=== PATIENT | female | born 1970 | race Caucasian/White ===

== ENCOUNTER 2025-03-25 20:06 | Inpatient (IN) | payer OTHER, BC, SELFPAY ==
--- OUTSIDE RECORDS SUMMARY | 2025-03-01 09:00 | XMS_ITS | Encounter Summary ---
Author Organization [facility] Address [address] [place] [address] Care Team Providers Care Entertainer & Comic Name Role Phone Won Franz MD Unavailable [phone] No Ref-Primary, Physician Primary Care Provider Moira Burkett MD Unavailable [phone] Molly Viveros MD Unavailable [phone] Liane Lawson MD Unavailable [phone] Reason for Visit * Reason Comments Scleritis Follow Up Anterior scleritis o f both eyes Encounter Details Date Type Department Care Team (Late st Contact Info) Description 03/01/2025 9:00 AM CDT Office Visit [facility] [address] [place] [address] Liane Lawson MD [address] [place] [address] CME (cystoid macular edema), bilateral (Primary Dx); Epiretinal membrane (ERM) of left eye; Anterior scleritis of both eyes; Chronic anterior uveitis of both eyes Social History Tobacco Use Types Packs/Day Years Used Date Smoking Tobacco: Former Cigarettes 0.5 13 0 05/13/1995 - 05/13/2008 Smokeless Tobacco: Never Alcohol Use Standard Drinks/Week Comments Yes 0 (1 standard drink = 0.6 oz pur e alcohol) Humiliation, Afraid, Rape, and Kick questionnair e Answer Date Recorded Within the last year, have y ou been afraid of your partner or ex-partner? No 08/28/2022 Within the last year, have y ou been humiliated or emotionally abused in other ways by your partner or ex-partner? No Within the last year, have y ou been kicked, hit, slapped, or otherwise physically hurt by your partner or ex-partner? No 08/28/2022 Within the last year, have y ou been raped or forced to have any kind of sexual activity by your partner or ex-partner? No 08/28/2022 PHQ-2 Answer Date Recorded PHQ-2 Score 0 03/01/2025 Adolescent Education Answer Date Record ed Getting School Help Needed Not on file 05/14 Comments No Sex and Gender Information Value Date Recorded Sex Assigned at Female 12/05/2021 10:23 AM CDT Legal Sex Female 4:36 AM GALLERY OR MUSEUM GUIDE Gender Identity Female 12/05/2021 10:23 AM CDT Sexual Orientation Not on file documented as of this encounter Progress Notes * Liane Lawson MD - 03/01/2025 9:00 AM CDT HPI: Sun Reese is a 54 year old female with a history of rheumatoid arthritis here for followup of scleritis/anterior uveitis left eye > right eye and uveitic cystoid macular edema left eye. Mrs. Reese reports no eye concerns or changes today; currently slowly tapering oral prednisone. Vision is good and stable. No eye redness. Ocular/immunosuppressive medications: Humira qwk (started 03.01.18, increased to qweek mid-Aug 2018,interruptions in Sep 2020 around time of COVID-19 vaccination), CellCept 1000 mg in am and 1500 mg in pm (started 11.24.18, increased to 1000 mg twice a day 12.16.18, increased to 1500 mg twice a day 04.24, decreased to 1000/1500 05.09.22), prednisone 3 mg/day, Predforte right eye once daily, Restasistwice a day both eyes, Cosopt two times a day left eye, brimonidine twice a day left eye. IMT managed by Dr. Moira Burkett (rheum). Prior ocular/immunosuppressive medications: Durezol, cyclopentolate (stopped in February 2018), Enbrel (stopped February 2018), timolol, latanoprost, methotrexate (nausea with oral formulation). Ocular history: 1. Chronic anterior uveitis both eyes, Sep 2017 - both eyes became red and painful with blurry vision left eye. - Started shortly after missing about 2 months of Enbrel (Sep 2017), which was held because of chronic/recurrent systemic infections - October 2017: anterior uveitis and episcleritis both eyes and started Predforte q3-4hr both eyes. At the end of October she was prescribed oral prednisone for the ocular inflammation (started at 20-30 mg/day and tapered over 2.5 months). - December/January 2018: eye symptoms were much worse and she had severe, aching pain, which improved with a switch from Predforte to Durezol every hour both eyes in January 2018. - Switched from Enbrel to Humira 7.17.18. 2. Nodular episcleritis both eyes, Sep 2017. 3. Scleritis left eye > right eye. - Superior yellow nodule left eye first seen May 2019 and resolved Jul 2019, per Dr. Bentley Caputo, less worrisome for infection/lymphoma and more likely lipid from leaking vessels/rheumatoid nodule; resolved with increased oral prednisone and switch from Predforte to Durezol. 4. S/p myopic laser in situ keratomileusis (LASIK) both eyes in 2002 5. Pseudophakia both eyes - S/p CEIOL left eye (6.22.21, Franz) s/p YAG capsulotomy left eye (7.19.23, Franz) - S/p CEIOL right eye (8.1.23, Franz) 6. Steroid response right eye. Steroid-induced glaucoma left eye. - S/p Selective laser trabeculoplasty (SLT) left eye (3.8.24, Shelenoitglenna) Medical history: 1. Rheumatoid arthritis, diagnosed at age 26 years. 2. S/p ankle surgery (2011). 3. HTN on lisinopril. Social history: Former smoker (quit in 2007). 2-3 alcoholic beverages/week. No IV drug use. Has a dog as a pet. Patient has never lived outside the [place]. Laboratory/Imaging Results: 02.07.15 and 06.13.18 chest x-rays: both read as within normal limits. 06.02.18 Quantiferon-Tb and Treponemal Ab both normal/negative. Ocular Imagin03.01.25 mac OCT: Right eye: no cystoid macular edema, retinal thickness stable compared to 10.27.24 Left eye: minimal epiretinal membrane, no cystoid macular edema, retinal thickness stable compared to 10.27.24 07.23.23 24-2 garcía visual field (HVF): Right eye: mild, non-specific scattered defects, MD -1.2; PSD 2.0 Left eye: dense nasal loss (superior and inferior), also with inferior arcuate, MD -20.5; PSD 8.6 09.03.2023 retinal nerve fiber layer OCT: Right eye: all segments within normal limits and stable Left eye: thin TS/TI, borderline NS, other segments within normal limits, progression vs 04/2022, stable vs 04/202305.08.22 Optos fluorescein angiography transit left eye: Right eye: mild peripheral vascular leakage, late small vessel leakage, minimal macular leakage. Nooptic nerve head or large vessel leakage. Left eye: Normal transit. Mild peripheral vascular leakage, late small vessel leakage, minimal macular leakage, questionable late optic nerve head leakage. No large vessel leakage. 05.08.22 Optos ICGA transit right eye: no flow voids either eye Impression/Plan: RA-associated chronic scleritis / anterior uveitis (with inflammatory disc edema and retinal thickening) left eye > right eye, with history of uveitic cystoid macular edema both eyes. Quiescent both eyes today. Uveitic cystoid macular edema remains resolved both eyes today. - Continue weekly Humira - Continue CellCept 1000 mg in am and 1500 mg in pm - Continue Predforte once daily right eye - Oral prednisone currently at 3 mg/day (this is lower than patient's pre-CEIOL baseline of 7 mg/day); given extended quiescence, will continue slow taper -> decrease oral prednisone to 2 mg/day - No change to IMT agents today; in future could consider switch to Remicade if additional inflammatory control is required 2. Ocular hypertension right eye, presumed steroid response. Severe stage uveitic glaucoma left eye. There was progression left eye on retinal nerve fiber layer OCT 04/2022 -> 04/2023 (intraocular pressure max was 43 left eye 8.11.23 in setting of topical steroid use after YAG capsulotomy: durezoltwice a day left eye and Cosopt twice a day left eye). - Intraocular pressure left eye higher today than previously; patient seeing Dr. Viveros later today - Continue Cosopt twice a day left eye and brimonidine twice a day left eye 3. Dry eye syndrome both eyes. - Restasis twice a day both eyes 4. Pseudophakia both eyes, doing well. - Monitor Return to uveitis clinic in 3-4 months, V/T/mac OCT Fax to Dr. Burkett. Attending Physician Attestation: Complete documentation of historical and exam elements from today's encounter can be found in the full encounter summary report (not reduplicated in this progress note). I personally obtained the chief complaint(s) and history of present illness. I confirmed and edited as necessary the review of systems, past medical/surgical history, family history, social history, and examination findings as documented by others; and I examined the patient myself. I personallyreviewed the relevant tests, images, and reports as documented above. I formulated and edited as necessary the assessment and plan and discussed the findings and management plan with the patient and family. - Liane Lawson M.D. documented in this encounter Plan of Treatment Upcoming Encounters Date Type Department Care Team (Late st Contact Info) Description 04/12/2025 1:30 PM CDT Office Visit [facility] [place] [id number] [facility] [address] [facility] [address] [place] [address] Francisco Dennis, OD [address] [place] [address] 06/21/2025 9:30 AM GALLERY OR MUSEUM GUIDE Office Visit [facility] [address] [facility] [address] [place] [address] Liane Lawson MD [address] [place] [address] documented as of this encounter Procedures Procedure Name Priority Date/Time Associated Diagnosis Comments OCT RETINA SPECTRALIS OU (BOTH EYE) Routine 03/01/2025 12:44 PM CDT CME (cystoid macular edema), bilateral Epiretinal membrane (ERM) of left eye documented in this encounter Results * OCT Retina Spectralis OU (both eyes) (03/01/2025 12:44 PM CDT) Narrative Liane Lawson MD - 03/01/2025 12:44 PM CDT Performed by: wt . Right Eye Reliability of the test: Good . Findings normal/abnormal: Normal OCT . Interpretation: Normal . Plan: Monitor . Interval: Same . Left Eye Reliability of the test: Good . Findings normal/abnormal: Abnormal OCT . Additional findings: ERM . Interpretation: Retinal disease . Plan: Monitor . Interval: Same . Liane Lawson MD OPHTHALMOLOGY Final Res ult documented in this encounter Visit Diagnoses Diagnosis CME (cystoid macular edema), bilateral- Primary Epiretinal membrane (ERM) of left eye 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 Chronic anterior uveitis of both eyes documented in this encounter Additional Health Concerns Assessment Noted Time PHQ-9 Depression Total Score: 0 05/30/20 21 11:17 AM CDT documented as of this encounter Care Teams Entertainer & Comic Relationship Specialty Start Date End Date No Ref-Primary, Physician PCP - General 04/20/18 Won Franz MD [facility]Y [facility] [address] [place], [place] [address] Ophthalmology 04/20/18 Moira Burkett MD ARTHRITIS RHEUM CONSULTS [address] [place] [id number] Rheumatology 05/20/18 Molly Viveros MD [address] [place] [address] [phone] Assigned Surgical Provider 12/06/24 Liane Lawson MD [address] [place] [phone] Ophthalmology 01/25/25 documented as of this encounter
--- OUTSIDE RECORDS SUMMARY | 2025-03-01 12:45 | XMS_ITS | Encounter Summary ---
Author Organization [facility] Address [address] [place] [address]. [place] [address] Care Team Providers Care Criminal Justice Instructor Name Role Phone Won Franz MD Unavailable [phone] No Ref-Primary, Physician Primary Care Provider Moira Burkett MD Unavailable [phone] Molly Viveros MD Unavailable [phone] Liane Lawson MD Unavailable [phone] Reason for Visit * Reason Comments Glaucoma Follow Up Uveitic glaucoma of left eye, severe stage Encounter Details Date Type Department Care Team (Late st Contact Info) Description 03/01/2025 12:45 PM CDT Office Visit [facility] [address] [place] [address] Molly Viveros MD [address] [place] [address] Uveitic glaucoma of left eye, severe stage (Primary Dx); Chronic anterior uveitis of both eyes Social [...] AM CDT Legal Sex Female 4:36 AM COMPRESS MACHINE OPERATOR Gender Identity Female 12/05/2021 10:23 AM CDT Sexual Orientation Not on file documented as of this encounter Progress Notes * Molly Viveros MD - 03/01/2025 12:45 PM CDT 2017 diagnosed with anterior uveitis 2019 developed ocular hypertension left eye Chief Complaint/Presenting Concern: Glaucoma History of Present Illness: Sun Reese is a 54 year old patient who presents for evaluation of glaucoma. Patient was diagnosed with chronic anterior uveitis in 2018 which has been managed by Dr. Lawson. She developed ocular hypertension mostly in the left eye related to topical steroid use starting in 2019 which has been managed by Dr. Lawson. 03/01/2025 Reports left eye vision stable. No visual concerns right eye. No changes from Dr. Lawson appt earlier today. Relevant Past Medical/Family/Social History: Rheumatoid arthritis on Humira and Cellcept Relevant Review of Systems: none relevant Diagnosis: Glaucoma secondary to eye inflammation severe stage left eye 2019 Previous glaucoma surgery/laser: CEIOL left eye 2020 CEIOL right eye 2022 SLT left eye 10/22/23 Maximum intraocular pressure 33/43 Currently Meds: Cosopt BID left eye, Latanoprost at bedtime left eye, Brimonidine BID left eye, Pred forte once daily right eye Family history: negative CCT 567/661 Gonio: open right eye, ?PAS superiorly otherwise open all other quadrants Refractive status: Axial myopia Trauma history: negative Steroid exposure: positive Pred forte once daily right eye, oral Prednisone 7 mg daily Vasospastic disease: Migrane/Raynaud phenomenon: negative A past hemodynamic crisis or Low BP: negative Meds AEs/intolerance: none PMHx: rheumatoid arthritis, does have sulfa allergy (severe itching) Anticoagulants: none OCT Optic Nerve RNFL Spectralis 11/16/24 right eye: normal thickness, mild thinning diffusely compared to last OCT, possibly fluctuating edema? left eye: inferior and superior thinning, progressed since 2021, stable since last OCT Visual field 11/16/24 Right eye - nasal defect Left eye - dense inferior>superior arcuate, very constricted VF Additional Ocular History: Chronic anterior uveitis, both eyes History of scleritis, both eyes Pseudophakia History of Lasik early Plan/Recommendations: Discussed findings with patient. Patient has severe glaucoma secondary to ocular inflammation in the left eye and steroid response in the left eye. Good response to IOP lowering drops, would aim for low teens given severity of the ONH damage. Would avoid filtration surgery and tube shunt surgery given extensive surgery scleral thinning and scleral melt. Discussed options including trial of SLT. Can consider stand-alone iStent vs OMNI or light BLOOD BANK SPECIALIST if IOP is not at goal. s/p left eye SLT October 22, 2023, excellent response IOP todaty elevated left eye, discussed the option of repeat SLT versus Canlopsty/Goniotomy. Patient prefers repeat SLT before proceeding with surgery. Risk and benefit of SLT including the risk of IOP spike discussed with the patient, wishes to proceed. SLT performed today to the left eye, refer to procedure note. Continue uveitis management per Dr. Lawson Continue current medications: Cosopt twice daily in the left eye Brimonidine twice daily in the left eye Latanoprost at bedtime in the left eye (good response) Pred forte once daily right eye RTC 6 weeks [facility], iOP Everett Perez MD Resident Physician, PGY-3 Department of Ophthalmology 03/01/2025 1:14 PM Physician Attestation Attending Physician Attestation: Complete documentation of historical [...] images, and reports as documented above. I personally reviewed the ophthalmic test(s) associated with this encounter, agree with the interpretation(s) as documented by the resident/fellow and have edited the corresponding report(s) as necessary. I formulated and edited as necessary the assessment and plan and discussed the findings and management plan with the patientand any family members present at the time of the visit. Molly Viveros M.D., Glaucoma, March 01, 2025 documented in this encounter Plan of Treatment Upcoming Encounters Date Type Department Care Team (Late st Contact Info) Description 04/12/2025 1:30 PM CDT Office Visit [facility] - [address] [address] Francisco Dennis, OD [address] [place] [address] 06/21/2025 9:30 AM COMPRESS MACHINE OPERATOR Office Visit [facility] - [address] [address] Liane Lawson MD [address] [place] [address] documented as of this encounter Procedures Procedure Name Priority Date/Time Associated Diagnosis Comments SELECTIVE LASER TRABECULOPLASTY (SLT) OS (LEFT EYE) Routine 03/01/2025 3:42 PM CDT Uveitic glaucoma of left eye, 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 documented in this encounter Results * Selective Laser Trabeculoplasty (SLT) OS (left eye) (03/01/2025 3:42 PM CDT) Molly Fuentes MD - 03/01/2025 3:42 PM CDT Brief Operative Note: Date of Service: March 01, 2025 Attending: Molly Viveros M.D. Preoperative diagnosis: Glaucoma, left eye Postoperative diagnosis: same Procedure: Selective laser trabeculoplasty left eye Anesthesia: Topical lidocaine Complications: none After informed consent was obtained, the patient was brought to the [facility] laser room and given one drop of proparacaine. The goniolens was used to view the trabecular meshwork. Selective laser trabeculoplasty was performed 270 degrees using 0.5 mJ for power setting; 80 laser pinon were placed. The patient tolerated the procedure well. There were no complications. The patient was given one drop of Iopodine and was asked to return in one hour for intraocular pressure check. If the intraocular pressure was less than 22, the patient was allowed to leave. Molly Grajeda M.D. was the responsible Attending Physician for this clinic visit. This was performed by myself without complication. Molly Viveros MD OPHTHALMOLOGY Edited Result - Final documented in this encounter Visit Diagnoses Diagnosis Uveitic glaucoma of left eye, severe stage- Primary Chronic anterior uveitis of both eyes documented in this encounter Additional Health Concerns Assessment Noted Time PHQ-9 Depression Total Score: 0 05/30/20 21 11:17 AM CDT documented as of this encounter Care Teams Criminal Justice Instructor Relationship Specialty Start Date End Date No Ref-Primary, Physician PCP - General 04/20/18 Won Franz MD [facility]Y [facility] [address] [place] [address] Ophthalmology 04/20/18 Moira Burkett MD ARTHRITIS RHEUM CONSULTS [address] [place] [address] Rheumatology 05/20/18 Molly Viveros MD [address] [place] [address] [phone] Assigned Surgical Provider 12/06/24 Liane Lawson MD [address] [place] [address] [phone] Ophthalmology 01/25/25 documented as of this encounter
[2025-03-25] VITALS (9 sets, daily range): BP systolic 95–123; BP diastolic 60–82; PULSE 85–101; RESP 14–20; TEMP 37.6; O2SAT 90–95; BMI 26.5
--- OUTSIDE RECORDS SUMMARY | 2025-03-25 20:09 | XMS_ITS | Encounter Summary ---
Author Organization [facility] Address [address] [place] [address] Care Team Providers Care Adjunct Lecturer Name Role Phone Won Franz MD Unavailable [phone] No Ref-Primary, Physician Primary Care Provider Liane Lawson MD Unavailable [phone] Moira Burkett MD Unavailable [phone] Liane Lawson MD Unavailable [phone] Molly Viveros MD Unavailable [phone] Liane Lawson MD Unavailable [phone] Reason for Visit * Reason Comments Medication Refill Encounter Details Date Type Department Care Team (Late st Contact Info) Description 11/22/2019 [facility] [place] [address] [facility] [address] [place] [phone] Liane Lawson MD [address] [place] [id number] Medication Refill Social History Tobacco Use Types Packs/Day Years Used Date Smoking Tobacco: Former Cigarettes 0.5 13 0 05/13/1995 - 05/13/2008 Smokeless Tobacco: Never Alcohol Use Standard Drinks/Week Comments Yes 0 (1 standard drink = 0.6 oz pur e alcohol) PHQ-2 Answer Date Recorded PHQ-2 Score 0 12/16/2018 Comments No Sex and Gender Information Value Date Recorded Sex Assigned at Female 12/05/2021 10:23 AM CDT Legal Sex Female 4:36 AM LICENSED THERAPIST Gender Identity Female 12/05/2021 10:23 AM CDT Sexual Orientation Not on file documented as of this encounter Miscellaneous Notes * Telephone Encounter - Mercy Gray RN - 11/23/2019 7:33 AM CDT predniSONE (DELTASONE) 5 MG tablet Last Written Prescription Date: 10/27/19 Last Fill Quantity:169 # refills: 0 Last Office Visit : 10/27/19 Future Office visit: 12/15/19 Continue oral prednisone at 17.5 mg/day for 2 more weeks, then decrease to 15 mg/day Routing refill request to provider for review/approval because: requested is different from med list. Not on protocol. documented in this encounter Plan of Treatment Upcoming Encounters Date Type Department Care Team (Late st Contact Info) Description 04/12/2025 1:30 PM CDT Office Visit [address] [address] Francisco Dennis, OD [address] [place] [address] 06/21/2025 9:30 AM LICENSED THERAPIST Office Visit [address] [address] Liane Lawson MD [address] [place] [address] documented as of this encounter Visit Diagnoses Diagnosis Chronic anterior uveitis of both eyes Anterior scleritis of left eye Anterior scleritis documented in this encounter Additional Health Concerns Assessment Noted Time PHQ-9 Depression Total Score: 0 04/21/20 19 11:35 AM CDT documented as of this encounter Care Teams Adjunct Lecturer Relationship Specialty Start Date End Date No Ref-Primary, Physician PCP - General 04/20/18 Won Franz MD [facility]Y [facility] [address] [place] [address] Ophthalmology 04/20/18 Liane Lawson MD Ophthalmology 04/20/18 01/24/25 Moira Burkett MD ARTHRITIS RHEUM CONSULTS [address] [address] Rheumatology 05/20/18 Liane Lawson MD [address] [place] [address] Assigned Surgical Provider 06/07/20 Molly Viveros MD [address] [place] [address] Assigned Surgical Provider 12/06/24 Liane Lawson MD [address] [place] [address] Ophthalmology 01/25/25 documented as of this encounter
--- OUTSIDE RECORDS SUMMARY | 2025-03-25 20:09 | XMS_ITS | Clinical Summary ---
Author Organization [facility] Address [address] [place] [address] Care Team Providers Care Science Liaison Name Role Phone Moira Burkett MD Unavailable Sharmin Covington MD Primary Care Provider Allergies Active Allergy Reactions Criticality Noted Date Comments Bupropion 11/07/2004 wellbutrin Sulfasalazine 11/07/2004 Medications adalimumab (HUMIRA PEN) 40 mg/0.8 mL injection See Admin Instructions EVERY WEEK 03/01/20 18 Active cycloSPORINE (RESTASIS) 0.05 % ophthalmic emulsion Place 1 Drop into the eye(s). 10/29/19 19 Active mycophenolate (CELLCEPT) 500 mg tablet TAKE 2 TABS (1000MG) IN THE MORNING AND 2 TABS (1000MG) IN THE EVENING 5 01/11/20 19 Active difluprednate (DUREZOL) 0.05 % ophthalmic emulsion Place 1 Drop into the eye(s). 05/19/20 19 Active durable medical equipment (DME)Indications: Elevated blood pressure reading without diagnosis of hypertension Blood pressure cuff and machine 1 Each 01/28/20 21 Active Additional Information Patient not taking.Reported on 2025 predniSONE (DELTASONE) 5 mg tablet Take 1 Tablet (5 mg) by mouth once daily. 05/08/20 24 Active brimonidine 0.025 % ophthalmic solution Place 1 Drop into left eye once daily. Active rosuvastatin (CRESTOR) 10 mg tabletIndications :Coronary artery calcification Take 1 Tablet (10 mg) by mouth once daily. 90 Tablet 3 05/08/20 24 Active venlafaxine (EFFEXOR XR) 37.5 mg Extended-Release capsuleIndication s:Anxiety,Depress micheal disorder Take 1 Capsule (37.5 mg) by mouth once daily with a meal. Take with food 100 Capsule 3 09/12/19 25 Active amoxicillin 500 mg capsuleIndication s:Acute cough,Fever, unspecified fever cause Take 2 Capsules (1,000 mg) by mouth three times daily for 5 days. 30 Capsule 03/23/20 25 025 Active Active Problems Problem Noted Date Diagnosed Date Cervical cancer screening 09/27/2024 Overview (09/27/2024): 08/2024 NIL/HPV negative. Plan: Pap/HPV due 08/2029. Rheumatoid arthritis(714.0) 11/07/2004 Depressive disorder, not elsewhere classified Resolved Problems Problem Noted Date Diagnosed Date Resolved Date HTN (hypertension) 02/25/2021 Presbyopia 03/12/2017 11/19/2022 Hypermetropia of left eye 03/12/2017 Hyperopic astigmatism of right eye 03/12/2017 11/19/2022 Insufficiency of tear film of both eyes 03/12/2017 11/19/2022 Vitamin D deficiency 10/18/2013 023 Dysthymia 11/24/2012 11/19/2022 Infertility, female 08/07/2011 02/26/20 21 Overview (08/07/2011): Working with ELMER Bustillos Iron deficiency anemia, unspecified 08/27/2009 02/25/2021 Palpitations 09/30/2001 02/25/2021 Encounters Date Type Department Care Team Description 2025 8:25 AM CDT Ancillary Procedure [facility] [address] [place] [address] Arrived 2025 7:55 AM CDT Office Visit [facility] [address] [place] [address] Анна Rangel PA Fever (fever since Wednesday, 102 fever yesterday.); Headache (headache with fever) 2025 Travel from Last 3 Months Immunizations Immunization Administration Dates Next Due COVID-19 vaccine (Moderna 100mcg/0.5mL) PF, MDV 07/23/2021,10/11/2020,09/13/2020 Hepatitis B (Adult) 02/03/2006,11/03/2005 Hepatitis B (Peds) 09/28/2005 INFLUENZA, IIV3 PF (AGE >= 6 MO) 05/16/2024 Influenza, IIV3 (Age >=3 years) 05/16/2024 Influenza, IIV4 05/18/2023,,06/04/2021,2018 MMR 08/12/2011 Pneumococcal Conj 20-valent (Prevnar 20) 09/12/2024 Td (Age >=7 Years) 09/22/2005 Tdap 11/19/2022,09/21/2012 Zoster (Shingrix-RZV, recombinant) 12/11/2024, Family History Medical History Relation Name Comments Hypertension Brother Hyperlipidemia Father Other Father amyloidosis Cancer-breast Maternal Aunt Diabetes Maternal Grandfather Heart Disease Mother Hyperlipidemia Mother Hypertension Mother Cancer-breast Paternal Aunt Diabetes Paternal Grandfather Heart Disease Paternal Grandmother pacema ker Thyroid Disease Paternal Grandmother hypo thyroid Asthma Sister Anesthesia Problem No Family History Blood Disease No Family History Clotting disorder No Family History Relation Name Status Comments Brother Alive Father Maternal Aunt Maternal Grandfather Maternal Grandmother Mother Alive Paternal Aunt Paternal Grandfather Paternal Grandmother Alive Sister Alive Social History Tobacco Use Types Packs/Day Years Used Date Smoking Tobacco: Former Cigarettes 0.5 10 1 8 - 08/2007 Passive Smoke Exposure: Never Smokeless Tobacco: Never Tobacco Cessation:Counseling Given: Not Answered Alcohol Use Standard Drinks/Week Comments Yes 1 (1 standard drink = 0.6 oz pur e alcohol) 2-4 a week PHQ-2 Answer Date Recorded PHQ-2 TOTAL SCORE 0 09/12/2024 Social Connections Answer Date Recorded Do you often feel lonely or isolated from those around you? 0 09/12/2024 Financial Resource Strain Answer Date R ecorded Difficulty of Paying Living Expenses 3 09/12/2024 Difficulty of Paying Living Expenses Not on file 09/12/2024 Food Insecurity Answer Date Recorded Do you worry your food will run out before you are able to buy more? 1 09/12/2024 Transportation Needs Answer Date Record ed Does lack of transportation keep you from medica l appointments? 1 09/12/2024 Does lack of transportation keep you from work, meetings or getting things that you need? 1 09/12/2024 Housing Stability Answer Date Recorded What is your housing situation today? 1 09/12/2024 Utilities Answer Date Recorded Do you have trouble paying f or utilities (for example, heat, electricity, water, phone)? 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 Not on file Not on file Obstetrics History Para Term AB IAB SAB Ectopic Multiple Livin g Live Births 0 0 0 0 0 0 0 0 0 0 Last Filed Vital Signs Vital Sign Reading Time Taken Comments Blood Pressure 112/72 2025 8:04 AM CDT Pulse 83 2025 8:04 AM CDT Temperature 37.6 C (99.7 F) 2025 8:04 AM CDT Respiratory Rate 22 2025 8:08 AM CDT Oxygen Saturation 95% 2025 8:04 AM CDT Inhaled Oxygen Concentration - - Weight 72.8 kg (160 lb 6.4 oz) 09/12/2024 3:06 P M TANNING SALON ATTENDANT Height 164 cm (5' 4.57) 09/12/2024 3:06 PM TANNING SALON ATTENDANT Body Mass Index 27.05 09/12/2024 3:06 PM TANNING SALON ATTENDANT Plan of Treatment Upcoming Encounters Date Type Department Care Team (Late st Contact Info) Description 05/02/2025 3:30 PM CDT Office Visit [facility] [place] [address] [facility] [address] [place] [address] Conrad Hernandez MD [address] [facility] [address] [place] [id number] Health Maintenance Due Date Last Done Comments Hepatitis B series for 19+ ( 3 of 3 - 19+ 3-dose series) 05/06/2006 02/03/2006, 11/03/2005, 09/28/2005 Colonoscopy through age 75 2016 Mammogram for age 45-75 01/22/2024 01/22/20, 03/04/2021, 08/10/2019, Additional history exists COVID-19 vaccine series ( season) 2024 06/10/2022, 07/23/2021, 10/11/2020, Additional history exists Influenza Vaccine (#1) 2025 , 05/16/2024, 05/18/2023, Additional history exists BMI (ht and wt on same day) for age 18+ 09/12/2025 09/12/2024, 05/08/2024, 03/03/2023, Additional history exists Depression screening for age 12+ 09/12/2025 09/12/2024, 11/19/2022, 09/29/2021, Additional history exists Lipids for age 45-75 09/12/2029 09/12/2024, 11/19/2022, 02/25/2021, Additional history exists Pap test for age 21-65 09/12/2029 , 09/12/2024, 10/02/2019, Additional history exists Tetanus booster 11/19/2032 11/19/2022, 01/2013, 09/22/2005 Hepatitis C screening for ag e 18-79 Completed 09/22/2005 HIV for age 15-65 Completed 11/19/2022 Pneumococcal series for age 50+ Completed Zoster (shingles) series for age 50+ Completed 12/11/2024, 09/12/2024 Procedures Procedure Name Priority Date/Time Associated Diagnosis Comments COVID/FLU/RSV PANEL Routine 2025 1 1:41 AM CDT Acute cough Fever, unspecified fever cause XR CHEST 2 VIEWS PA AND LATERAL Routine 2025 8:31 AM CDT Acute cough Fever, unspecified fever cause LIPID PANEL W REFLEX MEASURED LDL Routine 09/12/2024 3:40 PM TANNING SALON ATTENDANT Screening, lipid RISK AND COMPLIANCE ANALYTICS DIRECTOR THIN PREP PAP SCREEN IMAGED Routine 09/12/2024 3:20 PM TANNING SALON ATTENDANT Pap smear for cervical cancer screening XR MAMMO SANJIV BILAT SCREEN Routine 01/21/2023 10:00 AM CDT Encounter for screening mammogram for malignant neoplasm of breast LC HIV-1/O/2, 4TH GENERATION Routine 11/19/2022 10:20 AM CDT Encounter for screening for HIV ANTI HCV Timed 09/22/2005 11:33 AM TANNING SALON ATTENDANT from Last 3 Months or Most Recently Relevant to Health Maintenance Results * COVID/FLU/RSV PANEL (2025 11:41 AM CDT) COVID 19 [facility] Negative Negative 2025 10:04 PM CDT [facility] LAB[facility]ORY INFLUENZA A PCR Negative 10:04 PM CDT [facility] INFLUENZA B PCR Negative 10:04 PM CDT [facility] LAB[facility] Respiratory Syncytial Virus Negative 2025 10:04 PM CDT [facility] TRAL LABORATORY Swab SPECIMEN FROM NASAL FOSSAE / Unknown Non-Blood / Unknown 2025 11:41 AM CDT 2025 11:41 AM CDT us Анна STONE MICROBIOLOGY Final Result [facility] [address] [place] [address], [place] * XR CHEST 2 VIEWS PA AND LATERAL (2025 8:31 AM CDT) Anatomical Region Laterality Modality CHEST, THORAX, Lung, HEART Compu ynes Radiography 2025 7:47 PM CDT Impressions 2025 7:47 PM CDT Dense opacification in the left lung apex, probable pneumonia. However, recommend follow-up chest x-ray upon resolution of clinical symptoms. Dictated by Chris Pierre MD @ 2025 7:47:44 PM (Electronically Signed) Narrative 2025 7:47 PM CDT For Patients: As a result of the Cures Act, medical imaging exams and procedure reports are released immediately into your electronic medical record. You may view this report before your referring provider. If you have questions, please contact your health care provider. INDICATION: Fever, cough TECHNIQUE: Chest 2 views COMPARISON: 06/13/2018 FINDINGS: Consolidative density in the left lung apex measures 4.7 cm. Right lung clear. No pneumothorax. No fracture. Cardiac silhouette nonenlarged. Procedure Note Chris Pierre MD - 2025 For Patients: As a result of the s Act, medical imagingexams and procedure reports are released immediately into your electronicmedical record. You may view this report before your referring provider.If you have questions, please contact your health care provider. INDICATION: Fever, cough TECHNIQUE: Chest 2 views COMPARISON: 06/13/2018 FINDINGS: Consolidative density in the left lung apex measures 4.7 cm. Right lungclear. No pneumothorax. No fracture. Cardiac silhouette nonenlarged. IMPRESSION: Dense opacification in the left lung apex, probable pneumonia. However,recommend follow-up chest x-ray upon resolution of clinical symptoms. Dictated by Chris Pierre MD @ 2025 7:47:44 PM (Electronically Signed) Анна STONE [facility] Final Result * LIPID PANEL W REFLEX MEASURED LDL (09/12/2024 3:40 PM TANNING SALON ATTENDANT) CHOLESTEROL, TOTAL 135 <200 mg/dL [facility] HDL CHOLESTEROL 67 > OR = 50 mg/dL [facility] TRIGLYCERIDES 74 <150 mg/dL [facility] LDL-CHOLESTEROL 53 mg/dL (calc) [facility] Comment: Reference range: <100 Desirable range <100 mg/dL for primary prevention; <70 mg/dL for patients with CHD or diabetic patients with > or = 2 CHD risk factors. LDL-C is now calculated using the Kyle-Cartwright calculation, which is a validated novel method providing better accuracy than the Friedewald equation in the estimation of LDL-C. Kyle SS et al. CALLI. 2013;310(19): 4673-0440 (http://education.Vir2us/faq/PUO138) CHOL/HDLC RATIO 2.0 <5.0 (calc) [facility] NON HDL CHOLESTEROL 68 <130 mg/dL (calc) [facility] Comment: For patients with diabetes plus 1 major ASCVD risk factor, treating to a non-HDL-C goal of <100 mg/dL (LDL-C of <70 mg/dL) is considered a therapeutic option. Blood BLOOD SPECIMEN / Unknown 09/12/2024 3:40 PM TANNING SALON ATTENDANT 09/12/2024 3:40 PM TANNING SALON ATTENDANT Sharmin Covington MD CHEMISTRY Final R esult [facility] [address] [place] [address], [facility] [address] [place] [address] * RISK AND COMPLIANCE ANALYTICS DIRECTOR THIN PREP PAP SCREEN IMAGED (09/12/2024 3:20 PM TANNING SALON ATTENDANT) Case Report Gynecologic Cytology Report Case: [id number] Authorizing Provider: Sharmin Covington MD Collected: 09/12/2024 1520 Ordering Location: [facility] Received: 09/12/2024 1626 Clinic First Screen: Chirag Pradhan Rescreen: Yael Vasquez Specimen: RISK AND COMPLIANCE ANALYTICS DIRECTOR ThinPrep Vial Screening, Cervical 09/27/2024 10:02 AM TANNING SALON ATTENDANT [facility] ENTRAL LABORATORY INTERPRETATION/ RESULT NEGATIVE FOR INTRAEPITHELIAL LESION OR MALIGNANCY (NIL) (none) 09/27/2024 10:02 AM [facility] at [address] TANNING SALON ATTENDANT SPECIMEN ADEQUACY Satisfactory for evaluation Endocervical component present 09/27/2024 10:02 AM [facility] HPV REQUEST HPV and PAP 09/27/2024 10:02 AM [facility] [employer] [facility] ENTRAL LABORATORY Date of LMP Postmenopausal 10:02 AM TANNING SALON ATTENDANT [facility] [employer] [facility] ENTRAL LABORATORY Last Pap Date 10/02/19 09/27/2024 10:02 AM TANNING SALON ATTENDANT [facility] [employer] [facility] ENTRAL LABORATORY Last Pap Result NIL 10:02 AM [facility] [employer] [facility] ENTRAL LABORATORY Abnormal Pap or [place] Bx in last 5 years No 09/27/2024 10:02 AM TANNING SALON ATTENDANT [facility] [employer] [facility] Menstrual Status Postmenopausal 09/27/2024 10:02 AM TANNING SALON ATTENDANT [facility] [employer] [facility] ENTRAL LABORATORY [place] Bx Done Today No 09/27/2024 10:02 AM [facility] [employer] [facility] ENTRAL LABORATORY Additional Information None given 09/27/2024 10:02 AM [facility] [employer] [facility] ENTRAL LABORATORY Comment: Cytology is screened at [facility] - [address], [place] [address] and [facility] - [address] [place] [address] and [facility] - [address] [place] [address] Interpreted at [facility] - [address], [place] [address] Automated Review Successful 09/27/2024 10:02 AM [facility] [employer] [facility] ENTRWY LABORATORY Comment:Specimen processed s uccessfully by automated swabber device, ThinPrep Imaging System, [employer] ANCILLARY TESTING RISK AND COMPLIANCE ANALYTICS DIRECTOR HPV Ordered, Please see separate report 09/27/2024 10:02 AM [facility] [employer] [facility] ENTRWY LABORATORY Note The pap test is a screening technique, not a diagnostic procedure. It is used primarily to screen for squamous cancers and precursor lesions. Published studies have shown that it is subject to both false negative and false positive results. The pap test should not be used as the sole means to diagnose or exclude pre-malignant and malignant lesions. 09/27/2024 10:02 AM TANNING SALON ATTENDANT [facility] EN[facility]AL LABORAT[facility] Other (Cervical) Non-Blood / Unknown 09/12/2024 3:20 PM TANNING SALON ATTENDANT 09/12/2024 4:26 PM TANNING SALON ATTENDANT Sharmin Covington MD PATHOLOGY/CYTOLOGY Nora thomas Result [facility] [address] [place] [address], [place] * XR MAMMO SANJIV BILAT SCREEN (01/21/2023 10:00 AM CDT) Anatomical Region Laterality Modality BREASTS, Breast Left, Breast Right Bilateral Mammography Impressions 01/22/2023 2:13 PM CDT There is no radiographic evidence for malignancy. Recommend annual mammograms. MAMMOGRAM ASSESSMENT: ACR 1 Negative PATIENTS: You will also receive a letter with your examination results in an easy to read format. If you have questions about your results, please contact your referring provider. Narrative 01/22/2023 2:13 PM CDT For Patients: As a result of the Century Cures Act, medical imaging exams and procedure reports are released immediately into your electronic medical record. You may view this report before your referring provider. If you have questions, please contact your health care provider. XR MAMMO SANJIV BILAT SCREEN [[id number]] CLINICAL HISTORY: This is an asymptomatic 52 y.o. patient. INDICATION FOR EXAM: Mammogram Screening. TECHNIQUE: CC & MLO views were obtained. This study was evaluated with the assistance of Computer-Aided Detection. Breast Tomosynthesis was used in interpretation. COMPARISON FILM: [facility] FINDINGS: The breasts are heterogeneously dense, which may obscure small masses. There are no dominant masses, suspicious micro calcifications or areas of architectural distortion. Sharmin Covington MD MAMMO Final R esult * LC HIV-1/O/2, 4TH GENERATION (11/19/2022 10:20 AM CDT) HIV Scr 4th Gen Non Reactive Non Reactive 11/22/2022 11:07 AM CDT [facility] ([facility]) Comment: HIV Negative HIV-1/HIV-2 antibodies and HIV-1 p24 antigen were NOT detected. There is no laboratory evidence of HIV infection. Blood BLOOD SPECIMEN / Unknown Venipuncture / Unknown 11/19/2022 10:20 AM CDT 11/19/2022 10:20 AM CDT Narrative [facility] ([facility]) - 11/22/2022 11:07 AM CDT Performed at: [address] [place] [id number] Live Study Manager: David Jeffers MD, Phone: [phone] us Sharmin Covington MD LABORATORY Final R esult [facility] ([facility]) [address] [place] [address] * ANTI HCV (09/22/2005 11:33 AM TANNING SALON ATTENDANT) Pathologist [facility] ANTI HCV Non-reactiv e [facility] 09/22/2005 11:3 3 AM TANNING SALON ATTENDANT 09/22/2005 7:15 PM TANNING SALON ATTENDANT Narrative [facility] - 09/25/2005 1:34 PM TANNING SALON ATTENDANT Testing Performed By [place], [place] us Viridiana Blankenship MD SEND OUTS Final Result [facility] [address] [place] [address] from Last 3 Months or Most Recently Relevant to Health Maintenance Insurance [facility] NICOLA NORIEGA Care Teams Science Liaison Relationship Specialty [place] [address] [place] [address] PCP - General Family Practice 02/26/21 Moira Burkett MD [address] [facility] [address] [place] [address] Rheumatology 03/13/15
--- OUTSIDE RECORDS SUMMARY | 2025-03-25 20:09 | XMS_ITS | Encounter Summary ---
Author Organization [employer] Address [address] [place] [address] Care Team Providers Care Market Development Trainer Name Role Phone Won Franz MD Unavailable No Ref-Primary, Physician Primary Care Provider Liane Lawson MD Unavailable [phone] Moira Burkett MD Unavailable [phone] Liane Lawson MD Unavailable [phone] Molly Viveros MD Unavailable [phone] Liane Lawson MD Unavailable [phone] Reason for Visit * Reason Onset Date Comments Refill Request 03/27/2023 tmolol maleate ( TIMOPTIC) 0.25 % ophthalmic solution Encounter Details Date Type Department Care Team (Late st Contact Info) Description 03/27/2023 Refill [facility] Eye [place] [id number] [facility] [address] [place] [phone] Liane Lawson MD [address] [place] [id number] Refill Request (tmolol maleate (TIMOPTIC) 0.25 % ophthalmic solution) Social History Tobacco Use Types Packs/Day Years [...] PHQ-2 Answer Date Recorded PHQ-2 Score 0 08/28/2022 Comments No Sex and Gender Information Value Date Recorded Sex Assigned at Female 12/05/2021 10:23 AM CDT Legal Sex Female 4:36 AM MUSIC LIBRARY ASSISTANT Gender Identity Female 12/05/2021 10:23 AM CDT Sexual Orientation Not on file COVID-19 Exposure Response Date Recorded In the last 10 days, have yo u been in contact with someone who was confirmed or suspected to have Coronavirus/COVID-19? No / Unsure 03/26/2023 8:21 AM CDT documented as of this encounter Miscellaneous Notes * Telephone Encounter - Tova Danielle RN - 03/29/2023 11:39 AM CDT timolol maleate (TIMOPTIC) 0.25 % ophthalmic solution The original prescription was discontinued on 11/27/[address] L[address] MD. Place 1 drop into both eyes 2 times daily - Both Eyes 15 mL 4 11/27/2022 02/26/2023 documented in this encounter Plan of Treatment Upcoming Encounters Date Type Department Care Team (Late st Contact Info) Description 04/12/2025 1:30 PM CDT Office Visit [facility] [address] [facility] [address] [place] [address] SonnyFrancisco, OD [address] [place] [address] 06/21/2025 9:30 AM MUSIC LIBRARY ASSISTANT Office Visit [facility] [address] [facility] [address] [place] [address] Liane Lawson MD [address] [place] [address] documented as of this encounter Visit Diagnoses Diagnosis 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 documented in this encounter Additional Health Concerns Assessment Noted Time PHQ-9 Depression Total Score: 0 05/30/20 21 11:17 AM CDT documented as of this encounter Care Teams Market Development Trainer Relationship Specialty Start Date End Date No Ref-Primary, Physician PCP - General 04/20/18 Won Franz MD [facility] [address] [place] [address] Ophthalmology 04/20/18 Liane Lawson MD Ophthalmology 04/20/18 01/24/25 Moira Burkett MD ARTHRITIS [facility]HE[facility] [address] [address] Rheumatology 05/20/18 Liane Lawson MD [address] [place] [address] Assigned Surgical Provider 06/07/20 Molly Viveros MD [address] [place], [place] [address] Assigned Surgical Provider 12/06/24 Liane Lawson MD [address] [place], [place] [address] Ophthalmology 01/25/25 documented as of this encounter
--- OUTSIDE RECORDS SUMMARY | 2025-03-25 20:09 | XMS_ITS | Encounter Summary ---
Author Organization [place] Address [address] [place] [address] Care Team Providers Care Trust Administrator Name Role Phone Won Franz MD Unavailable No Ref-Primary, Physician Primary Care Provider Liane Lawson MD Unavailable [phone] Moira Burkett MD Unavailable [phone] Liane Lawson MD Unavailable [phone] Molly Viveros MD Unavailable [phone] Liane Lawson MD Unavailable [phone] Reason for Visit * Reason Comments Medication Refill PREDNISONE 20 MG TAB LET Encounter Details Date Type Department Care Team (Late st Contact Info) Description 04/28/2019 Refill [facility] [place] 289[address] [facility] [address] [place] [phone] Liane Lawson MD [address] [place] [address] Medication Refill (PREDNISONE 20 MG TABLET) Social History Tobacco Use Types Packs/Day Years [...] AM CDT Legal Sex Female 4:36 AM DOUBLE END TRIMMER Gender Identity Female 12/05/2021 10:23 AM CDT Sexual Orientation Not on file documented as of this encounter Miscellaneous Notes * Telephone Encounter - Rebeca Ambrocio RN - 04/28/2019 12:42 PM CDT PREDNISONE 20 MG TABLET Sig: TAKE 1.5 TABLETS (30MG) BY MOUTH DAILY Last Written Prescription Date: 12-16-18 Last Fill Quantity: 50, # refills: 3 Last Office Visit : 05-01-19 Future Office visit: 05-19-19 Attending: Lulu Last Clinic Note: - Continue oral prednisone at 10 mg/day Routing refill request to provider for review/approval because: Requires provider review Requested med/ current med list does not match clinic note documented in this encounter Plan of Treatment Upcoming Encounters Date Type Department Care Team (Late st Contact Info) Description 04/12/2025 1:30 PM CDT Office Visit [facility] - [address] [place] [phone] Francisco Dennis, OD [address] [place] [address] 06/21/2025 9:30 AM DOUBLE END TRIMMER Office Visit [facility] - [address] [address] Liane Lawson MD [address] [place] [address] documented as of this encounter Visit Diagnoses Diagnosis Chronic anterior uveitis of both eyes - Both Eyes 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 scleritis Dry eye syndrome of both eyes - Both Eyes Epiretinal membrane (ERM) of left eye - Left Eye CME (cystoid macular edema), left - Left Eye documented in this encounter Additional Health Concerns Assessment Noted Time PHQ-9 Depression Total Score: 0 04/21/20 19 11:35 AM CDT documented as of this encounter Care Teams Trust Administrator Relationship Specialty Start Date End Date No Ref-Primary, Physician PCP - General 04/20/18 Won Franz MD [facility] [address] [place] [address] Ophthalmology 04/20/18 Liane Lawson MD Ophthalmology 04/20/18 01/24/25 Moira Burkett MD [facility] [address] [place] [address] [place] [address] Rheumatology 05/20/18 Liane Lawson MD [address] [place] [address] Assigned Surgical Provider 06/07/20 Molly Viveros MD [address] [place] [address] Assigned Surgical Provider 12/06/24 Liane Lawson MD [address] [place] [address] Ophthalmology 01/25/25 documented as of this encounter
--- OUTSIDE RECORDS SUMMARY | 2025-03-25 20:09 | XMS_ITS | Encounter Summary ---
Author Organization [place] Address [address] [place] [address]. [place] [address] Care Team Providers Care Illustrator Set Name Role Phone Won Franz MD Unavailable [phone] No Ref-Primary, Physician Primary Care Provider Moira Burkett MD Unavailable [phone] Molly Viveros MD Unavailable [phone] Liane Lawson MD Unavailable [phone] Reason for Visit * Reason Comments Medication Refill Encounter Details Date Type Department Care Team (Late st Contact Info) Description [facility] [address] [place] [address] Molly Viveros MD [address] [place] [address] [phone] Medication Refill Social History Tobacco Use Types [...] AM CDT Legal Sex Female 4:36 AM CERTIFIED HAND THERAPIST Gender Identity Female 12/05/2021 10:23 AM CDT Sexual Orientation Not on file documented as of this encounter Plan of Treatment Upcoming Encounters Date Type Department Care Team (Late st Contact Info) Description 04/12/2025 1:30 PM CDT Office Visit [facility] [address] [phone] Francisco Dennis, OD [address] [place] [address] 06/21/2025 9:30 AM CERTIFIED HAND THERAPIST Office Visit [address] [address] Liane Lawson MD [address] [place] [address] documented as of this encounter Visit Diagnoses Diagnosis Uveitic glaucoma of left eye, severe stage documented in this encounter Additional Health Concerns Assessment Noted Time PHQ-9 Depression Total Score: 0 05/30/20 21 11:17 AM CDT documented as of this encounter Care Teams Illustrator Set Relationship Specialty Start Date End Date No Ref-Primary, Physician PCP - General 04/20/18 Won Franz MD [facility] [address] [place] [address] Ophthalmology 04/20/18 Moira Burkett MD [facility] [address] [address] Rheumatology 05/20/18 Molly Viveros MD [address] [place] [address] Assigned Surgical Provider 12/06/24 Liane Lawson MD [address] [place] [address] Ophthalmology 01/25/25 documented as of this encounter
--- OUTSIDE RECORDS SUMMARY | 2025-03-25 20:09 | XMS_ITS | Clinical Summary ---
Author Organization [place] Address [address] [place] [address] Care Team Providers Care Swatch Folder Name Role Phone Won Franz MD Unavailable [phone] No Ref-Primary, Physician Primary Care Provider Moira Burkett MD Unavailable Molly Viveros MD Unavailable [phone] Liane Lawson MD Unavailable [phone] Allergies Active Allergy Reactions Criticality Noted Date Comments Bupropion 11/07/2004 wellbutrin Sulfasalazine Itching 03/15/2009 Bupropion Hcl Itching 03/15/2009 Medications adalimumab (HUMIRA) 40 MG/0.8ML pen kit See Admin Instructions EVERY WEEK 03/01/20 18 Active mycophenolate (GENERIC EQUIVALENT) 500 MG tablet Now 3 tablets AM and 3 PM 5 11/23/19 19 Active RESTASIS 0.05 % ophthalmic emulsionIndicat ions:Dry eye syndrome of both eyes Place 1 drop into both eyes 2 times daily 180 mL 3 02/04/20 21 Active venlafaxine (EFFEXOR XR) 37.5 MG 24 hr capsule TAKE 1 CAPSULE (37.5 MG) BY MOUTH ONCE DAILY WITH A MEAL. 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 5 mL 3 05/15/20 24 Active rosuvastatin (CRESTOR) 10 MG tablet Take 1 tablet by mouth daily. 05/08/20 24 Active latanoprost (XALATAN) 0.005 % ophthalmic solutionIndicat ions:Uveitic glaucoma of left eye, severe stage Place 1 drop Into the left eye at bedtime. 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 10 mL 02/29/20 25 Active predniSONE (DELTASONE) 1 MG tabletIndicatio ns:Anterior scleritis of both eyes,CME (cystoid macular edema), bilateral,Chron ic anterior uveitis of both eyes Take 2 tablets (2 mg) by mouth daily. 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 Barraza, [facility] Iron deficiency anemia, unspecified 08/27/2009 Depressive disorder 11/07/2004 Rheumatoid arthritis 11/07/2004 Palpitations 09/30/2001 Resolved Problems Problem Noted Date Diagnosed Date Resolved Date Left ankle pain 11/07/2012 12/31/2012 Other postprocedural status(V45.89) 11/07/2012 12/31/2012 Encounters Date Type Department Care Team Description 03/22/[address] [address] Liane Lawson MD Refill Request (predniSONE (DELTASONE) 1 MG tablet 136 tablet 1 10/27/2024) 03/04/[address] [address] Molly Viveros MD Medication Refill 03/01/2025 12:45 PM CDT Office Visit [address] [address] Molly Viveros MD Uveitic glaucoma of left eye, severe stage (Primary Dx); Chronic anterior uveitis of both eyes 03/01/2025 9:00 AM CDT Office Visit [address] [address] Liane Lawson MD CME (cystoid macular edema), bilateral (Primary Dx); Epiretinal membrane (ERM) of left eye; Anterior scleritis of both eyes; Chronic anterior uveitis of both eyes 03/01/2025 Travel 02/25/2025 [facility] Eye [address] 9[facility] [address] [place] [address] Liane Lawson MD Medication Refill (dorzolamide-timolol (COSOPT) 2-0.5 % ophthalmic solution ) from Last 3 Months Family History Medical History Relation Comments Diabetes Maternal Grandfather Diabetes Paternal Grandfather Cancer No family hx of Glaucoma No family hx of Hypertension No family hx of Macular Degeneration No family hx of Relation Status Comments Maternal Grandfather Paternal Grandfather Social History Tobacco Use Types Packs/Day Years Used Date Smoking Tobacco: Former Cigarettes 0.5 13 0 05/13/1995 - 05/13/2008 Smokeless Tobacco: Never Tobacco Cessation:Counseling Given: Not Answered Alcohol Use Standard Drinks/Week Comments Yes 0 [...] AM CDT Legal Sex Female 4:36 AM ENVELOPE FOLDER Gender Identity Female 12/05/2021 10:23 AM CDT Sexual Orientation Not on file Last Filed Vital Signs Vital Sign Reading Time Taken Comments Blood Pressure 104/62 04/05/2009 4:24 PM CDT Pulse - - Temperature - - Respiratory Rate - - Oxygen Saturation - - Inhaled Oxygen Concentration - - Weight - - Height - - Body Mass Index - - Plan of Treatment Upcoming Encounters Date Type Department Care Team (Late st Contact Info) Description 04/12/2025 1:30 PM CDT Office Visit [facility] - [address] 9[facility] [address] [place] [phone] Francisco Dennis, OD [address] [place], [place] [phone] 06/21/2025 9:30 AM ENVELOPE FOLDER Office Visit [facility] - [address] 9[facility] [address] [place] [phone] Liane Lawson MD [address] [place], [place] [address] Health Maintenance Due Date Last Done Comments ADVANCE CARE PLANNING 1971 ANNUAL REVIEW OF HM ORDERS 1971 CT COLONOGRAPHY 1971 DEPRESSION ACTION PLAN 1971 DIABETES SCREENING 1971 FIT 1971 FLEX SIG 1971 LIPID 1971 sDNA (Cologuard) 1971 COLONOSCOPY 1981 COLORECTAL CANCER SCREENING 1981 HEPATITIS B VACCINE (3 of 3 - 19+ 3-dose series) 05/06/2006 02/03/2006, 11/03/2005, 09/28/2005 PHQ-9 11/28/2021 05/30/2021, 11/16, 02/02/2020, Additional history exists COVID-19 VACCINE ( season) 2024 06/10/2022, 07/23/2021, 10/11/2020, Additional history exists MAMMO SCREENING 01/21/2025 01/21/2023, 03/2023, 03/04/2021, Additional history exists INFLUENZA VACCINE (#1) 2025 , 05/18/2023, 05/04/2022, Additional history exists YEARLY PREVENTIVE VISIT 09/12/2025 09/12/19 25, 11/19/2022, 02/25/2021 PAP 09/12/2027 09/12/2024, 08/17, 10/02/2019, Additional history exists DTAP/TDAP/TD VACCINE (3 - Td or Tdap) 11/19/2032 11/19/2022, 09/21/2012, 09/22/2005 HEPATITIS C SCREENING Completed 09/22/2005 HIV SCREENING Completed 11/19/2022 PNEUMOCOCCAL VACCINE 50+ YEARS Completed 09/12/2024 ZOSTER VACCINE Completed 12/11/2024, 09/12/2024 HPV VACCINE (No Doses Required) Completed MENINGITIS VACCINE Aged Out No longer eligible based on patient's age to complete this topic Procedures Procedure Name Priority Date/Time Associated Diagnosis Comments SELECTIVE LASER TRABECULOPLASTY (SLT) OS (LEFT EYE) Routine 03/01/2025 3:42 PM CDT Uveitic glaucoma of left eye, 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 OCT RETINA SPECTRALIS OU (BOTH EYE) Routine 03/01/2025 12:44 PM CDT CME (cystoid macular edema), bilateral Epiretinal membrane (ERM) of left eye ALT (EXTERNAL RESULT) Routine 12/25/2024 2:19 PM CDT AST (EXTERNAL RESULT) Routine 12/25/2024 2:19 PM CDT CREATININE (EXTERNAL RESULT) Routine 12/25/2024 2:19 PM CDT LAB RESULT - HIM SCAN 12/25/2024 12:00 AM CDT from Last 3 Months Results * Selective Laser Trabeculoplasty (SLT) OS [...] obtained, the patient was brought to the [facility] laser room and given one drop of [...] Viveros MD OPHTHALMOLOGY Edited Result - Final * OCT Retina Spectralis OU (both eyes) (03/01/2025 12:44 PM CDT) Liane Tracy MD - 03/01/2025 12:44 PM CDT Performed [...] Liane Lawson MD OPHTHALMOLOGY Final Res ult * Creatinine (External Result) (12/25/2024 2:19 PM CDT) Creatinine (External) 0.700 0.500 - 1.050 mg/dL [facility] Blood 12/25/2024 2:19 PM CDT Narrative [facility] - 12/25/2024 2:19 PM CDT [facility] - External Lab Results Provider Outside LAB - HIM EXTERNAL RESULT Final Result [facility] [address] [place] [address], [facility] [phone] * AST (External Result) (12/25/2024 2:19 PM CDT) AST (External) 26 10 - 35 U/L [facility] Blood 12/25/2024 2:19 PM CDT Narrative [facility] - 12/25/2024 2:19 PM CDT [facility] - External Lab Results us Provider Outside LAB - HIM EXTERNAL RESULT Final Result Performing Organization Address City/[facility]/ZIP Co de Phone Number [facility] [place] [address], [facility] [phone] * ALT (External Result) (12/25/2024 2:19 PM CDT) ALT (External) 19 6 - 32 IU/L [facility] Blood 12/25/2024 2:19 PM CDT Narrative [facility] - 12/25/2024 2:19 PM CDT [facility] - External Lab Results us Provider Outside LAB - HIM EXTERNAL RESULT Edite d Result - Final Performing Organization Address City/[facility] Co de Phone Number [facility] [place] [address], [facility] [phone] * Lab Result - HIM Scan (12/25/2024 12:00 AM CDT) 12/25/2024 us Provider Outside NON-BEAKER LAB TESTING Final Result from Last [address] [facility] [employer] [facility] [employer] [facility] [employer] [facility] [employer] Care Teams Swatch Folder Relationship Specialty Start Date End Date No Ref-Primary, Physician PCP - General 04/20/18 Won Franz MD [facility] [address] [place], [place] [phone] Ophthalmology 04/20/18 Moira Burkett MD [facility] [address] [place] [place] [phone] Rheumatology 05/20/18 Molly Viveros MD [address] [place] [address] Assigned Surgical Provider 12/06/24 Liane Lawson MD [address] [place] [address] Ophthalmology 01/25/25
--- OUTSIDE RECORDS SUMMARY | 2025-03-25 20:09 | XMS_ITS | Encounter Summary ---
Author Organization [place] Address [address] [place] [address]. [place] [address] Care Team Providers Care Medical Assistant Instructor Name Role Phone Won Franz MD Unavailable No Ref-Primary, Physician Primary Care Provider Moira Burkett MD Unavailable [phone] Molly Viveros MD Unavailable [phone] Liane Lawson MD Unavailable [phone] Reason for Visit * Reason Comments Medication Refill dorzolamide-timolol (COSOPT) 2-0.5 % ophthalmic solution Encounter Details Date Type Department Care Team (Late st Contact Info) Description 02/25/2025 Refill [facility] Eye [address] [place] [address] Liane Lawson MD [address] [place] [phone] Medication Refill (dorzolamide-timolol (COSOPT) 2-0.5 % ophthalmic solution ) Social History Tobacco Use Types Packs/Day Years [...] AM CDT Legal Sex Female 4:36 AM DINING SERVICES DIRECTOR Gender Identity Female 12/05/2021 10:23 AM CDT Sexual Orientation Not on file documented as of this encounter Miscellaneous Notes * Telephone Encounter - Rebeca Ambrocio RN - 02/28/2025 9:13 AM CDT Requested and Last Written Prescription: dorzolamide-timolol (COSOPT) 2-0.5 % ophthalmic solution 10 mL 11 02/04/2024 -- No Sig - Route: Place 1 drop Into the left eye 2 times daily - Left Eye Last Visit Date: 11-16-24 Future Visit Date: 03-01-25 11-16-24 Sheheitli:Cosopt twice daily in the left eye Refill decision: [x] Medication refilled per ???Medication Refill in Mainframe Consultant?? policy. Eye protocol Request from pharmacy: Requested Prescriptions Pending Prescriptions Disp Refills dorzolamide-timolol (COSOPT) 2-0.5 % ophthalmic solution [Pharmacy Med Name: DORZOLAMIDE-TIMOLOL EYE DROPS] 10 mL 11 Sig: PLACE 1 DROP INTO THE LEFT EYE 2 TIMES DAILY. 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 documented in this encounter Additional Health Concerns Assessment Noted Time PHQ-9 Depression Total Score: 0 05/30/20 21 11:17 AM CDT documented as of this encounter Care Teams Medical Assistant Instructor Relationship Specialty Start Date End Date No Ref-Primary, Physician PCP - General 04/20/18 Won Franz MD [facility] [address] [place] [address] Ophthalmology 04/20/18 Moira Burkett MD [facility] [address] [place] [place] [address] Rheumatology 05/20/18 Molly Viveros MD [address] [place] [address] Assigned Surgical Provider 12/06/24 Liane Lawson MD [address] [place] [address] Ophthalmology 01/25/25 documented as of this encounter
--- OUTSIDE RECORDS SUMMARY | 2025-03-25 20:09 | XMS_ITS | Encounter Summary ---
Author Organization [place] Address [address] [place] [address] Care Team Providers Care Director Industrial Relations Name Role Phone Won Franz MD Unavailable [phone] No Ref-Primary, Physician Primary Care Provider Liane Lawson MD Unavailable [phone] Moira Burkett MD Unavailable [phone] Liane Lawson MD Unavailable [phone] Molly Viveros MD Unavailable [phone] Liane Lawson MD Unavailable [phone] Reason for Visit * Reason Comments Medication Refill DIFLUPREDNATE 0.05% EYE DROP Encounter Details Date Type Department Care Team (Late st Contact Info) Description [facility] [address] [facility] [address] [place] [phone] Liane Lawson MD [address] [place] [address] [phone] Medication Refill (DIFLUPREDNATE 0.05% EYE DROP) Social History Tobacco Use Types Packs/Day Years [...] AM CDT Legal Sex Female 4:36 AM HOME CARE AIDE Gender Identity Female 12/05/2021 10:23 AM CDT Sexual Orientation Not on file documented as of this encounter Miscellaneous Notes * Telephone Encounter - Rebeca Ambrocio RN - 10/25/2022 9:23 AM CDT Medication: DIFLUPREDNATE 0.05% EYE DROP Requested directions: PLACE 1 DROP INTO BOTH EYES 4 TIMES DAILY. Current directions on the medication list: same Last Written Prescription Date: 05-08-22 Last Fill Quantity: 5 ml , # refills: 3 Last Office Visit: 08-28-22 Future Office visit: 11-27-22 Attending Provider: Lulu Last Clinic Note: Continue Durezol right eye once daily and left eye three times a day Routing refill request to provider for review/approval because: Not on protocol Requires provider review Inconsistent dose/directions Current med list and clinic note do not match documented in this encounter Plan of Treatment Upcoming Encounters Date Type Department Care Team (Late st Contact Info) Description 04/12/2025 1:30 PM CDT Office Visit [facility] [address] [facility] [address] [facility] [address] [place] [address] Sonny Francisco, OD [address] [place] [address] 06/21/2025 9:30 AM HOME CARE AIDE Office Visit [facility] [address] [place] [address] Liane Lawson MD [address] [place], [place] [phone] documented as of this encounter Visit Diagnoses Diagnosis CME (cystoid macular edema), bilateral Epiretinal membrane (ERM) of left eye 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 documented in this encounter Additional Health Concerns Assessment Noted Time PHQ-9 Depression Total Score: 0 05/30/20 21 11:17 AM CDT documented as of this encounter Care Teams Director Industrial Relations Relationship Specialty Start Date End Date No Ref-Primary, Physician PCP - General 04/20/18 Won Franz MD [facility] [address] [place] [address] Ophthalmology 04/20/18 Liane Lawson MD Ophthalmology 04/20/18 01/24/25 Moira Burkett MD [facility] [address] [address] Rheumatology 05/20/18 Liane Lawson MD [address] [place] [address] Assigned Surgical Provider 06/07/20 Molly Viveros MD [address] [place] [phone] Assigned Surgical Provider 12/06/24 Liane Lawson MD [address] [place] [address] Ophthalmology 01/25/25 documented as of this encounter
--- OUTSIDE RECORDS SUMMARY | 2025-03-25 20:09 | XMS_ITS | Encounter Summary ---
Author Organization [facility] Address [address] [place] [address] Care Team Providers Care Fountain Attendant Name Role Phone Won Franz MD Unavailable [phone] Ref-Primary, Physician Primary Care Provider Liane Lawson MD Unavailable [phone] Moira Burkett MD Unavailable [phone] Liane Lawson MD Unavailable [phone] Molly Viveros MD Unavailable [phone] Liane Lawson MD Unavailable [phone] Encounter Details Date Type Department Care Team (Late st Contact Info) Description 12/23/2020 [facility] Eye [address] [place] [address] [facility] Social History Tobacco Use Types Packs/Day Years Used Date Smoking Tobacco: Former Cigarettes 0.5 13 0 05/13/1995 - 05/13/2008 Smokeless Tobacco: Never Alcohol Use Standard Drinks/Week Comments Yes 0 (1 standard drink = 0.6 oz pur e alcohol) PHQ-2 Answer Date Recorded PHQ-2 Score 0 12/13/2020 Comments No Sex and Gender Information Value Date Recorded Sex Assigned at Female 12/05/2021 10:23 AM CDT Legal Sex Female 4:36 AM CABIN OUTFITTER Gender Identity Female 12/05/2021 10:23 AM CDT Sexual Orientation Not on file COVID-19 Exposure Response Date Recorded In the last month, have you been in contact with someone who was confirmed or suspected to have Coronavirus / COVID-19? No / Unsure 12/13/2020 11:09 AM CDT documented as of this encounter Plan of Treatment Upcoming Encounters Date Type Department Care Team (Late st Contact Info) Description 04/12/2025 1:30 PM CDT Office Visit [address] [phone] Francisco Dennis, OD [address] [place] [address] 06/21/2025 9:30 AM CABIN OUTFITTER Office Visit [address] [phone] Liane Lawson MD [address] [place] [address] documented as of this encounter Visit Diagnoses Not on filedocumented in this encounter Additional Health Concerns Assessment Noted Time PHQ-9 Depression Total Score: 0 12/14/19 21 11:19 AM CDT documented as of this encounter Care Teams Fountain Attendant Relationship Specialty Start Date End Date No Ref-Primary, Physician PCP - General 04/20/18 Won Franz MD [facility] [address] [place] [address] Ophthalmology 04/20/18 Liane Lawson MD Ophthalmology 04/20/18 01/24/25 Moira Burkett MD ARTHRITIS RHEUM CONSULTS [address] [place], [place] [phone] Rheumatology 05/20/18 Liane Lawson MD [address] [place] [address] [phone] Assigned Surgical Provider 06/07/20 Molly Viveros MD [address] [place] [address] [phone] Assigned Surgical Provider 12/06/24 Liane Lawson MD [address] [place] [address] [id number] Ophthalmology 01/25/25 documented as of this encounter
--- OUTSIDE RECORDS SUMMARY | 2025-03-25 20:09 | XMS_ITS | Encounter Summary ---
Author Organization [facility] Address [address] [place] [address] Care Team Providers Care Data Migration Consultant Name Role Phone Won Franz MD Unavailable [phone] No Ref-Primary, Physician Primary Care Provider Liane Lawson MD Unavailable [phone] Moira Burkett MD Unavailable [phone] Liane Lawson MD Unavailable [phone] Molly Viveros MD Unavailable [phone] Liane Lawson MD Unavailable [phone] Reason for Visit * Reason Comments Medication Refill PREDNISONE 5 MG TABL ET Encounter Details Date Type Department Care Team (Late st Contact Info) Description 02/16/2021 Refill [facility] [place] 306136 [facility] [address] [place] [phone] Liane Lawson MD [address] [place] [address] Medication Refill (PREDNISONE 5 MG TABLET) Social History Tobacco Use Types [...] AM CDT Legal Sex Female 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 No / Unsure 02/07/2021 11:54 AM CDT documented as of this encounter Miscellaneous Notes * Telephone Encounter - Mariangel Hickey RN - 02/17/2021 5:18 PM CDT Medication: PREDNISONE 5 MG TABLET Requested directions: Take 3 tablets (15 mg) by mouth daily 15 mg daily Current directions on the medication list: same Last Written Prescription Date: 09/06/20 Last Fill Quantity: 90, # refills: 2 Last Office Visit: 02/07/21 Future Office visit: 02/21/21 Attending Provider: Lulu Last Clinic Note: Impression/Plan: 1. 3 days s/p Cataract extraction/IOL left eye. Great surgical outcome. - Tomorrow decrease oral prednisone to 40 mg/day as planned, then after 1 week decrease to 20 mg/day. Keep at 20 mg/day until next uveitic clinic visit. - Continue Durezol left eye four times a day. Recommend continuing this dose unless intraocular pressure becomes difficult to control - Continue Prolensa left eye qday - May stop Polytrim when directed by Dr. Franz 2. 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 Infectious workup was negative. Viral etiology is a possibility given the sluggish and asymmetric pupillary responses but less likely given bilaterality and lack of TIDs; most likely autoimmune. - Continue weekly Humira - Continue CellCept 1500 mg twice a day - Continue Durezol left eye as above - Oral prednisone: continue as above (presurgical baseline was 10 mg/day) - Anticipate that slight subretinal fluid right eye will improve with perioperative prednisone burst - No change to IMT today; in future could consider switch to Remicade Routing refill request to provider for review/approval because: Not on protocol Requires provider review Inconsistent dose/directions No changes made to requested refill documented in this encounter Plan of Treatment Upcoming Encounters Date Type Department Care Team (Late st Contact Info) Description 04/12/2025 1:30 PM CDT Office Visit [address] [phone] Francisco Dennis, OD [address] [place] [address] 06/21/2025 9:30 AM OUTSIDE DEALER SALES REPRESENTATIVE Office Visit [address] [phone] Liane Lawson MD [address] [place] [address] documented as of this encounter Visit Diagnoses Diagnosis 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 CME (cystoid macular edema), left Chronic anterior uveitis of both eyes documented in this encounter Additional Health Concerns Assessment Noted Time PHQ-9 Depression Total Score: 0 12/14/19 21 11:19 AM CDT documented as of this encounter Care Teams Data Migration Consultant Relationship Specialty Start Date End Date No Ref-Primary, Physician PCP - General 04/20/18 Won Franz MD OPHTHALMOLOGY PA [address] [place] [address] Ophthalmology 04/20/18 Liane Lawson MD Ophthalmology 04/20/18 01/24/25 Moira Burkett MD ARTHRITIS RHEUM CONSULTS [address] [place], [place] [address] Rheumatology 05/20/18 Liane Lawson MD [address] [place] [address] [phone] Assigned Surgical Provider 06/07/20 Molly Viveros MD [address] [place] [address] Assigned Surgical Provider 12/06/24 Liane Lawson MD [address] [place] [address] [phone] Ophthalmology 01/25/25 documented as of this encounter
--- OUTSIDE RECORDS SUMMARY | 2025-03-25 20:09 | XMS_ITS | Encounter Summary ---
Author Organization [facility] Address [address] [place] [address] Care Team Providers Care Telephone Exchange Operator Name Role Phone Won Franz MD Unavailable No Ref-Primary, Physician Primary Care Provider Moira Burkett MD Unavailable [phone] Molly Viveros MD Unavailable [phone] Liane Lawson MD Unavailable [phone] Reason for Visit * Reason Comments Refill Request predniSONE (DELTASON E) 1 MG tablet 136 tablet 1 10/27/2024 Encounter Details Date Type Department Care Team (Late st Contact Info) Description 03/22/2025 Refill [facility] Eye [address] 9[facility] Clin [address] [place] [phone] Liane Lawson MD [address] [place] [address] [phone] Refill Request (predniSONE (DELTASONE) 1 MG tablet 136 tablet 1 10/27/2024) Social History Tobacco Use Types Packs/Day Years [...] AM CDT Legal Sex Female 4: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 Gender Identity Female 12/05/2021 10:23 AM CDT Sexual Orientation Not on file documented as of this encounter Miscellaneous Notes * Telephone Encounter - Kendra Silva RN - 2025 12:39 PM CDT Last Written Prescription: predniSONE (DELTASONE) 1 MG tablet 136 tablet 1 10/27/2024 Last Visit Date: 03/01/25 Future Visit Date: 06/21/25 Refill decision: [x] Medication unable to be refilled by RN due to: Medication not included in refill protocol policy Request from pharmacy: Requested Prescriptions Pending Prescriptions Disp Refills predniSONE (DELTASONE) 1 MG tablet [Pharmacy Med Name: PREDNISONE 1 MG TABLET] 136 tablet 1 Sig: TAKE 3 TABLETS BY MOUTH DAILY There is no refill protocol information for this order documented in this encounter Plan of Treatment Upcoming Encounters Date Type Department Care Team (Late st Contact Info) Description 04/12/2025 1:30 PM CDT Office Visit [facility] Eye [facility] [place] [phone] [facility] 9[facility] [address] [place] [address] Francisco Dennis, OD [address] [place] [address] 06/21/2025 9:30 AM PSYCHIATRY ADULT PHYSICIAN [facility] [address] [facility] 9th [facility] [address] [place] [phone] Liane Lawson MD [address] [place] [address] 154015 documented as of this encounter Visit Diagnoses Diagnosis 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 CME (cystoid macular edema), 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 documented in this encounter Additional Health Concerns Assessment Noted Time PHQ-9 Depression Total Score: 0 05/30/20 21 11:17 AM CDT documented as of this encounter Care Teams Telephone Exchange Operator Relationship Specialty Start Date End Date No Ref-Primary, Physician PCP - General 04/20/18 Won Franz MD OPHTHALMOLOGY PA [address] [place], [place] [address] Ophthalmology 04/20/18 Moira Burkett MD ARTHRITIS RHEUM CONSULTS [address] [place] [address]125 Rheumatology 05/20/18 Molly Viveros MD [address] [place] [address] Assigned Surgical Provider 12/06/24 Liane Lawson MD [address] [place] [address] Ophthalmology 01/25/25 documented as of this encounter
--- OUTSIDE RECORDS SUMMARY | 2025-03-25 20:09 | XMS_ITS | Patient Health Record ---
Author Organization [facility] Address [address] [place] [address] Support Name Relationship Address Phone Sun Reese Guarantor Unknown [phone] Allergies Allergen (clinical drug ingredient) Drug/Non Drug Allergy documented on EMR Reaction Allergy Type Onset Date Status sulfadiazine SulfADIAZINE Itching Drug Allergy A ctive Wellbutrin Itching Drug Allergy Active Reason For Referral No Information Medications Medication SIG (Take, Route, Frequency, Duration) Notes Start Date End Date Status Progesterone Micronized 200 MG 1 capsule at bedtime Orally QHS; Duration: 90 days 02/28/2018 Active Ibuprofen 200 MG 1 tablet with food o r milk as needed Orally Three times a day Active prednisoLONE Sodium Phosphate 1 % 1 drop into affected eye Ophthalmic Three times a day Active Humira 20 MG/0.4ML as directed Subcutaneous Active Spironolactone 100 MG 1 tablet Orally On ce a day; Duration: 30 day(s) 04/21/2018 Active Restasis 0.05 % 1 drop into affected eye Ophthalmic Twice a day Active Social History Tobacco Use: Social History Observation Description Date Details (start date - stop date) Never Smoker NA - NA Tobacco Use/Smoking Question Answer Notes Are you a nonsmoker Section Notes: Tobacco: EtOH: Other drugs: Tobacco: EtOH: Other drugs: Problems Problem Type SNOMED Code ICD Code Onset Dates Problem Status W/U Status Risk Notes Problem Female climacteric (N95.1) Active confirmed Plan Of Treatment No Information Insurance Providers Payer Name Payer Address Payer Phone Subscriber Number Group Number Insured Name Patient Relationship to Insured Coverage Start Date Coverage End Date Preferred One PPO [address] [address] [place] [id number] Sun Reese Self - patient is the insured [facility] [address] [address] [place] [address] [id number] Sun Reese Self - patient is the insured Medical (General) History Medical History History ICD Code Arthritis Surgical History Surgery Date(Month/Year) Lasix eye surgery 2002 Lt ankle ligament surgery 2012
--- OUTSIDE RECORDS SUMMARY | 2025-03-25 20:09 | XMS_ITS | Encounter Summary ---
Author Organization [facility] Address [facility] [place] [address] Care Team Providers Care General Science Teacher Name Role Phone Won Franz MD Unavailable No Ref-Primary, Physician Primary Care Provider Liane Lawson MD Unavailable [phone] Moira Burkett MD Unavailable [phone] Liane Lawson MD Unavailable [phone] Molly Viveros MD Unavailable [phone] Liane Lawson MD Unavailable [phone] Reason for Visit * Reason Comments Medication Refill PREDNISONE 20 MG TAB LET Encounter Details Date Type Department Care Team (Late st Contact Info) Description 02/28/2021 Refill [facility] [address] [address] Liane Lawson MD [address] [place] [address] Medication Refill (PREDNISONE 20 MG TABLET) [...] AM CDT Legal Sex 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 No / Unsure 02/21/2021 11:13 AM CDT documented as of this encounter Miscellaneous Notes * Telephone Encounter - Sandy Lara RN - 02/28/2021 7:59 AM CDT PREDNISONE 20 MG TABLET Requested directions: TAKE 3 TABS BY MOUTH DAILY FOR 7 DAYS, THEN 2 TABS DAILY FOR 7 DAYS,1 TAB DAILY FOR 7 DAYS. Current directions on the medication list: TAKE 3 TABS BY MOUTH DAILY FOR 7 DAYS, THEN 2 TABS DAILYFOR 7 DAYS,1 TAB DAILY FOR 7 DAYS. Last Written Prescription Date: 02/14/2021 Last Fill Quantity: 42, # refills: 0 Last Office Visit: 02/21/2021 Future Office visit: 04/11/2021 Attending Provider: Liane Lawson MD Ophthalmology Last Clinic Note: 02/21/2021 Impression/Plan: 1. 2.5 weeks s/p Cataract extraction/IOL left eye. Great surgical outcome. Inflammation well controlled. - Tomorrow decrease oral prednisone to 17.5 mg/day for 2 weeks then 15 mg/day for 2 weeks then 12.5mg/day - Continue Durezol left eye four times a day. Recommend continuing this dose unless intraocular pressure becomes difficult to control - Continue Prolensa left eye qday, plan to continue for ~ 3 months postop ?? 2. Chronic scleritis / anterior uveitis (with [...] above (presurgical baseline was 10 mg/day) - No change to IMT today; in future could consider switch to Remicade ?? 3. History of mildly elevated intraocular pressure left eye. - Intraocular pressure doing well today - Continue timolol left eye every morning while on Durezol ?? 4. Dry eye syndrome both eyes. - Continue Restasis twice a day both eyes (approved for 1 year 7..20) ?? Return to uveitis clinic in 6 wks, V/T/mac OCT both eyes. Fax to Dr. Burkett and Dr. Franz. ?? Routing refill request to provider for review/approval because: Refer to review for Prednisone order for Pt care Sandy Lara RN Central Triage Red Flags/Med Refills documented in this encounter Plan of Treatment Upcoming Encounters Date Type Department Care Team (Late st Contact Info) Description 04/12/2025 1:30 PM CDT Office Visit 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 documented in this encounter Additional Health Concerns Assessment Noted Time PHQ-9 Depression Total Score: 0 12/14/19 21 11:19 AM CDT documented as of this encounter Care Teams General Science Teacher Relationship Specialty Start Date End Date No Ref-Primary, Physician PCP - General 04/20/18 Won Franz MD OPHTHALMOLOGY PA [address] [place], [place] [address] Ophthalmology 04/20/18 Liane Lawson MD Ophthalmology 04/20/18 01/24/25 Moira Burkett MD ARTHRITIS RHEUM CONSULTS [address] [place] [address] [phone] Rheumatology 05/20/18 Liane Lawson MD [address] [place] [address] [phone] Assigned Surgical Provider 06/07/20 Molly Viveros MD [address] [place] [address] [phone] Assigned Surgical Provider 12/06/24 Liane Lawson MD [address] [place] [address] [phone] Ophthalmology 01/25/25 documented as of this encounter
--- OUTSIDE RECORDS SUMMARY | 2025-03-25 20:09 | XMS_ITS | Encounter Summary ---
Author Organization [facility] Address [address] [place] [address] Care Team Providers Care Loading Unit Operator Powder Charging Name Role Phone Won Franz MD Unavailable [phone] No Ref-Primary, Physician Primary Care Provider Liane Lawson MD Unavailable [phone] Moira Burkett MD Unavailable Liane Lawson MD Unavailable [phone] Molly Viveros MD Unavailable [phone] Liane Lawson MD Unavailable [phone] Reason for Visit * Reason Onset Date Comments Refill Request 11/27/2022 difluprednate (D UREZOL) 0.05 % ophthalmic emulsion Encounter Details Date Type Department Care Team (Late st Contact Info) Description 11/27/2022 Refill [facility] [place] [address]226 [facility] [address] [place] [phone] Liane Lawson MD [address] [place] [address] [phone] Refill Request (difluprednate (DUREZOL) 0.05 % ophthalmic emulsion) Social History Tobacco Use Types Packs/Day Years [...] AM CDT Legal Sex Female 4:36 AM LANGUAGE INTERPRETER Gender Identity Female 12/05/2021 10:23 AM CDT Sexual Orientation Not on file COVID-19 Exposure Response Date Recorded In the last 10 days, have yo u been in contact with someone who was confirmed or suspected to have Coronavirus/COVID-19? No / Unsure 11/27/2022 11:06 AM CDT documented as of this encounter Miscellaneous Notes * Telephone Encounter - Mercy Gray RN - 11/29/2022 12:35 PM CDT difluprednate (DUREZOL) 0.05 % ophthalmic emulsion Last Written Prescription Date: 11/27/22 Last Fill Quantity: 5ml, # refills: 1 Last Office Visit : 11/27/22 Future Office visit: 02/26/23 Routing refill request to provider for review/approval because: pharmacy asks for dosing clarification, how many drops in rt and left eye. documented in this encounter Plan of Treatment Upcoming Encounters Date Type Department Care Team (Late st Contact Info) Description 04/12/2025 1:30 PM CDT Office Visit [facility] [place] [id number] [facility] 9[facility] [address] [place] [address] Francisco Dennis, OD [address] [place] [address] 06/21/2025 9:30 AM LANGUAGE INTERPRETER Office Visit [facility] 516 [facility] 9th [facility] [address] [place] [phone] Liane Lawson MD [address] [place] [address] documented as of this encounter Visit Diagnoses Diagnosis CME (cystoid macular edema), bilateral Epiretinal membrane (ERM) of left eye 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 documented in this encounter Additional Health Concerns Assessment Noted Time PHQ-9 Depression Total Score: 0 05/30/20 21 11:17 AM CDT documented as of this encounter Care Teams Loading Unit Operator Powder Charging Relationship Specialty Start Date End Date No Ref-Primary, Physician PCP - General 04/20/18 Won Franz MD [facility]ALMOLOGY [facility] [address] [place] [address] Ophthalmology 04/20/18 Liane Lawson MD Ophthalmology 04/20/18 01/24/25 Moira Burkett MD ARTHRITIS RHEUM CONSULTS [address] [address] Rheumatology 05/20/18 Liane Lawson MD [address] [place] [address] Assigned Surgical Provider 06/07/20 Molly Viveros MD [address] [place] [address] Assigned Surgical Provider 12/06/24 Liane Lawson MD [address] [place] [address] Ophthalmology 01/25/25 documented as of this encounter
--- OUTSIDE RECORDS SUMMARY | 2025-03-25 20:09 | XMS_ITS | Encounter Summary ---
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 Gender Identity Female 12/05/2021 10:23 AM CDT Sexual Orientation Not on file documented as of this encounter Plan of Treatment Upcoming Encounters Date Type Department Care Team (Late st Contact Info) Description 04/12/2025 1:30 PM CDT Office Visit [facility] Eye [address] [address] Francisco Dennis, OD [address] [place] [address] [phone] 06/21/2025 9:30 AM CARBON PAPER COATING SUPERVISOR Office Visit [address] [address] Liane Lawson MD [address] [place] [address] documented as of this encounter Visit Diagnoses Not on filedocumented in this encounter Additional Health Concerns Assessment Noted Time PHQ-9 Depression Total Score: 0 05/30/20 21 11:17 AM CDT documented as of this encounter Care Teams Archival Records Clerk Relationship Specialty Start Date End Date No Ref-Primary, Physician PCP - General 04/20/18 Won Franz MD [facility]ALMOLOGY [facility] [address] [place], [place] 6[address] Ophthalmology 04/20/18 Moira Burkett MD ARTHRITIS RHEUM CONSULTS [address] [place] [address] Rheumatology 05/20/18 Molly Viveros MD [address] [place] [address] [phone] Assigned Surgical Provider 12/06/24 Liane Lawson MD [address] [place] [phone] Ophthalmology 01/25/25 documented as of this encounter
--- NOTE | 2025-03-25 20:41 | ED.NAVMDI ---
HPI - Nausea/Vomiting/Diarrhea General Time Seen by Provider: 20:41 Date Seen: 03/25/25 Chief complaint: Nausea/Vomiting Stated complaint: has pneumonia Time Seen by Provider: 03/25/25 20:41 Source: patient and RN notes reviewed Mode of arrival: wheelchair Limitations: no limitations History of Present Illness HPI Narrative: Sun is a very pleasant 55-year-old female with history of RA currently on Humira due for her does currently, recent diagnosis of pneumonia and unable to keep her antibiotics down a comes to the emergency room for evaluation regarding vomiting an ongoing fevers. Patient notes the onset of flushing of her face on WednesdayMarch 19. Her notices. The following 2 days she was okay until March 22 when she had the onset of fatigue and fevers up to 102.1. She really had no other symptoms at that time. She was seen on WednesdayMarch 23 at which time she had a chest x-ray that showed pneumonia. She was placed on amoxicillin 1 g t.i.d. Unfortunately, she has been unable to keep any of it down as she has had persistent vomiting of medications and fluids. She notes decreased urinary output on the stool for but feels that she has been urinating okay since that time. Unfortunately she has also had continued fevers that have been even higher than 102. She notes no chest pain. She really has not had a significant cough. She denies a sore throat runny nose. She has not been traveling. No known ill contacts. Notes that she had a negative COVID test at the urgent care visit Denies dysuria hematuria unusual rash or known tick bites. Associated nausea: Yes Related Data Home Medications ?Medication ?Instructions ?Recorded ?Confirmed adalimumab 40 mg/0.4 mL 40 mg subcut 06/12/23 06/12/23 subcutaneous pen kit (Humira(CF) Pen) brimonidine 0.15 % eye drops drp ophthalmic (eye) 06/12/23 06/12/23 dorzolamide 22.3 mg-timolol 6.8 ophthalmic (eye) 06/12/23 06/12/23 mg/mL eye drops mycophenolate mofetil 500 mg tablet 1,000 mg PO .AM 06/12/23 03/25/25 mycophenolate mofetil 500 mg tablet 1,500 mg PO .PM 06/12/23 03/25/25 prednisone 1 mg tablet 2 mg PO QDAY 06/12/23 03/25/25 venlafaxine 37.5 mg 37.5 mg PO DAILY 06/12/23 03/25/25 capsule,extended release 24 hr amoxicillin 500 mg capsule mg PO 03/25/25 cyclosporine 0.05 % eye drops in a 1 drp ophthalmic (eye) Q12H 03/25/25 03/25/25 dropperette (Restasis) latanoprost 0.005 % eye drops 1 drp ophthalmic (eye-left) QPM 03/25/25 03/25/25 prednisolone acetate 1 % eye 1 - 2 drp ophthalmic (eye-right) 03/25/25 03/25/25 drops,suspension DAILY rosuvastatin 10 mg tablet 10 mg PO DAILY 03/25/25 03/25/25 Allergies Allergy/AdvReac Type Severity Reaction Status Date / Time bupropion (From Wellbutrin Allergy Verified 03/25/25 20:21 SR) Sulfa (Sulfonamide Allergy Verified 03/25/25 20:21 Antibiotics) Review of Systems Status of ROS: Reports: 10 or more systems reviewed and unremarkable except as noted in History and below Const: Reports: fever, chills and fatigue Eyes: Denies: change in vision ENMT: Denies: throat pain, neck pain, nasal discharge or nasal congestion Cardio: Denies: chest pain, swelling of feet/ankles or shortness of breath with exertion Resp: Reports: cough; Denies: shortness of breath GI: Reports: nausea and vomiting; Denies: abdominal pain or diarrhea : Denies: painful urination Musculo: Denies: neck pain or extremity pain Integ/Breast: Denies: rash or redness Neuro: Reports: headache Endo: Reports: fatigue PFSH PFSH Medical History Shingles ?B02.9 - Zoster without complications (ICD-10) Social History Smoking Status: Unknown if ever smoked Exam Narrative: Exam Narrative: Sun is alert and oriented. She does not appear to be toxic in appearance. External ears eyes nose clear. Oral cavity with moist mucous membranes but there is certainly no excessive saliva. Tonsils are enlarged but there is no erythema or exudate. Neck is supple without lymphadenopathy. Heart with a tachycardic rate but normal rhythm. Lungs are clear on the left but definitely inspiratory crackles noted on the right. Further I did not hear any coughing from this patient until she had to take a deep breath and then this exacerbated the coughing. Abdomen is soft nontender. No right upper quadrant tenderness. Negative Miramontes sign. Lower extremities without edema and there is no obvious rashes. Const: Vital Signs, click to edit/add: Vital Signs - 24 hr 03/25/25 20:12 03/25/25 20:32 03/25/25 20:53 Temperature 99.6 F Pulse Rate 87 Pulse Rate [Pulse Oximeter] 101 H Respiratory Rate 14 18 Blood Pressure 117/80 Blood Pressure [Ri ght Upper Arm] 108/72 Pulse Oximetry 93 93 93 Oxygen Delivery Me thod Room Air Room Air 03/25/25 21:02 03/25/25 21:32 03/25/25 22:02 Temperature Pulse Rate 92 89 85 Pulse Rate [Pulse Oximeter] Respiratory Rate 20 14 Blood Pressure 123/82 118/71 113/68 Blood Pressure [Ri ght Upper Arm] Pulse Oximetry 95 94 93 Oxygen Delivery Me thod Room Air Room Air 03/25/25 23:08 03/25/25 23:32 03/25/25 23:38 Temperature Pulse Rate 86 86 88 Pulse Rate [Pulse Oximeter] Respiratory Rate 14 16 15 Blood Pressure 120/70 98/60 95/64 Blood Pressure [Ri ght Upper Arm] Pulse Oximetry 95 90 92 Oxygen Delivery Me thod Room Air Room Air Documenting provider has reviewed patient's vital signs: yes Course Course ED Course: Differential diagnosis includes but is not limited to sepsis, pneumonia, viral versus bacterial. Will place IV give 1 L of normal saline, Zofran 4 mg. Will check CBC, comprehensive panel, CRP, procalcitonin, lactate. Will repeat chest x-ray COVID/influenza/RSV and collect a urine for urinalysis. I think it is safe to say that patient has not been adequately treated for no her pneumonia since she has been unable to keep her antibiotic down. She continues to have very high fevers. At this time blood pressure is stable but her pulse is elevated and she is describing quite high fevers at home. O2 sats at 93%. Reevaluation(s) Reevaluation #1: Patient notes improvement of the nausea and has been able to keep down water. Patient has an elevated CRP at 8, normal white count of poor 4.51, hemoglobin 11.5, sodium of 131, potassium of 4.2, creatinine of 0.7, lactate normal at 1.6. She had elevated liver function tests with an AST of 140 and ALT of 144 alk-phos of 476 procalcitonin is elevated at 0.61 and urinalysis is without UTI but does show 1+ urinary ketones. COVID influenza RSV negative she strep and legion Beatrice negative. At this time chest x-ray shows left upper lobe infiltrate but I clearly hear right lower lobe crackles. Will obtain CT of the chest PE study as well as abdomen and pelvis. Will give Toradol 15 mg IV for headache. Reevaluation #2: Lipase is normal. Patient has had resolution of her headache. Consultations Consultation #1: I had the pleasure of speaking with Dr. Byers regarding elevated liver enzymes in this patient with pneumonia as well as CT findings which questionable inflammation around the gallbladder which is nondistended versus pancreatitis. At this time but lipase is negative. Doctor Byers will consult in the morning and decide if MRI versus ultrasound is necessary. Vital Signs Vital signs: Initial Vital Signs Temperature 99.6 F 03/25/25 20:12 Temperature Source Temporal Artery Scan 03/25/25 20:12 Pulse Rate 101 H 03/25/25 20:12 Respiratory Rate 14 03/25/25 20:12 Blood Pressure 108/72 03/25/25 20:12 Blood Pressure Mean 84 03/25/25 20:12 Blood Pressure Position Sitting 03/25/25 20:12 Pulse Oximetry 93 03/25/25 20:12 Oxygen Delivery Method Room Air 03/25/25 20:12 Vital Signs Temperature 99.6 F 03/25/25 20:12 Pulse Rate 101 H 03/25/25 20:12 Respiratory Rate 14 03/25/25 20:12 Blood Pressure 108/72 03/25/25 20:12 Pulse Oximetry 93 03/25/25 20:12 Oxygen Delivery Method Room Air 03/25/25 20:12 Temperature 99.6 F 03/25/25 20:12 Pulse Rate 88 03/25/25 23:38 Respiratory Rate 15 03/25/25 23:38 Blood Pressure 95/64 03/25/25 23:38 Pulse Oximetry 92 03/25/25 23:38 Oxygen Delivery Method Room Air 03/25/25 23:32 Medications Administered Medications: Generic Name Dose Route Start Last Admin Trade Name Jackie PRN Reason Stop Dose Admin Sodium Chloride 1,000 mls @ 125 mls/hr 03/25/25 23:54 03/25/25 23:59 0.9 % Sodium Chloride 1000 Ml IV 125 mls/hr .Q8H ROSA MARIA Administration Discontinued Medications Generic Name Dose Route Start Last Admin Trade Name Jackie PRN Reason Stop Dose Admin Sodium Chloride 1,000 mls @ 1,000 mls/hr 03/25/25 21:00 03/25/25 22:55 0.9 % Sodium Chloride 1000 Ml IV 03/25/25 21:59 Infused .Q1H ROSA MARIA Infusion Ceftriaxone Sodium 1 gm/ 100 mls @ 200 mls/hr 03/25/25 21:33 03/25/25 22:55 Sodium Chloride IVPB 03/25/25 21:34 Infused ONCE ONE Infusion Azithromycin 500 mg/ Sodium 255 mls @ 255 mls/hr 03/25/25 21:33 03/25/25 22:57 Chloride IVPB 03/25/25 21:34 255 mls/hr ONCE ONE Administration Ketorolac Tromethamine 15 mg 03/25/25 22:23 03/25/25 22:54 Ketorolac 15 Mg/Ml Inj IVP 03/25/25 22:24 15 mg ONCE ONE Administration Ondansetron HCl 4 mg 03/25/25 20:55 03/25/25 21:21 Ondansetron 2 Mg/Ml Inj IVP 03/25/25 20:56 4 mg ONCE ONE Administration MDM - Nausea/Vomiting/Diarrhea MDM Narrative Medical decision making narrative: 1. Pneumonia-CT confirmed left upper lobe pneumonia. Also small pleural effusion on the left. Legionella and strep antigens negative. Mycoplasma PCR currently pending. Patient had initially been given amoxicillin but had been unable to keep it down this week. Patient is given Rocephin 1 g IV and Zithromax 500 mg IV. No evidence of sepsis at this time with normal lactate. 2. Vomiting-improved with Zofran. Patient was able to tolerate small sips of water. 3. Elevated liver function tests -unclear if this will related to the pneumonia or if she has another underlying process going on. CT of the abdomen did show a nondistended gallbladder with mild wall hyperemia and subtle mesenteric inflammation adjacent to the proximal duodenum, pancreatic head, and inferior gallbladder of uncertain clinical significance. Lipase was negative. In discussion with our surgical consult, patient will be seen in the morning at which time decision regarding further imaging such as MRI versus ultrasound will be made. Noted that patient has no abdominal pain and abdominal exam is benign. 4. Hyponatremia-mild at 0131. IV fluids are given. 1 L in total. Will repeat additional L and then started normal saline at 0125 an hour. 5. Disposition-transfer of care to hospitalist Dr. Chirinos. Medical Records Attestation: I reviewed the patient's medical records. Lab Data Attestation: I reviewed the patient's lab results. Labs: Lab Results 03/25/25 03/25/25 03/25/25 Range/Units 21:04 21:20 23:17 WBC 4.51 (4.50-11.00) K/uL RBC 4.09 (4.00-5.20) m/uL Hgb 11.5 L (12.0-16.0) gm/dL Hct 35.5 (33.0-51.0) % MCV 87 (80-100) fL MCH 28 (26-34) pg MCHC 32 (32-36) gm/dL RDW Coeff of Brandyn 13.4 (11.5-15.5) % Plt Count 166 (140-440) K/uL Neut % (Auto) 62.3 (42.0-72.0) % Lymph % (Auto) 32.6 (20-44) % [place] % (Auto) 3.3 (0.0-11.0) % Eos % (Auto) 0.9 (0.0-7.0) % Baso % (Auto) 0.7 (0.0-3.0) % Neut # (Auto) 2.81 (1.7-7.0) K/uL Lymph # (Auto) 1.47 (0.90-2.90) K/uL [place] # (Auto) 0.10 (0.00-0.90) K/UL Eos # (Auto) 0.04 (0.00-0.50) K/uL Baso # (Auto) 0.03 (0.00-0.30) K/uL Abs Immat Gran (auto) 0.01 (0.00-0.30) K/uL Imm/Tot Granulo (auto) 0.2 % Sodium 131 L (135-149) mmol/L Potassium 4.2 (3.6-5.1) mmol/L Chloride 98 (96-114) mmol/L Carbon Dioxide 25 (20-32) mmol/L Anion Gap 8 (7-15) mEq/L BUN 17 (7-30) mg/dL Creatinine 0.7 (0.5-1.5) mg/dL Estimated Creat Clear 82.67 Estimated GFR 103 ml/min Glucose 106 (60-115) mg/dL Lactate 1.6 (0.5-1.9) mmol/L Calcium 8.9 (8.4-10.6) mg/dL Magnesium 1.8 (1.5-2.6) mg/dL Total Bilirubin 0.8 (0.1-1.5) mg/dL AST 140 H (12-35) U/L ALT 144 H (4-35) U/L Alkaline Phosphatase 476 H (40-150) U/L C-Reactive Protein 8.0 H (0.5-1.0) mg/dL Total Protein 6.8 (6.0-8.3) g/dL Albumin 3.8 (3.3-5.0) g/dL Lipase 154 (23-300) U/L Procalcitonin 0.61 H (<0.50) ng/mL Urine Color [place] A (Yellow) Urine Appearance Clear (Clear) Urine pH 7.0 (5.0-8.5) Ur Specific [place] 1.020 (1.000-1.030) Urine Protein 2+ A (Negative) Urine Glucose (UA) Negative (Negative) Urine Ketones 1+ A (Negative) Urine Blood Trace-intact A (Negative) Urine Nitrite Negative (Negative) Urine Bilirubin 1+ A (Negative) Urine Urobilinogen 4.0 A (0.2-1.0) Ur Leukocyte Esterase Negative (Negative) Urine RBC 0-2 (0-2) Urine WBC 0-2 (0-5) Ur Squamous Epith Cells Few (None-Few) Urine Bacteria Few A (None) Urine L. pneumophilia Ag L. pneumo Negative (Negative) Urine Strep pneumoniae Ag S. pneumo Negative (Negative) SARS-CoV-2 (PCR) Negative SARS-CoV-2 (Negative) Influenza Type A (PCR) Negative PCR FLU A (Negative) Influenza Type B (PCR) Negative PCR FLU B (Negative) RSV (PCR) Negative PCR RSV (Negative) Lab Acknowledgement Test Added Imaging Data Chest x-ray: Attestation: I have reviewed the pertinent imaging results. My impression: Increased lung markings throughout Radiologist's impression: Cardiovascular and mediastinum: Cardiomediastinal silhouette is within normal limits. Lungs and pleural spaces: Left upper lung zone patchy opacities. No pleural effusions or pneumothorax. Bones and soft tissues: No significant findings. IMPRESSION: Left upper lung zone patchy opacities, which may represent pneumonia in the appropriate clinical context. CT scan - chest: Attestation: I have reviewed the pertinent imaging results. My impression: Left upper lobe infiltrate. Pleural effusion noted. Small Radiologist's impression: FINDINGS: Heart and vasculature: Contrast opacification of the pulmonary arterial tree is adequate. No sign of pulmonary embolism. Heart size is normal. Thoracic aorta and pulmonary artery are normal in caliber. Lungs and pleura: Mild pulmonary edema. Focal left upper lobe consolidation. Trace left pleural effusion. No pneumothorax. Lymph nodes/mediastinum: Multiple enlarged mediastinal, left supraclavicular and hilar lymph nodes, possibly reactive. Chest wall: No masses. Upper abdomen: Please refer to same-day CT abdomen/pelvis for further evaluation. Bones: Unremarkable for age. IMPRESSION: No pulmonary embolism. Focal left upper lobe consolidation, likely pneumonia in the appropriate clinical setting. Recommend follow-up study after treatment to evaluate for resolution. Multiple enlarged mediastinal, left supraclavicular and hilar lymph nodes, possibly reactive. These could be followed up with on subsequent studies as well. Mild pulmonary edema with trace left pleural effusion CT scan - abdomen: Attestation: I have reviewed the pertinent imaging results. Radiologist's impression: ower chest: Please refer to same-day CT chest for further evaluation. Liver: Unremarkable. Normal in size and attenuation. No suspicious masses. Gallbladder and bile ducts: Nondistended with mild gallbladder wall hyperemia. No biliary dilatation. Pancreas: Unremarkable. No mass or inflammation. Spleen: Unremarkable. Normal in size. No masses. Adrenal glands: Unremarkable. No nodules. Kidneys: Unremarkable. No suspicious masses, stones, or hydronephrosis. GI tract: Colonic diverticulosis without diverticulitis. Normal in caliber. No sign of mass or inflammation. Normal appendix. Vasculature: Aortoiliac arterial calcifications. Abdominal aorta is normal in caliber. Mesenteric arteries are patent. Lymph nodes: Few mildly enlarged peripancreatic/portal caval lymph nodes. Peritoneum/Abdominal Wall: Subtle mesenteric inflammation adjacent to the proximal duodenum, pancreatic head, and inferior gallbladder (series 2/image 51).. No free air or significant free fluid. Pelvis: Unremarkable. Bones: Unremarkable for age. IMPRESSION: Nondistended gallbladder with mild wall hyperemia and subtle mesenteric inflammation adjacent to the proximal duodenum, pancreatic head, and inferior gallbladder of uncertain clinical significance. No other definite CT evidence of acute cholecystitis or biliary obstruction. Differential includes groove pancreatitis, proximal duodenitis, or early acute cholecystitis/biliary obstruction. Recommend correlation with laboratory values, including lipase. Consider further evaluation with right upper quadrant ultrasound if medically necessary. No drainable fluid collections. Few mildly enlarged peripancreatic/portacaval lymph nodes, possibly reactive. Discharge Plan Discharge Clinical Impression: Hyponatremia, Elevated liver enzymes Pneumonia Qualifiers: Pneumonia type: due to unspecified organism Vomiting Qualifiers: Vomiting type: unspecified Nausea presence: with nausea Qualified Code(s): R11.2 - Nausea with vomiting, unspecified Patient Disposition: Admitted As Inpatient Condition: Improved
--- NOTE | 2025-03-25 20:53 | CRLHL7_ITS ---
For Patients: As a result of the Cures Act, medical imaging exams and procedure reports are released immediately into your electronic medical record. You may view this report before your referring provider. If you have questions, please contact your health care provider. INDICATION: Sepsis. TECHNIQUE: Chest 1 view. COMPARISON: None. FINDINGS: Cardiovascular and mediastinum: Cardiomediastinal silhouette is within normal limits. Lungs and pleural spaces: Left upper lung zone patchy opacities. No pleural effusions or pneumothorax. Bones and soft tissues: No significant findings. IMPRESSION: Left upper lung zone patchy opacities, which may represent pneumonia in the appropriate clinical context. Dictated by Julio Bowser MD @ 03/25/2025 9:18:11 PM (Electronically Signed)
[2025-03-25 21:16] LABS: Appearance Urine Clear (Clear)
[2025-03-25] MEDS: ONDANSETRON 2 MG/ML inj 4 MG IVP (21:21)
[2025-03-25 21:35] LABS: Lactate Sepsis w/Reflex* 1.6 mmol/L (0.5-1.9)
[2025-03-25 21:37] LABS: Hematocrit 35.5 % (33.0-51.0); Hemoglobin* 11.5 gm/dL (12.0-16.0); Immature Granulocytes Abs Auto 0.01 K/uL (0.00-0.30); Immature Granulocytes Pct Auto 0.2 %; Lymphocytes Absolute Auto 1.47 K/uL (0.90-2.90); Mean Corpuscular HGB Conc 32 gm/dL (32-36); Mean Corpuscular Hemoglobin 28 pg (26-34); Mean Corpuscular Volume 87 fL (80-100); RDW Coefficient of Variation % 13.4 % (11.5-15.5); Red Blood Count 4.09 m/uL (4.00-5.20); White Blood Count* 4.51 K/uL (4.50-11.00)
[2025-03-25 21:38] LABS: Slide Review Reflex No
[2025-03-25 21:48] LABS: S pneumo Ag Urine S. pneumo Negative (Negative)
[2025-03-25 21:52] LABS: Albumin* 3.8 g/dL (3.3-5.0); Chloride* 98 mmol/L (96-114); Sodium* 131 mmol/L (135-149)
[2025-03-25 21:53] LABS: Potassium* 4.2 mmol/L (3.6-5.1)
[2025-03-25 21:55] LABS: Alanine Aminotransferase* 144 U/L (4-35); Alkaline Phosphatase* 476 U/L (40-150); Anion Gap 8 mEq/L (7-15); Aspartate Amino Transferase* 140 U/L (12-35); Bilirubin Total* 0.8 mg/dL (0.1-1.5); Blood Urea Nitrogen* 17 mg/dL (7-30); Carbon Dioxide* 25 mmol/L (20-32); Creatinine* 0.7 mg/dL (0.5-1.5); Est. Creatinine Clearance* 82.67; Estimated Glomerular Filt Rate 103 ml/min; Total Protein* 6.8 g/dL (6.0-8.3)
[2025-03-25 21:56] LABS: Calcium* 8.9 mg/dL (8.4-10.6); Glucose* 106 mg/dL (60-115)
[2025-03-25] MEDS: cefTRIAXone 1 GM in 0.9 % SODIUM CHLORIDE Mini-bag 100 ML IVPB (21:59)
[2025-03-25 22:11] LABS: PCR FLU A Negative PCR FLU A (Negative); PCR FLU B Negative PCR FLU B (Negative); PCR RSV Negative PCR RSV (Negative); SARS PCR* Negative SARS-CoV-2 (Negative)
[2025-03-25 22:12] LABS: Procalcitonin* 0.61 ng/mL (<0.50)
--- NOTE | 2025-03-25 22:17 | CRLHL7_ITS ---
For Patients: As a result of the Century Cures Act, medical imaging exams and procedure reports are released immediately into your electronic medical record. You may view this report before your referring provider. If you have questions, please contact your health care provider. INDICATION: . TECHNIQUE: CT chest PE was acquired with 100 cc Omnipaque 350 IV contrast. MIP reconstructions were performed. COMPARISON: None. FINDINGS: Heart and vasculature: Contrast opacification of the pulmonary arterial tree is adequate. No sign of pulmonary embolism. Heart size is normal. Thoracic aorta and pulmonary artery are normal in caliber. Lungs and pleura: Mild pulmonary edema. Focal left upper lobe consolidation. Trace left pleural effusion. No pneumothorax. Lymph nodes/mediastinum: Multiple enlarged mediastinal, left supraclavicular and hilar lymph nodes, possibly reactive. Chest wall: No masses. Upper abdomen: Please refer to same-day CT abdomen/pelvis for further evaluation. Bones: Unremarkable for age. IMPRESSION: No pulmonary embolism. Focal left upper lobe consolidation, likely pneumonia in the appropriate clinical setting. Recommend follow-up study after treatment to evaluate for resolution. Multiple enlarged mediastinal, left supraclavicular and hilar lymph nodes, possibly reactive. These could be followed up with on subsequent studies as well. Mild pulmonary edema with trace left pleural effusion. Please note that all CT scans at this facility use dose modulation, iterative reconstruction, and/or weight-based dosing when appropriate to reduce radiation dose to as low as reasonably achievable. Dictated by Carlton Negron MD @ 03/25/2025 10:55:58 PM (Electronically Signed)
--- NOTE | 2025-03-25 22:17 | CRLHL7_ITS ---
For Patients: As a result of the Century Cures Act, medical imaging exams and procedure reports are released immediately into your electronic medical record. You may view this report before your referring provider. If you have questions, please contact your health care provider. INDICATION: Elevated LFTs. TECHNIQUE: CT abdomen and pelvis acquired with 100 cc Isovue 370 IV contrast. COMPARISON: None. FINDINGS: Lower chest: Please refer to same-day CT chest for further evaluation. Liver: Unremarkable. Normal in size and attenuation. No suspicious masses. Gallbladder and bile ducts: Nondistended with mild gallbladder wall hyperemia. No biliary dilatation. Pancreas: Unremarkable. No mass or inflammation. Spleen: Unremarkable. Normal in size. No masses. Adrenal glands: Unremarkable. No nodules. Kidneys: Unremarkable. No suspicious masses, stones, or hydronephrosis. GI tract: Colonic diverticulosis without diverticulitis. Normal in caliber. No sign of mass or inflammation. Normal appendix. Vasculature: Aortoiliac arterial calcifications. Abdominal aorta is normal in caliber. Mesenteric arteries are patent. Lymph nodes: Few mildly enlarged peripancreatic/portal caval lymph nodes. Peritoneum/Abdominal Wall: Subtle mesenteric inflammation adjacent to the proximal duodenum, pancreatic head, and inferior gallbladder (series 2/image 51).. No free air or significant free fluid. Pelvis: Unremarkable. Bones: Unremarkable for age. IMPRESSION: Nondistended gallbladder with mild wall hyperemia and subtle mesenteric inflammation adjacent to the proximal duodenum, pancreatic head, and inferior gallbladder of uncertain clinical significance. No other definite CT evidence of acute cholecystitis or biliary obstruction. Differential includes groove pancreatitis, proximal duodenitis, or early acute cholecystitis/biliary obstruction. Recommend correlation with laboratory values, including lipase. Consider further evaluation with right upper quadrant ultrasound if medically necessary. No drainable fluid collections. Few mildly enlarged peripancreatic/portacaval lymph nodes, possibly reactive. Please note that all CT scans at this facility use dose modulation, iterative reconstruction, and/or weight-based dosing when appropriate to reduce radiation dose to as low as reasonably achievable. Dictated by Carlton Negron MD @ 03/25/2025 11:06:02 PM (Electronically Signed)
[2025-03-25] MEDS: AZITHROMYCIN 500 MG in 0.9 % SODIUM CHLORIDE 250 ml 250 ML 255 MG IVPB (22:57)
[2025-03-26] VITALS (18 sets, daily range): BP systolic 106–128; BP diastolic 58–79; PULSE 67–101; RESP 16–20; TEMP 36.6–40.1; O2SAT 91–94
--- NOTE | 2025-03-26 00:08 | W.PM.TELEH&P ---
Telehealth- H&P: HPI History of Present Illness Date Seen: 03/26/25 Chief complaint: fever and pneumonia Narrative: Sun Reese is seen as an Interactive Telehealth visit. Sun Reese is a 55 year old female h/o rheumatoid arhtritis on immunosuppressive therapy including mycophenolate and humeria presents with fever and penumonia. On Wednesday or 7 days prior to admission, patient developed a fever and minor dry cough. The following 2 days, she felt fine. On or one day later, she had no energy. she also had temperature of 102. she felt progressively worse. The next day, patient made an appointment with her primary care clinic. She was diagnosed with a pneumonia via CXR and given a prescription for amoxicillin. As soon as she took the pill, patient proceeded to have non bloody non bilious emesis. She could not tolerate food. She denies abdominal pain. No diarrhea. no melena. no hematochezia. Because she continued to vomit and have fevers, patient came to the ER. Of note, she could only take 2 tablets of amoxicillin. she proceeded to vomit with each dose. Her family members have a similar problem. no hematemesis no dark brown emesis +fever +chills +headaches no dizziness no sore throat no runny nose +dry cough no chest pain no shortness of breath no heart palpitations no abdomian pain no diarrhea no constipation no hematochezia no dysuria Social History no smoking ETOH: 2-3 drinks per week no recreational drug use PMhx Rheumatoid arthritis Medications will reconcile Allergies buproprion and Sulfa Review of Systems Status of ROS: Reports: 10 or more systems reviewed and unremarkable except as noted in History and below [facility] Medical History Shingles ?B02.9 - Zoster without complications (ICD-10) Social History What is your current living situation?: I presently have a place to live Problems where you live: no known problems Problems where you live details: n/a In the past 12 months, utilities in danger of being shut off: no In past 12 months, lack of transportation kept you from medical appts, meetings, work, or getting things needed for daily living: no In the past 12 mos, have been you worried that your food would run out before you had money to buy more?: never true In the past 12 mos, the food you bought just didn't last and you didn't have money to buy more?: never true Smoking Status: Former smoker How often do you have a drink containing alcohol: 2-3 times a week How many standard drinks containing alcohol do you have on a typical day: 1 or 2 AUDIT-C Alcohol total score: 3 How often does anyone, including family, friends and others, physically hurt you: never How often does anyone, including family, friends and others, insult or talk down to you: never How often does anyone, including family, friends and others, threaten you with harm: never How often does anyone, including family, friends and others, scream or curse at you: never Meds Home Medications and Allergies Home Medications ?Medication ?Instructions ?Recorded ?Confirmed ?Type adalimumab 40 mg/0.4 mL 40 mg subcut 06/12/23 06/12/23 History subcutaneous pen kit (Humira(CF) Pen) brimonidine 0.15 % eye drops drp ophthalmic (eye) 06/12/23 06/12/23 History dorzolamide 22.3 mg-timolol 6.8 ophthalmic (eye) 06/12/23 06/12/23 History mg/mL eye drops mycophenolate mofetil 500 mg tablet 1,000 mg PO .AM 06/12/23 03/25/25 History mycophenolate mofetil 500 mg tablet 1,500 mg PO .PM 06/12/23 03/25/25 History prednisone 1 mg tablet 2 mg PO QDAY 06/12/23 03/25/25 History venlafaxine 37.5 mg 37.5 mg PO DAILY 06/12/23 03/25/25 History capsule,extended release 24 hr amoxicillin 500 mg capsule mg PO 03/25/25 History cyclosporine 0.05 % eye drops in a 1 drp ophthalmic (eye) Q12H 03/25/25 03/25/25 History dropperette (Restasis) latanoprost 0.005 % eye drops 1 drp ophthalmic (eye-left) QPM 03/25/25 03/25/25 History prednisolone acetate 1 % eye 1 - 2 drp ophthalmic (eye-right) 03/25/25 03/25/25 History drops,suspension DAILY rosuvastatin 10 mg tablet 10 mg PO DAILY 03/25/25 03/25/25 History Allergies Allergy/AdvReac Type Severity Reaction Status Date / Time bupropion (From Wellbutrin Allergy Verified 03/25/25 20:21 SR) Sulfa (Sulfonamide Allergy Verified 03/25/25 20:21 Antibiotics) Allergies/Adverse Reaction Comments: unable to tolerate amoxicillin but can tolerate penicillin Exam Narrative Exam Narrative: Physical Exam GENERAL: ?vital signs reviewed, well developed and nourished, in no distress HEENT: pupils are equal round and reactive to light, extraocular movements are grossly within normal limits and oral mucosa is moist. NECK: Supple without lymphadenopathy or thyromegaly according to nursing staff examination observation HEART: Regular rate and rhythm without any rubs, murmurs, or gallops. LUNGS: Clear to auscultation bilaterally with good air movement throughout ABDOMEN: Observation from nurse assisted exam, abdomen appears soft, nontender, and nondistended with Positive bowel sounds noted. EXTREMITIES: Strength and sensation is observed to be grossly within normal limits in the upper and lower extremities.? No focal strength deficit is observed. SKIN:? Observed warm and dry with color normal Const Vital Signs, click to edit/add: Vital Signs - 24 hr 03/25/25 20:12 03/25/25 20:32 03/25/25 20:53 Temperature 99.6 F Pulse Rate 87 Pulse Rate [Pulse Oximeter] 101 H Respiratory Rate 14 18 Blood Pressure 117/80 Blood Pressure [Right Upper Arm] 108/72 Pulse Oximetry 93 93 93 Oxygen Delivery Method Room Air Room Air 03/25/25 21:02 03/25/25 21:32 03/25/25 22:02 Temperature Pulse Rate 92 89 85 Pulse Rate [Pulse Oximeter] Respiratory Rate 20 14 Blood Pressure 123/82 118/71 113/68 Blood Pressure [Right Upper Arm] Pulse Oximetry 95 94 93 Oxygen Delivery Method Room Air Room Air 03/25/25 23:08 03/25/25 23:32 03/25/25 23:38 Temperature Pulse Rate 86 86 88 Pulse Rate [Pulse Oximeter] Respiratory Rate 14 16 15 Blood Pressure 120/70 98/60 95/64 Blood Pressure [Right Upper Arm] Pulse Oximetry 95 90 92 Oxygen Delivery Method Room Air Room Air [facility] - [facility]: Result Labs Labs: Short CBC 03/25/25 Range/Units 21:20 WBC 4.51 (4.50-11.00) K/uL Hgb 11.5 L (12.0-16.0) gm/dL Hct 35.5 (33.0-51.0) % Plt Count 166 (140-440) K/uL BMP 03/25/25 21:20 Sodium 131 L Potassium 4.2 Chloride 98 Carbon Dioxide 25 BUN 17 Creatinine 0.7 Glucose 106 Calcium 8.9 Liver Function 03/25/25 Range/Units 21:20 Total Bilirubin 0.8 (0.1-1.5) mg/dL AST 140 H (12-35) U/L ALT 144 H (4-35) U/L Alkaline Phosphatase 476 H (40-150) U/L Albumin 3.8 (3.3-5.0) g/dL Urine 03/25/25 Range/Units 21:04 Urine Color Sangeeta A (Yellow) Urine Appearance Clear (Clear) Urine pH 7.0 (5.0-8.5) Ur Specific Twain 1.020 (1.000-1.030) Urine Protein 2+ A (Negative) Urine Glucose (UA) Negative (Negative) Imaging Chest x-ray: Attestation: I have reviewed the pertinent imaging results. Radiologist's impression: Cardiovascular and mediastinum: Cardiomediastinal silhouette is within normal limits. Lungs and pleural spaces: Left upper lung zone patchy opacities. No pleural effusions or pneumothorax. Bones and soft tissues: No significant findings. IMPRESSION: Left upper lung zone patchy opacities, which may represent pneumonia in the appropriate clinical context. I reviewed CXR myself and showed ETD infiltrate Abdominal CT scan IMPRESSION: Nondistended gallbladder with mild wall hyperemia and subtle mesenteric inflammation adjacent to the proximal duodenum, pancreatic head, and inferior gallbladder of uncertain clinical significance. No other definite CT evidence of acute cholecystitis or biliary obstruction. Differential includes groove pancreatitis, proximal duodenitis, or early acute cholecystitis/biliary obstruction. Recommend correlation with laboratory values, including lipase. Consider further evaluation with right upper quadrant ultrasound if medically necessary. No drainable fluid collections. Few mildly enlarged peripancreatic/portacaval lymph nodes, possibly reactive. CTA chest IMPRESSION: No pulmonary embolism. Focal left upper lobe consolidation, likely pneumonia in the appropriate clinical setting. Recommend follow-up study after treatment to evaluate for resolution. Multiple enlarged mediastinal, left supraclavicular and hilar lymph nodes, possibly reactive. These could be followed up with on subsequent studies as well. Mild pulmonary edema with trace left pleural effusion. Please note that all CT scans at this facility use dose modulation, iterative reconstruction, and/or weight-based dosing when appropriate to reduce radiation dose to as low as reasonably achievable. Assessment and Plan Assessment and plan (1) Vomiting: Status: Acute (2) Hyponatremia: Status: Acute (3) Pneumonia: Status: Acute (4) Elevated liver enzymes: Status: Acute Plan 55y/o F h/o rheumatoid arthritis on chronic immunosuppressants presents with fevers likely due to pneumonia (community acquired) Pneumonia: Both Legionella and streptococcus antigen urine testing were negative. Immunosuppressants likely explains lack of leukocytosis. He does have elevated CRP and procal. --continue ceftriaxone/azithromycin --administer incentive spirometry --administer prn albuterol --monitor blood cultures --may need to follow daily CRP vs procalcitonin if WBC does not have any changes --patient may not be able to tolerate amoxicillin. Fortunately, she is able to take penicillins. her mother and sister have the same issue. Patient may need a different antibiotic at discharge. Pulmonary edema (mild) --monitor fluid status closely Elevated transaminases: Etiology could be pneumonia? medications such as tylenol? dehydration? infection? Patient does not have abdominal pain at this time. Imaging is significant for mild gallbladder wall hyperemia and mesenteric inflammation. There is no sign of biliary obstruction at this time. No sign of pancreatitis as there is a lack of abdominal pain and no elevation of lipase. --hydrate patient --monitor liver enzymes --appreciate surgical consult started in ED. Surgery to determine if further imaging is needed Nausea/vomiting: may be due to amoxicillin? vs pneumonia? vs possible gastritis? vs Mesenteric inflammation that is near duodenum, pancreas and gallbladder may be causing nausea/vomiting --administer both scheduled and prn antiemetics --patient may not be able to tolerate amoxicillin. Fortunately, she is able to take penicillins. her mother and sister have the same issue. Patient may need a different antibiotic at discharge. h/o rheumatoid arthritis: treated with immunosuppressive thearpy causes left pupil to no longer constrict --continue mycophenolate, prednisone, and eye drops Code status: Full code per discussion DVT prophy: lovenox Total Time Spent Total Time Spent: camera start time 102am cmera end time 132am Telehealth: Statement Statement Telehealth Visit: Today's History and Physical is provided via interactive telehealth by Shanna Chirinos MD.? Patient is located at [facility].? Provider is located at [facility].? Nursing staff assisted with the patient's exam. The visit being done today meets criteria for a telehealth visit and the patient or patient?s parent/guardian is aware the visit is a telehealth visit.
[2025-03-26] MEDS: 5 % DEXTROSE/0.9% SOD CHLORIDE 1,000 ML 75 ML IV (03:01)
[2025-03-26] MEDS: ACETAMINOPHEN 325 MG TABLET 650 MG PO (05:28)
[2025-03-26] MEDS: SODIUM CHLORIDE 0.9 % (FLUSH) 10 ML SYRINGE 5 ML IVF ×2 (05:34→21:26)
[2025-03-26] MEDS: ONDANSETRON 2 MG/ML inj 4 MG IVP (05:34)
[2025-03-26] MEDS: PIPERACILLIN/TAZOBACTAM 3.375 GM in 0.9 % SODIUM CHLORIDE Mini-bag 100 ML IVPB ×3 (08:06→19:14)
[2025-03-26] MEDS: OMEPRAZOLE 20 MG CAPSULE DR PO (08:07)
[2025-03-26] MEDS: ROSUVASTATIN CALCIUM 10 MG TABLET PO (08:07)
[2025-03-26] MEDS: IBUPROFEN 600 MG TABLET PO ×3 (08:07→22:34)
[2025-03-26] MEDS: BRIMONIDINE 0.15% 1 EACH EYE-BOTH ×2 (08:08→21:20)
[2025-03-26] MEDS: DORZOLAMIDE/TIMOLOL 2-0.5% OPHTH 1 DROP EYE-BOTH ×2 (08:09→21:20)
[2025-03-26] MEDS: prednisoLONE acetate 1 % DROPS 1 DROP EYE-RIGHT (08:10)
[2025-03-26] MEDS: VENLAFAXINE HCL ER 37.5 MG CAPSULE PO (08:11)
--- NOTE | 2025-03-26 08:54 | PC.NURSE ---
Shift note ([id number]): Patient pleasant, alert and oriented. Independent in room. Given PRN Lomotil x1 for reports of one watery tool. Slept well. Denied pain.?
--- NOTE | 2025-03-26 11:40 | PM.GSCN ---
History of Present Illness Consult details Date Seen: 03/26/25 Consult date: 03/26/25 Narrative: Patient presented to the emergency department for fevers, nausea and vomiting. Her symptoms started as shortness of breath on . On Wednesday she started having nausea and vomiting. She went to urgent care where she was diagnosed with a pneumonia and started on amoxicillin. With persistent fevers and shortness of breath she came into the emergency department. She denies having any abdominal pain. No current nausea. She has been tolerating p.o. intake without difficulty. No pain with eating. Patient does have a history of rheumatoid arthritis on immunosuppression. On workup in the emergency department she had elevation of her transaminases and alkaline phosphatase. Bilirubin is within normal limits. CT scan showed no distension of the gallbladder, some mild inflammation around the duo and stomach. Review of Systems Status of ROS: Reports: 6 or more systems reviewed and unremarkable except as noted in History and below [facility] Medical History Shingles ?B02.9 - Zoster without complications (ICD-10) Social History What is your current living situation?: I presently have a place to live Problems where you live: no known problems Problems where you live details: n/a In the past 12 months, utilities in danger of being shut off: no In past 12 months, lack of transportation kept you from medical appts, meetings, work, or getting things needed for daily living: no In the past 12 mos, have been you worried that your food would run out before you had money to buy more?: never true In the past 12 mos, the food you bought just didn't last and you didn't have money to buy more?: never true Smoking Status: Former smoker How often do you have a drink containing alcohol: 2-3 times a week How many standard drinks containing alcohol do you have on a typical day: 1 or 2 AUDIT-C Alcohol total score: 3 How often does anyone, including family, friends and others, physically hurt you: never How often does anyone, including family, friends and others, insult or talk down to you: never How often does anyone, including family, friends and others, threaten you with harm: never How often does anyone, including family, friends and others, scream or curse at you: never Meds Home Medications and Allergies Home Medications ?Medication ?Instructions ?Recorded ?Confirmed ?Type adalimumab 40 mg/0.4 mL 40 mg subcut 06/12/23 06/12/23 History subcutaneous pen kit (Humira(CF) Pen) brimonidine 0.15 % eye drops 1 drp ophthalmic (eye) BID 06/12/23 03/26/25 History dorzolamide 22.3 mg-timolol 6.8 ophthalmic (eye) Q12H 06/12/23 06/12/23 History mg/mL eye drops mycophenolate mofetil 500 mg tablet 1,000 mg PO .AM 06/12/23 03/25/25 History mycophenolate mofetil 500 mg tablet 1,500 mg PO .PM 06/12/23 03/25/25 History prednisone 1 mg tablet 2 mg PO QDAY 06/12/23 03/25/25 History venlafaxine 37.5 mg 37.5 mg PO DAILY 06/12/23 03/25/25 History capsule,extended release 24 hr amoxicillin 500 mg capsule 1,000 mg PO Q8H 03/25/25 03/26/25 History cyclosporine 0.05 % eye drops in a 1 drp ophthalmic (eye) Q12H 03/25/25 03/25/25 History dropperette (Restasis) latanoprost 0.005 % eye drops 1 drp ophthalmic (eye-left) QPM 03/25/25 03/25/25 History prednisolone acetate 1 % eye 1 - 2 drp ophthalmic (eye-right) 03/25/25 03/25/25 History drops,suspension DAILY rosuvastatin 10 mg tablet 10 mg PO DAILY 03/25/25 03/25/25 History Allergies Allergy/AdvReac Type Severity Reaction Status Date / Time bupropion (From Wellbutrin Allergy Verified 03/25/25 20:21 SR) Sulfa (Sulfonamide Allergy Verified 03/25/25 20:21 Antibiotics) Exam Narrative: Exam Narrative: General: Alert and oriented, no acute distress Respiratory: Equal breath rise, maintained on room air CV: Well perfused Abdomen: Soft, nontender and nondistended. Const: Vital Signs, click to edit/add: Vital Signs - 24 hr 03/25/25 20:12 08/10/25 20:32 03/25/25 20:53 Temperature 99.6 F Pulse Rate 87 Pulse Rate [Pulse Oximeter] 101 H Respiratory Rate 14 18 Blood Pressure 117/80 Blood Pressure [Ri ght Arm] Blood Pressure [Ri ght Upper Arm] 108/72 Pulse Oximetry 93 93 93 Oxygen Delivery Me thod Room Air Room Air 03/25/25 21:02 03/25/25 21:32 03/25/25 22:02 Temperature Pulse Rate 92 89 85 Pulse Rate [Pulse Oximeter] Respiratory Rate 20 14 Blood Pressure 123/82 118/71 113/68 Blood Pressure [Ri ght Arm] Blood Pressure [Ri ght Upper Arm] Pulse Oximetry 95 94 93 Oxygen Delivery Me thod Room Air Room Air 03/25/25 23:08 03/25/25 23:32 03/25/25 23:38 Temperature Pulse Rate 86 86 88 Pulse Rate [Pulse Oximeter] Respiratory Rate 14 16 15 Blood Pressure 120/70 98/60 95/64 Blood Pressure [Ri ght Arm] Blood Pressure [Ri ght Upper Arm] Pulse Oximetry 95 90 92 Oxygen Delivery Me thod Room Air Room Air 03/26/25 00:46 03/26/25 00:50 03/26/25 01:00 Temperature 98.5 F Pulse Rate Pulse Rate [Pulse Oximeter] 77 Respiratory Rate 18 17 Blood Pressure Blood Pressure [Ri ght Arm] 107/66 Blood Pressure [Ri ght Upper Arm] Pulse Oximetry 93 93 93 Oxygen Delivery Me thod Room Air Room Air 03/26/25 02:53 03/26/25 04:45 03/26/25 05:28 Temperature 98.4 F 104.2 F H Pulse Rate 96 Pulse Rate [Pulse Oximeter] 89 Respiratory Rate 17 Blood Pressure Blood Pressure [Ri ght Arm] 115/62 Blood Pressure [Ri ght Upper Arm] Pulse Oximetry 91 Oxygen Delivery Me thod Room Air 03/26/25 06:35 03/26/25 07:07 03/26/25 07:30 Temperature 103.0 F H Pulse Rate 99 Pulse Rate [Pulse Oximeter] Respiratory Rate Blood Pressure Blood Pressure [Ri ght Arm] Blood Pressure [Ri ght Upper Arm] Pulse Oximetry 93 Oxygen Delivery Me thod 03/26/25 07:30 03/26/25 07:30 03/26/25 08:07 Temperature 102.5 F H 102.5 F H Pulse Rate Pulse Rate [Pulse Oximeter] 101 H 101 H Respiratory Rate 18 18 Blood Pressure Blood Pressure [Ri ght Arm] 112/58 L Blood Pressure [Ri ght Upper Arm] Pulse Oximetry 93 Oxygen Delivery Me thod Room Air 03/26/25 10:58 Temperature 99.9 F H Pulse Rate Pulse Rate [Pulse Oximeter] Respiratory Rate Blood Pressure Blood Pressure [Ri ght Arm] Blood Pressure [Ri ght Upper Arm] Pulse Oximetry Oxygen Delivery Me thod Results Labs Labs: Abnormal lab results 03/25/25 03/25/25 Range/Units 21:04 21:20 Hgb 11.5 L (12.0-16.0) gm/dL Sodium 131 L (135-149) mmol/L AST 140 H (12-35) U/L ALT 144 H (4-35) U/L Alkaline Phosphatase 476 H (40-150) U/L C-Reactive Protein 8.0 H (0.5-1.0) mg/dL Procalcitonin 0.61 H (<0.50) ng/mL Urine Color Sangeeta A (Yellow) Urine Protein 2+ A (Negative) Urine Ketones 1+ A (Negative) Urine Blood Trace-intact A (Negative) Urine Bilirubin 1+ A (Negative) Urine Urobilinogen 4.0 A (0.2-1.0) Urine Bacteria Few A (None) Diabetes panel 03/25/25 Range/Units 21:20 Sodium 131 L (135-149) mmol/L Potassium 4.2 (3.6-5.1) mmol/L Chloride 98 (96-114) mmol/L Carbon Dioxide 25 (20-32) mmol/L BUN 17 (7-30) mg/dL Creatinine 0.7 (0.5-1.5) mg/dL Glucose 106 (60-115) mg/dL Calcium 8.9 (8.4-10.6) mg/dL AST 140 H (12-35) U/L ALT 144 H (4-35) U/L Alkaline Phosphatase 476 H (40-150) U/L Total Protein 6.8 (6.0-8.3) g/dL Albumin 3.8 (3.3-5.0) g/dL Calcium panel 03/25/25 Range/Units 21:20 Calcium 8.9 (8.4-10.6) mg/dL Albumin 3.8 (3.3-5.0) g/dL Pituitary panel 03/25/25 Range/Units 21:20 Sodium 131 L (135-149) mmol/L Potassium 4.2 (3.6-5.1) mmol/L Chloride 98 (96-114) mmol/L Carbon Dioxide 25 (20-32) mmol/L BUN 17 (7-30) mg/dL Creatinine 0.7 (0.5-1.5) mg/dL Glucose 106 (60-115) mg/dL Calcium 8.9 (8.4-10.6) mg/dL Adrenal panel 03/25/25 Range/Units 21:20 Sodium 131 L (135-149) mmol/L Potassium 4.2 (3.6-5.1) mmol/L Chloride 98 (96-114) mmol/L Carbon Dioxide 25 (20-32) mmol/L BUN 17 (7-30) mg/dL Creatinine 0.7 (0.5-1.5) mg/dL Glucose 106 (60-115) mg/dL Calcium 8.9 (8.4-10.6) mg/dL Total Bilirubin 0.8 (0.1-1.5) mg/dL AST 140 H (12-35) U/L ALT 144 H (4-35) U/L Alkaline Phosphatase 476 H (40-150) U/L Total Protein 6.8 (6.0-8.3) g/dL Albumin 3.8 (3.3-5.0) g/dL All other labs normal. Imaging Abdomen CT scan report/results: report reviewed and image reviewed CT scan - chest: report reviewed and image reviewed Progress Note:A&P Assessment and plan (1) Elevated liver enzymes: Status: Acute Assessment and Plan: Patient with elevated transaminases and alkaline phosphatase. Clinical history is not consistent with acute cholecystitis with patient having a benign abdomen and being asymptomatic in regards to abdominal symptoms at this time. The CT scan does show some mild inflammation around the duo/pancreas/stomach. Suspect a mild gastritis with reported recent emesis. Plan -recommend patient be treated with an IV PPI while in-patient -okay for a diet -trend LFTs -all other cares per hospitalist Could consider a right upper quadrant ultrasound or HIDA scan if patient does develop symptoms. Please call the on-call surgeon with any acute clinical changes.
[2025-03-26] MEDS: ACETAMINOPHEN 500 MG TABLET 1000 MG PO ×2 (11:44→19:53)
--- NOTE | 2025-03-26 16:35 | P.IMPN_ITS ---
Assessment and Plan Assessment and plan (1) Pneumonia: Problem comment: Likely the cause of her current illness. Infectious etiology uncertain. Clinically improving on Zosyn and azithromycin Status: Acute (2) Elevated liver enzymes: Problem comment: Probably related to pneumonia/infection rather than primary hepatobiliary disease. Continue to monitor with Status: Acute (3) Vomiting: Problem comment: Related to acute illness, improving Status: Acute (4) Hyponatremia: Problem comment: Related to acute illness, trend Status: Acute (5) Immunocompromised patient: Problem comment: Medications for treatment of rheumatoid arthritis include prednisone, mycophenolate, adalimumab. Monitor for complicating illnesses or opportunistic infections Status: Acute (6) Rheumatoid arthritis: Problem comment: Temporary hold on Humira. Low-dose prednisone probably does not require stress dose steroids Status: Acute Plan Continue in-hospital for monitoring with IV antibiotics and monitoring of vital signs and blood tests. Total Time Spent Total Time Spent: Total time spent today is 65 minutes in reviewing outside records, coordination of care and discussion with patient and other providers ongoing management of pneumonia and abnormal liver enzymes. Subjective Date Seen: 03/26/25 Interval history: 55-year-old female with rheumatoid arthritis on immunosuppression admitted to the hospital with worsening symptoms of illness over the past 7 days. Symptoms began with cough and fever and fatigue and anorexia. She got progressively worse to the point that 3 days prior to admission she began to have vomiting. Two days prior to admission she was seen in clinic where she was diagnosed with pneumonia and treated with amoxicillin. Clinic chest x-ray showed left upper lobe pneumonia. She took 3 doses of amoxicillin but may have vomited them up. Because she continued to feel poorly she came to the emergency department. On admission she was febrile with a temperature of 104.2? F., blood pressure 112/58, pulse 101, respirations 18, O2 sat 93% on room air. CBC was normal, chemistries were relatively normal, transaminases were moderately elevated as was procalcitonin of 0.61. Chest CTA showed no PE but enlarged mediastinal and left supraclavicular and hilar lymph nodes there possibly reactive and focal left upper lobe consolidation. CT of the abdomen pelvis showed a nondistended gallbladder with mild wall hyperemia and subtle mesenteric inflammation around the proximal duodenum and pancreatic head and inferior gallbladder. No other obvious signs of cholecystitis or biliary obstruction. Exam showed no right upper quadrant tenderness. Tests for COVID, RSV, influenza were negative. Tests for Legionella and pneumococcus antigen are negative. Travel history includes a vacation in [place] in January. 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 She has pet dogs. No other pets or animals exposure. She was admitted to the hospital and treated for community-acquired pneumonia. Exam Narrative: Exam Narrative: She is alert and appears mildly uncomfortable but in no obvious respiratory distress. Eyes normal. Oropharynx normal. Neck is supple without mass or adenopathy. Respirations are clear to auscultation except a rare crackle on the left side. Cardiovascular: S1, S2, regular rate and rhythm. No murmur gallop or rub. Abdomen: Bowel sounds active. Abdomen is soft without tenderness or mass. Extremities without edema. Good peripheral perfusion. Const: Vital Signs, click to edit/add: Vital Signs - 24 hr 03/25/25 20:12 03/25/25 20:32 03/25/25 20:53 Temperature 99.6 F Pulse Rate 87 Pulse Rate [Pulse Oximeter] 101 H Respiratory Rate 14 18 Blood Pressure 117/80 Blood Pressure [Ri ght Arm] Blood Pressure [Ri ght Upper Arm] 108/72 Pulse Oximetry 93 93 93 Oxygen Delivery Me thod Room Air Room Air 03/25/25 21:02 03/25/25 21:32 03/25/25 22:02 Temperature Pulse Rate 92 89 85 Pulse Rate [Pulse Oximeter] Respiratory Rate 20 14 Blood Pressure 123/82 118/71 113/68 Blood Pressure [Ri ght Arm] Blood Pressure [Ri ght Upper Arm] Pulse Oximetry 95 94 [facility] 03/25/25 23:08 03/25/25 23:32 03/25/25 23:38 Temperature Pulse Rate 86 86 88 Pulse Rate [Pulse Oximeter] Respiratory Rate 14 16 15 Blood Pressure 120/70 98/60 95/64 Blood Pressure [Ri ght Arm] Blood Pressure [Ri ght Upper Arm] Pulse Oximetry 95 90 92 Oxygen Delivery [facility] Room Air Room Air 03/26/25 00:46 03/26/25 00:50 03/26/25 01:00 Temperature 98.5 F Pulse Rate Pulse Rate [Pulse Oximeter] 77 Respiratory Rate 18 17 Blood Pressure Blood Pressure [Ri ght Arm] 107/66 Blood Pressure [Ri ght Upper Arm] Pulse Oximetry 93 93 93 Oxygen Delivery Me thod Room Air Room Air 03/26/25 02:53 03/26/25 04:45 03/26/25 05:28 Temperature 98.4 F 104.2 F H Pulse Rate 96 Pulse Rate [Pulse Oximeter] 89 Respiratory Rate 17 Blood Pressure Blood Pressure [Ri ght Arm] 115/62 Blood Pressure [Ri ght Upper Arm] Pulse Oximetry 91 Oxygen Delivery Me thod Room Air 03/26/25 06:35 03/26/25 07:07 03/26/25 07:30 Temperature 103.0 F H Pulse Rate 99 Pulse Rate [Pulse Oximeter] Respiratory Rate Blood Pressure Blood Pressure [Ri ght Arm] Blood Pressure [Ri ght Upper Arm] Pulse Oximetry 93 Oxygen Delivery Me thod 03/26/25 07:30 03/26/25 07:30 03/26/25 08:07 Temperature 102.5 F H 102.5 F H Pulse Rate Pulse Rate [Pulse Oximeter] 101 H 101 H Respiratory Rate 18 18 Blood Pressure Blood Pressure [Ri ght Arm] 112/58 L Blood Pressure [Ri ght Upper Arm] Pulse Oximetry 93 Oxygen Delivery Me thod Room Air 03/26/25 10:58 03/26/25 11:00 03/26/25 11:44 Temperature 99.9 F H 98.1 F 98.1 F Pulse Rate Pulse Rate [Pulse Oximeter] 80 Respiratory Rate 18 Blood Pressure Blood Pressure [Ri ght Arm] 111/72 Blood Pressure [Ri ght Upper Arm] Pulse Oximetry 94 Oxygen Delivery Me thod Room Air 03/26/25 15:00 Temperature Pulse Rate 67 Pulse Rate [Pulse Oximeter] Respiratory Rate Blood Pressure Blood Pressure [Ri ght Arm] Blood Pressure [Ri ght Upper Arm] Pulse Oximetry Oxygen Delivery Me thod Documenting provider has reviewed patient's vital signs: yes Labs Labs: Laboratory Results - last 24 hr 03/25/25 03/25/25 03/25/25 21:04 21:20 23:17 WBC 4.51 RBC 4.09 Hgb 11.5 L Hct 35.5 MCV 87 MCH 28 MCHC 32 RDW Coeff of Brandyn 13.4 Plt Count 166 Neut % (Auto) 62.3 Lymph % (Auto) 32.6 [place] % (Auto) 3.3 Eos % (Auto) 0.9 Baso % (Auto) 0.7 Neut # (Auto) 2.81 Lymph # (Auto) 1.47 [place] # (Auto) 0.10 Eos # (Auto) 0.04 Baso # (Auto) 0.03 Abs Immat Gran (auto) 0.01 Imm/Tot Granulo (auto) 0.2 Sodium 131 L Potassium 4.2 Chloride 98 Carbon Dioxide 25 Anion Gap 8 BUN 17 Creatinine 0.7 Estimated Creat Clear 82.67 Estimated GFR 103 Glucose 106 Lactate 1.6 Calcium 8.9 Magnesium 1.8 Total Bilirubin 0.8 AST 140 H ALT 144 H Alkaline Phosphatase 476 H C-Reactive Protein 8.0 H Total Protein 6.8 Albumin 3.8 Lipase 154 Procalcitonin 0.61 H Urine Color Sangeeta A Urine Appearance Clear Urine pH 7.0 Ur Specific [place] 1.020 Urine Protein 2+ A Urine Glucose (UA) Negative Urine Ketones 1+ A Urine Blood Trace-intact A Urine Nitrite Negative Urine Bilirubin 1+ A Urine Urobilinogen 4.0 A Ur Leukocyte Esterase Negative Urine RBC 0-2 Urine WBC 0-2 Ur Squamous Epith Cells Few Urine Bacteria Few A Urine L. pneumophilia Ag L. pneumo Negative Urine Strep pneumoniae Ag S. pneumo Negative SARS-CoV-2 (PCR) Negative SARS-CoV-2 Influenza Type A (PCR) Negative PCR FLU A Influenza Type B (PCR) Negative PCR FLU B RSV (PCR) Negative PCR RSV Lab Acknowledgement Test Added
[2025-03-26] MEDS: LATANOPROST 0.005% OPHTH 1 DROP EYE-LEFT (18:25)
--- NOTE | 2025-03-26 19:24 | PC.NURSE ---
End of Shift: Patient pleasant and cooperative, A&O. VSS, afebrile. Spo2 maintained above 90% on RA. Patient denies SOB, nausea, and pain this shift. Tolerating regular diet. SBA.
[2025-03-26] MEDS: ENOXAPARIN 40 MG/0.4 ML INJ SUBCUT (21:21)
[2025-03-26] MEDS: AZITHROMYCIN 250 MG TABLET PO (21:21)
--- NOTE | 2025-03-26 22:58 | PC.NURSE ---
End of Shift (): Patient pleasant and cooperative. Afebrile. C/o headache and PRN Tylenol and Ibuprofen given x1. O2 sats greater than 90% on room air. Tolerating regular diet with no nausea.
[2025-03-27] VITALS (17 sets, daily range): BP systolic 103–153; BP diastolic 76–96; PULSE 79–122; RESP 20–32; TEMP 36.6–38.8; O2SAT 89–95
[2025-03-27] MEDS: PIPERACILLIN/TAZOBACTAM 3.375 GM in 0.9 % SODIUM CHLORIDE Mini-bag 100 ML IVPB ×3 (01:15→12:46)
[2025-03-27] MEDS: ONDANSETRON 2 MG/ML inj 4 MG IVP ×4 (06:41→20:39)
[2025-03-27 06:43] LABS: Hematocrit 38.7 % (33.0-51.0); Hemoglobin* 12.2 gm/dL (12.0-16.0); Immature Granulocytes Pct Auto 1.3 %; Mean Corpuscular HGB Conc 32 gm/dL (32-36); Mean Corpuscular Hemoglobin 28 pg (26-34); Mean Corpuscular Volume 89 fL (80-100); RDW Coefficient of Variation % 14.0 % (11.5-15.5); Red Blood Count 4.37 m/uL (4.00-5.20); White Blood Count* 3.81 K/uL (4.50-11.00)
--- NOTE | 2025-03-27 06:44 | PC.NURSE ---
Arrived to find the patient resting in bed, alert and oriented, and vitally stable. Crackles heard on admission not present on my assessment. Deep breathing did cause the patient to cough, dryly and without sputum. Otherwise unremarkable assessment. They have been sleeping well overnight. Nausea reported in the morning around 0645.?
[2025-03-27 06:45] LABS: Immature Granulocytes Abs Auto 0.00 K/uL (0.00-0.30); Lymphocytes Absolute Auto 0.80 K/uL (0.90-2.90); Slide Review Reflex No
[2025-03-27] MEDS: OMEPRAZOLE 20 MG CAPSULE DR PO (06:49)
[2025-03-27] MEDS: ACETAMINOPHEN 500 MG TABLET 1000 MG PO ×3 (06:50→21:23)
[2025-03-27 07:03] LABS: Albumin* 3.0 g/dL (3.3-5.0); Chloride* 108 mmol/L (96-114); Potassium* 3.6 mmol/L (3.6-5.1); Sodium* 138 mmol/L (135-149)
[2025-03-27 07:05] LABS: Blood Urea Nitrogen* 11 mg/dL (7-30); Creatinine* 0.6 mg/dL (0.5-1.5); Est. Creatinine Clearance* 96.45; Estimated Glomerular Filt Rate 107 ml/min
[2025-03-27 07:06] LABS: Alanine Aminotransferase* 220 U/L (4-35); Alkaline Phosphatase* 532 U/L (40-150); Anion Gap 5 mEq/L (7-15); Aspartate Amino Transferase* 277 U/L (12-35); Bilirubin Direct* 0.9 mg/dL (0.0-0.5); Bilirubin Total* 1.1 mg/dL (0.1-1.5); Carbon Dioxide* 25 mmol/L (20-32); Total Protein* 5.7 g/dL (6.0-8.3)
[2025-03-27 07:07] LABS: Calcium* 8.6 mg/dL (8.4-10.6); Glucose* 73 mg/dL (60-115)
--- NOTE | 2025-03-27 07:33 | CRLHL7_ITS ---
For Patients: As a result of the Century Cures Act, medical imaging exams and procedure reports are released immediately into your electronic medical record. You may view this report before your referring provider. If you have questions, please contact your health care provider. INDICATION: 55-year-old woman with history of elevated liver enzymes TECHNIQUE: 7.7 MCi Tc 99m Mebrofenin were administered intravenously and serial static images were obtained over the anterior abdomen over 60 minutes, demonstrating radiotracer uptake within the gallbladder and demonstrating tracer exiting into the small bowel. Subsequently, 1.5 Micrograms cholecystokinin was administered intravenously and the anterior abdomen was serially imaged with static views for another 30 minutes. COMPARISON: Abdominal ultrasound 03/27/2025 FINDINGS: There is normal radionuclide activity in the liver, common bile duct, gallbladder and small bowel. There is no evidence for cystic or common duct obstruction or intrinsic liver disease. After administration of cholecystokinin, tracer is demonstrated exiting the gallbladder into the common bile duct and small bowel. The gallbladder ejection fraction measures 65%. Normal range for GB EF: Equal to or greater than 35%. IMPRESSION: 1. Normal hepatobiliary scan. 2. Gallbladder ejection fraction measures 65%, within normal limits. Dictated by Rubens Mills MD @ 03/27/2025 2:00:17 PM (Electronically Signed)
--- NOTE | 2025-03-27 07:34 | CRLHL7_ITS ---
For Patients: As a result of the Century Cures Act, medical imaging exams and procedure reports are released immediately into your electronic medical record. You may view this report before your referring provider. If you have questions, please contact your health care provider. Indication: Elevated liver enzymes liver vs gallbladder? Technique: Multiple transverse and longitudinal sonographic grayscale images of the abdomen were obtained, supplemented with color, power, and spectral Doppler imaging. Comparison: 03/25/2025. Findings: Suboptimal examination secondary to respiratory motion. Pancreas: 2.6 x 1.0 x 1.7 centimeter hypoechoic area near the pancreatic head. Liver length: 15.3 cm. Liver appearance: Mild periportal edema. No biliary ductal dilation. Portal vein: Patent, hepatopetal flow. CBD: 0.6 cm. Gallbladder: Negative sonographic Miramontes sign. Trace pericholecystic fluid. Cholelithiasis measuring up to 0.8 x 1.1 x 0.3 centimeter. Right kidney length: 11.3 cm. Right kidney appearance: Normal. Left kidney length: 11.3 cm. Left kidney appearance: Normal. Spleen: 10.9 cm, homogeneous in appearance. Aorta: Normal. IVC: Normal. Other findings: Partial visualization of bilateral pleural effusions. Impression: 1. Suboptimal examination secondary to respiratory motion. 2. Mild periportal edema is nonspecific and may be seen in the setting of acute hepatitis. 3. Trace pericholecystic fluid is nonspecific. Cholelithiasis without sonographic Miramontes sign; acute cholecystitis is felt to be less likely. 4. Partial visualization of bilateral pleural effusions. 5. 2.6 x 1.0 x 1.7 centimeter hypoechoic area near the pancreatic head. This is favored to represent a lymph node on correlation with same day CT. Dictated by Valentín Cheema MD @ 03/27/2025 10:57:51 AM (Electronically Signed)
[2025-03-27] MEDS: DORZOLAMIDE/TIMOLOL 2-0.5% OPHTH 1 DROP EYE-BOTH ×2 (09:23→21:23)
[2025-03-27] MEDS: BRIMONIDINE 0.15% 1 EACH EYE-BOTH ×2 (09:24→20:43)
[2025-03-27] MEDS: prednisoLONE acetate 1 % DROPS 1 DROP EYE-RIGHT (09:26)
[2025-03-27] MEDS: PROCHLORPERAZINE 5 MG/ML VIAL 10 MG IV (12:58)
--- NOTE | 2025-03-27 13:34 | CRLHL7_ITS ---
For Patients: As a result of the Century Cures Act, medical imaging exams and procedure reports are released immediately into your electronic medical record. You may view this report before your referring provider. If you have questions, please contact your health care provider. INDICATION: Pneumonia. TECHNIQUE: Chest 1 views. COMPARISON: 03/25/2025. CT dated 03/25/2025 FINDINGS: Increased moderate left lung airspace opacities. Mild right lung airspace opacities. Mild interstitial opacities are also noted. No large pleural effusion. No definite pneumothorax. Heart size and mediastinal contours are stable IMPRESSION: Increased airspace and interstitial opacities greatest within left lung compared to 03/25/2025. This likely represents a combination of pneumonia and pulmonary edema. Continued radiographic follow-up recommended. Dictated by Mohan Butterfield MD @ 03/27/2025 2:40:38 PM (Electronically Signed)
[2025-03-27] MEDS: cefTRIAXone 2 GM in 0.9 % SODIUM CHLORIDE Mini-bag 100 ML IVPB (14:44)
[2025-03-27 15:19] LABS: Lactate* 1.5 mmol/L (0.5-1.9)
[2025-03-27 15:20] LABS: HCO3 VBG 21 mmol/L (21-28); PCO2 VBG 36 mmHG (40-50); PO2 VBG 32.8 mmHG (25-47); pH VBG 7.37 (7.32-7.43)
[2025-03-27] MEDS: LACTATED RINGERS 500 ML 500 ML IV (15:34)
--- NOTE | 2025-03-27 15:45 | P.IMPN_ITS ---
Assessment and Plan Assessment and plan (1) Pneumonia: Problem comment: Likely the cause of her current illness. Infectious etiology uncertain. Clinically worse today. Reviewed with infectious disease consultation. She recommended ongoing treatment for community-acquired pneumonia with ceftriaxone and doxycycline. Obtain viral respiratory panel. Mycoplasma testing pending. Tick-borne panel, acute hepatitis panel pending. Status: Acute (2) Elevated liver enzymes: Problem comment: Probably related to pneumonia/infection rather than primary hepatobiliary disease. HIDA scan and right upper quadrant ultrasound unremarkable Continue to monitor with serial labs Status: Acute (3) Vomiting: Problem comment: Not actively vomiting but nauseated and eating poorly Status: Acute (4) Immunocompromised patient: Problem comment: Medications for treatment of rheumatoid arthritis include prednisone, mycophenolate, adalimumab. Monitor for complicating illnesses or opportunistic infections Status: Acute (5) Rheumatoid arthritis: Problem comment: Temporary hold on Humira. Low-dose prednisone probably does not require stress dose steroids Status: Acute Plan Continue monitoring and treatment in the hospital. Discussed with patient and family ongoing evaluation management. Discussed possibility of need for transfer (probably [facility]) if clinically deteriorating. Total Time Spent Total Time Spent: Total time spent today is 70 minutes in coordination of care discussing with patient and other providers ongoing management pneumonia and abnormal liver tests. Subjective Date Seen: 03/27/25 Interval history: 55-year-old female with rheumatoid arthritis on immunosuppression admitted to the hospital with worsening symptoms of illness over the past 7 days. Symptoms began with cough and fever and fatigue and anorexia. She got progressively worse to the point that 3 days prior to admission she began to have vomiting. Two days prior to admission she was seen in clinic where she was diagnosed with pneumonia and treated with amoxicillin. Clinic chest x-ray showed left upper lobe pneumonia. She took 3 doses of amoxicillin but may have vomited them up. Because she continued to feel poorly she came to the emergency department. On admission she was febrile with a temperature of 104.2? F., blood pressure 112/58, pulse 101, respirations 18, O2 sat 93% on room air. CBC was normal, chemistries were relatively normal, transaminases were moderately elevated as was procalcitonin of 0.61. Chest CTA showed no PE but enlarged mediastinal and left supraclavicular and hilar lymph nodes there possibly reactive and focal left upper lobe consolidation. CT of the abdomen pelvis showed a nondistended gallbladder with mild wall hyperemia and subtle mesenteric inflammation around the proximal duodenum and pancreatic head and inferior gallbladder. No other obvious signs of cholecystitis or biliary obstruction. Exam showed no right upper quadrant tenderness. Tests for COVID, RSV, influenza were negative. Tests for Legionella and pneumococcus antigen are negative. Travel history includes a vacation in [place] in January. 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 She has pet dogs. No other pets or animals exposure. She was admitted to the hospital and treated for community-acquired pneumonia. March 27 2025: Patient feels worse today. She reports more fatigue and shortness of breath. Overnight she started taking oxygen intermittently at 1 L per nasal cannula. She had a fever of 100.1 this morning. Her liver enzymes increased today. She had right upper quadrant ultrasound and HIDA scan which were unremarkable for structural/functional hepatobiliary disease. She has had very little to eat. Exam Narrative: Exam Narrative: She is alert and oriented. Appears mildly dyspneic at rest with oxygen at 1 L per nasal cannula. Respirations with scattered crackles throughout both lung becrera. Increased work and rate of breathing. Cardiovascular: S1, S2, regular tachycardia. Abdomen is soft without tenderness or mass. extremities without edema. Good perfusion. Const: Vital Signs, click to edit/add: Vital Signs - 24 hr 03/26/25 19:00 03/26/25 23:00 03/26/25 23:00 Temperature 98.4 F 97.9 F Pulse Rate Pulse Rate [Pulse Oximeter] 85 77 Respiratory Rate 18 18 18 Blood Pressure [Ri ght Arm] 106/73 128/79 Pulse Oximetry 91 91 Oxygen Delivery Me thod Room Air Room Air Oxygen Flow Rate 03/26/25 23:21 03/26/25 23:45 03/27/25 03:10 Temperature 97.9 F 98.0 F Pulse Rate 81 Pulse Rate [Pulse Oximeter] 74 79 Respiratory Rate 20 20 Blood Pressure [Ri ght Arm] 128/79 115/78 Pulse Oximetry 91 89 Oxygen Delivery Me thod Room Air Room Air Oxygen Flow Rate 03/27/25 03:30 03/27/25 06:47 03/27/25 06:50 Temperature 100.1 F H 100.1 F H Pulse Rate Pulse Rate [Pulse Oximeter] Respiratory Rate Blood Pressure [Ri ght Arm] Pulse Oximetry 93 Oxygen Delivery Me thod Nasal Cannula Oxygen Flow Rate 1 03/27/25 07:00 03/27/25 07:00 03/27/25 07:00 Temperature 99.0 F Pulse Rate Pulse Rate [Pulse Oximeter] 98 96 Respiratory Rate 20 20 20 Blood Pressure [Ri ght Arm] 151/93 H Pulse Oximetry 90 95 Oxygen Delivery Me thod Room Air Nasal Cannula Oxygen Flow Rate 1 03/27/25 09:11 03/27/25 11:00 03/27/25 14:43 Temperature 99.0 F 97.8 F 100.8 F H Pulse Rate Pulse Rate [Pulse Oximeter] 96 Respiratory Rate 20 Blood Pressure [Ri ght Arm] 153/92 H Pulse Oximetry 95 Oxygen Delivery Me thod Nasal Cannula Oxygen Flow Rate 1 03/27/25 15:00 Temperature Pulse Rate 122 H Pulse Rate [Pulse Oximeter] Respiratory Rate Blood Pressure [Ri ght Arm] Pulse Oximetry Oxygen Delivery Me thod Oxygen Flow Rate Documenting provider has reviewed patient's vital signs: yes Labs Labs: Laboratory Results - last 24 hr 03/27/25 03/27/25 06:14 15:14 WBC 3.81 L RBC 4.37 Hgb 12.2 Hct 38.7 MCV 89 MCH 28 MCHC 32 RDW Coeff of Brandyn 14.0 Plt Count 142 Neut % (Auto) 69.0 Lymph % (Auto) 19.7 L [place] % (Auto) 7.6 Eos % (Auto) 2.1 Baso % (Auto) 0.3 Neut # (Auto) 2.60 Lymph # (Auto) 0.80 L [place] # (Auto) 0.30 Eos # (Auto) 0.10 Baso # (Auto) 0.00 Abs Immat Gran (auto) 0.00 Imm/Tot Granulo (auto) 1.3 VBG pH 7.37 VBG pCO2 36 L VBG pO2 32.8 VBG HCO3 21 Sodium 138 Potassium 3.6 Chloride 108 Carbon Dioxide 25 Anion Gap 5 L BUN 11 Creatinine 0.6 Estimated Creat Clear 96.45 Estimated GFR 107 Glucose 73 Lactate 1.5 Calcium 8.6 Total Bilirubin 1.1 Direct Bilirubin 0.9 H AST 277 H ALT 220 H Alkaline Phosphatase 532 H C-Reactive Protein 14.3 H Total Protein 5.7 L Albumin 3.0 L Lab Acknowledgement Test Added Imaging Chest x-ray: Radiologist's impression: INDICATION: Pneumonia. TECHNIQUE: Chest 1 views. COMPARISON: 03/25/2025. CT dated 03/25/2025 FINDINGS: Increased moderate left lung airspace opacities. Mild right lung airspace opacities. Mild interstitial opacities are also noted. No large pleural effusion. No definite pneumothorax. Heart size and mediastinal contours are stable IMPRESSION: Increased airspace and interstitial opacities greatest within left lung compared to 03/25/2025. This likely represents a combination of pneumonia and pulmonary edema. Continued radiographic follow-up recommended.
[2025-03-27 15:56] LABS: NT Pro B Type NatriureticPept* 1040 pg/mL (See Note)
[2025-03-27] MEDS: DOXYCYCLINE HYCLATE 100 MG PO ×2 (16:05→21:23)
[2025-03-27] MEDS: FUROSEMIDE 10 MG/ML inj 20 MG IVP (17:09)
[2025-03-27 17:10] LABS: ABG PCO2 30 mmHG (35-45); HCO3 ABG 19 mmol/L (21-28); Oxygen Saturation ABG 97 % (92-100); PO2 ABG 72.9 mmHG (80-105); TCO2 ABG 18 mmol/l (21-30)
--- NOTE | 2025-03-27 17:28 | CRLHL7_ITS ---
For Patients: As a result of the Century Cures Act, medical imaging exams and procedure reports are released immediately into your electronic medical record. You may view this report before your referring provider. If you have questions, please contact your health care provider. Indication: worsening PNA sx, hypoxia. airline travel in recent hx. Technique: CT angiogram of the chest was performed for evaluation of pulmonary embolism. 95 mL of Isovue 370 intravenous contrast was administered. Comparison: 03/25/2025. Findings: CARDIOVASCULAR: Diagnostic quality: Contrast opacification of the pulmonary arterial circulation is slightly suboptimal for assessment of pulmonary embolism. Study is not significantly limited by respiratory motion artifact. Pulmonary arteries: No filling defects to suggest pulmonary embolism to at least the lobar levels. Not enlarged. Heart: No interventricular septal deviation. Normal in size. Mild coronary artery calcification. No significant valvular calcification. Pericardium: No pericardial effusion. Thoracic aorta: No significant abnormality. Normal cervical branching. REMAINING CHEST: Medical devices: None. Thyroid: Normal. Lymph nodes: Prominent subcentimeter subcarinal and bilateral hilar lymph nodes are favored to be reactive. Other mediastinal structures: No significant abnormality. Lung parenchyma: Increased moderate patchy left greater than right airspace consolidation and ground-glass opacities. Airways: Mild bronchial wall thickening. Pleura: Small to moderate left and small right pleural effusions. Chest wall: No significant abnormality. Upper abdomen: No significant abnormality. Musculoskeletal: Mild degenerative changes of the visualized spine. Impression: 1. No acute pulmonary embolism is seen within the limitations of this examination. 2. Increased moderate patchy [id number]-right airspace consolidation and ground-glass opacities are compatible with multifocal infection. 3. Small to moderate left and small right pleural effusions. Please note that all CT scans at this facility use dose modulation, iterative reconstruction, and/or weight-based dosing when appropriate to reduce radiation dose to as low as reasonably achievable. Dictated by Valentín Cheema MD @ 03/27/2025 6:26:22 PM (Electronically Signed)
--- NOTE | 2025-03-27 17:33 | P.IMPN_ITS ---
Assessment and Plan Assessment and plan (1) Acute hypoxemic respiratory failure: Problem comment: -ABG reassuring; pH normal. PaO2/FiO2 normal. -one-view portable x-ray shows increased airspace and interstitial opacities as compared to admission. Pneumonia with pulmonary edema likely -held fluids, IV Lasix x1 (20mg) -CTAalexandro aerobika. 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 Status: Acute (2) Community acquired pneumonia: Problem comment: Likely the cause of her current illness. Infectious etiology uncertain. Clinically worse today. Reviewed with infectious disease consultation. She recommended ongoing treatment for community-acquired pneumonia with ceftriaxone and doxycycline. Obtain viral respiratory panel. Mycoplasma testing pending. Tick-borne panel, acute hepatitis panel pending. -p.m. of 03/27 - move to CCU status. Rechecking COVID and influenza and RSV. Now on low-flow nasal cannula oxygen. ABG reassuring. Considering additional steroids given work of breathing. Giving 20 mg IV Lasix x1 -Echo ordered. on telemetry. EKG ordered. BNP elevated. troponin negative. Status: Acute (3) Rheumatoid arthritis: Problem comment: -Temporary hold on Humira. -continue CellCept -Low-dose prednisone probably does not require stress dose steroids Status: Acute (4) Immunocompromised patient: Problem comment: Medications for treatment of rheumatoid arthritis include prednisone, mycophenolate, adalimumab. Monitor for complicating illnesses or opportunistic infections Status: Acute (5) Elevated liver enzymes: Problem comment: Probably related to pneumonia/infection rather than primary hepatobiliary disease. HIDA scan and right upper quadrant ultrasound unremarkable Continue to monitor with serial labs Status: Acute Subjective Date Seen: 03/27/25 Interval history: Went to bedside 1715 for Pt with increasing dyspnea/work of breathing - known TED CAP on ceftriaxone/doxy (s/p zosyn for six doses 03/26 --> 03/27). ID consult 03/27. Tickborne concern raised b/c of LFT elevation. Immunocompromised secondary to rheumatoid arthritis. On Humira and CellCept. Low-dose (2mg daily) prednisone. 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 CXR from 1300 reviewed. CAP, pul edema. Lactate normal. Neg resp panel (I wanted to confirm Neg Covid) ABG reveals she is blowing off her CO2. Her PaO2/FiO2 ratio (72.9/.24) is >300; so reassuring. Leukopenia, transaminitis, febrile despite tylenol. TMAX 101.8 (repeating blood cultures) No history of CV disease. BNP greater than 1000. Troponin negative. EKG ordered; ECHO ordered for tomorrow am. Flat affect. Crackles bilaterally; mild resp distress. no peripheral edema. on 1 L NC but tachypnea to 30; tachycardia; febrile, BP mildly hypertensive. Moved to CCU status. Adding nicho; davidson, Recent air travel; more distant than I'd expect to have acute issues with PE but will check CTA and f/u on effectiveness of IV lasix. Consider corticosteroids Monitoring clinical course. d/w patient, patient's mother and sister who are bedside. Exam Const: Vital Signs, click to edit/add: Vital Signs - 24 hr 03/26/25 19:00 03/26/25 23:00 03/26/25 23:00 Temperature 98.4 F 97.9 F Pulse Rate Pulse Rate [Pulse Oximeter] 85 77 Respiratory Rate 18 18 18 Blood Pressure [Ri ght Arm] 106/73 128/79 Pulse Oximetry 91 91 Oxygen Delivery Me thod Room Air Room Air Oxygen Flow Rate 03/26/25 23:21 03/26/25 23:45 03/27/25 03:10 Temperature 97.9 F 98.0 F Pulse Rate 81 Pulse Rate [Pulse Oximeter] 74 79 Respiratory Rate 20 20 Blood Pressure [Ri ght Arm] 128/79 115/78 Pulse Oximetry 91 89 Oxygen Delivery Me thod Room Air Room Air Oxygen Flow Rate 03/27/25 03:30 03/27/25 06:47 03/27/25 06:50 Temperature 100.1 F H 100.1 F H Pulse Rate Pulse Rate [Pulse Oximeter] Respiratory Rate Blood Pressure [Ri ght Arm] Pulse Oximetry 93 Oxygen Delivery Me thod Nasal Cannula Oxygen Flow Rate 1 03/27/25 07:00 03/27/25 07:00 03/27/25 07:00 Temperature 99.0 F Pulse Rate Pulse Rate [Pulse Oximeter] 98 96 Respiratory Rate 20 20 20 Blood Pressure [Ri ght Arm] 151/93 H Pulse Oximetry 90 95 Oxygen Delivery Me thod Room Air Nasal Cannula Oxygen Flow Rate 1 03/27/25 09:11 03/27/25 11:00 03/27/25 14:43 Temperature 99.0 F 97.8 F 100.8 F H Pulse Rate Pulse Rate [Pulse Oximeter] 96 Respiratory Rate 20 Blood Pressure [Ri ght Arm] 153/92 H Pulse Oximetry 95 Oxygen Delivery Me thod Nasal Cannula Oxygen Flow Rate 1 03/27/25 15:00 03/27/25 15:00 03/27/25 15:00 Temperature Pulse Rate 122 H Pulse Rate [Pulse Oximeter] 115 H Respiratory Rate 28 H 28 H Blood Pressure [Ri ght Arm] Pulse Oximetry 92 Oxygen Delivery Me thod Nasal Cannula Oxygen Flow Rate 1 03/27/25 15:00 03/27/25 16:44 Temperature 101.8 F H 101.8 F H Pulse Rate Pulse Rate [Pulse Oximeter] 115 H Respiratory Rate 28 H Blood Pressure [Ri ght Arm] 131/96 H Pulse Oximetry 92 Oxygen Delivery Me thod Nasal Cannula Oxygen Flow Rate 1 Labs Labs: Laboratory Results - last 24 hr 03/27/25 03/27/25 03/27/25 06:14 15:14 16:35 WBC 3.81 L RBC 4.37 Hgb 12.2 Hct 38.7 MCV 89 MCH 28 MCHC 32 RDW Coeff of Brandyn 14.0 Plt Count 142 Neut % (Auto) 69.0 Lymph % (Auto) 19.7 L [place] % (Auto) 7.6 Eos % (Auto) 2.1 Baso % (Auto) 0.3 Neut # (Auto) 2.60 Lymph # (Auto) 0.80 L [place] # (Auto) 0.30 Eos # (Auto) 0.10 Baso # (Auto) 0.00 Abs Immat Gran (auto) 0.00 Imm/Tot Granulo (auto) 1.3 ABG pH ABG pCO2 ABG pO2 ABG HCO3 ABG Total CO2 ABG O2 Saturation ABG Base Excess VBG pH 7.37 VBG pCO2 36 L VBG pO2 32.8 VBG HCO3 21 Sodium 138 Potassium 3.6 Chloride 108 Carbon Dioxide 25 Anion Gap 5 L BUN 11 Creatinine 0.6 Estimated Creat Clear 96.45 Estimated GFR 107 Glucose 73 Lactate 1.5 Calcium 8.6 Total Bilirubin 1.1 Direct Bilirubin 0.9 H AST 277 H ALT 220 H Alkaline Phosphatase 532 H Troponin I < 0.01 C-Reactive Protein 14.3 H NT-Pro-B Natriuret Pep 1040 H Total Protein 5.7 L Albumin 3.0 L Lab Acknowledgement Test Added Test Added 03/27/25 17:05 WBC RBC Hgb Hct MCV MCH MCHC RDW Coeff of Brandyn Plt Count Neut % (Auto) Lymph % (Auto) [place] % (Auto) Eos % (Auto) Baso % (Auto) Neut # (Auto) Lymph # (Auto) [place] # (Auto) Eos # (Auto) Baso # (Auto) Abs Immat Gran (auto) Imm/Tot Granulo (auto) ABG pH 7.42 ABG pCO2 30 L ABG pO2 72.9 L ABG HCO3 19 L ABG Total CO2 18 L ABG O2 Saturation 97 ABG Base Excess -4.2 L VBG pH VBG pCO2 VBG pO2 VBG HCO3 Sodium Potassium Chloride Carbon Dioxide Anion Gap BUN Creatinine Estimated Creat Clear Estimated GFR Glucose Lactate Calcium Total Bilirubin Direct Bilirubin AST ALT Alkaline Phosphatase Troponin I C-Reactive Protein NT-Pro-B Natriuret Pep Total Protein Albumin Lab Acknowledgement
[2025-03-27 17:35] LABS: PCR FLU A Negative PCR FLU A (Negative); PCR FLU B Negative PCR FLU B (Negative); PCR RSV Negative PCR RSV (Negative); SARS PCR* Negative SARS-CoV-2 (Negative)
--- NOTE | 2025-03-27 17:36 | RESP.RT ---
called to see pt by RN pt with RR 28-32, increased WOB with any simple cardiac calisthenics. RR 38, shallow, really unable to take a deep breath. ABG drawn Provider seeing pt, planning CTA
[2025-03-27] MEDS: LATANOPROST 0.005% OPHTH 1 DROP EYE-LEFT (18:43)
[2025-03-27] MEDS: HYDROCORTISONE SOD SUCCINATE 50 MG/ML inj 200 MG IVP (19:34)
[2025-03-27] MEDS: CEFEPIME HCL 2 GM in 0.9 % SODIUM CHLORIDE Mini-bag 100 ML IVPB (19:34)
--- NOTE | 2025-03-27 19:34 | PC.NURSE ---
End of shift report [id number]: Upon arrival to room at 1535 patient was tachypneic with respirations at 32 with lips cyanotic and patient using accessory muscles for breathing. Breathing shallow and uneven. Lung sounds diminished in bilateral bases and mid lobes and clear in upper lobes. Patient pursed lip breathing and reporting SOB with rest. O2 at 1L per NC with O2 sat at 91%. Tempt 101.8 at that time. 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 Echeverria with patient assessment and spoke with respiratory therapist Kavya who assessed patient. MD changed status to CCU, one dose of IV lasix administered, triple swab completed and labs completed per orders. Patient voided 1300ml from [id number]. Family bedside and updated. CTA and EKG done per MD orders. At 1845 patient respirations appeared more even, patient reports SOB has improved over the last hour. Tele reading sinus tachycardia, denies any palpation. Denies any pain. Nausea reported x 1 and prn zofran administered and effective. Poor appetite, patient refused dinner. Transfers with SBA to min assist x 1.
[2025-03-27] MEDS: ENOXAPARIN 40 MG/0.4 ML INJ SUBCUT (21:23)
[2025-03-28] VITALS (16 sets, daily range): BP systolic 107–144; BP diastolic 66–109; PULSE 63–106; RESP 16–36; TEMP 36.5–37.1; O2SAT 87–95
[2025-03-28] MEDS: CEFEPIME HCL 2 GM in 0.9 % SODIUM CHLORIDE Mini-bag 100 ML IVPB (02:30)
[2025-03-28 06:38] LABS: Hematocrit 33.1 % (33.0-51.0); Hemoglobin* 10.7 gm/dL (12.0-16.0); Immature Granulocytes Abs Auto 0.03 K/uL (0.00-0.30); Immature Granulocytes Pct Auto 0.6 %; Lymphocytes Absolute Auto 1.30 K/uL (0.90-2.90); Mean Corpuscular HGB Conc 32 gm/dL (32-36); Mean Corpuscular Hemoglobin 28 pg (26-34); Mean Corpuscular Volume 87 fL (80-100); RDW Coefficient of Variation % 14.2 % (11.5-15.5); Red Blood Count 3.82 m/uL (4.00-5.20); White Blood Count* 5.11 K/uL (4.50-11.00)
[2025-03-28 06:47] LABS: Chloride* 103 mmol/L (96-114)
[2025-03-28 06:48] LABS: Albumin* 2.8 g/dL (3.3-5.0); Potassium* 3.3 mmol/L (3.6-5.1); Sodium* 135 mmol/L (135-149)
[2025-03-28 06:51] LABS: Alanine Aminotransferase* 196 U/L (4-35); Alkaline Phosphatase* 957 U/L (40-150); Anion Gap 10 mEq/L (7-15); Aspartate Amino Transferase* 236 U/L (12-35); Bilirubin Direct* 1.1 mg/dL (0.0-0.5); Bilirubin Total* 1.3 mg/dL (0.1-1.5); Blood Urea Nitrogen* 17 mg/dL (7-30); Calcium* 8.4 mg/dL (8.4-10.6); Carbon Dioxide* 22 mmol/L (20-32); Creatinine* 0.6 mg/dL (0.5-1.5); Est. Creatinine Clearance* 96.45; Estimated Glomerular Filt Rate 107 ml/min; Glucose* 100 mg/dL (60-115); Total Protein* 5.4 g/dL (6.0-8.3)
--- NOTE | 2025-03-28 06:54 | PC.NURSE ---
Upon initial assessment the patient is noted to be tachypneic and using accessory muscles, although the patient reports that it is better than earlier this afternoon. Febrile and tachycardic and BP noted to be stable. Quite diaphoretic as well. New IV abx was started and a high dose of IV steroids was given. As the night progressed the patient's HR and respirations were noted to decrease to WNL. Requiring O2 to maintain saturations >90%, oxy mask overnight worked well. R lower lobe has no airflow noted, L side is crackles throughout. PRN nebs if needed, but the patient has not been wheezing and has an intermittent dry cough. Up to the BR this morning and tolerated this well, clean gown and linens. If the patient continues to feel ok, she would like to shower today. Call light within reach.
[2025-03-28 06:56] LABS: Slide Review Reflex Yes
[2025-03-28] MEDS: SODIUM CHLORIDE 0.9 % (FLUSH) 10 ML SYRINGE 5 ML IVF ×2 (08:16→20:35)
[2025-03-28] MEDS: HYDROCORTISONE SOD SUCCINATE 50 MG/ML inj 200 MG IVP (08:20)
[2025-03-28] MEDS: DORZOLAMIDE/TIMOLOL 2-0.5% OPHTH 1 DROP EYE-BOTH ×2 (08:35→20:34)
[2025-03-28] MEDS: prednisoLONE acetate 1 % DROPS 1 DROP EYE-RIGHT (08:35)
[2025-03-28] MEDS: VENLAFAXINE HCL ER 37.5 MG CAPSULE PO (08:35)
[2025-03-28] MEDS: BRIMONIDINE 0.15% 1 EACH EYE-BOTH ×2 (08:35→20:33)
[2025-03-28] MEDS: ROSUVASTATIN CALCIUM 10 MG TABLET PO (08:36)
[2025-03-28] MEDS: DOXYCYCLINE HYCLATE 100 MG PO ×2 (08:36→20:33)
[2025-03-28] MEDS: DOCUSATE SODIUM 100 MG CAPSULE PO (08:36)
--- NOTE | 2025-03-28 09:22 | PM.IMPN1 ---
Assessment and Plan Assessment and plan (1) Acute hypoxemic respiratory failure: Problem comment: Clinically and radiologically has multifocal pneumonia. Uncertain whether heart failure/pulmonary edema contributing, . PaO2 79.2 on 1 liter/NC. Status: Acute (2) Community acquired pneumonia: Problem comment: Likely the cause of her current illness. Infectious etiology uncertain. Clinically worse today. Reviewed with infectious disease consultation. She recommended ongoing treatment for community-acquired pneumonia with ceftriaxone and doxycycline. Obtain viral respiratory panel. Mycoplasma testing pending. Tick-borne panel, acute hepatitis panel pending. Reviewed again with infectious disease consult on March 28. With elevated liver enzymes there is concern about fungal infection such as histoplasmosis. She recommends starting itraconazole empirically pending results of serum and urine antigen and and serum antibody for both histoplasmosis and Blastomyces. Itraconazole doses 200 mg orally 3 times a day for 3 days then 200 mg twice daily pending results of tests. She also recommend stopping the hydrocortisone which will make a fungal infection worse. Status: Acute (3) Rheumatoid arthritis: Problem comment: -Temporary hold on Humira. -continue CellCept -Low-dose prednisone probably does not require stress dose steroids Status: Acute (4) Immunocompromised patient: Problem comment: Medications for treatment of rheumatoid arthritis include prednisone, mycophenolate, adalimumab. Evaluate for complicating illnesses or opportunistic infections Status: Acute (5) Elevated liver enzymes: Problem comment: Probably related to pneumonia/infection rather than primary hepatobiliary disease. HIDA scan and right upper quadrant ultrasound unremarkable. Continue to monitor with serial labs. Status: Acute (6) Vomiting: Problem comment: On admission had severe nausea and vomiting. Initially improved day 1. Worse on day 2. Better on day 3, today Status: Acute Plan Continue in hospital for ongoing treatment of severe community-acquired pneumonia now including treatment for histoplasmosis. Total Time Spent Total Time Spent: Total time spent today is 65 minutes in coordination of care and discussing with patient and other providers ongoing evaluation management of community-acquired pneumonia in an immune compromised patient Subjective Date Seen: 03/28/25 Interval history: 55-year-old female with rheumatoid arthritis on immunosuppression admitted to the hospital with worsening symptoms of illness over the past 7 days. Symptoms began with cough and fever and fatigue and anorexia. She got progressively worse to the point that 3 days prior to admission she began to have vomiting. Two days prior to admission she was seen in clinic where she was diagnosed with pneumonia and treated with amoxicillin. Clinic chest x-ray showed left upper lobe pneumonia. She took 3 doses of amoxicillin but may have vomited them up. Because she continued to feel poorly she came to the emergency department. On admission she was febrile with a temperature of 104.2? F., blood pressure 112/58, pulse 101, respirations 18, O2 sat 93% on room air. CBC was normal, chemistries were relatively normal, transaminases were moderately elevated as was procalcitonin of 0.61. Chest CTA showed no PE but enlarged mediastinal and left supraclavicular and hilar lymph nodes there possibly reactive and focal left upper lobe consolidation. CT of the abdomen pelvis showed a nondistended gallbladder with mild wall hyperemia and subtle mesenteric inflammation around the proximal duodenum and pancreatic head and inferior gallbladder. No other obvious signs of cholecystitis or biliary obstruction. Exam showed no right upper quadrant tenderness. Tests for COVID, RSV, influenza were negative. Tests for Legionella and pneumococcus antigen are negative. Travel history includes a vacation in [place] in January. 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 She has pet dogs. No other pets or animals exposure. She was admitted to the hospital and treated for community-acquired pneumonia. March 27 2025: Patient feels worse today. She reports more fatigue and shortness of breath. Overnight she started taking oxygen intermittently at 1 L per nasal cannula. She had a fever of 100.1 this morning. Her liver enzymes increased today. She had right upper quadrant ultrasound and HIDA scan which were unremarkable for structural/functional hepatobiliary disease. She has had very little to eat. 03/28/2025: Yesterday afternoon and evening she continued to clinically deteriorate with increasing fever, tachycardia, tachypnea, dyspnea, hypoxia. She was transferred to the CCU for closer monitoring. Chest x-ray suggested a component of pulmonary edema. She received 20 mg of furosemide which appear to give relatively quick clinical improvement over the next couple hours. She was switched from ceftriaxone to cefepime and started on hydrocortisone IV. This morning she feels quite a bit better. She still requiring oxygen at 1.5 L per nasal cannula. Her dyspnea and tachypnea and tachycardia are all improved. Her appetite has improved as well. Her temperature went to 101.8 F and has since resolved without recurrent fever. Exam Narrative: Exam Narrative: She is alert and appears in no distress. Mental status is normal. Respirations with occasional scattered crackle but fairly good air exchange in all lung becerra. Decreased work of breathing today compared to yesterday afternoon. Cardiovascular: S1, S2, regular rate and rhythm. Abdomen is soft without tenderness or mass. Extremities without edema. Good peripheral pulses and perfusion. No rash Const: Vital Signs, click to edit/add: Vital Signs - 24 hr 03/27/25 11:00 03/27/25 14:43 03/27/25 15:00 Temperature 97.8 F 100.8 F H Pulse Rate 122 H Pulse Rate [Pulse Oximeter] 96 Respiratory Rate 20 Blood Pressure [Ri ght Arm] 153/92 H Pulse Oximetry 95 Oxygen Delivery Me thod Nasal Cannula Oxygen Flow Rate 1 Fraction of Inspir ed Oxygen 03/27/25 15:00 03/27/25 15:00 03/27/25 15:00 Temperature 101.8 F H Pulse Rate Pulse Rate [Pulse Oximeter] 115 H 115 H Respiratory Rate 28 H 28 H 28 H Blood Pressure [Ri ght Arm] 131/96 H Pulse Oximetry 92 92 Oxygen Delivery Me thod Nasal Cannula Nasal Cannula Oxygen Flow Rate 1 1 Fraction of Inspir ed Oxygen 03/27/25 16:44 03/27/25 17:35 03/27/25 18:00 Temperature 101.8 F H 99.0 F Pulse Rate Pulse Rate [Pulse Oximeter] 114 H Respiratory Rate 32 H Blood Pressure [Ri ght Arm] 129/85 Pulse Oximetry 93 Oxygen Delivery Me thod Nasal Cannula Nasal Cannula Oxygen Flow Rate 1 Fraction of Inspir ed Oxygen 1 03/27/25 19:00 03/27/25 19:39 03/27/25 20:00 Temperature 100.5 F H Pulse Rate 116 H Pulse Rate [Pulse Oximeter] 113 H 118 H Respiratory Rate 28 H Blood Pressure [Ri ght Arm] 111/96 H Pulse Oximetry 91 Oxygen Delivery Me thod Nasal Cannula Oxygen Flow Rate 2.5 Fraction of Inspir ed Oxygen 03/27/25 21:45 03/27/25 22:00 03/27/25 23:00 Temperature 98.6 F Pulse Rate Pulse Rate [Pulse Oximeter] 91 91 Respiratory Rate 22 22 22 Blood Pressure [Ri ght Arm] 103/76 Pulse Oximetry 93 91 Oxygen Delivery Me thod Nasal Cannula OxyMask Oxygen Flow Rate 2.5 1.5 Fraction of Inspir ed Oxygen 03/27/25 23:00 03/28/25 00:45 03/28/25 02:00 Temperature 97.7 F 97.9 F Pulse Rate 91 Pulse Rate [Pulse Oximeter] 83 79 Respiratory Rate 16 16 Blood Pressure [Ri ght Arm] 107/66 115/82 Pulse Oximetry 90 90 Oxygen Delivery Me thod OxyMask Room Air Oxygen Flow Rate 1.5 Fraction of Inspir ed Oxygen 03/28/25 02:51 03/28/25 02:51 03/28/25 02:52 Temperature Pulse Rate Pulse Rate [Pulse Oximeter] 74 Respiratory Rate 16 Blood Pressure [Ri ght Arm] Pulse Oximetry 87 L 91 Oxygen Delivery Me thod Room Air OxyMask Oxygen Flow Rate 1.5 Fraction of Inspir ed Oxygen 03/28/25 05:00 03/28/25 06:00 03/28/25 07:00 Temperature 97.7 F 97.9 F Pulse Rate Pulse Rate [Pulse Oximeter] 63 85 Respiratory Rate 16 18 22 Blood Pressure [Ri ght Arm] 110/70 130/74 Pulse Oximetry 92 90 92 Oxygen Delivery Me thod OxyMask Nasal Cannula Nasal Cannula Oxygen Flow Rate 1 1.5 1.5 Fraction of Inspir ed Oxygen 03/28/25 07:00 03/28/25 08:00 Temperature 97.8 F Pulse Rate 92 Pulse Rate [Pulse Oximeter] 105 H Respiratory Rate 22 Blood Pressure [Ri ght Arm] 133/81 Pulse Oximetry 92 Oxygen Delivery Me thod Nasal Cannula Oxygen Flow Rate 1.5 Fraction of Inspir ed Oxygen Labs Labs: Laboratory Results - last 24 hr 03/27/25 03/27/25 03/27/25 15:14 16:34 16:35 WBC RBC Hgb Hct MCV MCH MCHC RDW Coeff of Brandyn Plt Count Neut % (Auto) Lymph % (Auto) [place] % (Auto) Eos % (Auto) Baso % (Auto) Neut # (Auto) Lymph # (Auto) [place] # (Auto) Eos # (Auto) Baso # (Auto) Abs Immat Gran (auto) Imm/Tot Granulo (auto) ABG pH ABG pCO2 ABG pO2 ABG HCO3 ABG Total CO2 ABG O2 Saturation ABG Base Excess VBG pH 7.37 VBG pCO2 36 L VBG pO2 32.8 VBG HCO3 21 Sodium Potassium Chloride Carbon Dioxide Anion Gap BUN Creatinine Estimated Creat Clear Estimated GFR Glucose Lactate 1.5 Calcium Total Bilirubin Direct Bilirubin AST ALT Alkaline Phosphatase Troponin I < 0.01 C-Reactive Protein NT-Pro-B Natriuret Pep 1040 H Total Protein Albumin SARS-CoV-2 (PCR) Negative SARS-CoV-2 Influenza Type A (PCR) Negative PCR FLU A Influenza Type B (PCR) Negative PCR FLU B RSV (PCR) Negative PCR RSV Lab Acknowledgement Test Added Test Added 03/27/25 03/28/25 17:05 06:19 WBC 5.11 RBC 3.82 L Hgb 10.7 L Hct 33.1 MCV 87 MCH 28 MCHC 32 RDW Coeff of Brandyn 14.2 Plt Count 151 Neut % (Auto) 71.5 Lymph % (Auto) 25.4 [place] % (Auto) 2.3 Eos % (Auto) 0.0 Baso % (Auto) 0.2 Neut # (Auto) 3.65 Lymph # (Auto) 1.30 [place] # (Auto) 0.10 Eos # (Auto) 0.00 Baso # (Auto) 0.01 Abs Immat Gran (auto) 0.03 Imm/Tot Granulo (auto) 0.6 ABG pH 7.42 ABG pCO2 30 L ABG pO2 72.9 L ABG HCO3 19 L ABG Total CO2 18 L ABG O2 Saturation 97 ABG Base Excess -4.2 L VBG pH VBG pCO2 VBG pO2 VBG HCO3 Sodium 135 Potassium 3.3 L Chloride 103 Carbon Dioxide 22 Anion Gap 10 BUN 17 Creatinine 0.6 Estimated Creat Clear 96.45 Estimated GFR 107 Glucose 100 Lactate Calcium 8.4 Total Bilirubin 1.3 Direct Bilirubin 1.1 H AST 236 H ALT 196 H Alkaline Phosphatase 957 H Troponin I C-Reactive Protein 20.1 H NT-Pro-B Natriuret Pep Total Protein 5.4 L Albumin 2.8 L SARS-CoV-2 (PCR) Influenza Type A (PCR) Influenza Type B (PCR) RSV (PCR) Lab Acknowledgement Imaging CT scan - chest: Radiologist's impression: Indication: worsening PNA sx, hypoxia. airline travel in recent hx. Technique: CT angiogram of the chest was performed for evaluation of pulmonary embolism. 95 mL of Isovue 370 intravenous contrast was administered. Comparison: 03/25/2025. Findings: CARDIOVASCULAR: Diagnostic quality: Contrast opacification of the pulmonary arterial circulation is slightly suboptimal for assessment of pulmonary embolism. Study is not significantly limited by respiratory motion artifact. Pulmonary arteries: No filling defects to suggest pulmonary embolism to at least the lobar levels. Not enlarged. Heart: No interventricular septal deviation. Normal in size. Mild coronary artery calcification. No significant valvular calcification. Pericardium: No pericardial effusion. Thoracic aorta: No significant abnormality. Normal cervical branching. REMAINING CHEST: Medical devices: None. Thyroid: Normal. Lymph nodes: Prominent subcentimeter subcarinal and bilateral hilar lymph nodes are favored to be reactive. Other mediastinal structures: No significant abnormality. Lung parenchyma: Increased moderate patchy left greater than right airspace consolidation and ground-glass opacities. Airways: Mild bronchial wall thickening. Pleura: Small to moderate left and small right pleural effusions. Chest wall: No significant abnormality. Upper abdomen: No significant abnormality. Musculoskeletal: Mild degenerative changes of the visualized spine. Impression: 1. No acute pulmonary embolism is seen within the limitations of this examination. 2. Increased moderate patchy [id number] airspace consolidation and ground-glass opacities are compatible with multifocal infection. 3. Small to moderate left and small right pleural effusions.
[2025-03-28] MEDS: POTASSIUM BICARB 25 MEQ EFFERVESCENT TAB 50 MEQ PO (09:50)
[2025-03-28] MEDS: FUROSEMIDE 10 MG/ML inj 20 MG IVP (09:51)
[2025-03-28] MEDS: cefTRIAXone 2 GM in 0.9 % SODIUM CHLORIDE Mini-bag 100 ML IVPB (10:47)
[2025-03-28] MEDS: ACETAMINOPHEN 500 MG TABLET 1000 MG PO ×2 (15:22→22:15)
[2025-03-28] MEDS: IPRAT-ALBUT 0.5-2.5 MG/3 ML NEB 1 NEB IH (15:23)
--- NOTE | 2025-03-28 15:26 | RESP.RT ---
Pt initially much improved today. On 1.5 L of oxygen with corresponding SPO2 of 93%. RR in high teens, HR 100 however at 1530, RR increased to 36, requiring oxygen of 8L to maintains spo2 above 90%. Echo at this time. Provider aware CXR has been ordered.
--- NOTE | 2025-03-28 15:43 | CRLHL7_ITS ---
For Patients: As a result of the Century Cures Act, medical imaging exams and procedure reports are released immediately into your electronic medical record. You may view this report before your referring provider. If you have questions, please contact your health care provider. INDICATION: Respiratory distress. TECHNIQUE: Chest 1 views. COMPARISON: 03/27/2025. FINDINGS: Lungs and pleural spaces: Slight increased hazy airspace and interstitial opacities. Left upper lobe consolidation is unchanged. New left lower lobe consolidation. Likely small left effusion. No definite pneumothorax. Cardiovasculature and mediastinum: Heart size and mediastinal contours are stable. IMPRESSION: 1. New left lower lobe consolidation. Slight increased bilateral airspace and interstitial opacities compared to 03/27/2025. Dictated by Mohan Butterfield MD @ 03/28/2025 4:34:29 PM (Electronically Signed)
[2025-03-28 16:06] LABS: INR 1.08 (0.91-1.10); Prothrombin Time 14.9 Seconds
[2025-03-28 16:08] LABS: Gamma Glutamyl Transpeptidase* 297 U/L (8-55)
[2025-03-28 16:20] LABS: NT Pro B Type NatriureticPept* 520 pg/mL (See Note)
[2025-03-28 16:27] LABS: Procalcitonin* 1.05 ng/mL (<0.50)
--- NOTE | 2025-03-28 16:45 | P.CCN_ITS ---
Subjective Subjective Time Seen by Provider: 16:00 Date Seen: 03/28/25 Interval history: Called the see patient at approximately 4:00 p.m. due to increased work of breathing, tachypnea. Earlier today she had been feeling better at her respiratory rate was 16 to 22. She then started to feel worse again and was increasing her respiratory rate up to 36 with mild accessory use. However by the time I'm in the room; she is back to baseline. Her blood pressure is normal. She is afebrile. speaking complete sentences. Echo reviewed - normal study Portable CXR ordered and reviewed - c/w with findings on CTA yesterday. added procalcitonin, GGT, INR, TSH and BNP. Procal is tracking with increasing CRP. GGT confirms liver etiology. BNP is down (understanding this is typically not tracked daily in the hospital). Normal INR. Normal TSH. Viral PCR panel reveals negative results on 6 viral etiologies. The pattern of her liver injury with disproportionate elevation alk-phos, GGT and moderate transaminase elevation is seen in disseminated histo or blasto infe ction (per [employer]) I spoke with [facility] - Dr. Weaver. I pushed all images to Dorcas. -He said this is likely viral or bacterial but blasto would be #3 on his list. He liked that the antigens and antibodies are pending. -He favored reactive transaminitis secondary to inflammation from the pneumonia vs invasive fungal infection (IFI) -He said he'd hold on oral antifungals if improving and confirmation by labs is not back -He said giving steroids is fine. Its a theoretical risk in fungal infections but not seen in practice. Give them (he suggested 80mg solumedrol q 8, if we tho ught it helped) -He said it is fine to give her time BUT consider they would bronch her if we transferred and it would be best to be up there by PM or she'd wait until next week. If emergent and she was intubated; they may do it on the weekend depending on the clinical scenario. -I will let the day team make any changes. Assessment and Plan Assessment and plan (1) Acute hypoxemic respiratory failure: Problem comment: Clinically and radiologically has multifocal pneumonia. Uncertain whether heart failure/pulmonary edema contributing, . PaO2 79.2 on 1 liter/NC. Status: Acute (2) Community acquired pneumonia: Problem comment: Likely the cause of her current illness. Infectious etiology uncertain. Clinically worse today. Reviewed with infectious disease consultation. She recommended ongoing treatment for community-acquired pneumonia with ceftriaxone and doxycycline. Obtain viral respiratory panel. Mycoplasma testing pending. Tick-borne panel, acute hepatitis panel pending. Reviewed again with infectious disease consult on March 28. With elevated liver enzymes there is concern about fungal infection such as histoplasmosis. She recommends starting itraconazole empirically pending results of serum and urine antigen and and serum antibody for both histoplasmosis and Blastomyces. Itraconazole doses 200 mg orally 3 times a day for 3 days then 200 mg twice daily pending results of tests. She also recommend stopping the hydrocortisone which will make a fungal infection worse. 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 Quiescent both eyes today. 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
[2025-03-28] MEDS: LATANOPROST 0.005% OPHTH 1 DROP EYE-LEFT (18:22)
--- NOTE | 2025-03-28 18:57 | PC.NURSE ---
End of shift [id number] - Pt alert, oriented, cooperative. Up with standby assistance. Able to ambulate back and forth to bathroom multiple times during the day, SOB noted with exertion with pt able to recover appropriately. Tolerating O2 via nasal cannula, MD and RT made aware of pt saturations of 87-89% at rest today, orders given. Pt noted she felt like her appetite increased, denied n/v during shift. Pt reported headache, otherwise no pain. Given medication per MAR with pt reporting improvement. Family at bedside, pt appears to be resting comfortably in bed with call light within reach at end of shift.
[2025-03-28] MEDS: ENOXAPARIN 40 MG/0.4 ML INJ SUBCUT (20:33)
[2025-03-28 23:22] LABS: Slide Review Acceptable Review (Acceptable)
[2025-03-29] VITALS (14 sets, daily range): BP systolic 115–127; BP diastolic 68–74; PULSE 90–95; RESP 18–32; TEMP 36.9–39.5; O2SAT 92–98
[2025-03-29] MEDS: IPRAT-ALBUT 0.5-2.5 MG/3 ML NEB 1 NEB IH ×3 (01:37→07:06)
--- NOTE | 2025-03-29 02:42 | PC.NURSE ---
Patient O2 sats 90-92% on 6 Lt Oxymask. Able to carry a conversation but acknowledges increased work of breathing. PRN Neb, Aerobika, IS, and position change with little to no improvement. Patrick LIU notified. HFNC 20L 50% initiated at 0230. Patient O2 sats 94-95%.
[2025-03-29 06:49] LABS: Hematocrit 31.6 % (33.0-51.0); Hemoglobin* 10.3 gm/dL (12.0-16.0); Immature Granulocytes Pct Auto 0.5 %; Mean Corpuscular HGB Conc 33 gm/dL (32-36); Mean Corpuscular Hemoglobin 28 pg (26-34); Mean Corpuscular Volume 85 fL (80-100); RDW Coefficient of Variation % 14.3 % (11.5-15.5); Red Blood Count 3.73 m/uL (4.00-5.20); White Blood Count* 3.97 K/uL (4.50-11.00)
[2025-03-29 06:52] LABS: Immature Granulocytes Abs Auto 0.00 K/uL (0.00-0.30); Lymphocytes Absolute Auto 1.20 K/uL (0.90-2.90); Slide Review Reflex No
--- NOTE | 2025-03-29 06:58 | PC.NURSE ---
Arrived to find the patient resting in bed with a nasal canula helping to maintain their oxygen around 94% saturation. Diminished breath noises but no crackles. Periodic dry cough without sputum. Switched to an oxymask early in the evening but we were unable to keep her saturated in the 90s once she was in a state of sleep. An on-call physician was consulted and high flow oxygen was approved for use. Original settings were 20L, at 50% O2 and 36 degrees. This was keeping her well oxygenated until around 0400 when her O2 started varying between mid 80s to 90. Our target oxygenation is 94%. Since this time we have been titrating the settings. Difficult to keep her at the target value. They frequently fall into the mid to low 80s when occupied. 35L at 65% O2 has been successful while at rest. ??
[2025-03-29 07:00] LABS: Albumin* 2.9 g/dL (3.3-5.0); Chloride* 98 mmol/L (96-114); Sodium* 132 mmol/L (135-149)
[2025-03-29 07:01] LABS: Potassium* 3.5 mmol/L (3.6-5.1)
[2025-03-29 07:03] LABS: Alanine Aminotransferase* 187 U/L (4-35); Alkaline Phosphatase* 1090 U/L (40-150); Anion Gap 5 mEq/L (7-15); Aspartate Amino Transferase* 328 U/L (12-35); Bilirubin Direct* 1.0 mg/dL (0.0-0.5); Bilirubin Total* 1.0 mg/dL (0.1-1.5); Blood Urea Nitrogen* 25 mg/dL (7-30); Calcium* 8.5 mg/dL (8.4-10.6); Carbon Dioxide* 29 mmol/L (20-32); Creatinine* 0.7 mg/dL (0.5-1.5); Est. Creatinine Clearance* 82.67; Estimated Glomerular Filt Rate 103 ml/min; Glucose* 106 mg/dL (60-115); Total Protein* 5.5 g/dL (6.0-8.3)
[2025-03-29] MEDS: ONDANSETRON 2 MG/ML inj 4 MG IVP (07:06)
[2025-03-29] MEDS: SODIUM CHLORIDE 0.9 % (FLUSH) 10 ML SYRINGE 5 ML IVF ×2 (07:06→08:09)
[2025-03-29] MEDS: HYDROCORTISONE SOD SUCCINATE 50 MG/ML inj 100 MG IVP (07:35)
[2025-03-29] MEDS: VANCOMYCIN 1.5 GM/300 ML 1.5 GM/300 ML PIGGYBACK IVPB (07:35)
[2025-03-29 07:56] LABS: HCO3 VBG 28 mmol/L (21-28); PCO2 VBG 37 mmHG (40-50); PO2 VBG 30.4 mmHG (25-47); pH VBG 7.481 (7.32-7.43)
[2025-03-29] MEDS: PROCHLORPERAZINE 5 MG/ML VIAL 10 MG IV (08:08)
[2025-03-29] MEDS: ACETAMINOPHEN 500 MG TABLET 1000 MG PO (08:49)
--- NOTE | 2025-03-29 09:30 | RESP.RT ---
Patient was started shortly before 7AM on High flow Nasal Cannula (HFNC). AT 8AM patient was weaned to Flow of 35 Lpm, SaO2 tracing shallow, and Numbers bouncing from 88 to 100%. Patient hands were cold, glove placed on patients hand, and Nurse replace Pulse-oxy probe with new one. Tracing has improved SaO2 94%. Will remain on HFNC until transfer to [facility]. Patient rate 328-32/minute, breathing is labored/slightly shallow, BBS noted clear, no rales, rhonchi, or grunting noted all becerra.
--- NOTE | 2025-03-29 09:39 | P.IMPN_ITS ---
Assessment and Plan Assessment and plan (1) Acute hypoxemic respiratory failure: Problem comment: Clinically and radiologically has multifocal pneumonia. Uncertain whether heart failure/pulmonary edema contributing, . Getting progressively worse. Now on high-flow oxygen at 70% FiO2 and 40 L . Recommend transfer to tertiary care for ICU/pulmonary/ID consultations Status: Acute (2) Community acquired pneumonia: Problem comment: Likely the cause of her current illness. Infectious etiology uncertain. Clinically worse today. Reviewed with infectious disease consultation. She recommended ongoing treatment for community-acquired pneumonia with ceftriaxone and doxycycline. Obtain viral respiratory panel. Mycoplasma testing pending. Tick-borne panel, acute hepatitis panel pending. MRSA nasal screening negative. Viral screening negative including extended viral panel. Mycoplasma negative. Reviewed again with infectious disease consult on March 28. With elevated liver enzymes there is concern about fungal infection such as histoplasmosis. She recommends starting itraconazole empirically pending results of serum and urine antigen and and serum antibody for both histoplasmosis and Blastomyces. Itraconazole doses 200 mg orally 3 times a day for 3 days then 200 mg twice daily pending results of tests. 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 Quiescent both eyes today. 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 -continue CellCept -Low-dose prednisone probably does not require stress dose steroids Status: Acute (5) Immunocompromised patient: Problem comment: Medications for treatment of rheumatoid arthritis include prednisone, mycop henolate, adalimumab. Evaluate for complicating illnesses or opportunistic infections Status: Acute (6) Elevated liver enzymes: Problem comment: Likely related to pneumonia/infection rather than primary hepatobiliary disease. HIDA scan and right upper quadrant ultrasound unremarkable. Continue to mo nitor with serial labs. Status: Acute Plan Making arrangements for transfer to [facility] for higher level of care due to ongoing deterioration despite treatment for community-acquired pneumonia. Total Time Spent Total Time Spent: Total time spent today is 70 minutes in critical care evaluation and management Subjective Date Seen: 03/29/25 Interval history: 55-year-old female with rheumatoid arthritis on immunosuppression admitted to the hospital with worsening symptoms of illness over the past 7 days. Symptoms began with cough and fever and fatigue and anorexia. She got progressively worse to the point that 3 days prior to admission she began to have vomiting. Two days prior to admission she was seen in clinic where she was diagnosed with pneumonia and treated with amoxicillin. Clinic chest x-ray showed left upper lobe pneumonia. She took 3 doses of amoxicillin but may have vomited them up. Because she continued to feel poorly she came to the emergency department. On admission she was febrile with a temperature of 104.2? F., blood pressure 112/58, pulse 101, respirations 18, O2 sat 93% on room air. CBC was normal, chemistries were relatively normal, transaminases were moderately elevated as was procalcitonin of 0.61. Chest CTA showed no PE but enlarged mediastinal and left supraclavicular and hilar lymph nodes there possibly reactive and focal left upper lobe consolidation. CT of the abdomen pelvis showed a nondistended gallbladder with mild wall hyperemia and subtle mesenteric inflammation around the proximal duodenum and pancreatic head and inferior gallbladder. No other obvious signs of cholecystitis or biliary obstruction. Exam showed no right upper quadrant tenderness. Tests for COVID, RSV, influenza were negative. Tests for Legionella and pneumococcus antigen are negative. Travel history includes a vacation in [place] in January. 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 She has pet dogs. No other pets or animals exposure. She was admitted to the hospital and treated for community-acquired pneumonia. March 27 2025: Patient feels worse today. She reports more fatigue and shortness of breath. Overnight she started taking oxygen intermittently at 1 L per nasal cannula. She had a fever of 100.1 this morning. Her liver enzymes in creased today. She had right upper quadrant ultrasound and HIDA scan which were unremarkable for structural/functional hepatobiliary disease. She has had very little to eat. 03/28/2025: Yesterday afternoon and evening she continued to clinically deteriorate with increasing fever, tachycardia, tachypnea, dyspnea, hypoxia. She was transferred to the CCU for closer monitoring. Chest x-ray suggested a component of pulmonary edema. She received 20 mg of furosemide which appear to give relatively quick clinical improvement over the next couple hours. She was switched from ceftriaxone to cefepime and started on hydrocortisone IV. This morning she feels quite a bit better. She still requiring oxygen at 1.5 L per nasal cannula. Her dyspnea and tachypnea and tachycardia are all improved. Her appetite has improved as well. Her temperature went to 101.8 F and has since resolved without recurrent fever. Called the see patient at approximately 4:00 p.m. due to increased work of breathing, tachypnea. Earlier today she had been feeling better at her respiratory rate was 16 to 22. She then started to feel worse again and was increasing her respiratory rate up to 36 with mild accessory use. However by the time I'm in the room; she is back to baseline. Her blood pressure is normal. She is afebrile. speaking complete sentences. Echo reviewed - normal study Portable CXR ordered and reviewed - c/w with findings on CTA yesterday. added procalcitonin, GGT, INR, TSH and BNP. Procal is tracking with increasing CRP. GGT confirms liver etiology. BNP is down (understanding this is typically not tracked daily in the hospital). Normal INR. Normal TSH. Viral PCR panel reveals negative results on 6 viral etiologies. The pattern of her liver injury with disproportionate elevation alk-phos, GGT and moderate transaminase elevation is seen in disseminated histo or blasto infection (per [employer]) I spoke with [facility] - Dr. Weaver. I pushed all images to Dorcas. -He said this is likely viral or bacterial but blasto would be #3 on his list. He liked that the antigens and antibodies are pending. -He favored reactive transaminitis secondary to inflammation from the pneumonia vs invasive fungal infection (IFI) -He said he'd hold on oral antifungals if improving and confirmation by labs is not back -He said giving steroids is fine. Its a theoretical risk in fungal infections but not seen in practice. Give them (he suggested 80mg solumedrol q 8, if we thought it helped) -He said it is fine to give her time BUT consider they would bronch her if we transferred and it would be best to be up there by PM or she'd wait until next week. If emergent and she was intubated; they may do it on the weekend depending on the clinical scenario. 03/29/2025: Overnight patient continued to worsen with hypoxic respiratory failure. She was started on high-flow oxygen and had a titrated to FiO2 of 70% with 40 L. slept very poorly last night due to dyspnea and nursing cares. Continues to be febrile with a temp of 103.1? F this morning. Exam Narrative: Exam Narrative: Tired appearing with increased work of breathing. She is alert and oriented to her circumstances. Respirations with occasional crackles and fair air exchange in all lung becerra. Cardiovascular: S1, S2, regular rate and rhythm. Abdomen is soft without tenderness or mass. Extremities without edema. Const: Vital Signs, click to edit/add: Vital Signs - 24 hr 03/28/25 11:00 03/28/25 15:00 03/28/25 15:00 Temperature 97.9 F Pulse Rate 100 Pulse Rate [Pulse Oximeter] 96 Respiratory Rate 20 Blood Pressure [Ri ght Arm] 115/71 Pulse Oximetry 90 92 Oxygen Delivery Me thod Nasal Cannula Nasal Cannula Oxygen Flow Rate 1.5 2 Fraction of Inspir ed Oxygen 03/28/25 15:00 03/28/25 19:33 03/28/25 22:10 Temperature 98.7 F 98.1 F Pulse Rate Pulse Rate [Pulse Oximeter] 104 H 93 Respiratory Rate 36 H 30 H 30 H Blood Pressure [Ri ght Arm] 127/83 134/79 Pulse Oximetry 93 92 Oxygen Delivery Me thod Nasal Cannula Nasal Cannula Oxygen Flow Rate 2 3.75 Fraction of Inspir ed Oxygen 03/28/25 22:19 03/28/25 22:21 03/28/25 22:43 Temperature 98.1 F Pulse Rate Pulse Rate [Pulse Oximeter] 96 Respiratory Rate 30 H 30 H Blood Pressure [Ri ght Arm] 144/109 H 132/86 Pulse Oximetry 95 95 Oxygen Delivery Me thod OxyMask OxyMask Oxygen Flow Rate 5 5 Fraction of Inspir ed Oxygen 03/28/25 23:00 03/29/25 02:05 03/29/25 02:22 Temperature Pulse Rate 106 H Pulse Rate [Pulse Oximeter] Respiratory Rate 28 H Blood Pressure [Ri ght Arm] Pulse Oximetry 92 Oxygen Delivery Me thod OxyMask Oxygen Flow Rate 6 Fraction of Inspir ed Oxygen 50 03/29/25 02:35 03/29/25 04:22 03/29/25 06:51 Temperature 98.5 F Pulse Rate Pulse Rate [Pulse Oximeter] 95 Respiratory Rate 18 Blood Pressure [Ri ght Arm] 115/73 Pulse Oximetry 95 Oxygen Delivery Me thod High Flow Nasal Ca nnula Oxygen Flow Rate 20 Fraction of Inspir ed Oxygen 50 50 65 03/29/25 08:00 03/29/25 08:00 03/29/25 08:49 Temperature 103.1 F H Pulse Rate Pulse Rate [Pulse Oximeter] Respiratory Rate 30 H Blood Pressure [Co ght Arm] Pulse Oximetry 94 Oxygen Delivery Me thod High Flow Nasal Ca nnula Oxygen Flow Rate 40 40 Fraction of Inspir ed Oxygen 70 70 Documenting provider has reviewed patient's vital signs: yes Labs Labs: Laboratory Results - last 24 hr 03/28/25 03/28/25 03/29/25 06:19 06:19 06:11 WBC 3.97 L RBC 3.73 L Hgb 10.3 L Hct 31.6 L MCV 85 MCH 28 MCHC 33 RDW Coeff of Brandyn 14.3 Plt Count 169 Neut % (Auto) 57.9 Lymph % (Auto) 29.7 Isabela % (Auto) 11.6 H Eos % (Auto) 0.0 Baso % (Auto) 0.3 Neut # (Auto) 2.30 Lymph # (Auto) 1.20 Isabela # (Auto) 0.50 Eos # (Auto) 0.00 Baso # (Auto) 0.00 Abs Immat Gran (auto) 0.00 Imm/Tot Granulo (auto) 0.5 Diff Slide Review Acceptable Review INR 1.08 VBG pH VBG pCO2 VBG pO2 VBG HCO3 Sodium 132 L Potassium 3.5 L Chloride 98 Carbon Dioxide 29 Anion Gap 5 L BUN 25 Creatinine 0.7 Estimated Creat Clear 82.67 Estimated GFR 103 Glucose 106 Calcium 8.5 Total Bilirubin 1.0 Direct Bilirubin 1.0 H GGT 297 H AST 328 H ALT 187 H Alkaline Phosphatase 1090 H C-Reactive Protein 12.4 H NT-Pro-B Natriuret Pep 520 H Total Protein 5.5 L Albumin 2.9 L Procalcitonin 1.05 H TSH 1.120 Lab Acknowledgement Test Added Test Added 03/29/25 07:52 WBC RBC Hgb Hct MCV MCH MCHC RDW Coeff of Brandyn Plt Count Neut % (Auto) Lymph % (Auto) Isabela % (Auto) Eos % (Auto) Baso % (Auto) Neut # (Auto) Lymph # (Auto) Isabela # (Auto) Eos # (Auto) Baso # (Auto) Abs Immat Gran (auto) Imm/Tot Granulo (auto) Diff Slide Review INR VBG pH 7.481 H VBG pCO2 37 L VBG pO2 30.4 VBG HCO3 28 Sodium Potassium Chloride Carbon Dioxide Anion Gap BUN Creatinine Estimated Creat Clear Estimated GFR Glucose Calcium Total Bilirubin Direct Bilirubin GGT AST ALT Alkaline Phosphatase C-Reactive Protein NT-Pro-B Natriuret Pep Total Protein Albumin Procalcitonin TSH Lab Acknowledgement
--- NOTE | 2025-03-29 10:19 | NUTR.NU ---
RDN with nutrition screen for decreased oral intakes since admission. Patient admitted with acute hypoxemic respiratory failure and community acquired pneumonia. Medical history includes, but not limited to rheumatoid arthritis, immunocompromised, and elevated liver labs. RDN visited with patient in room on this day. Patient reports a good appetite and eating normally prior to not feeling well. Patient's appetite is poor and notes some nausea today. Per field recruiter, patient has been eating 0-50% of most meals since admission. Meal intakes have decreased since admission. Patient declined all nutrition supplements at this time and patient notes she is going to try and eat something at lunch. RDN informed the patient that she can request a nutrition supplement or snacks from the RN as she desires. No recent weight history available from prior to admission at this time. Current weight 172lbs, height 5ft 5in, and BMI 28.7kg/m2. Weights from this admission: 162lbs 03/28/25, 163lbs 03/27/25, 164lbs 03/26/25. Of note, patient has received Lasix during hospitalization. Also, of note, patient's current weight is a bed scale weight and previous hospital weights were a standing scale weight. RDN will continue to follow weight trends during hospitalization. Plan is for patient to transfer to [facility] later this afternoon. RDN will continue to monitor and follow.
[2025-03-29] MEDS: cefTRIAXone 2 GM in 0.9 % SODIUM CHLORIDE Mini-bag 100 ML IVPB (11:55)
[2025-03-29 12:02] LABS: Hep B Surface Antigen Negative (Negative); Hep C Ab by CIA Interp Negative (Negative)
[2025-03-29] MEDS: prednisoLONE acetate 1 % DROPS 1 DROP EYE-RIGHT (12:10)
[2025-03-29] MEDS: DORZOLAMIDE/TIMOLOL 2-0.5% OPHTH 1 DROP EYE-BOTH (12:10)
[2025-03-29] MEDS: BRIMONIDINE 0.15% 1 EACH EYE-BOTH (12:11)
[2025-03-29] MEDS: VENLAFAXINE HCL ER 37.5 MG CAPSULE PO (12:42)
[2025-03-29] MEDS: ITRACONAZOLE 100 MG CAPSULE 200 MG PO (12:43)
[2025-03-29 13:24] LABS: EBV Antibody-Early (D)Ag IgG 8.0 U/mL (<=8.9)
--- NOTE | 2025-03-29 13:56 | RESP.RT ---
Oxygen device trial for patient transport. Three devices were tried to maintain patients SaO2 greater than 92% and patient comfort. Patient respiratory rate 24-30/minute, breathing remained regular/easy with all three devices. Patient comfortable on each device. OxyMask at 10 Lpm SaO2 87-90%, increased to 12 Lpm SaO2 88-92%, increased to 15 Lpm SaO2 89-93%, decreased with any patient effort. HFNC nasal cannula in place with Oxygen tube attached to it, 8 Lpm, SaO2 89-91, increased to 10 Lpm SaO2 90-93, decreased with any patient effort. Non-Rebreather mask at 8 Lpm SaO2 91-94%, increased to 10 Lpm SaO2 95-97%, decreased to 94% with patient effort. Would recommend Non-Rebreather, patient would benefit using her nasal airway for humidification.
--- NOTE | 2025-03-29 14:49 | PC.NURSE ---
Discharge - Pt awake, oriented, cooperative. Pt reported being very tired and noted to be lethargic. Pt reported nausea at start of shift, given medication per OCT with pt reporting improvement. Pt noted to be febrile, given antipyretic per MAR with reassessment of temperature reading SHANNEN. Increased WOB noted by RN, consult to RT to assess high flow settings. Pt breathing and oxygenation improved, pt up with standby assistance. Pt denied pain. Family at bedside. Pt transferred to [facility] via non-emergent EMS at approximately 1440. Nurse to nurse handoff given to TRINA Chanel at [facility].
[2025-03-29 21:37] LABS: Anaplasma phagocyt PCR Not Detected
--- NOTE | 2025-03-31 17:26 | PC.NURSE ---
Brick Veneer Maker received result from Doris in lab. Pt was positive for Blastomyces dermatitidis Antigen per [facility]. Brick Veneer Maker called [facility] to update with results and obtained fax number from [facility]. Faxed lab results to [facility] at [phone]. Confirmation of fax receipt occurred. Hospitalist Susana Miller updated on pt results.
--- NOTE | 2025-03-31 17:47 | PC.NURSE ---
Called [facility] for RN to RN confirmation of received lab results. Medical Records Director spoke with TRINA Luna. Phone call transferred to provider to have conversation with Dr. Miller.
--- NOTE | 2025-03-31 18:12 | P.CCN_ITS ---
Subjective Subjective Principal diagnosis: Blastomycosis (IFI) pneumonia - patient transferred Interval history: Received notification from the lab this afternoon, 03/31/25, that patient was positive for blasto. Affects was received on our unit and we fax this to [facility]. I did speak with stone driller helper Dr. Cobb regarding this finding. Patient is on Ampho B and is currently intubated and on pressors.
[2025-03-31 21:32] LABS: Histoplasma Galactomannan Ag Q > 24.0 ng/mL; Histoplasma Galactomannan Int. Detected (Not Detected)
--- NOTE | 2025-04-01 17:20 | PC.NURSE ---
Called critical results of positive blastos to ICU at [facility], (the unit where patient is currently). Spoke with TRINA La about lab results, read off to him and also faxed results to unit. Told Abhinav to call us at [phone] if fax does not come through in the next few minutes.
== END 2025-03-29 14:40 | disposition short-term general hospital (02) | DRG 867 ==
LOC: ED 03-26 00:15 → MEDSURG 03-26 00:17
PROVIDERS: Family Medicine; Admitting Provider Internal Medicine; Emergency Provider Family Medicine; Visit Provider Internal Medicine
DX: B40.0 Acute pulmonary blastomycosis (principal); J96.01 Acute respiratory failure with hypoxia; D84.821 Immunodeficiency due to drugs; E87.1 Hypo-osmolality and hyponatremia; R74.01 Elevation of levels of liver transaminase levels; R11.2 Nausea with vomiting, unspecified; M06.9 Rheumatoid arthritis, unspecified; Z79.620 Long term (current) use of immunosuppressive biologic; H20.13 Chronic iridocyclitis, bilateral; H15.013 Anterior scleritis, bilateral
CPT/HCPCS: 36415; 36600; 71045; 71275; 74177; 76700; 78227; 80048; 80053; 80074; 80076; 81001; 81003; 82803; 82977; 83605; 83690; 83735; 83880; 84145; 84443; 84484; 85025; 85610; 86140; 86644; 86645; 86663; 87040; 87081; 87086; 87252; 87385; 87449; 87468; 87469; 87484; 87631; 87798; 87899; 93005; 93306; 94664; 94761; 99285; A9270; A9537; J0456; J0692; J0696; J0780; J1650; J1720; J1885; J1938; J2405; J2543; J2805; J3375; J7030; J7042; J7050; J7120; J7512; Q9967

== ENCOUNTER 2025-03-29 14:30 | Outpatient (CLI) | payer OTHER, BC, SELFPAY | END 2025-03-29 14:31 | disposition home or self-care (01) | PROVIDERS: Visit Provider Emergency Medicine | DX: J96.01 Acute respiratory failure with hypoxia (principal); J18.9 Pneumonia, unspecified organism | CPT/HCPCS: A0425; A0433 ==

== ENCOUNTER 2025-04-18 10:29 | Emergency (ER) | payer OTHER, BC, SELFPAY ==
[2025-04-18 10:32] VITALS: BP 143/93; PULSE 87; RESP 20; TEMP 35.8; O2SAT 94; BMI 24.8
--- NOTE | 2025-04-18 10:57 | ED.GENADULT ---
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 She has worked with Dr. Bolanos at [facility] who wants her on long-term antifungal agent as well as needs labs checked weekly. Her potassium has been intermittently low. She has been unable to take oral or liquid potassium. She sees Dr. James ma in [place], and was hoped that she would follow her potassiums and get her replacement when she is able to take oral. She tried oral pills and oral liquid potassium in a failed. She was sent to the ER by her primary care clinic for treatment of her low potassium. It looks from reviewing charts that was about 2.8 yesterday. We will recheck it prior to starting potassium bumps IV. She will get some IV fluid as well. She does report that she is feeling a little better from her pneumonia, and she is able to eat a little bit of food but since starting the medication with the infection she has really had no diet no no appetite and has had difficulty taking or fluids well. Related Data Home Medications ?Medication ?Instructions ?Recorded ?Confirmed adalimumab 40 mg/0.4 mL 40 mg subcut Q7D 06/12/23 04/18/25 subcutaneous pen kit (Humira(CF) Pen) Held on 04/18/25. Instructions: Doctor's Order brimonidine 0.15 % eye drops 1 drp ophthalmic (eye) BID 06/12/23 03/26/25 dorzolamide 22.3 mg-timolol 6.8 1 drp ophthalmic (eye) Q12H 06/12/23 03/27/25 mg/mL eye drops mycophenolate mofetil 500 mg tablet 1,000 mg PO QAM 06/12/23 04/18/25 Held on 04/18/25. Instructions: Doctor's Order mycophenolate mofetil 500 mg tablet 1,500 mg PO HS 06/12/23 04/18/25 Held on 04/18/25. Instructions: Doctor's Order prednisone 1 mg tablet 2 mg PO QDAY 06/12/23 04/18/25 venlafaxine 37.5 mg 37.5 mg PO DAILY 06/12/23 04/18/25 capsule,extended release 24 hr cyclosporine 0.05 % eye drops in a 1 drp ophthalmic (eye) Q12H 03/25/25 03/25/25 dropperette (Restasis) latanoprost 0.005 % eye drops 1 drp ophthalmic (eye-left) QPM 03/25/25 03/25/25 prednisolone acetate 1 % eye 1 - 2 drp ophthalmic (eye-right) 03/25/25 03/25/25 drops,suspension DAILY rosuvastatin 10 mg tablet 10 mg PO DAILY 03/25/25 04/18/25 itraconazole 100 mg capsule PO 04/18/25 ondansetron 4 mg disintegrating 4 mg PO Q8H PRN 04/18/25 04/18/25 tablet Allergies Allergy/AdvReac Type Severity Reaction Status Date / Time amoxicillin Allergy Unknown Verified 04/18/25 10:37 bupropion (From Wellbutrin Allergy Verified 03/27/25 17:51 SR) Sulfa (Sulfonamide Allergy Verified 03/27/25 17:51 Antibiotics) Review of Systems Status of ROS: Reports: 6 or more systems reviewed and unremarkable except as noted in History and below [facility] Medical History Chronic anterior uveitis of both eyes ?H20.13 - Chronic iridocyclitis, bilateral (ICD-10) Rheumatoid arthritis ?M06.9 - Rheumatoid arthritis, unspecified (ICD-10) Immunocompromised patient ?D84.9 - Immunodeficiency, unspecified (ICD-10) Shingles ?B02.9 - Zoster without complications (ICD-10) Social History What is your current living situation?: I presently have a place to live Problems where you live: no known problems Problems where you live details: n/a In the past 12 months, utilities in danger of being shut off: no In past 12 months, lack of transportation kept you from medical appts, meetings, work, or getting things needed for daily living: no In the past 12 mos, have been you worried that your food would run out before you had money to buy more?: never true In the past 12 mos, the food you bought just didn't last and you didn't have money to buy more?: never true Smoking Status: Former smoker Second hand tobacco smoke exposure: No How often do you have a drink containing alcohol: never AUDIT-C Alcohol total score: 0 Non-prescribed substance use: denies use How often does anyone, including family, friends and others, physically hurt you: never How often does anyone, including family, friends and others, insult or talk down to you: never How often does anyone, including family, friends and others, threaten you with harm: never How often does anyone, including family, friends and others, scream or curse at you: never Exam Narrative: Exam Narrative: Objective: Patient's vital signs look within normal limits she is afebrile, O2 sats 94% on room air She is alert orient x3, no cyanosis, very pleasant Heart exam is unremarkable rate and rhythm regular Extremities are no edema neurologic grossly nonfocal. Const: Vital Signs, click to edit/add: Vital Signs - 24 hr 04/18/25 10:32 Temperature 96.5 F L Pulse Rate [Pulse Oximeter] 87 Respiratory Rate 20 Blood Pressure [Ri ght Upper Arm] 143/93 H Pulse Oximetry 94 Oxygen Delivery Me thod Room Air Course Vital Signs Vital signs: Initial Vital Signs Temperature 96.5 F L 04/18/25 10:32 Temperature Source Temporal Artery Scan 04/18/25 10:32 Pulse Rate 87 04/18/25 10:32 Respiratory Rate 20 04/18/25 10:32 Blood Pressure 143/93 H 04/18/25 10:32 Blood Pressure Mean 109 H 04/18/25 10:32 Blood Pressure Position Sitting 04/18/25 10:32 Pulse Oximetry 94 04/18/25 10:32 Oxygen Delivery Method Room Air 04/18/25 10:32 Vital Signs Temperature 96.5 F L 04/18/25 10:32 Pulse Rate 87 04/18/25 10:32 Respiratory Rate 20 04/18/25 10:32 Blood Pressure 143/93 H 04/18/25 10:32 Pulse Oximetry 94 04/18/25 10:32 Oxygen Delivery Method Room Air 04/18/25 10:32 Temperature 96.5 F L 04/18/25 10:32 Pulse Rate 87 04/18/25 10:32 Respiratory Rate 20 04/18/25 10:32 Blood Pressure 143/93 H 04/18/25 10:32 Pulse Oximetry 94 04/18/25 10:32 Oxygen Delivery Method Room Air 04/18/25 10:32 Medications Administered Medications: Generic Name Dose Route Start Last Admin Trade Name Freq PRN Reason Stop Dose Admin Sodium Chloride 500 mls @ 500 mls/hr 04/18/25 10:56 04/18/25 11:15 0.9 % Sodium Chloride 500 Ml IV 04/18/25 11:55 500 mls/hr .Q1H ONE Administration Medical Decision Making MDM Narrative Medical decision making narrative: [age] year white 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 She is starting to eat a little bit now. She needs to get her labs checked today will give her potassium bumps if it is again low. She will need to check in with Dr. Braswell within the next couple of days to recheck her labs and start oral medicine when she is able. At this time she is unable to take oral potassium either liquid or pills. Disposition pending above-mentioned lab studies and treatments. Addendum 11:30 a.m.: Patient's white count is 5620 which is normal hemoglobin is low at 8.4, her potassium is slightly low at 3.2. She will be given a 10 milk open potassium bumped. She is now starting to eat so I would be hesitant to give her more potassium that at this time. Should have this checked in a couple of days again, at primary care. Also when she is able start taking oral potassium if her potassium level continues to be low. I suspect that if she begins eating her potassium level should improved and stable more toward normal. She is developing an appetite, and hopefully that will restart soon. Follow-up with infectious disease as scheduled. Lab Data Labs: Lab Results 04/18/25 Range/Units 10:45 WBC 5.62 (4.50-11.00) K/uL RBC 2.92 L (4.00-5.20) m/uL Hgb 8.4 L (12.0-16.0) gm/dL Hct 25.8 L (33.0-51.0) % MCV 88 (80-100) fL MCH 29 (26-34) pg MCHC 33 (32-36) gm/dL RDW Coeff of Brandyn 17.0 H (11.5-15.5) % Plt Count 183 (140-440) K/uL Neut % (Auto) 40.9 L (42.0-72.0) % Lymph % (Auto) 37.9 (20-44) % [place] % (Auto) 12.8 H (0.0-11.0) % Eos % (Auto) 5.7 (0.0-7.0) % Baso % (Auto) 1.6 (0.0-3.0) % Neut # (Auto) 2.30 (1.7-7.0) K/uL Lymph # (Auto) 2.13 (0.90-2.90) K/uL [place] # (Auto) 0.70 (0.00-0.90) K/UL Eos # (Auto) 0.32 (0.00-0.50) K/uL Baso # (Auto) 0.09 (0.00-0.30) K/uL Abs Immat Gran (auto) 0.06 (0.00-0.30) K/uL Imm/Tot Granulo (auto) 1.1 % Sodium 138 (135-149) mmol/L Potassium 3.2 L (3.6-5.1) mmol/L Chloride 106 (96-114) mmol/L Discharge Plan Discharge Clinical Impression: Fungal pneumonia, Acute hypokalemia Patient Disposition: Home w/ Parent or Adult Condition: Improved Additional Instructions: Diet progression as tolerated, recommend recheck with your primary care doctor within the next 2-3 days to recheck potassium and perhaps start oral potassium replacement. Continue follow-up plans as per Infectious Disease. Activity Level: Light activity Discharge Diet: Full Liquid Diet Detail: Advance diet as tolerated Prescriptions: No Action prednisone 1 mg tablet 2 mg PO QDAY mycophenolate mofetil 500 mg tablet 1,000 mg PO QAM mycophenolate mofetil 500 mg tablet 1,500 mg PO HS Humira(CF) Pen 40 mg/0.4 mL pen injector kit 40 mg subcut Q7D venlafaxine 37.5 mg capsule,extended release 24hr 37.5 mg PO DAILY brimonidine 0.15 % drops 1 drp ophthalmic (eye) BID dorzolamide-timolol 22.3-6.8 mg/mL drops 1 drp ophthalmic (eye) Q12H Rx Instructions: left eye latanoprost 0.005 % drops 1 drp ophthalmic (eye-left) QPM prednisolone acetate 1 % drops,suspension 1 - 2 drp ophthalmic (eye-right) DAILY rosuvastatin 10 mg tablet 10 mg PO DAILY cyclosporine [Restasis] 0.05 % dropperette 1 drp ophthalmic (eye) Q12H ondansetron 4 mg tablet,disintegrating 4 mg PO Q8H PRN itraconazole 100 mg capsule PO Follow Up/Referrals: Provider,Not a Local [Non-Staff, Family Practice] Stand Alone Forms: [employer] Inct[facility] Info Instructions
[2025-04-18 11:09] LABS: Hematocrit* 25.8 % (33.0-51.0); Hemoglobin* 8.4 gm/dL (12.0-16.0); Immature Granulocytes Abs Auto 0.06 K/uL (0.00-0.30); Immature Granulocytes Pct Auto 1.1 %; Lymphocytes Absolute Auto 2.13 K/uL (0.90-2.90); Mean Corpuscular HGB Conc 33 gm/dL (32-36); Mean Corpuscular Hemoglobin 29 pg (26-34); Mean Corpuscular Volume 88 fL (80-100); RDW Coefficient of Variation % 17.0 % (11.5-15.5); Red Blood Count* 2.92 m/uL (4.00-5.20); White Blood Count* 5.62 K/uL (4.50-11.00)
[2025-04-18 11:11] LABS: Slide Review Reflex No
[2025-04-18] MEDS: 0.9 % SODIUM CHLORIDE 500 ML 500 ML IV (11:15)
[2025-04-18 11:21] LABS: Chloride* 106 mmol/L (96-114); Potassium* 3.2 mmol/L (3.6-5.1); Sodium* 138 mmol/L (135-149)
[2025-04-18 11:24] LABS: Anion Gap 8 mEq/L (7-15); Blood Urea Nitrogen* 21 mg/dL (7-30); Carbon Dioxide* 24 mmol/L (20-32); Creatinine* 1.9 mg/dL (0.5-1.5); Est. Creatinine Clearance* 30.46; Estimated Glomerular Filt Rate 31 ml/min
[2025-04-18 11:25] LABS: Calcium* 8.2 mg/dL (8.4-10.6); Glucose* 114 mg/dL (60-115)
[2025-04-18] MEDS: POTASSIUM CHLORIDE 10 MEQ/100 ML PIGGYBACK 100 MEQ IVPB (11:34)
== END 2025-04-18 12:32 | disposition home or self-care (01) ==
LOC: ED 11:07
PROVIDERS: Emergency Provider Family Medicine; PCP Family Medicine
DX: J18.9 Pneumonia, unspecified organism (principal); E87.6 Hypokalemia
CPT/HCPCS: 36415; 80048; 85025; 96365; 99284; J3480; J7030

== ENCOUNTER 2025-04-27 13:35 | Inpatient (IN) | payer OTHER, BC, SELFPAY ==
[2025-04-27] VITALS (8 sets, daily range): BP systolic 123–167; BP diastolic 80–98; PULSE 72–76; RESP 14–16; TEMP 36.6–36.9; O2SAT 96–98; BMI 23.5; BMI 24.0
--- NOTE | 2025-04-27 15:13 | ED.GENADULT ---
HPI - General Adult General Time Seen by Provider: 15:13 Date Seen: 04/27/25 Chief complaint: Nausea/Vomiting Stated complaint: vomiting, low potassium, pneumonia Time Seen by Provider: 04/27/25 14:46 Source: patient and RN notes reviewed Mode of arrival: ambulatory Limitations: no limitations History of Present Illness HPI narrative: This 55-year-old female is coming in with a low potassium, was 3 at clinic yesterday. She has been having complications with low potassium in the setting of ongoing nausea, fungal pneumonia. She is followed by infectious disease Dr. Bolanos through [place]. She was hospitalized for about 3 weeks, started here in [place], was here for week and then transferred to [place]. She ended up intubated, was found to have fungal pneumonia and got amphotericin B. She was in the hospital for another week and then discharge. She has been home for about 2 weeks. She is on itraconazole orally daily. She has been using Zofran for nausea. She was given a prescription for oral potassium to supplement today but states she can not take anything orally. She is even having problems getting her itraconazole down despite the Zofran. She has had no abdominal pain. She feels like she run some low-grade fevers daily. She is immunocompromised secondary treatment of her rheumatoid arthritis. She is not coughing. She is not on any proton pump inhibitor or histamine magi. She has noted no significant diarrhea, no blood in her stools, no melena. She states she just has no appetite for anything, cannot eat anything. She will occasionally vomit her medications. Related Data Home Medications ?Medication ?Instructions ?Recorded ?Confirmed adalimumab 40 mg/0.4 mL 40 mg subcut Q7D 06/12/23 04/27/25 subcutaneous pen kit (Humira(CF) Pen) Held on 04/18/25. Instructions: Doctor's Order brimonidine 0.15 % eye drops 1 drp ophthalmic (eye) BID 06/12/23 04/27/25 dorzolamide 22.3 mg-timolol 6.8 1 drp ophthalmic (eye) Q12H 06/12/23 04/27/25 mg/mL eye drops mycophenolate mofetil 500 mg tablet 1,000 mg PO QAM 06/12/23 04/27/25 Held on 04/18/25. Instructions: Doctor's Order mycophenolate mofetil 500 mg tablet 1,500 mg PO HS 06/12/23 04/27/25 Held on 04/18/25. Instructions: Doctor's Order prednisone 1 mg tablet 2 mg PO QDAY 06/12/23 04/27/25 venlafaxine 37.5 mg 37.5 mg PO DAILY 06/12/23 04/27/25 capsule,extended release 24 hr cyclosporine 0.05 % eye drops in a 1 drp ophthalmic (eye) Q12H PRN 03/25/25 04/27/25 dropperette (Restasis) latanoprost 0.005 % eye drops 1 drp ophthalmic (eye-left) QPM 03/25/25 04/27/25 prednisolone acetate 1 % eye 1 drp ophthalmic (eye-right) DAILY 03/25/25 04/27/25 drops,suspension rosuvastatin 10 mg tablet 10 mg PO DAILY 03/25/25 04/27/25 itraconazole 100 mg capsule 200 mg PO BID 04/18/25 04/27/25 ondansetron 4 mg disintegrating 4 mg PO Q8H PRN 04/18/25 04/27/25 tablet acetaminophen 500 mg capsule 500 mg PO Q6H PRN 04/27/25 04/27/25 potassium chloride 20 mEq oral 20 meq PO BID 04/27/25 04/27/25 packet (Klor-Con) Allergies Allergy/AdvReac Type Severity Reaction Status Date / Time amoxicillin Allergy Unknown Verified 04/27/25 14:00 bupropion (From Wellbutrin Allergy Verified 04/27/25 14:00 SR) Sulfa (Sulfonamide Allergy Verified 04/27/25 14:00 Antibiotics) Review of Systems Status of ROS: Reports: 6 or more systems reviewed and unremarkable except as noted in History and below [facility] Medical History (Updated 04/27/25 @ 17:57 by Whit Brown MD) Chronic anterior uveitis of both eyes ?H20.13 - Chronic iridocyclitis, bilateral (ICD-10) Rheumatoid arthritis ?M06.9 - Rheumatoid arthritis, unspecified (ICD-10) Immunocompromised patient ?D84.9 - Immunodeficiency, unspecified (ICD-10) Shingles ?B02.9 - Zoster without complications (ICD-10) Surgical History (Updated 04/27/25 @ 17:57 by Whit Brown MD) Hx of LASIK ?Z98.890 - Other specified postprocedural states (ICD-10) Cataract extraction status, left eye ?Z98.42 - Cataract extraction status, left eye (ICD-10) Social History What is your current living situation?: I presently have a place to live Problems where you live: no known problems Problems where you live details: n/a In the past 12 months, utilities in danger of being shut off: no In past 12 months, lack of transportation kept you from medical appts, meetings, work, or getting things needed for daily living: no In the past 12 mos, have been you worried that your food would run out before you had money to buy more?: never true In the past 12 mos, the food you bought just didn't last and you didn't have money to buy more?: never true Highest level of school completed/degree received: Associate degree: academic program Smoking Status: Former smoker Second hand tobacco smoke exposure: No How often do you have a drink containing alcohol: never AUDIT-C Alcohol total score: 0 Non-prescribed substance use: denies use Caffeine: No How often does anyone, including family, friends and others, physically hurt you: never How often does anyone, including family, friends and others, insult or talk down to you: never How often does anyone, including family, friends and others, threaten you with harm: never How often does anyone, including family, friends and others, scream or curse at you: never service: No Exam Const: Vital Signs, click to edit/add: Vital Signs - 24 hr 04/27/25 13:48 04/27/25 16:40 04/27/25 17:21 Temperature 98.1 F 98.5 F Pulse Rate 72 Pulse Rate [Right Pulse Oximeter] 75 Respiratory Rate 16 16 16 Blood Pressure 141/98 H Blood Pressure [Ri ght Arm] 167/91 H Blood Pressure [Ri ght Upper Arm] 123/85 Pulse Oximetry 96 97 98 Oxygen Delivery Me thod Room Air Room Air 04/27/25 17:21 04/27/25 18:52 Temperature 98.5 F Pulse Rate Pulse Rate [Right Pulse Oximeter] Respiratory Rate 16 14 Blood Pressure Blood Pressure [Ri ght Arm] 157/90 H Blood Pressure [Ri ght Upper Arm] Pulse Oximetry 98 97 Oxygen Delivery Me thod Room Air Room Air This 55-year-old female is alert, interactive, no apparent distress. She is frail-appearing and slender but alert and interactive. She is hanging onto an emesis bag. Cheeks are somewhat sunken better coloration is good. She has got some grayish to bluish pigmentary changes in her sclera. Pupils are equal round reactive. Speech is normal. Lungs sound clear anteriorly, no wheezing or crackles, no tachypnea. CV regular rate and rhythm, no murmur, normal S1-S2, no S3-S4. Abdomen is soft, nontender, nondistended, no organomegaly. No lower extremity edema. Documenting provider has reviewed patient's vital signs: yes Course Course ED Course: This patient has ongoing nausea which I think is complicating her treatment. Consideration for her underlying nausea will be given outside of medication therapy. Have ordered a TSH. Will look at her electrolytes, liver panel again. Will also do a troponin and proBNP but doubt cardiac etiology. She certainly could have gastritis given her lengthy hospital stay. She is not having abdominal pain but do suppose she could have an atypical presentation of peptic ulcer disease. Consideration for EGD might be needed down the road if not improving. Would certainly start with a course of empiric treatment with proton pump inhibitor and will give her 40 mg IV Protonix here. She is having no abdominal pain, ice nontender on examination, I do not feel abdominal imaging is necessary at this time, risk of radiation likely outweighs benefit of CT imaging. Reconsider if she does have recurrent vomiting or development of abdominal pain. Consultations Consultation #1: Have spoken with the hospitalist Dr. Brown regarding this patient. She will accept, request patient to be inpatient. I did subsequently add on an EKG and cardiac monitoring with the potassium being 2.6. Will order subsequent dose of potassium and magnesium. Will update the patient. Time: 16:23 Vital Signs Vital signs: Initial Vital Signs Temperature 98.1 F 04/27/25 13:48 Temperature Source Temporal Artery Scan 04/27/25 13:48 Pulse Rate 75 04/27/25 13:48 Respiratory Rate 16 04/27/25 13:48 Blood Pressure 123/85 04/27/25 13:48 Blood Pressure Mean 97 04/27/25 13:48 Blood Pressure Position Sitting 04/27/25 13:48 Pulse Oximetry 96 04/27/25 13:48 Oxygen Delivery Method Room Air 04/27/25 13:48 Vital Signs Temperature 98.1 F 04/27/25 13:48 Pulse Rate 75 04/27/25 13:48 Respiratory Rate 16 04/27/25 13:48 Blood Pressure 123/85 04/27/25 13:48 Pulse Oximetry 96 04/27/25 13:48 Oxygen Delivery Method Room Air 04/27/25 13:48 Temperature 98.5 F 04/27/25 18:52 Pulse Rate 76 04/27/25 18:57 Respiratory Rate 14 04/27/25 18:52 Blood Pressure 157/90 H 04/27/25 18:52 Pulse Oximetry 97 04/27/25 18:52 Oxygen Delivery Method Room Air 04/27/25 18:52 Medications Administered Medications: Generic Name Dose Route Start Last Admin Trade Name Freq PRN Reason Stop Dose Admin Potassium Chloride 10 meq in 100 mls @ 100 mls/hr 04/27/25 17:30 04/27/25 19:22 Potassium Chloride IVPB 04/27/25 19:59 100 mls/hr Q90M ROSA MARIA Administration Ondansetron HCl 4 mg 04/27/25 17:16 04/27/25 17:47 Ondansetron Odt 4 Mg Tab PO 4 mg Q6H PRN Administration Discontinued Medications Generic Name Dose Route Start Last Admin Trade Name Freq PRN Reason Stop Dose Admin Sodium Chloride 1,000 mls @ 500 mls/hr 04/27/25 15:26 04/27/25 15:57 0.9 % Sodium Chloride 1000 Ml IV 04/27/25 17:25 500 mls/hr .Q2H ROSA MARIA Administration Potassium Chloride 10 meq in 100 mls @ 100 mls/hr 04/27/25 15:24 04/27/25 16:48 Potassium Chloride IVPB 04/27/25 16:23 Infused ONCE ONE Infusion Pantoprazole Sodium 40 mg 04/27/25 16:18 04/27/25 16:31 Pantoprazole Sodium 40 Mg Inj IVP 04/27/25 16:19 40 mg ONCE ONE Administration Medical Decision Making Lab Data Lab results reviewed: Yes I reviewed the patient's lab results Lab results narrative: Hemoglobin was 9 on the , was 7.8 on April 17. Her potassium was 3 yesterday, creatinine 1.36, sodium 141 and magnesium 1.7. These were on outside labs through [facility]. Labs: Lab Results 04/27/25 Range/Units 15:40 WBC 5.70 (4.50-11.00) K/uL RBC 3.25 L (4.00-5.20) m/uL Hgb 9.2 L (12.0-16.0) gm/dL Hct 29.3 L (33.0-51.0) % MCV 90 (80-100) fL MCH 28 (26-34) pg MCHC 31 L (32-36) gm/dL RDW Coeff of Brandyn 15.7 H (11.5-15.5) % Plt Count 327 (140-440) K/uL Neut % (Auto) 32.0 L (42.0-72.0) % Lymph % (Auto) 47.0 H (20-44) % [place] % (Auto) 10.2 (0.0-11.0) % Eos % (Auto) 8.4 H (0.0-7.0) % Baso % (Auto) 1.2 (0.0-3.0) % Neut # (Auto) 1.80 (1.7-7.0) K/uL Lymph # (Auto) 2.70 (0.90-2.90) K/uL [place] # (Auto) 0.60 (0.00-0.90) K/UL Eos # (Auto) 0.50 (0.00-0.50) K/uL Baso # (Auto) 0.07 (0.00-0.30) K/uL Abs Immat Gran (auto) 0.07 (0.00-0.30) K/uL Imm/Tot Granulo (auto) 1.2 % Diff Slide Review Acceptable Review (Acceptable) Sodium 137 (135-149) mmol/L Potassium 2.6 L* (3.6-5.1) mmol/L Chloride 100 (96-114) mmol/L Carbon Dioxide 28 (20-32) mmol/L Anion Gap 9 (7-15) mEq/L BUN 12 (7-30) mg/dL Creatinine 1.3 (0.5-1.5) mg/dL Estimated Creat Clear 44.52 Estimated GFR 49 ml/min Glucose 80 (60-115) mg/dL Lactate 0.8 (0.5-1.9) mmol/L Calcium 8.3 L (8.4-10.6) mg/dL Magnesium 1.6 (1.5-2.6) mg/dL Total Bilirubin 0.8 (0.1-1.5) mg/dL Direct Bilirubin 0.5 (0.0-0.5) mg/dL AST 41 H (12-35) U/L ALT 26 (4-35) U/L Alkaline Phosphatase 366 H (40-150) U/L Troponin I < 0.01 (0.01-0.04) ng/mL C-Reactive Protein 2.0 H (0.5-1.0) mg/dL NT-Pro-B Natriuret Pep 448 H (See Note) pg/mL Total Protein 8.2 (6.0-8.3) g/dL Albumin 3.3 (3.3-5.0) g/dL Lipase 67 (23-300) U/L TSH 3.700 (0.270-4.200) uIU/mL ECG Data Attestation: I personally reviewed and interpreted this ECG as follows: (Normal sinus rhythm, 72 beats per minute. No concerning ST or T-wave abnormality noted.) Prior ECG tracings: available for review Discharge Plan Discharge Clinical Impression: Acute hypokalemia, Nausea Patient Disposition: Admitted As Inpatient Condition: Unchanged
--- OUTSIDE RECORDS SUMMARY | 2025-04-27 15:30 | XMS_ITS | Patient Health Record ---
Author Organization [facility] Address [address] [place] [address] Support Name Relationship Address Phone Sun Reese Guarantor Unknown [phone] Allergies Allergen (clinical drug ingredient) Drug/Non Drug [...] W/U Status Risk Notes Problem Female climacteric ([id number]) Female climacteric (N95.1) Active confirmed Plan Of Treatment No Information Insurance Providers Payer Name Payer Address Payer Phone Subscriber Number Group Number Insured Name Patient Relationship to Insured Coverage Start Date Coverage End Date Pref[employer] PPO [address] [address] [place] [id number] Sun Reese Self - patient is the insured [facility] [address] [address] [place] [address] [id number] Sun Reese Self - patient is the insured Medical (General) History Medical History History ICD Code Arthritis Surgical History Surgery Date(Month/Year) Lasix eye surgery 2002 Lt ankle ligament surgery 2012
--- OUTSIDE RECORDS SUMMARY | 2025-04-27 15:31 | XMS_ITS | Clinical Summary ---
Author Organization [facility] Address [address] [place] [id number] Care Team Providers Care Configuration Developer Name Role Phone Moira Burkett MD Unavailable [phone] Sharmin Covington MD Primary Care Provider Allergies Active Allergy Reactions Criticality Noted Date Comments Amoxicillin Vomiting 04/17/2025 Bupropion 11/07/2004 wellbutrin Sulfasalazine 11/07/2004 Medications adalimumab (HUMIRA PEN) 40 mg/0.8 mL injection See Admin Instructions EVERY WEEK 018 Active rosuvastatin (CRESTOR) 10 mg tabletIndications :Coronary artery calcification Take 1 Tablet (10 mg) by mouth once daily. 90 Tablet 3 024 Active venlafaxine (EFFEXOR XR) 37.5 mg Extended-Release capsuleIndication s:Anxiety,Depress micheal disorder Take 1 Capsule (37.5 mg) by mouth once daily with a meal. Take with food 100 Capsule 3 025 Active brimonidine 0.15 % ophthalmic solution Place 1 Drop into left eye two times daily. ##### brimonidine eye drops in Left eye #### Active predniSONE (DELTASONE) 1 mg tablet Take 2 mg by mouth once daily. Active prednisoLONE acetate 1% ophthalmic (ECONOPRED PLUS, PRED FORTE, OMNIPRED) suspension Place 1 Drop into right eye once daily. ##### prednisolone eye drops in Right eye only ###### Active latanoprost (Xalatan) 0.005 % ophthalmic solution Place 1 Drop into left eye at bedtime. ##### latanaprost eye drops in Left eye only #### Active dorzolamide-timol oL (COSOPT) 2-0.5 % ophthalmic solution Place 1 Drop into left eye two times daily. ###### dorzolamide / timolol eye drops in Left eye only #### Active mycophenolate (CELLCEPT) 500 mg tablet Take 1,000 mg by mouth once daily. 1000 mg in morning, 1500 mg in evening Active mycophenolate (CELLCEPT) 500 mg tablet Take 1,500 mg by mouth once daily in the evening. 1000 mg in morning, 1500 mg in evening Active cycloSPORINE (RESTASIS) 0.05 % ophthalmic emulsion Place 1 Drop into both eyes two times daily. Active itraconazole (SPORANOX) 100 mg capsuleIndication s:Disseminated histoplasmosis Take 2 Capsules (200 mg) by mouth two times daily with meals. 120 Capsule 11 5 11:56 AM CDT 2025 Active ondansetron (ZOFRAN ODT) 4 mg disintegrating tabletIndications :Disseminated histoplasmosis Place 1 Tablet (4 mg) on the tongue every 8 hours if needed for Nausea/Vomiting . 90 Tablet 3 025 Active potassium chloride (K-KASEY) 20 mEq packetIndications :Hypokalemia Mix 1 Packet (20 mEq) in liquid then take by mouth two times daily with meals. 200 Packet 3 025 Active cycloSPORINE (RESTASIS) 0.05 % ophthalmic emulsion Place 1 Drop into the eye(s). 2024 Discontinued (Pharmacist change per medication history (E-cancel not sent)) mycophenolate (CELLCEPT) 500 mg tablet TAKE 2 TABS (1000MG) IN THE MORNING AND 2 TABS (1000MG) IN THE EVENING 5 2024 Discontinued (Pharmacist change per medication history (E-cancel not sent)) difluprednate (DUREZOL) 0.05 % ophthalmic emulsion Place 1 Drop into the eye(s). 019 2024 Discontinued (Pharmacist change per medication history (E-cancel not sent)) durable medical equipment (DME)Indications: Elevated blood pressure reading without diagnosis of hypertension Blood pressure cuff and machine 1 Each 021 2024 Discontinued (Pharmacist change per medication history (E-cancel not sent)) predniSONE (DELTASONE) 5 mg tablet Take 1 Tablet (5 mg) by mouth once daily. 024 2024 Discontinued (Pharmacist change per medication history (E-cancel not sent)) brimonidine 0.025 % ophthalmic solution Place 1 Drop into left eye once daily. 2024 Discontinued (Pharmacist change per medication history (E-cancel not sent)) amoxicillin 500 mg capsuleIndication s:Acute cough,Fever, unspecified fever cause Take 2 Capsules (1,000 mg) by mouth three times daily for 5 days. 30 Capsule 025 2024 ondansetron (ZOFRAN ODT) 4 mg disintegrating tabletIndications :Disseminated histoplasmosis Place 1 Tablet (4 mg) on the tongue every 8 hours if needed for Nausea/Vomiting . 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 Erosive, seropositive, +CPP. Untreated for years. Follows with Dr Burkett. Kerline (since 2019), Cellcept, and prednisone. No MTX due to nausea. Uveitis in 2018. Depressive disorder, not elsewhere classified Resolved Problems Problem Noted Date Diagnosed Date Resolved Date Life threatening medical illness 04/01/2025 04/17/2025 Fever 03/30/2025 04/17/2025 Transaminitis 03/30/2025 04/17/2025 Abnormal chest x-ray 03/30/2025 025 Need for vaccination 03/30/2025 025 Overview (03/30/2025): COVID 2nd MMR RSV Annual influenza Pneumonia 03/29/2025 04/17/2025 Acute hypoxic respiratory failure 03/29/2025 04/17/2025 Cervical cancer screening 09/27/2024 Overview (09/27/2024): 08/2024 NIL/HPV negative. Plan: Pap/HPV due 08/2029. HTN (hypertension) 02/25/2021 Presbyopia 03/12/2017 11/19/2022 Hypermetropia of left eye 03/12/2017 Hyperopic astigmatism of right eye 03/12/2017 11/19/2022 Insufficiency of tear film of both eyes 03/12/2017 11/19/2022 Vitamin D deficiency 10/18/2013 023 Dysthymia 11/24/2012 11/19/2022 Infertility, female 08/07/2011 02/26/20 21 Overview (08/07/2011): Working with ELMER Bustillos Iron deficiency anemia, unspecified 08/27/2009 02/25/2021 Palpitations 09/30/2001 02/25/2021 Encounters Date Type Department Care Team Description 04/27/2025 Telephone [facility] [address] [place] [address] Sharmin Covington MD Lab (Potassium Results) 04/26/2025 9:15 AM CDT Orders Only [facility] [address] [place] [place] [address] Lab, Farm Lab 04/26/2025 Travel 04/18/2025 Telephone [facility] [address] [facility] [address] [address] Maverick Bolanos MD Lab 04/17/2025 8:20 AM CDT Office Visit [facility] [address] [address] [place] [address] Sharmin oCvington MD Hospital F/U 04/17/2025 Orders Only [place] [id number] [place] [address] Sharmin Covington MD 1 scan: (1-Ord) 04/17/2025 04/17/2025 Travel 04/17/2025 [address] Outreach [address] [place] [address] Odalis Avalos, TRINA Primary RN Care Management; Hospital F/U (Acute Hypoxic Respiratory Failure, DOD: 04/14/25, LACE+: 72) 03/29/2025 3:44 PM CDT - 04/14/2025 2:38 PM CDT Hospital Encounter [facility] [address] [place] [address] [facility] Hospitalists Of Maverick Nation MD Anderson, Mariangel Baca MD Residents, [facility], MD Eula Ac, MD Kit Ye, MD Tania Frazier, MD Abdullahi Mora Jimmy, MD Disseminated histoplasmosis (Primary Dx); Medication monitoring encounter; Acute hypoxic respiratory failure (HC) Discharge Disposition: Home Self Care 03/29/2025 Travel 03/28/2025 4:00 PM CDT Ancillary Procedure [facility] [address] [place] [address] 2025 8:25 AM CDT Ancillary Procedure [facility] [address] [address] [place] [address] 2025 7:55 AM CDT Office Visit [facility] [address] [facility] [place] [address] Анна Rangel PA Fever (fever since Wednesday, [...] or isolated from those around you? 0 03/29/2025 Financial Resource Strain Answer Date R ecorded Difficulty of Paying Living Expenses 3 09/12/2024 Difficulty of Paying Living Expenses Not on file 09/12/2024 Food Insecurity Answer Date Recorded Do you worry your food will run out before you are able to buy more? 1 03/29/2025 Transportation Needs Answer Date Record ed Does lack of transportation keep you from medica l appointments? 1 03/29/2025 Does lack of transportation keep you from work, meetings or getting things that you need? 1 03/29/2025 Housing Stability Answer Date Recorded What is your housing situation today? 1 03/29/2025 Interpersonal Safety Answer Date Record ed Are you being hit, kicked, p ushed or yelled at (see row info)? No 03/29/2025 Interpersonal Safety Abuse 12 - 18 Not on file 03/29/2025 Interpersonal Safety Ambulatory Vulnerability No t on file 03/29/2025 Utilities Answer Date Recorded Do you have trouble paying f or utilities (for example, heat, electricity, water, phone)? 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 Not on file Not on file Obstetrics History Para Term AB IAB SAB Ectopic Multiple Livin g Live Births 0 0 0 0 0 0 0 0 0 0 Last Filed Vital Signs Vital Sign Reading Time Taken Comments Blood Pressure 122/78 04/17/2025 8:28 AM CDT Pulse 80 04/17/2025 8:28 AM CDT Temperature 38.1 C (100.5 F) 04/14/2025 2:00 PM CDT Respiratory Rate 18 04/14/2025 2:20 AM CDT Oxygen Saturation 96% 04/17/2025 8:28 AM CDT Inhaled Oxygen Concentration - - Weight 69 kg (152 lb 3.2 oz) 04/17/2025 8:28 AM CDT Height 162.6 cm (5' 4) 03/30/2025 11:00 AM CDT Body Mass Index 26.13 03/30/2025 11:00 AM CDT Plan of Treatment Upcoming Encounters Date Type Department Care Team (Late st Contact Info) Description 05/02/2025 10:15 AM CDT Orders Only [facility] [address] [address] [place] [address] Lab, Farm 05/02/2025 3:30 PM CDT Office Visit [facility] [place] [address] [facility] [address] [place] [address] Conrad Hernandez MD [address] [place] [address] 05/03/2025 9:30 AM CDT Office Visit [facility] [address] [facility] [address] [place] [address] Maverick Bolanos MD [address] [facility] [address] [place] [address] 05/09/2025 9:45 AM CDT Orders Only [facility] [address] [place] [address] Lab, Farm Health Maintenance Due Date Last Done Comments Hepatitis B series for 19+ ( 3 of 3 - 19+ 3-dose series) 05/06/2006 02/03/2006, 11/03/2005, 09/28/2005 Colonoscopy through age 75 2016 Mammogram for age 45-75 01/22/2024 01/22/20, 03/04/2021, 08/10/2019, Additional history exists COVID-19 vaccine series ( season) 2025 06/10/2022, 07/23/2021, 10/11/2020, Additional history exists Influenza [...] exists Tetanus booster 11/19/2032 11/19/2022, 01/2013, 09/22/2005 RSV vaccine for adults or (1 - 1-dose 75+ series) 2046 HIV for age 15-65 Completed 11/19/2022 Pneumococcal series for age 50+ Completed Zoster (shingles) series for age 50+ Completed 12/11/2024, 09/12/2024 Hepatitis C screening for ag e 18-79 Completed 03/31/2025, 09/22/2005 Procedures Procedure Name Priority Date/Time Associated Diagnosis Comments CBC WITH AUTO DIFFERENTIAL Routine 04/26/2025 9:17 AM CDT Medication monitoring encounter MAGNESIUM Routine 04/26/2025 9:17 AM CDT Medication monitoring encounter CBC WITH AUTO DIFFERENTIAL Routine 04/26/2025 9:17 AM CDT Medication monitoring encounter COMP METABOLIC PANEL Routine 04/26/2025 9:17 AM CDT Medication monitoring encounter CBC WITH AUTO DIFFERENTIAL Routine 04/17/2025 8:56 AM CDT Medication monitoring encounter MAGNESIUM Routine 04/17/2025 8:56 AM CDT Medication monitoring encounter CBC WITH AUTO DIFFERENTIAL Routine 04/17/2025 8:56 AM CDT Medication monitoring encounter COMP METABOLIC PANEL Routine 04/17/2025 8:56 AM CDT Medication monitoring encounter EKG 12 LEAD Routine 04/17/2025 12:00 AM CDT Disseminated histoplasmosis POTASSIUM Early AM 04/14/2025 4:23 AM CDT MAGNESIUM Timed 04/13/2025 3:31 PM CDT EKG 12 LEAD Routine 04/13/2025 6:55 AM CDT COCCIDIOIDE TITER (REFLEX ONLY) Timed 04/13/2025 5:53 AM CDT MAGNESIUM Early AM 04/13/2025 5:53 AM CDT COMP METABOLIC PANEL Timed 04/13/2025 5:53 AM CDT COCCIDIOIDES ANTIBODY IGG & IGM Timed 04/13/2025 5:53 AM CDT POTASSIUM Timed 04/12/2025 7:55 PM CDT POTASSIUM Timed 04/12/2025 1:14 PM CDT XR CHEST 2 VIEWS PA AND LATERAL Routine 04/12/2025 8:24 AM CDT MAGNESIUM Early AM 04/12/2025 5:49 AM CDT BASIC METABOLIC PANEL Early AM 04/12/2025 5:49 AM CDT POTASSIUM Today 04/11/2025 3:12 PM CDT EKG 12 LEAD Routine 04/11/2025 8:14 AM CDT BASIC METABOLIC PANEL Early AM 04/11/2025 5:04 AM CDT MAGNESIUM Early AM 04/11/2025 5:04 AM CDT POTASSIUM Today 04/10/2025 5:32 PM CDT MAGNESIUM Early AM 04/10/2025 5:22 AM CDT RENAL FUNCTION PANEL Early AM 04/10/2025 5:22 AM CDT MAGNESIUM Timed 04/09/2025 6:39 PM CDT SCAN CORRESP-LABORATORY RESULTS 04/09/2025 12:25 PM CDT HEMOGLOBIN Today 04/09/2025 11:11 AM CDT CWS PATH REVIEW HEMATOLOGY Timed 04/09/2025 5:17 AM CDT HEMOGLOBIN Early AM 04/09/2025 5:17 AM CDT MAGNESIUM Early AM 04/09/2025 5:17 AM CDT RENAL FUNCTION PANEL Early AM 04/09/2025 5:17 AM CDT POTASSIUM Timed 04/09/2025 5:17 AM CDT POTASSIUM Timed 04/08/2025 4:46 PM CDT POTASSIUM Timed 04/08/2025 5:19 AM CDT BILIRUBIN,TOTAL Early AM 04/08/2025 5:19 AM CDT AST (SGOT) Early AM 04/08/2025 5:19 AM CDT ALT (SGPT) Early AM 04/08/2025 5:19 AM CDT HEMOGLOBIN Early AM 04/08/2025 5:19 AM CDT MAGNESIUM Early AM 04/08/2025 5:19 AM CDT RENAL FUNCTION PANEL Early AM 04/08/2025 5:19 AM CDT POTASSIUM Timed 04/07/2025 4:30 PM CDT POTASSIUM Timed 04/07/2025 5:16 AM CDT CREATININE Early AM 04/07/2025 5:16 AM CDT SODIUM Early AM 04/07/2025 5:16 AM CDT ALT (SGPT) Early AM 04/07/2025 5:16 AM CDT HEMOGLOBIN Early AM 04/07/2025 5:16 AM CDT MAGNESIUM Timed 04/07/2025 5:16 AM CDT POTASSIUM KAREN 04/06/2025 11:57 PM CDT US THORACENTESIS LEFT Routine 04/06/2025 2:20 PM CDT XR CHEST 1 VIEW PA OR AP STAT 04/06/2025 2:16 PM CDT AMYLASE,BODY FLUID Today 04/06/2025 2: 02 PM CDT GLUCOSE,BODY FLUID Today 04/06/2025 2: 02 PM CDT ANAEROBIC CULTURE Today 04/06/2025 2:0 2 PM CDT PROTEIN,BODY FLUID Today 04/06/2025 2: 02 PM CDT BODY FLUID CULTURE,STAIN (AEROBIC) Today 04/06/2025 2:02 PM CDT BODY FLUID CELL COUNT/DIF Today 04/06/2025 2:02 PM CDT POTASSIUM Timed 04/06/2025 1:01 PM CDT SCAN CORRESP-EKG RESULTS 04/06/2025 12:06 PM CDT SCAN CORRESP-LABORATORY RESULTS 04/06/2025 12:06 PM CDT SCAN CORRESP-LABORATORY RESULTS 04/06/2025 12:06 PM CDT SCAN CORRESP-IMAGING 04/06/2025 12:06 PM CDT SCAN CORRESP-IMAGING 04/06/2025 12:06 PM CDT SCAN CORRESP-DIAGNOSTICS 04/06/2025 12:06 PM CDT GLUCOSE METER Timed 04/06/2025 11:37 AM CDT GLUCOSE METER Timed 04/06/2025 6:39 AM CDT RED CELL MORPHOLOGY Timed 04/06/2025 5 :13 AM CDT PLATELET ESTIMATE Timed 04/06/2025 5:1 3 AM CDT MANUAL DIFFERENTIAL Timed 04/06/2025 5 :13 AM CDT CBC WITH AUTO DIFFERENTIAL Early AM 04/06/2025 5:13 AM CDT MAGNESIUM Timed 04/06/2025 5:13 AM CDT HEPATIC FUNCTION PANEL Early AM 04/06/2025 5:13 AM CDT CBC WITH AUTO DIFFERENTIAL Early AM 04/06/2025 5:13 AM CDT BASIC METABOLIC PANEL Early AM 04/06/2025 5:13 AM CDT GLUCOSE METER Timed 04/05/2025 9:45 PM CDT GLUCOSE METER Timed 04/05/2025 5:44 PM CDT GLUCOSE METER Timed 04/05/2025 5:35 PM CDT XR CHEST 2 VIEWS PA AND LATERAL Routine 04/05/2025 2:04 PM CDT GLUCOSE METER Timed 04/05/2025 12:44 PM CDT POTASSIUM Timed 04/05/2025 12:10 PM CDT GLUCOSE METER Timed 04/05/2025 7:41 AM CDT SCAN-CARDIAC STRIP 04/05/2025 7: 18 AM CDT CWS PATH REVIEW HEMATOLOGY Timed 04/05/2025 4:58 AM CDT RED CELL MORPHOLOGY Timed 04/05/2025 4 :58 AM CDT PLATELET ESTIMATE Timed 04/05/2025 4:5 8 AM CDT MANUAL DIFFERENTIAL Timed 04/05/2025 4 :58 AM CDT CBC WITH AUTO DIFFERENTIAL Early AM 04/05/2025 4:58 AM CDT MAGNESIUM Timed 04/05/2025 4:58 AM CDT HEPATIC FUNCTION PANEL Early AM 04/05/2025 4:58 AM CDT CBC WITH AUTO DIFFERENTIAL Early AM 04/05/2025 4:58 AM CDT BASIC METABOLIC PANEL Early AM 04/05/2025 4:58 AM CDT GLUCOSE METER Timed 04/05/2025 4:53 AM CDT GLUCOSE METER Timed 04/05/2025 12:14 AM CDT SCAN-CARDIAC STRIP 04/04/2025 11 :26 PM CDT GLUCOSE METER Timed 04/04/2025 9:08 PM CDT POTASSIUM Timed 04/04/2025 7:01 PM CDT GLUCOSE METER Timed 04/04/2025 4:22 PM CDT SCAN-CARDIAC STRIP 04/04/2025 3: 43 PM CDT POTASSIUM Timed 04/04/2025 11:42 AM CDT GLUCOSE METER Timed 04/04/2025 11:41 AM CDT GAMMA GT Today 04/04/2025 9:12 AM CDT GLUCOSE METER Timed 04/04/2025 7:56 AM CDT SCAN-CARDIAC STRIP 04/04/2025 7: 16 AM CDT GLUCOSE METER Timed 04/04/2025 4:11 AM CDT CBC WITH AUTO DIFFERENTIAL Early AM 04/04/2025 4:07 AM CDT PHOSPHORUS Early AM 04/04/2025 4:07 AM CDT CK TOTAL Timed 04/04/2025 4:07 AM CDT TRIGLYCERIDES Timed 04/04/2025 4:07 AM CDT MAGNESIUM Timed 04/04/2025 4:07 AM CDT HEPATIC FUNCTION PANEL Early AM 04/04/2025 4:07 AM CDT CBC WITH AUTO DIFFERENTIAL Early AM 04/04/2025 4:07 AM CDT BASIC METABOLIC PANEL Early AM 04/04/2025 4:07 AM CDT GLUCOSE METER Timed 04/03/2025 11:45 PM CDT GLUCOSE METER Timed 04/03/2025 8:00 PM CDT SCAN-CARDIAC STRIP 04/03/2025 7: 20 PM CDT GLUCOSE METER Timed 04/03/2025 5:06 PM CDT MR ABDOMEN MRCP WO Routine 04/03/2025 4: 18 PM CDT PHOSPHORUS Today 04/03/2025 2:47 PM CDT GLUCOSE METER Timed 04/03/2025 1:07 PM CDT GLUCOSE METER Timed 04/03/2025 7:49 AM CDT SCAN-CARDIAC STRIP 04/03/2025 7: 01 AM CDT POTASSIUM Timed 04/03/2025 6:24 AM CDT GLUCOSE METER Timed 04/03/2025 5:08 AM CDT CBC WITH AUTO DIFFERENTIAL Early AM 04/03/2025 5:06 AM CDT POTASSIUM Timed 04/03/2025 5:06 AM CDT [facility]ONIZED [facility]OSPITAL DRAW ONLY Early AM 04/03/2025 5:06 AM CDT ARTERIAL BLOOD GAS Early AM 04/03/2025 5: 06 AM CDT HISTOPLASMA CAPSULATUM ANTIBODIES Early AM 04/03/2025 5:06 AM CDT MAGNESIUM Timed 04/03/2025 5:06 AM CDT HEPATIC FUNCTION PANEL Early AM 04/03/2025 5:06 AM CDT CBC WITH AUTO DIFFERENTIAL Early AM 04/03/2025 5:06 AM CDT BASIC METABOLIC PANEL Early AM 04/03/2025 5:06 AM CDT POTASSIUM Timed 04/03/2025 12:37 AM CDT GLUCOSE METER Timed 04/03/2025 12:36 AM CDT GLUCOSE METER Timed 04/02/2025 8:06 PM CDT SCAN-CARDIAC STRIP 04/02/2025 7: 02 PM CDT POTASSIUM Timed 04/02/2025 6:36 PM CDT GLUCOSE METER Timed 04/02/2025 3:24 PM CDT PHOSPHORUS KAREN 04/02/2025 2:43 PM CDT POTASSIUM Timed 04/02/2025 2:43 PM CDT GLUCOSE METER Timed 04/02/2025 11:16 AM CDT APTT Timed 04/02/2025 11:14 AM CDT HISTOPLASMA QUANTITATIVE ANTIGEN Today 04/02/2025 10:17 AM CDT POTASSIUM Timed 04/02/2025 10:15 AM CDT SCAN-CARDIAC STRIP 04/02/2025 8: 40 AM CDT GLUCOSE METER Timed 04/02/2025 7:47 AM CDT ARTERIAL BLOOD GAS Timed 04/02/2025 5: 45 AM CDT RED CELL MORPHOLOGY Timed 04/02/2025 5 :06 AM CDT PLATELET ESTIMATE Timed 04/02/2025 5:0 6 AM CDT MANUAL DIFFERENTIAL Timed 04/02/2025 5 :06 AM CDT CBC WITH AUTO DIFFERENTIAL Early AM 04/02/2025 5:06 AM CDT APTT Timed 04/02/2025 5:06 AM CDT CK TOTAL Timed 04/02/2025 5:06 AM CDT TRIGLYCERIDES Timed 04/02/2025 5:06 AM CDT [facility] DRAW ONLY Early AM 04/02/2025 5:06 AM CDT MAGNESIUM Timed 04/02/2025 5:06 AM CDT HEPATIC FUNCTION PANEL Early AM 04/02/2025 5:06 AM CDT CBC WITH AUTO DIFFERENTIAL Early AM 04/02/2025 5:06 AM CDT BASIC METABOLIC PANEL Early AM 04/02/2025 5:06 AM CDT GLUCOSE METER Timed 04/02/2025 4:25 AM CDT GLUCOSE METER Timed 04/02/2025 12:21 AM CDT SCAN-CARDIAC STRIP 04/02/2025 12 :05 AM CDT APTT Timed 04/01/2025 8:57 PM CDT BASIC METABOLIC PANEL Today 04/01/2025 8:57 PM CDT GLUCOSE METER Timed 04/01/2025 7:51 PM CDT GLUCOSE METER Timed 04/01/2025 4:51 PM CDT APTT Timed 04/01/2025 2:01 PM CDT POTASSIUM Timed 04/01/2025 12:09 PM CDT GLUCOSE METER Timed 04/01/2025 12:06 PM CDT SCAN-CARDIAC STRIP 04/01/2025 11 :30 AM CDT ARTERIAL BLOOD GAS KAREN 04/01/2025 11 :22 AM CDT URINALYSIS MICROSCOPIC Timed 04/01/2025 10:20 AM CDT UA W/ SEDIMENT EXAM REFLEXED PER CRITERIA Today 04/01/2025 10:20 AM CDT GLUCOSE METER Timed 04/01/2025 9:01 AM CDT EKG 12 LEAD Routine 04/01/2025 8:21 AM CDT SCAN-CARDIAC STRIP 04/01/2025 7: 00 AM CDT RED CELL MORPHOLOGY KAREN 04/01/2025 5 :14 AM CDT PLATELET ESTIMATE KAREN 04/01/2025 5:1 4 AM CDT MANUAL DIFFERENTIAL KAREN 04/01/2025 5 :14 AM CDT CBC WITH AUTO DIFFERENTIAL KAREN 04/01/2025 5:14 AM CDT ARTERIAL BLOOD GAS Early AM 04/01/2025 5: 14 AM CDT APTT Early AM 04/01/2025 5:14 AM CDT PROTIME-INR Early AM 04/01/2025 5:14 AM CDT MAGNESIUM Timed 04/01/2025 5:14 AM CDT HEPATIC FUNCTION PANEL Early AM 04/01/2025 5:14 AM CDT CBC WITH AUTO DIFFERENTIAL KAREN 04/01/2025 5:14 AM CDT BASIC METABOLIC PANEL Early AM 04/01/2025 5:14 AM CDT [facility] DRAW ONLY Timed 04/01/2025 5:14 AM CDT GLUCOSE METER Timed 04/01/2025 5:09 AM CDT SODIUM Timed 04/01/2025 2:41 AM CDT GLUCOSE METER Timed 03/31/2025 11:27 PM CDT SCAN-CARDIAC STRIP 03/31/2025 11 :04 PM CDT SODIUM Timed 03/31/2025 9:08 PM CDT BLOOD CULTURE Today 03/31/2025 8:38 PM CDT BLOOD CULTURE Today 03/31/2025 7:22 PM CDT [facility] DRAW ONLY Timed 03/31/2025 6:40 PM CDT GLUCOSE METER Timed 03/31/2025 6:32 PM CDT AFB CULTURE, STAIN Timed 03/31/2025 4: 00 PM CDT SCAN-CARDIAC STRIP 03/31/2025 3: 31 PM CDT US ABDOMEN LIMITED RUQ PORTABLE Routine 03/31/2025 3:07 PM CDT GLUCOSE METER Timed 03/31/2025 2:40 PM CDT SODIUM Timed 03/31/2025 2:39 PM CDT CWS PATH REVIEW BODY FLUID Timed 03/31/2025 11:50 AM CDT CORINNE PREP, OTHER SOURCE KAREN 03/31/2025 11:50 AM CDT BAL COUNT AND DIFF Routine 03/31/2025 11 :50 AM CDT MYCOPLASMA PNEUMONIAE PCR Today 03/31/2025 11:50 AM CDT LEGIONELLA SPECIES BY RAPID PCR Today 03/31/2025 11:50 AM CDT AFB CULTURE, STAIN Today 03/31/2025 11 :50 AM CDT FUNGUS CULT, OTHER SOURCE Today 03/31/2025 11:50 AM CDT BRONCHIAL CULTURE, STAIN Today 03/31/2025 11:50 AM CDT PATH NON DERMATOLOGY NURSE CYTOLOGY Today 03/31/2025 11:46 AM CDT BASIC METABOLIC PANEL Timed 03/31/2025 10:30 AM CDT ARTERIAL BLOOD GAS Today 03/31/2025 10 :30 AM CDT GLUCOSE METER Timed 03/31/2025 10:29 AM CDT MTB/RIF PCR Today 03/31/2025 9:32 AM CDT AFB CULTURE, STAIN Today 03/31/2025 9: 32 AM CDT VANCOMYCIN TROUGH Timed 03/31/2025 9:3 2 AM CDT SCAN-CARDIAC STRIP 03/31/2025 7: 01 AM CDT GLUCOSE METER Timed 03/31/2025 6:23 AM CDT PERIPHERAL BLD MORPHOLOGY Early AM 03/31/2025 4:26 AM CDT COCCIDIOIDES IMMITIS AB, BY ID (REFLEX ONLY) Timed 03/31/2025 4:26 AM CDT COCCIDIOIDE TITER (REFLEX ONLY) Timed 03/31/2025 4:26 AM CDT LD,TOTAL KAREN 03/31/2025 4:26 AM CDT MAGNESIUM KAREN 03/31/2025 4:26 AM CDT RED CELL MORPHOLOGY Timed 03/31/2025 4 :26 AM CDT PLATELET ESTIMATE Timed 03/31/2025 4:2 6 AM CDT MANUAL DIFFERENTIAL Timed 03/31/2025 4 :26 AM CDT CBC WITH AUTO DIFFERENTIAL Early AM 03/31/2025 4:26 AM CDT CALCIUM [facility]ONIZED [facility] DRAW ONLY Early AM 03/31/2025 4:26 AM CDT RETICULOCYTES Early AM 03/31/2025 4:26 AM CDT HEPATIC FUNCTION PANEL Early AM 03/31/2025 4:26 AM CDT CBC WITH AUTO DIFFERENTIAL Early AM 03/31/2025 4:26 AM CDT BASIC METABOLIC PANEL Early AM 03/31/2025 4:26 AM CDT ANTI HBC Early AM 03/31/2025 4:26 AM CDT ANTI HCV Early AM 03/31/2025 4:26 AM CDT CK TOTAL Timed 03/31/2025 4:26 AM CDT TRIGLYCERIDES Timed 03/31/2025 4:26 AM CDT COCCIDIOIDES ANTIBODY IGG & IGM Early AM 03/31/2025 4:26 AM CDT COCCIDIOIDES ANTIBODY BY COMPLEMENT FIXATION Early AM 03/31/2025 4:26 AM CDT ASPERGILLUS GALACTOMANNAN AG BAL/BLOOD Early AM 03/31/2025 4:26 AM CDT GLUCOSE METER Timed 03/31/2025 2:12 AM CDT GLUCOSE METER Timed 03/30/2025 8:53 PM CDT SCAN-CARDIAC STRIP 03/30/2025 8: 48 PM CDT ARTERIAL BLOOD GAS KAREN 03/30/2025 8: 08 PM CDT FUNGUS CULT, OTHER SOURCE KAREN 03/30/2025 6:43 PM CDT CORINNE PREP, OTHER SOURCE Today 03/30/2025 6:43 PM CDT SPUTUM CULTURE, STAIN Today 03/30/2025 6:43 PM CDT AFB CULTURE, STAIN Today 03/30/2025 6: 43 PM CDT BLASTOMYCES ANTIGEN Today 03/30/2025 6 :39 PM CDT LEGIONELLA SPECIES BY RAPID PCR Today 03/30/2025 6:39 PM CDT PNEUMOCYSTIS JIROVECI PCR Today 03/30/2025 6:39 PM CDT GLUCOSE METER Timed 03/30/2025 6:30 PM CDT XR CHEST 1 VIEW PORTABLE STAT 03/30/2025 6:[address] CHEST ABDOMEN PELVIS W Routine 03/30/2025 4:27 PM CDT RESPIRATORY PANEL MULTIPLEX PCR Today 03/30/2025 3:54 PM CDT GLUCOSE METER Timed 03/30/2025 3:06 PM CDT MRSA/SA PCR Today 03/30/2025 2:49 PM CDT CMV QUANT DNA PCR (BLOOD) Today 03/30/2025 12:19 PM CDT BLOOD CULTURE Today 03/30/2025 12:10 PM CDT BLOOD CULTURE Today 03/30/2025 12:05 PM CDT SCAN CORRESP-EKG RESULTS 03/30/2025 12:00 PM CDT SCAN CORRESP-LABORATORY RESULTS 03/30/2025 12:00 PM CDT SCAN CORRESP-IMAGING 03/30/2025 12:00 PM CDT SCAN CORRESP-DIAGNOSTICS 03/30/2025 12:00 PM CDT ARTERIAL BLOOD GAS KAREN 03/30/2025 12 :00 PM CDT XR CHEST 1 VIEW PORTABLE KAREN 03/30/2025 11:28 AM CDT LEGIONELLA AND PNEUMOCOCCAL URINE ANTIGEN Today 03/30/2025 10:54 AM CDT FUNGITELL [id number] BLOOD/BAL/CSF Today 03/30/2025 10:23 AM CDT SCAN-CARDIAC STRIP 03/30/2025 10 :07 AM CDT GLUCOSE METER Timed 03/30/2025 10:06 AM CDT XR CHEST 1 VIEW PORTABLE Early AM 03/30/2025 7:46 AM CDT HEMOGLOBIN A1C MONITORING (POCT) KAREN 03/30/2025 3:18 AM CDT RED CELL MORPHOLOGY Timed 03/30/2025 3 :18 AM CDT PLATELET ESTIMATE Timed 03/30/2025 3:1 8 AM CDT MANUAL DIFFERENTIAL Timed 03/30/2025 3 :18 AM CDT CBC WITH AUTO DIFFERENTIAL Today 03/30/2025 3:18 AM CDT BASIC METABOLIC PANEL Timed 03/30/2025 3:18 AM CDT CBC WITH AUTO DIFFERENTIAL Today 03/30/2025 3:18 AM CDT HEPATIC FUNCTION PANEL Today 03/30/2025 3:18 AM CDT BLOOD GAS,VENOUS STAT 03/30/2025 3:18 AM CDT GLUCOSE METER Timed 03/30/2025 2:31 AM CDT SCAN-RADIOLOGY REPORT 03/30/2025 12:00 AM CDT HISTOPLASMA GALACTOMANNAN AG UR(REFLEX)QT([facility]) Timed 03/29/2025 9:02 PM CDT HISTOPLASMA GALACTOMANNAN ANTIGEN URINE Today 03/29/2025 9:02 PM CDT ECHO TTE COMPLETE WO CONTRAST Routine 03/28/2025 4:16 PM CDT Acute CHF (HC) COVID/FLU/RSV PANEL Routine 2025 1 1:41 AM CDT Acute cough Fever, unspecified fever cause XR CHEST 2 VIEWS PA AND LATERAL Routine 2025 8:31 AM CDT Acute cough Fever, unspecified fever cause LIPID PANEL W REFLEX MEASURED LDL Routine 09/12/2024 3:40 PM 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 Pathologist [facility] WHITE BLOOD CELL COUNT 6.5 3.8 - 10.8 Thousand/ uL 04/27/2025 2:46 AM CDT [facility] RED BLOOD CELL COUNT 3.23(L) 3.80 - 5.10 Million/u L 04/27/2025 2:46 AM CDT [facility] HEMOGLOBIN 9.0(L) 11.7 - 15.5 g/dL 04/27/2025 2:46 AM CDT [facility] HEMATOCRIT 29.1(L) 35.0 - 45.0 % 04/27/2025 2:46 AM CDT [facility] MCV 90.1 80.0 - 100.0 fL 04/27/2025 2:46 AM CDT [facility] MCH 27.9 27.0 - 33.0 pg 04/27/2025 2:46 AM CDT [facility] MCHC 30.9(L) 32.0 - 36.0 g/dL 04/27/2025 2:46 AM CDT [facility] Comment: For adults, a slight decrease in the calculated MCHC value (in the range of 30 to 32 g/dL) is most likely not clinically significant; however, it should be interpreted with caution in correlation with other red cell parameters and the patient's clinical condition. RDW 15.8(H) 11.0 - 15.0 % 04/27/2025 2:46 AM CDT [facility] PLATELET COUNT 443(H) 140 - 400 Thousand/ uL 04/27/2025 2:46 AM CDT [facility] MPV 10.0 7.5 - 12.5 fL 04/27/2025 2:46 AM CDT [facility] NEUTROPHILS 36.9 % 04/27/2025 2:46 AM CDT [facility] LYMPHOCYTES 42.2 % 04/27/2025 2:46 AM CDT [facility] MONOCYTES 10.0 % 04/27/2025 2:46 AM CDT [facility] EOSINOPHILS 9.4 % 04/27/2025 2:46 AM CDT [facility] BASOPHILS 1.5 % 04/27/2025 2:46 AM CDT [facility] ABSOLUTE NEUTROPHILS 2399 1500 - 7800 cells/uL 04/27/2025 2:46 AM CDT [facility] ABSOLUTE LYMPHOCYTES 2743 850 - 3900 cells/uL 04/27/2025 2:46 AM CDT [facility] ABSOLUTE MONOCYTES 650 200 - 950 cells/uL 04/27/2025 2:46 AM CDT [facility] ABSOLUTE EOSINOPHILS 611(H) 15 - 500 cells/uL 04/27/2025 2:46 AM CDT [facility] ABSOLUTE BASOPHILS 98 0 - 200 cells/uL 04/27/2025 2:46 AM CDT [facility] Blood BLOOD SPECIMEN / Unknown [facility] / Unknown 04/26/2025 9:17 AM CDT 04/26/2025 9:18 AM CDT Maverick Bolanos MD HEMATOLOGY Final Re sult Performing Organization Address City/[facility]/ZIP Co de Phone Number [facility] [address] [address], [place] [phone] * MAGNESIUM (04/26/2025 9:17 AM CDT) Only the most recent of18 resultswithin the time period is included. MAGNESIUM 1.7 1.5 - 2.5 mg/dL 04/27/2025 5:58 AM CDT [facility] Blood BLOOD SPECIMEN / Unknown [facility] / Unknown 04/26/2025 9:17 AM CDT 04/26/2025 9:18 AM CDT Maverick Bolanos MD CHEMISTRY Final Re sult Performing Organization Address [facility]/ZIP Co de Phone Number [facility] [address] [address], [place] [phone] * (ABNORMAL) COMP METABOLIC PANEL (04/26/2025 9:17 AM CDT) Only the most recent of3 resultswithin the time period is included. SODIUM 141 135 - 146 mmol/L 04/27/2025 5:58 AM CDT [facility] POTASSIUM 3.0(L) 3.5 - 5.3 mmol/L 04/27/2025 5:58 AM CDT [facility] CHLORIDE 103 98 - 110 mmol/L 04/27/2025 5:58 AM CDT [facility] CARBON DIOXIDE 30 20 - 32 mmol/L 04/27/2025 5:58 AM CDT [facility] GLUCOSE 90 65 - 99 mg/dL 04/27/2025 5:58 AM CDT [facility] Comment: Fasting reference interval CALCIUM 8.7 8.6 - 10.4 mg/dL 04/27/2025 5:58 AM CDT [facility] CREATININE 1.36(H) 0.50 - 1.03 mg/dL 04/27/2025 5:58 AM CDT [facility] BUN/CREATININE RATIO 10 6 - 22 (calc) 04/27/2025 5:58 AM CDT [facility] EGFR 46(L) > OR = 60 mL/min/1. 73m2 04/27/2025 5:58 AM CDT [facility] ALBUMIN 3.1(L) 3.6 - 5.1 g/dL 04/27/2025 5:58 AM CDT [facility] PROTEIN, TOTAL 8.1 6.1 - 8.1 g/dL 04/27/2025 5:58 AM CDT [facility] BILIRUBIN, TOTAL 0.7 0.2 - 1.2 mg/dL 04/27/2025 5:58 AM CDT [facility] ALKALINE PHOSPHATASE 412(H) 37 - 153 U/L 04/27/2025 5:58 AM CDT [facility] ALT 20 6 - 29 U/L 04/27/2025 5:58 AM CDT [facility] AST 21 10 - 35 U/L 04/27/2025 5:58 AM CDT [facility] UREA NITROGEN (BUN) 14 7 - 25 mg/dL 04/27/2025 5:58 AM CDT [facility] GLOBULIN 5.0(H) 1.9 - 3.7 g/dL (calc) 04/27/2025 5:58 AM CDT [facility] ALBUMIN/GLOBULIN RATIO 0.6(L) 1.0 - 2.5 (calc) 04/27/2025 5:58 AM CDT [facility] Blood BLOOD SPECIMEN / Unknown [facility] / Unknown 04/26/2025 9:17 AM CDT 04/26/2025 9:18 AM CDT us Maverick Bolanos MD CHEMISTRY Final Re sult [facility] [address] [place] [address], * EKG 12 LEAD (04/17/2025 12:00 AM CDT) Only the most recent of4 resultswithin the time period is included. Sharmin Covington MD EKG ORD Final R esult * (ABNORMAL) POTASSIUM (04/14/2025 4:23 AM CDT) Only the most recent of22 resultswithin the time period is included. POTASSIUM 3.3(L) 3.5 - 5.1 mmol/L 04/14/2025 5:52 AM CDT [facility] Blood BLOOD SPECIMEN / Unknown Butterfly / Unknown 04/14/2025 4:23 AM CDT 04/14/2025 5:26 AM CDT Maile Alford RN CHEMISTRY Final Result [facility] [address] [place] [address], * COCCIDIOIDE TITER (REFLEX ONLY) (04/13/2025 5:53 AM CDT) Only the most recent of2 resultswithin the time period is included. Coccidioide Titer, Compl. Fix. <1:2 <1:2 04/17/2025 7:08 PM CDT [facility] ([facility]) Comment: INTERPRETIVE INFORMATION: Coccidioide Titer A titer of 1:2 or greater suggests past or current infection. However, greater than 30 percent of cases with chronic residual pulmonary disease have negative complement fixation (CF) tests. Titers of less than 1:32 (even as low as 1:2) may indicate past infection or self-limited disease; anticoccidioidal CF antibody titers in excess of 1:16 may indicate disseminated infection. CF serology may be used to follow therapy. Antibody in CSF is considered diagnostic for coccidioidal meningitis, although 10 percent of patients with coccidioidal meningitis will not have antibody in CSF. Blood BLOOD SPECIMEN / Unknown Venipuncture / Unknown 04/13/2025 5:53 AM CDT 04/13/2025 6:09 AM CDT Narrative [facility] ([facility]) - 04/17/2025 7:08 PM CDT Performed at: - [employer] [address] [id number] [employer] W[employer] Operator: Chaz Aguillon [facility], Phone: [phone] us Maverick Bolanos MD SEND OUTS Final Re sult [facility] ([facility]) [facility] [place] [address], * (ABNORMAL) COCCIDIOIDES ANTIBODY IGG & IGM (04/13/2025 5:53 AM CDT) Only the most recent of2 resultswithin the time period is included. [facility] Coccidioides Ab, IgM by Guerrero 3.9(H) <=0.9 IV 04/15/2025 2:09 AM CDT [facility] ([facility]) Comment: Positive EIA results should be confirmed with immunodiffusion (ID) or the complement fixation (CF) test. When the ID or CF tests fail to corroborate the EIA results, the diagnosis is less firmly established. INTERPRETIVE INFORMATION: Coccidioides Antibody, IgM: 0.9 IV or less: Negative - No significant level of Coccidioides IgM antibody detected. 1.0 - 1.4 IV: Equivocal - Questionable presence of Coccidioides IgM antibody detected. Repeat testing in 10-14 days may be helpful. 1.5 IV or greater: Positive - Presence of IgM antibody to Coccidioides detected, suggestive of current or recent infection. In most symptomatic patients, IgM antibody usually appears by the second week of infection and disappears by the fourth month. Both tube precipitin (TP) and CF antigens are represented in the GUERRERO tests. Coccidioides Ab, IgG by GEURRERO 0.2 <=0.9 IV 04/15/2025 2:09 AM CDT [facility] (CET) Comment: INTERPRETIVE INFORMATION: Coccidioides Antibody, Ig.9 IV or less: Negative - No significant level of Coccidioides IgG antibody detected. 1.0 - 1.4 IV: Equivocal - Questionable presence of Coccidioides IgG antibody detected. Repeat testing in 10-14 days may be helpful. 1.5 IV or greater: Positive - Presence of IgG antibody to Coccidioides detected, suggestive of current or past infection. IgG antibody usually appears by the third week of infection and may persist for years. Both tube precipitin (TP) and CF antigens are represented in the GUERRERO tests. Effective May [id number] Coccidioides Ab, IgG by GUERRERO will be made non-orderable. [facility] offers order code [id number] Coccidioides Abs, IgG/IgM, EIA. For further information, please contact your local [employer] Operator. Blood BLOOD SPECIMEN / Unknown Venipuncture / Unknown 04/13/2025 5:53 AM CDT 04/13/2025 6:09 AM CDT [address] [facility] ([facility]ET) - 04/15/2025 2:09 AM CDT Performed at: 01 - [employer] [address] [place] [id number] [employer] Operator: Chaz Aguillon [facility], Phone: [phone] us Maverick Bolanos MD SEND OUTS Final Re sult [facility] ([facility]) [facility] [place] [address], [place] * XR CHEST 2 VIEWS PA AND LATERAL (04/12/2025 8:24 AM CDT) Only the most recent of3 resultswithin the time period is included. Anatomical Region Laterality Modality CHEST, THORAX, Lung, HEART Digit al Radiography 04/12/2025 8:47 AM CDT Impressions 04/12/2025 8:47 AM CDT Grossly unchanged diffuse airspace infiltrates and new small left pleural effusion Dictated by Rubens Simpson MD @ Apr 12 2025 8:47AM (Electronically Signed) [email or web address] Narrative 04/12/2025 8:47 AM CDT For Patients: As a result of the Cures Act, medical imaging exams and procedure reports are released immediately into your electronic medical record. You may view this report before your referring provider. If you have questions, please contact your health care provider. INDICATION: Evaluate pulmonary infiltrate TECHNIQUE: PA and lateral COMPARISON: 04/06/2025 FINDINGS: Grossly unchanged diffuse airspace infiltrates. New small left pleural effusion. Heart size stable. Pulmonary veins can not be assessed due to the infiltrates. No significant osseous abnormality. Procedure Note Rubens Simpson MD - 04/12/2025 For Patients: As a result of the Cures Act, medical imagingexams and procedure reports are released immediately into your electronicmedical record. You may view this report before your referring provider.If you have questions, please contact your health care provider. INDICATION: Evaluate pulmonary infiltrate TECHNIQUE: PA and lateral COMPARISON: 04/06/2025 FINDINGS: Grossly unchanged diffuse airspace infiltrates. New small left pleuraleffusion. Heart size stable. Pulmonary veins can not be assessed due tothe infiltrates. No significant osseous abnormality. IMPRESSION: Grossly unchanged diffuse airspace infiltrates and new small left pleuraleffusion Dictated by Rubens Simpson MD @ Apr 12 2025 8:47AM (Electronically Signed) [email or web address] Maverick Bolanos MD GENERAL IMAGING Final Re sult * (ABNORMAL) BASIC METABOLIC PANEL (04/12/2025 5:49 AM CDT) Only the most recent of12 resultswithin the time period is included. SODIUM 138 136 - 145 mmol/L 04/12/2025 7:21 AM CDT [facility] POTASSIUM 2.9(L) 3.5 - 5.1 mmol/L 04/12/2025 7:21 AM CDT [facility] CHLORIDE 102 98 - 107 mmol/L 04/12/2025 7:21 AM CDT [facility] CO2,TOTAL 24 22 - 29 mmol/L 04/12/2025 7:21 AM CDT [facility] ANION GAP 12 5 - 18 04/12/2025 7:21 AM [facility] GLUCOSE 91 70 - 99 mg/dL 04/12/2025 7:21 AM [facility] CALCIUM 8.0(L) 8.8 - 10.4 mg/dL 04/12/2025 7:21 AM T [facility] Comment: Reference ranges for this test were updated on 06/20/2024 to reflect our healthy population more accurately. Reference range changes are not retroactively applied to results, but previous results using the same methodology can be interpreted in the context of the new reference range. BUN 27(H) 6 - 20 mg/dL 04/12/2025 7:21 AM T [facility] CREATININE 1.64(H) 0.50 - 0.90 mg/dL 04/12/2025 7:21 AM [facility] BUN/CREAT RATIO 16 10 - 20 7:21 AM [facility] eGFR 37(L) >90 mL/min/1. 73m2 04/12/2025 7:21 AM T [facility] Comment:As of 2021, eG FR is calculated by the CKD-EPI creatinine equation without race adjustment. eGFR can be influenced by muscle mass, exercise, and diet. The reported eGFR is an estimation only and is only applicable if the renal function is stable. Blood BLOOD SPECIMEN / Unknown Non-Lab Venipuncture / Unknown 04/12/2025 5:49 AM CDT 04/12/2025 6:49 AM CDT us Paty Polanco MD CHEMISTRY Final R esult [facility] [address] [place] [address], [place] * (ABNORMAL) RENAL FUNCTION PANEL (04/10/2025 5:22 AM CDT) Only the most recent of3 resultswithin the time period is included. Pathologist [facility] SODIUM 139 136 - 145 mmol/L 04/10/2025 6:07 AM [facility] POTASSIUM 3.0(L) 3.5 - 5.1 mmol/L 04/10/2025 6:07 AM [facility] CHLORIDE 100 98 - 107 mmol/L 04/10/2025 6:07 AM [facility] CO2,TOTAL 28 22 - 29 mmol/L 04/10/2025 6:07 AM [facility] ANION GAP 11 5 - 18 04/10/2025 6:07 AM [facility] GLUCOSE 94 70 - 99 mg/dL 04/10/2025 6:07 AM [facility] CALCIUM 7.9(L) 8.8 - 10.4 mg/dL 04/10/2025 6:07 AM [facility] Comment: Reference ranges for this test were updated on 06/20/2024 to reflect our healthy population more accurately. Reference range changes are not retroactively applied to results, but previous results using the same methodology can be interpreted in the context of the new reference range. BUN 34(H) 6 - 20 mg/dL 04/10/2025 6:07 AM [facility] CREATININE 1.70(H) 0.50 - 0.90 mg/dL 04/10/2025 6:07 AM [facility] BUN/CREAT RATIO 20 10 - 20 6:07 AM [facility] eGFR 35(L) >90 mL/min/1. 73m2 04/10/2025 6:07 AM [facility] Comment:As of 2021, eG FR is calculated by the CKD-EPI creatinine equation without race adjustment. eGFR can be influenced by muscle mass, exercise, and diet. The reported eGFR is an estimation only and is only applicable if the renal function is stable. PHOSPHORUS 4.1 2.5 - 4.5 mg/dL 04/10/2025 6:07 AM [facility] ALBUMIN 3.1(L) 4.0 - 4.9 g/dL 04/10/2025 6:07 AM CDT [facility] Blood BLOOD SPECIMEN / Unknown Venipuncture / Unknown 04/10/2025 5:22 AM CDT 04/10/2025 5:34 AM CDT Paty Polanco MD CHEMISTRY Final R esult [facility] [address] [address], [place] * SCAN CORRESP-LABORATORY RESULTS (04/09/2025 12:25 PM CDT) Only the most recent of4 resultswithin the time period is included. Narrative 04/09/2025 12:25 PM CDT Ordered by an unspecified provider. Other Clinical Staff OTHER Final Resul t * (ABNORMAL) Hemoglobin TODAY (04/09/2025 11:11 AM CDT) Only the most recent of4 resultswithin the time period is included. HEMOGLOBIN 8.0(L) 12.0 - 16.0 g/dL 04/09/2025 11:36 AM CDT [facility] MCV 88 80 - 100 fL 04/09/2025 11:36 AM CDT [facility] Blood BLOOD SPECIMEN / Unknown Non-Lab Venipuncture / Unknown 04/09/2025 11:11 AM CDT 04/09/2025 11:26 AM CDT Julio Fernando MD HEMATOLOGY Final Result [facility] [address] [address], [place] * CWS PATH REVIEW HEMATOLOGY (04/09/2025 5:17 AM CDT) Only the most recent of2 resultswithin the time period is included. PATH COMMENT Comment 04/09/2025 10:44 AM CDT [facility] Comment:Reviewed by GL 2024 Blood BLOOD SPECIMEN / Unknown Venipuncture / Unknown 04/09/2025 5:17 AM CDT 04/09/2025 5:42 AM CDT Monika Marin MD LABORATORY F inal Result Performing Organization Address City/[facility]/ZIP Co de Phone Number [facility] [address] [place] [address], [place] * Bilirubin, total AM (04/08/2025 5:19 AM CDT) BILIRUBIN,TOTA L 1.2 0.0 - 1.2 mg/dL 04/08/2025 5:53 AM CDT [facility] Blood BLOOD SPECIMEN / Unknown Butterfly / Unknown 04/08/2025 5:19 AM CDT 04/08/2025 5:25 AM CDT Monika Marin MD CHEMISTRY F inal Result Performing Organization Address [facility] Co de Phone Number [facility] [address] [place] [address], [place] * (ABNORMAL) ALT AM (04/08/2025 5:19 AM CDT) Only the most recent of2 resultswithin the time period is included. ALT (SGPT) 180(H) 10 - 35 IU/L 04/08/2025 5:53 AM CDT [facility] Blood BLOOD SPECIMEN / Unknown Butterfly / Unknown 04/08/2025 5:19 AM CDT 04/08/2025 5:25 AM CDT Monika Marin MD CHEMISTRY F inal Result Performing Organization Address [facility] Co de Phone Number [facility] [address] [place], [place] [id number], [place] * (ABNORMAL) AST AM (04/08/2025 5:19 AM CDT) AST (SGOT) 73(H) 10 - 35 IU/L 04/08/2025 5:53 AM CDT [facility] Blood BLOOD SPECIMEN / Unknown Butterfly / Unknown 04/08/2025 5:19 AM CDT 04/08/2025 5:25 AM CDT Monika Marin MD CHEMISTRY F inal Result Performing Organization Address City/[facility]/ZIP Co de Phone Number [facility] [address] [place] [address], [place] * SODIUM (04/07/2025 5:16 AM CDT) Only the most recent of4 resultswithin the time period is included. Pathologist [facility] SODIUM 141 136 - 145 mmol/L 04/07/2025 6:03 AM CDT [facility] Blood BLOOD SPECIMEN / Unknown Venipuncture / Unknown 04/07/2025 5:16 AM CDT 04/07/2025 5:35 AM CDT Mariangel Bolanos MD CHEMISTRY Final R esult Performing Organization Address [facility] Co de Phone Number [facility] [address] [place] [address], [place] * (ABNORMAL) CREATININE (04/07/2025 5:16 AM CDT) Pathologist [facility] eGFR 40(L) >90 mL/min/1.7 3m2 04/07/2025 6:03 AM CDT [facility] Comment:As of 2021, eG FR is calculated by the CKD-EPI creatinine equation without race adjustment. eGFR can be influenced by muscle mass, exercise, and diet. The reported eGFR is an estimation only and is only applicable if the renal function is stable. CREATININE 1.54(H) 0.50 - 0.90 mg/dL 04/07/2025 6:03 AM CDT [facility] Blood BLOOD SPECIMEN / Unknown Venipuncture / Unknown 04/07/2025 5:16 AM CDT 04/07/2025 5:35 AM CDT us Mariangel Bolanos MD CHEMISTRY Final R esult [facility] [address] [place] [address], [place] * US THORACENTESIS LEFT (04/06/2025 2:20 PM CDT) Anatomical Region Laterality Modality CHEST, THORAX Ultrasound Impressions 04/06/2025 2:43 PM CDT Successful ultrasound guided therapeutic and diagnostic thoracentesis, with removal of 800 mLs of fluid from the Left pleural space. Post procedure CXR negative for pneumothorax. Veronica Bolanos PA-C [facility] Interventional Radiology [place] Protocol A. Pre-procedure verification complete yes 1-relevant information / documentation available, reviewed and properly matched to the patient; 2-consent accurate and complete, 3-equipment and supplies available B. Site marking complete Yes Site marked if not in continuous attendance with patient C. TIME OUT completed yes Time Out was conducted just prior to starting procedure to verify the eight required elements: 1-patient identity, 2-consent accurate and complete, 3-position, 4-correct side/site marked (if applicable), 5-procedure, 6-relevant images / results properly labeled and displayed (if applicable), 7-antibiotics / irrigation fluids (if applicable), 8-safety precautions. Narrative 04/06/2025 2:43 PM CDT RADIOLOGY IMMEDIATE POST PROCEDURE NOTE 04/06/2025 Sun Lemus [id number] INFORMED CONSENT: In my discussion, prior to the signing of the consent, I reviewed the procedure, benefits, risks, and how the procedure will meet the treatment goal with the patient and/or family. The patient was given ample time to ask questions. All questions were answered. PROCEDURE: Ultrasound-guided Thoracentesis of the Left chest INDICATION: Pleural effusion COMPARISON: None PROCEDURALIST: Veronica Bolanos PA-C FINDINGS: Informed consent with risks, benefits, and alternatives was discussed and signed with patient. A focused ultrasound examination was performed of the posterior Left chest demonstrating a pleural effusion and a lower intercostal space was chosen for access. 1% lidocaine was used to anesthetize the subcutaneous soft tissues. Then, a 5-albanian Yueh needle with a one-way valve was advanced into the pleural space. Plan to terminate procedure at 1.5L given first time. 800 mLs of yellow serous pleural fluid was removed. Fluid sample was sent to the lab for analysis. No immediate complications. Patient tolerated the procedure well. Mariangel Bolanos MD US Final R esult * XR CHEST 1 VIEW PA OR AP (04/06/2025 2:16 PM CDT) Anatomical Region Laterality Modality CHEST, THORAX, Lung, HEART Digit al Radiography 04/06/2025 2:25 PM CDT Impressions 04/06/2025 2:25 PM CDT 1. Small lung volumes are present with nodular airspace infiltrates bilaterally, similar to prior exam. New left basilar consolidation and left pleural effusion has nearly resolved. Dictated by Jonny Trotter MD @ 04/06/2025 2:25:03 PM Dictated by: Jonny Trotter MD @ 04/06/2025 14:25:13 (Electronically Signed) Narrative 04/06/2025 2:25 PM CDT For Patients: As a result of the Cures Act, medical imaging exams and procedure reports are released immediately into your electronic medical record. You may view this report before your referring provider. If you have questions, please contact your health care provider. INDICATION: Post Procedure TECHNIQUE: Chest radiograph 1 view COMPARISON: 04/05/2025 FINDINGS: Mediastinum: The mediastinum is normal in appearance. The heart silhouette is normal in size and morphology. Lung: Small lung volumes are present with nodular airspace infiltrates bilaterally, similar to prior exam. New left basilar consolidation and left pleural effusion has nearly resolved. Bone and Soft tissue: Unremarkable for age. Procedure Note Jonny Trotter MD - 04/06/2025 For Patients: As a result of the Cures Act, medical imagingexams and procedure reports are released immediately into your electronicmedical record. You may view this report before your referring provider.If you have questions, please contact your health care provider. INDICATION: Post Procedure TECHNIQUE: Chest radiograph 1 view COMPARISON: 04/05/2025 FINDINGS: Mediastinum: The mediastinum is normal in appearance. The heart silhouetteis normal in size and morphology. Lung: Small lung volumes are present with nodular airspace infiltratesbilaterally, similar to prior exam. New left basilar consolidation andleft pleural effusion has nearly resolved. Bone and Soft tissue: Unremarkable for age. IMPRESSION: 1. Small lung volumes are present with nodular airspace infiltratesbilaterally, similar to prior exam. New left basilar consolidation andleft pleural effusion has nearly resolved. Dictated by Jonny Trotter MD @ 04/06/2025 2:25:03 PM Dictated by: Jonny Trotter MD @ 04/06/2025 14:25:13 (Electronically Signed) Mariangel Bolanos MD GENERAL IMAGING Final R esult * BODY FLUID CULTURE, STAIN (04/06/2025 2:02 PM CDT) CULTURE No Growth. 04/12/2025 7:21 AM CDT [facility] GRAM STAIN No PMNs 04/12/2025 7:21 AM CDT [facility] GRAM STAIN 1+ RBCs 04/12/2025 7:21 AM CDT [facility] GRAM STAIN No Epithelial cells 04/12/2025 7:21 AM CDT [facility] GRAM STAIN No organisms seen 04/12/2025 7:21 AM CDT [facility] Body Fluid (Pleural) Non-Blood / Unknown 04/06/2025 2:02 PM CDT 04/06/2025 2:19 PM CDT Mariangel Bolanos MD MICROBIOLOGY Final R esult [facility] [address] [place] [address], [place] * BODY FLUID CELL COUNT/DIF (04/06/2025 2:02 PM CDT) BODY FLUID SOURCE Pleural Fluid 04/06/2025 6:20 PM CDT [facility] Comment:Left BODY FLUID COLOR Yellow 04/06/2025 6:20 PM CDT [facility] BODY FLUID CLARITY Slightly Cloudy 04/06/2025 6:20 PM CDT [facility] TOTAL NUCLEATED CELLS, BF 616 /cu mm 04/06/2025 6:20 PM CDT [facility] RED BLOOD COUNT, BODY FLUID 2,000 /cu mm 04/06/2025 6:20 PM CDT [facility] % NEUTROPHILS, BODY FLUID 2 % 04/06/2025 6:20 PM CDT [facility] % LYMPHOCYTES, BODY FLUID 62 % 04/06/2025 6:20 PM CDT [facility] % MONO/MACRO, BODY FLUID 35 % 04/06/2025 6:20 PM CDT [facility] % MESOTHELIAL CELLS, BODY FLUID 1 % 04/06/2025 6:20 PM CDT [facility] Body Fluid PLEURAL FLUID SPECIMEN / Unknown Non-Blood / Unknown 04/06/2025 2:02 PM CDT 04/06/2025 2:19 PM CDT [facility] - 04/06/2025 6:20 PM CDT TO ORDER BODY FLUID CULTURES, USE; [id number] BODY FLUID CULTURE, STAIN Mariangel Bolanos MD BODY FLUID Final R esult [facility] [address] [place] [address], * PROTEIN,BODY FLUID (04/06/2025 2:02 PM CDT) SPECIMEN SOURCE Pleural Fluid 04/06/2025 3:59 PM CDT [facility] PROTEIN,BODY FLUID 1.9 g/dL 04/06/2025 3:59 PM CDT [facility] Comment:No Reference Range D efined. Body Fluid PLEURAL FLUID SPECIMEN / Unknown Non-Blood / Unknown 04/06/2025 2:02 PM CDT 04/06/2025 2:19 PM CDT [facility] LAB[facility]ATORY - 04/06/2025 3:59 PM CDT Pleural: Pleural fluid transudate total protein to serum total protein ratio typically </=0.5. Pleural fluid exudate total protein to serum total protein ratio typically >0.5. Peritoneal: Ascitic fluid total protein is a reflection of serum protein concentration. May be useful in differentiating secondary bacterial peritonitis from spontaneous bacterial peritonitis when at least two of the three criteria are met in ascetic fluid: Total Protein > 1.0 g/dL Glucose < 50 mg/dL LDH > Upper reference limit for serum Ascitic fluid total protein may be elevated > 2.5 g/dL in patients with high albumin gradient ascites caused by heart failure. Test developed & performance characteristics determined by [facility], [place], [place] consistent with CLIA requirements. Not cleared or approved by FDA. Mariangel Bolanos MD BODY FLUID Final R esult [facility] [address] [place] [address], [place] * GLUCOSE,BODY FLUID (04/06/2025 2:02 PM CDT) SPECIMEN SOURCE Pleural Fluid 04/06/2025 3:59 PM CDT [facility] GLUCOSE,BODY FLUID 105 mg/dL 04/06/2025 3:59 PM CDT [facility] Comment:No Reference Range D efined. Body Fluid PLEURAL FLUID SPECIMEN / Unknown Non-Blood / Unknown 04/06/2025 2:02 PM CDT 04/06/2025 2:19 PM CDT [facility] LAB[facility]ORY - 04/06/2025 3:59 PM CDT Pleural: Transudative pleural fluid glucose concentrations similar to serum glucose concentrations, while exudates have glucose concentrations less than serum glucose Glucose <60 mg/dL typically associated with low fluid pH Pericardial: Pericardial fluid glucose to serum glucose ratio <1.0 may be useful in differentiating exudate from transudate and infective from parainfective effusions Test developed & performance characteristics determined [facility] [place] consistent with CLIA requirements. Not cleared or approved by [place] [facility]. Mariangel Bolanos MD BODY FLUID Final R esult Performing Organization Address [facility]/ZIP Co de Phone Number [facility] [address] [place] [id number], [place] * AMYLASE,BODY FLUID (04/06/2025 2:02 PM CDT) SPECIMEN SOURCE Pleural Fluid 04/06/2025 3:59 PM CDT [facility] AMYLASE,BODY FLUID 67 IU/L 04/06/2025 3:59 PM CDT [facility] Comment:No Reference Range D efined. Body Fluid PLEURAL FLUID SPECIMEN / Unknown Non-Blood / Unknown 04/06/2025 2:02 PM CDT 04/06/2025 2:19 PM CDT Narrative [facility] - 04/06/2025 3:59 PM CDT Peritoneal: Amylase activity in non-pancreatic peritoneal fluid is approximately equal to the serum amylase activity. Ascites associated with pancreatitis typically has amylase activity at least 5- fold greater than serum. Pleural: Amylase activity in pleural fluid is typically less than the upper limit of normal serumm amylase with fluid to serum amylase ratio <1.0 Test developed & performance characteristics determined by [facility] [place], [place] consistent with CLIA requirements. Not cleared or approved by [facility]. Mariangel Bolanos MD BODY FLUID Final R esult Performing Organization Address City/[facility]/ZIP Co de Phone Number [facility] [address] [place] [address], [place] * ANAEROBIC CULTURE (04/06/2025 2:02 PM CDT) CULTURE No anaerobes isolated 04/11/2025 8:39 AM CDT [facility] Other PLEURAL FLUID SPECIMEN / Unknown Non-Blood / Unknown 04/06/2025 2:02 PM CDT 04/06/2025 2:19 PM CDT Mariangel Bolanos MD MICROBIOLOGY Final R esult [facility] [address] [address], [place] * SCAN CORRESP-EKG RESULTS (04/06/2025 12:06 PM CDT) Only the most recent of2 resultswithin the time period is included. Narrative 04/06/2025 12:06 PM CDT Ordered by an unspecified provider. us Other Clinical Staff OTHER Final Resul t * SCAN CORRESP-DIAGNOSTICS (04/06/2025 12:06 PM CDT) Narrative 04/06/2025 12:06 PM CDT Ordered by an unspecified provider. us Other Clinical Staff OTHER Final Resul t * SCAN CORRESP-IMAGING (04/06/2025 12:06 PM CDT) Only the most recent of3 resultswithin the time period is included. Anatomical Region Laterality Modality Other Narrative 04/06/2025 12:06 PM CDT Ordered by an unspecified provider. us Other Clinical Staff OTHER Final Resul t * GLUCOSE METER (04/06/2025 11:37 AM CDT) Only the most recent of43 resultswithin the time period is included. [facility] Signature GLUCOSE METER 99 65 - 100 mg/dL 04/06/2025 11:37 AM CDT [facility] Blood BLOOD SPECIMEN / Unknown 04/06/2025 11:37 AM CDT 04/06/2025 11:37 AM CDT Mariangel Bolanos MD CHEMISTRY Final R esult [facility] [address] [address], [place] * (ABNORMAL) RED CELL MORPHOLOGY (04/06/2025 5:13 AM CDT) Only the most recent of6 resultswithin the time period is included. Pathologist [facility] POLYCHROMASIA Slight 04/06/2025 7:23 AM CDT [facility] TARGET CELLS Few 04/06/2025 7:23 AM CDT [facility] RBC COMMENT Present(A) RBC morphology appears normal, RBC morphology within normal limits for newborns. 04/06/2025 7:23 AM CDT [facility] Blood BLOOD SPECIMEN / Unknown Venipuncture / Unknown 04/06/2025 5:13 AM CDT 04/06/2025 5:39 AM CDT us Eliot Hernandez MD HEMATOLOGY Final Result Performing Organization Address City/[facility]/ZIP Co de Phone Number [facility] [address] [place] [address], [place] * PLATELET ESTIMATE (04/06/2025 5:13 AM CDT) Only the most recent of6 resultswithin the time period is included. Pathologist [facility] PLATELET ESTIMATE Adequate Adequate, No estimate 04/06/2025 7:23 AM CDT [facility] Blood BLOOD SPECIMEN / Unknown Venipuncture / Unknown 04/06/2025 5:13 AM CDT 04/06/2025 5:39 AM CDT us Eliot Hernandez MD HEMATOLOGY Final Result Performing Organization Address City/[facility]/ZIP Co de Phone Number [facility] [address] [place] [address], [place] * (ABNORMAL) MANUAL DIFFERENTIAL (04/06/2025 5:13 AM CDT) Only the most recent of6 resultswithin the time period is included. Pathologist [facility] % NEUTROPHILS 54.0 % 04/06/2025 7:23 AM CDT [facility] % LYMPHOCYTES 33.0 % 04/06/2025 7:23 AM CDT [facility] % MONOCYTES 5.0 % 04/06/2025 7:23 AM CDT [facility] % EOSINOPHILS 3.0 % 04/06/2025 7:23 AM CDT [facility] % BASOPHILS 1.0 % 04/06/2025 7:23 AM CDT [facility] % METAMYELOCYTES 2.0(H) <0.1 % 04/06/20 7:23 AM CDT [facility] % MYELOCYTES 2.0(H) <0.1 % 04/06/2025 7:23 AM CDT [facility] NEUTROPHILS ABSOLUTE 4.4 1.7 - 7.0 thou/cu mm 04/06/2025 7:23 AM CDT [facility] LYMPHOCYTES ABSOLUTE 2.7 0.9 - 2.9 thou/cu mm 04/06/2025 7:23 AM CDT [facility] MONOCYTES ABSOLUTE 0.4 <0.9 thou/cu mm 04/06/2025 7:23 AM CDT [facility] EOSINOPHILS ABSOLUTE 0.2 <0.5 thou/cu mm 04/06/2025 7:23 AM CDT [facility] BASOPHILS ABSOLUTE 0.1 <0.3 thou/cu mm 04/06/2025 7:23 AM CDT [facility] ABSOLUTE METAMYELOCYTES 0.2(H) <=0.0 thou/cu mm 04/06/2025 7:23 AM CDT [facility] ABSOLUTE MYELOCYTES 0.2(H) <=0.0 thou/cu mm 04/06/2025 7:23 AM CDT [facility] Blood BLOOD SPECIMEN / Unknown Venipuncture / Unknown 04/06/2025 5:13 AM CDT 04/06/2025 5:39 AM CDT us Eliot Hernandez MD HEMATOLOGY Final Result [facility] [address] [place] [address], [place] * (ABNORMAL) Hepatic function panel AM (04/06/2025 5:13 AM CDT) Only the most recent of8 resultswithin the time period is included. ALBUMIN 2.5(L) 4.0 - 4.9 g/dL 04/06/2025 6:12 AM CDT [facility] PROTEIN,TOTAL 4.8(L) 6.0 - 8.0 g/dL 04/06/2025 6:12 AM CDT [facility] BILIRUBIN,TOTAL 1.1 0.0 - 1.2 mg/dL 04/06/2025 6:12 AM CDT [facility] BILIRUBIN,DIRECT 0.7(H) 0.0 - 0.2 mg/dL 04/06/2025 6:12 AM CDT [facility] BILIRUBIN,INDIRE CT 0.4 0.2 - 0.8 mg/dL 04/06/2025 6:12 AM CDT [facility] ALK PHOSPHATASE 1,093(H) 35 - 104 IU/L 04/06/2025 6:12 AM CDT [facility] ALT (SGPT) 199(H) 10 - 35 IU/L 04/06/2025 6:12 AM CDT [facility] AST (SGOT) 76(H) 10 - 35 IU/L 04/06/2025 6:12 AM CDT [facility] Blood BLOOD SPECIMEN / Unknown Venipuncture / Unknown 04/06/2025 5:13 AM CDT 04/06/2025 5:39 AM CDT us Eliot Hernandez MD CHEMISTRY Final Result [facility] [address] [place] [address], * SCAN-CARDIAC STRIP (04/05/2025 7:18 AM CDT) us Scanner OTHER Final Result * SCAN-CARDIAC STRIP (04/04/2025 11:26 PM CDT) us Scanner OTHER Final Result * SCAN-CARDIAC STRIP (04/04/2025 3:43 PM CDT) us Scanner OTHER Final Result * (ABNORMAL) GGT TODAY (04/04/2025 9:12 AM CDT) GAMMA GT 728(H) 5 - 36 IU/L 04/04/2025 10:04 AM CDT [facility] Blood BLOOD SPECIMEN / Unknown Non-Lab Venipuncture / Unknown 04/04/2025 9:12 AM CDT 04/04/2025 9:22 AM CDT Isabela Jolley MD CHEMISTRY Final Result Performing Organization Address [facility] Co de Phone Number [facility] [address] [place] [address], [place] * SCAN-CARDIAC STRIP (04/04/2025 7:16 AM CDT) us Scanner OTHER Final Result * (ABNORMAL) TRIGLYCERIDES propofol (04/04/2025 4:07 AM CDT) Only the most recent of3 resultswithin the time period is included. TRIGLYCERIDES 282(H) <150 mg/dL 04/04/2025 4:45 AM CDT [facility] PROVIDER ORDERED STATUS RANDOM 04/04/2025 4:45 AM CDT [facility] Blood BLOOD SPECIMEN / Unknown Non-Lab Venipuncture / Unknown 04/04/2025 4:07 AM CDT 04/04/2025 4:13 AM CDT Eliot Hernandez MD CHEMISTRY Final Result Performing Organization Address [facility]/ZIP Co de Phone Number [facility] [employer] [facility] [address] [place] [id number], [place] * PHOSPHORUS (04/04/2025 4:07 AM CDT) Only the most recent of3 resultswithin the time period is included. PHOSPHORUS 4.1 2.5 - 4.5 mg/dL 04/04/2025 4:45 AM CDT [facility] Blood BLOOD SPECIMEN / Unknown Non-Lab Venipuncture / Unknown 04/04/2025 4:07 AM CDT 04/04/2025 4:13 AM CDT Bentley Pantoja MD CHEMISTRY Final Result Performing Organization Address City/[facility] Co de Phone Number [facility] [address] [place] [address], * (ABNORMAL) CK TOTAL propofol (04/04/2025 4:07 AM CDT) Only the most recent of3 resultswithin the time period is included. Pathologist [facility] CK,TOTAL 18(L) 26 - 192 IU/L 04/04/2025 4:46 AM CDT [facility] Blood BLOOD SPECIMEN / Unknown Non-Lab Venipuncture / Unknown 04/04/2025 4:07 AM CDT 04/04/2025 4:13 AM CDT Eliot Hernandez MD CHEMISTRY Final Result Performing Organization Address [facility] Co de Phone Number [facility] [address] [place] [address], * SCAN-CARDIAC STRIP (04/03/2025 7:20 PM CDT) Scanner OTHER Final Result * MRCP TODAY (04/03/2025 4:18 PM CDT) Anatomical Region Laterality Modality Abdomen, LIVER, PANCREAS, KIDNEYS, AORTA Magnetic Resonance 04/04/2025 11:3 7 AM CDT Narrative 04/04/2025 11:37 AM CDT For Patients: As a result of the Century Cures Act, medical imaging exams and procedure reports are released immediately into your electronic medical record. You may view this report before your referring provider. If you have questions, please contact your health care provider. INDICATION: Elevated LFTs. COMPARISON: CT scan of the chest, abdomen, and pelvis dated 30 March 2025. Abdominal ultrasound dated 31 March 2025. TECHNIQUE: Abdominal MRI with T1 in- and out of phase, T2, and diffusion-weighted images. No gadolinium administered. Heavily T2 weighted 2D and 3D MRCP images. FINDINGS: No fatty infiltration of the liver. No focal abnormalities identified in the visualized portions of the liver, spleen, pancreas, adrenal glands, and kidneys. No hydronephrosis. No adenopathy. No intra or extrahepatic bile duct dilation with the common bile duct measuring 5 mm. No filling defects in the biliary system. Normal size of the main pancreatic duct. Moderate left-sided pleural effusion. Impression : 1. No bile duct dilation. No choledocholithiasis. Normal size of the main pancreatic duct. 2. Moderate left-sided pleural effusion. Dictated by Niall Chatterjee MD @ 04/04/2025 11:37:22 AM (Electronically Signed) Procedure Note Niall Chatterjee MD - 04/04/2025 For Patients: As a result of the Cures Act, medical imagingexams and procedure reports are released immediately into your electronicmedical record. You may view this report before your referring provider.If you have questions, please contact your health care provider. INDICATION: Elevated LFTs. COMPARISON: CT scan of the chest, abdomen, and pelvis dated 30 March 2025. Abdominal ultrasound dated 31 March 2025. TECHNIQUE: Abdominal MRI with T1 in- and out of phase, T2, and diffusion-weightedimages. No gadolinium administered. Heavily T2 weighted 2D and 3D MRCP images. FINDINGS: No fatty infiltration of the liver. No focal abnormalities identified in the visualized portions of the liver,spleen, pancreas, adrenal glands, and kidneys. No hydronephrosis. No adenopathy. No intra or extrahepatic bile duct dilation with the common bile ductmeasuring 5 mm. No filling defects in the biliary system. Normal size ofthe main pancreatic duct. Moderate left-sided pleural effusion. Impression : 1. No bile duct dilation. No choledocholithiasis. Normal size of the mainpancreatic duct. 2. Moderate left-sided pleural effusion. Dictated by Niall Chatterjee MD @ 04/04/2025 11:37:22 AM (Electronically Signed) us Isabela Jolley MD MR Final Result * SCAN-CARDIAC STRIP (04/03/2025 7:01 AM CDT) us Scanner OTHER Final Result * (ABNORMAL) HISTOPLASMA CAPSULATUM ANTIBODIES (04/03/2025 5:06 AM CDT) Histoplasma Mycelial CF Ab <1:8 <1:8 04/10/2025 9:07 PM CDT [facility] Comment: INTERPRETIVE INFORMATION: Histoplasma Mycelia Antibodies by CF A titer of 1:8 or greater is generally considered presumptive evidence of histoplasmosis. A titer of 1:32 or greater or rising titers indicate strong presumptive evidence of histoplasmosis. Cross reactions, usually at lower titers, may occur with other fungal diseases. Histoplasma Yeast CF Ab 1:8(H) <1:8 04/10/2025 9:07 PM CDT [facility] Comment: INTERPRETIVE INFORMATION: Histoplasma Yeast Antibodies by CF A titer of 1:8 or greater is generally considered presumptive evidence of histoplasmosis. A titer of 1:32 or greater or rising titers indicate strong presumptive evidence of histoplasmosis. Cross reactions, usually at lower titers, may occur with other fungal diseases. Histoplasma Mycelial ID Ab See below:(A) Not Detected 04/10/2025 9:07 PM CDT [facility] Comment: Detected M and H bands were detected, suggesting active histoplasmosis. Blood BLOOD SPECIMEN / Unknown Arterial / Unknown 04/03/2025 5:06 AM CDT 04/03/2025 5:23 AM CDT Narrative [facility] - 04/10/2025 9:07 PM CDT Performed at: [facility] [employer] [address] [place] [id number] [employer] Winding Operator: Chaz Aguillon [facility], Phone: [phone] us Maverick Bolanos MD SEND OUTS Final Re sult [facility] ([facility]) [address] [place] [address], * (ABNORMAL) ARTERIAL BLOOD GAS (04/03/2025 5:06 AM CDT) Only the most recent of7 resultswithin the time period is included. PH, ARTERIAL 7.44 7.35 - 7.45 04/03/2025 5:30 AM CDT [facility] PCO2, ARTERIAL 38 32 - 45 mmHg 04/03/2025 5:30 AM CDT [facility] PO2, ARTERIAL 174(H) 83 - 108 mmHg 04/03/2025 5:30 AM CDT [facility] HCO3, ARTERIAL 26 21 - 28 mmol/L 04/03/2025 5:30 AM CDT [facility] BASE EXCESS, ARTERIAL 1.7 -2.0 - 3.0 04/03/2025 5:30 AM CDT [facility] O2 SATURATION, ARTERIAL 100(H) 94 - 98 % 04/03/2025 5:30 AM CDT [facility] INSPIRED O2 40 04/03/2025 5:30 AM CDT [facility] Comment:Unit of Measure: Lit ers (L) if <=20; Percent (%) if >20 PATIENT TEMPERATURE 36.7 Degrees C 04/03/2025 5:30 AM T [facility] Blood ARTERIAL BLOOD SPECIMEN / Unknown Arterial / Unknown 04/03/2025 5:06 AM CDT 04/03/2025 5:21 AM CDT us Isabela Jolley MD CHEMISTRY Final Result [facility] [address] [place] [address], [place] * CALCIUM IONIZED HOSPITAL DRAW ONLY (04/03/2025 5:06 AM CDT) Only the most recent of5 resultswithin the time period is included. Pathologist [facility] CALCIUM,IONIZE D 1.20 1.15 - 1.27 mmol/L 04/03/2025 5:28 AM CDT [facility] Blood BLOOD SPECIMEN / Unknown Arterial / Unknown 04/03/2025 5:06 AM CDT 04/03/2025 5:22 AM CDT us Annabella Aguilar RN CHEMISTRY Final Resu lt Performing Organization Address City/[facility]/ZIP Co de Phone Number [facility] [address] [place] [address], [place] * SCAN-CARDIAC STRIP (04/02/2025 7:02 PM CDT) Scanner OTHER Final Result * (ABNORMAL) APTT (04/02/2025 11:14 AM CDT) Only the most recent of5 resultswithin the time period is included. [facility] APTT 47(H) 25 - 36 sec 04/02/2025 12:02 PM CDT [facility] Blood BLOOD SPECIMEN / Unknown Non-Lab Venipuncture / Unknown 04/02/2025 11:14 AM CDT 04/02/2025 11:30 AM CDT Narrative [facility] - 04/02/2025 12:02 PM CDT Therapeutic Range: 59-89 seconds Savannah Forde MD HEMATOLOGY F inal Result Performing Organization Address City/[facility]/ZIP Co de Phone Number [facility] [address] [place] [address], [place] * (ABNORMAL) HISTOPLASMA QUANTITATIVE ANTIGEN BLD (04/02/2025 10:17 AM CDT) [facility] HISTOPLASMA AG QN RESULT See below. None Detected ng/mL 04/04/2025 11:[address] [facility] (CET) Comment: Histoplasma Antigen by EIA Above the Limit of Quantification Reference Interval: None Detected Reportable Range: Positive Results reported in ng/mL from 0.20 ng/mL to 20.00 ng/mL. Positive results above 20.00 ng/mL are reported as Above the Limit of Quantification Cross-reactions occur with Blastomyces spp., Coccidioides spp., and Paracoccidioides brasiliensis. The test was developed and its performance characteristics determined by [employer]. It has not been cleared or approved by the FDA; however, FDA clearance or approval is not currently required for clinical use. The results are not intended to be used as the sole means for clinical diagnosis or patient management decisions. HISTOPLASMA AG QN INTERP Positive (A) 04/04/2025 11:09 AM CDT [facility] (CET) SPECIMEN TYPE HISTOPLASMA AGN SERUM 04/04/2025 11:09 AM CDT [facility] (CET) Blood BLOOD SPECIMEN / Unknown Non-Lab Venipuncture / Unknown 04/02/2025 10:17 AM CDT 04/02/2025 10:24 AM CDT Narrative [facility] (CET) - 04/04/2025 11:09 AM CDT Performed at: [facility] [employer] [address] [place] [address] [place] [id number] [employer] Operator: Carlton Thurston MD, Phone: [phone] us Maverick Bolanos MD SEND OUTS Final Re sult [facility] (CET) [address] [place] [address], * SCAN-CARDIAC STRIP (04/02/2025 8:40 AM CDT) us Scanner OTHER Final Result * SCAN-CARDIAC STRIP (04/02/2025 12:05 AM CDT) us Scanner OTHER Final Result * SCAN-CARDIAC STRIP (04/01/2025 11:30 AM CDT) us Scanner OTHER Final Result * (ABNORMAL) URINALYSIS MICROSCOPIC (04/01/2025 10:20 AM CDT) RBC 3-5(A) 0-2, None Seen /HPF 04/01/2025 10:38 AM CDT [facility] TRAL LABORAT[facility] WBC 3-5 0-2, 3-5, None Seen /HPF 04/01/2025 10:38 AM CDT [facility]OR[facility] BACTERIA Few None Seen, Rare, Few Bacteria/ HPF 04/01/2025 10:38 AM CDT [facility] EPITHELIAL CELLS None Seen None Seen, Few Epi/HPF 04/01/2025 10:38 AM CDT [facility] Urine URINE SPECIMEN / Unknown Non-Blood / Unknown 04/01/2025 10:20 AM CDT 04/01/2025 10:26 AM CDT Narrative [facility] - 04/01/2025 10:38 AM CDT <2.5 ml. QNS for accurate microscopic exam. Mau Han MD URINE Final Resul t [facility] [address] [place] [address], * (ABNORMAL) UA W/ SEDIMENT EXAM REFLEXED PER CRITERIA (04/01/2025 10:20 AM CDT) COLOR Yellow Yellow Color 04/01/2025 10:38 AM CDT [facility] CLARITY Slightly Cloudy(A) Clear Clarity 04/01/2025 10:38 AM CDT [facility] SPECIFIC GRAVITY,URINE 1.010 1.010, 1.015, 1.020, 1.025 04/01/2025 10:38 AM CDT [facility] PH,URINE 6.0 6.0, 7.0, 8.0, 5.5, 6.5, 7.5, 8.5 04/01/2025 10:38 AM CDT [facility] UROBILINOGEN, QUALITATIVE Normal Normal EU/dl 04/01/2025 10:38 AM CDT [facility] PROTEIN, URINE 100(A) Negative mg/dL 04/01/2025 10:38 AM CDT [facility] GLUCOSE, URINE Negative Negative mg/dL 04/01/2025 10:38 AM CDT [facility] KETONES,URINE Trace(A) Negative mg/dL 04/01/2025 10:38 AM CDT [facility] BILIRUBIN,URI NE Negative Negative 04/01/2025 10:38 AM CDT [facility] OCCULT BLOOD,URINE Large(A) Negative 04/01/2025 10:38 AM CDT [facility] NITRITE Negative Negative 04/01/2025 10:38 AM CDT [facility] LEUKOCYTE ESTERASE Negative Negative 04/01/2025 10:38 AM CDT [facility] Urine URINE SPECIMEN / Unknown Non-Blood / Unknown 04/01/2025 10:20 AM CDT 04/01/2025 10:26 AM CDT Mau Han MD URINE Final Resul t [facility] [address] [place] [address], * SCAN-CARDIAC STRIP (04/01/2025 7:00 AM CDT) us Scanner OTHER Final Result * (ABNORMAL) PROTIME-INR (04/01/2025 5:14 AM CDT) INR 0.9 <1.3 04/01/2025 5:37 AM CDT [facility] PROTIME 10.4(L) 10.6 - 12.4 sec 04/01/2025 5:37 AM CDT [facility] Blood BLOOD SPECIMEN / Unknown Line/Port / Unknown 04/01/2025 5:14 AM CDT 04/01/2025 5:23 AM CDT Narrative [facility] - 04/01/2025 5:37 AM CDT Therapeutic Range 2.0-3.0 for most anticoagulated patients 2.5-3.5 or 4.0 for high risk patients The INR is only used for patients on stable oral anticoagulant therapy. It makes no significant contribution to the diagnosis or treatment of patients whose Protime is prolonged for other reasons. INR results are increased when heparin levels exceed 1.0 U/mL, which corresponds to an aPTT >125 seconds if the patient is on UFH. us Isabela Jolley MD HEMATOLOGY Final Result Performing Organization Address City/[facility]/ZIP Co de Phone Number [facility] [address] [place] [address], [place] * SCAN-CARDIAC STRIP (03/31/2025 11:04 PM CDT) us Scanner OTHER Final Result * BLOOD CULTURE (03/31/2025 8:38 PM CDT) Only the most recent of4 resultswithin the time period is included. CULTURE No Growth. 04/05/2025 8:58 PM CDT [facility] Blood BLOOD SPECIMEN / Unknown Butterfly / Unknown 03/31/2025 8:38 PM CDT 03/31/2025 8:47 PM CDT Narrative [facility] - 04/05/2025 8:58 PM CDT Low volume blood culture received; possible false negative culture. us Sadaf Preciado MD MICROBIOLOGY F inal Result Performing Organization Address City/[facility]/ZIP Co de Phone Number [facility] [address] [place] [address], [place] * SCAN-CARDIAC STRIP (03/31/2025 3:31 PM CDT) us Scanner OTHER Final Result * US ABDOMEN LIMITED RUQ PORTABLE (03/31/2025 3:07 PM CDT) Anatomical Region Laterality Modality Abdomen, LIVER, PANCREAS, GALLBLADDER, SPLEEN Ultrasound 03/31/2025 9:17 PM CDT Impressions 03/31/2025 9:17 PM CDT Cholelithiasis. Dictated by Chris Pierre MD @ 03/31/2025 9:17:34 PM (Electronically Signed) Narrative 03/31/2025 9:17 PM CDT For Patients: As a result of the Cures Act, medical imaging exams and procedure reports are released immediately into your electronic medical record. You may view this report before your referring provider. If you have questions, please contact your health care provider. INDICATION: Abnormal liver studies COMPARISON: CT 03/30/2025 TECHNIQUE: Real time izquierdo scale imaging and color Doppler analysis was performed of the right upper quadrant. FINDINGS: The patient`s liver is of normal size and has uniform echogenicity. There is a normal appearance of the hepatic IVC and proximal abdominal aorta. There is no evidence of ascites. The gallbladder is of normal size and there is an echogenic stone within the gallbladder neck which measures 6 millimeters. The gallbladder wall measures 2 mm in thickness. The common bile duct is of normal size and measures 5 mm in diameter at the level of the bart hepatis. The pancreas appears normal. There is no evidence of a stone or hydronephrosis within the right kidney. The right kidney measures 12.2 cm in length. Procedure Note Chris Pierre MD - 03/31/2025 For Patients: As a result of the s Act, medical imagingexams and procedure reports are released immediately into your electronicmedical record. You may view this report before your referring provider.If you have questions, please contact your health care provider. INDICATION: Abnormal liver studies COMPARISON: CT 03/30/2025 TECHNIQUE: Real time izquierdo scale imaging and color Doppler analysis was performed ofthe right upper quadrant. FINDINGS: The patient`s liver is of normal size and has uniform echogenicity. Thereis a normal appearance of the hepatic IVC and proximal abdominal aorta.There is no evidence of ascites. The gallbladder is of normal size andthere is an echogenic stone within the gallbladder neck which measures 6millimeters. The gallbladder wall measures 2 mm in thickness. The commonbile duct is of normal size and measures 5 mm in diameter at the level ofthe bart hepatis. The pancreas appears normal. There is no evidence ofa stone or hydronephrosis within the right kidney. The right kidneymeasures 12.2 cm in length. IMPRESSION: Cholelithiasis. Dictated by Chris Pierre MD @ 03/31/2025 9:17:34 PM (Electronically Signed) us Isabela Jolley MD Final Result * CWS PATH REVIEW BODY FLUID (03/31/2025 11:50 AM CDT) PATH COMMENT Comment 04/03/2025 8:26 AM CDT [facility] TRAL [facility] Comment:No atypical or malig nant cells, favor reactive.Reviewed by Dr. Radha Reyna on 04/02/2025 Other BRONCHOALVEOLAR LAVA GE FLUID SPECIMEN / Unknown Non-Blood / Unknown 03/31/2025 11:50 AM CDT 03/31/2025 12:14 PM CDT Savannah Forde MD LABORATORY F inal Result [facility] [address] [place] [address], * MYCOPLASMA PNEUMONIAE PCR (03/31/2025 11:50 AM CDT) M pneumo PCR Negative Negative 04/04/2025 8:[address] [facility] (CET) Comment: No Mycoplasma pneumoniae DNA detected. This test was developed and its performance characteristics determined by [employer]. It has not been cleared or approved by the Food and Drug Administration. The FDA has determined that such clearance or approval is not necessary. Other BRONCHOALVEOLAR LAVA GE FLUID SPECIMEN / Unknown Non-Blood / Unknown 03/31/2025 11:50 AM CDT 03/31/2025 12:14 PM CDT Narrative [facility] (CET) - 04/04/2025 8:36 AM CDT Performed at: 01 - [facility] [address] [place], [place] [id number] [employer] Operator: Kg Cruz MD, Phone: [phone] Savannah Forde MD BODY FLUID F inal Result Performing Organization Address [facility] Co de Phone Number [facility] ([facility] [address] [place] [address], * Legionella Species by Rapid PCR (03/31/2025 11:50 AM CDT) Only the most recent of2 resultswithin the time period is included. LEGIONELLA PCR SOURCE BAL RML 04/04/2025 12:06 PM CDT [facility] LEGIONELLA SP BY RAPID PCR Negative Not Applicable 04/04/2025 12:06 PM CDT [facility] Comment: PCR negativity does not rule out uncommon Legionella species, including L. feeleii and L. birmhinghamensis. This test was developed and its performance characteristics determined by [facility] in a manner consistent with CLIA requirements. This test has not been cleared or approved by the U.S. Food and Drug Administration. Test Performed by: [address] [address] [employer] Operator: Terry Mcneill Ph.D.; CLIA# [id number] Blood BRONCHOALVEOLAR LAVA GE FLUID SPECIMEN / Unknown Non-Blood / Unknown 03/31/2025 11:50 AM CDT 03/31/2025 12:15 PM CDT Savannah Forde MD SEND OUTS F inal Result Performing Organization Address [facility]/ZIP Co de Phone Number [address] [address], * (ABNORMAL) Bronchial Culture and Stain (03/31/2025 11:50 AM CDT) CULTURE RESULT(A) 04/03/2025 10:27 AM CDT [facility] CULTURE 1+ Michelle albicans/dubli niensis 04/03/2025 10:27 AM CDT [facility] TRAL LAB[facility] GRAM STAIN 2+ PMNs 04/03/2025 10:27 AM CDT [facility] GRAM STAIN 3+ RBCs 04/03/2025 10:27 AM CDT [facility] TR[facility] GRAM STAIN No Epithelial cells 04/03/2025 10:27 AM CDT [facility] GRAM STAIN No organisms seen 04/03/2025 10:27 AM CDT [facility] TR[facility] Other BRONCHOALVEOLAR LAVA GE FLUID SPECIMEN / Unknown Non-Blood / Unknown 03/31/2025 11:50 AM CDT 03/31/2025 12:14 PM CDT us Savannah Forde MD MICROBIOLOGY F inal Result [facility] [address] [place] [address], * Bronchial Cell Count and Diff (03/31/2025 11:50 AM CDT) BODY FLUID SOURCE Bronchoalveolar Lavage 04/03/2025 8:26 AM CDT [facility] Comment:Right Middle Lobe BAL COLOR Yellow 04/03/2025 8:26 AM CDT [facility] BAL CLARITY Turbid 04/03/2025 8:26 AM CDT [facility] TOTAL NUCLEATED CELLS, BF 264 /cu mm 04/03/2025 8:26 AM CDT [facility] % NEUTROPHILS, BODY FLUID 46 % 04/03/2025 8:26 AM CDT [facility] % LYMPHOCYTES, BODY FLUID 41 % 04/03/2025 8:26 AM CDT [facility] % MONO/MACRO, BAL 11 % 04/03/2025 8:26 AM CDT [facility] % EOSINOPHILS, BODY FLUID 1 % 04/03/2025 8:26 AM CDT [facility] % BASOPHILS, BODY FLUID 1 % 04/03/2025 8:26 AM CDT [facility] BRONCH EPITHELIAL Few 04/03/2025 8:26 AM CDT [facility] Other BRONCHOALVEOLAR LAVA GE FLUID SPECIMEN / Unknown Non-Blood / Unknown 03/31/2025 11:50 AM CDT 03/31/2025 12:14 PM CDT Narrative [facility] - 04/03/2025 8:26 AM CDT Differential held for Pathology review us Savannah Forde MD BODY FLUID F inal Result Performing Organization Address City/[facility]/ZIP Co de Phone Number [facility] [address] [place] [address], [place] * CORINNE PREP, OTHER SOURCE (03/31/2025 11:50 AM CDT) Only the most recent of2 resultswithin the time period is included. OBSERVATION No fungal elements seen 03/31/2025 2:32 PM CDT [facility] Other BRONCHOALVEOLAR LAVA GE FLUID SPECIMEN / Unknown Non-Blood / Unknown 03/31/2025 11:50 AM CDT 03/31/2025 1:41 PM CDT us Maverick Bolanos MD MICROBIOLOGY Final Re sult Performing Organization Address City/[facility]/ZIP Co de Phone Number [facility] [address] [place] [address], [place] * (ABNORMAL) Fungus Culture, Other Source (03/31/2025 11:50 AM CDT) Only the most recent of2 resultswithin the time period is included. CULTURE RESULT(A) 04/19/2025 9:48 AM CDT [facility] CULTURE 1+ Yeast 04/19/2025 9:48 AM CDT [facility] Comment:See identification o n previous culture CULTURE 1+ Histoplasma capsulatum 04/19/2025 9:48 AM CDT [facility] Comment: Identification performed by: [facility] [place], [place] Other BRONCHOALVEOLAR LAVA GE FLUID SPECIMEN / Unknown Non-Blood / Unknown 03/31/2025 11:50 AM CDT 03/31/2025 12:14 PM CDT us Savannah Forde MD MICROBIOLOGY F inal Result [facility] [address] [place] [address], * PATH Non DERMATOLOGY NURSE Cytology - Malignant Cells and/or Fungus Stain (Brushing, Washing, BAL, Diehl) (03/31/2025 11:46 AM CDT) Case Report Medical Cytology Report Case: [id number] Authorizing Provider: Savannah Forde Collected: 03/31/2025 1146 MD Adry Ordering Location: [facility] Received: 03/31/[address] [place] [address] Pathologist: Sana Arnold MD Specimen: Right Middle Lobe, bronchoalveolar lavage 04/02/2025 8:55 AM CDT [facility] [employer] [facility] Final Diagnosis A) LUNG, RIGHT, MIDDLE LOBE, BRONCHOALVEOLAR LAVAGE: 1. Numerous small yeast, consistent with Histoplasma species 2. Mixed inflammation, alveolar macrophages, and bronchial lining/oropharynge al squamous cells 3. Negative for viral inclusions 4. Negative for malignancy 04/02/2025 8:55 AM CDT [facility] at [address] Smith reviewed the silver stained slide and sent [employer] message to Dr. Maverick Bolanos; discussed results with Dr. Bolanos at 1:47 on 04/01/25. 04/02/2025 8:55 AM CDT [facility] Clinical Information Pneumonia. Rheumatoid arthritis on methotrexate, adalimumab, prednisone. Developed cough first part of March. 04/02/2025 8:55 AM CDT [facility] Gross Description A) SOURCE: Bronchoalveolar Lavage, RML Lung The specimen consists of 25 cc of gold hazy fluid from which the following is prepared: -1 DiffQuik stained slide -1 ThinPrep slide for Papanicolaou Stain -1 GMS stained ThinPrep slide 04/02/2025 8:55 AM CDT [facility] Microscopic Description Specimen adequacy: Adequate for interpretation. All slides were reviewed. The microscopic appearance substantiates the diagnosis. [place] methenamine silver stain was performed using ThinPrep material and demonstrates numerous, small, oval, budding yeast, consistent with Histoplasma species. 04/02/2025 8:55 AM CDT [facility] Additional Information Cytology is screened at [facility] - [address], [place] [address] and [facility] - [address] [place] [address] and [facility] - [address] [place] [address] [facility] - [address], [place] [address] 04/02/2025 8:55 AM CDT [facility] Other (Right Middle Lobe) 03/31/2025 11:46 AM CDT 03/31/2025 12:16 PM CDT Comment:Choose site(s), Spec imen(s), and test.Site RML - BAL (Bronchial Alveolar Lavage - Cytology and Fungus / Pneumocystis Savannah Forde MD PATHOLOGY/CYTOLOG Y Final Result [facility] [address] [place] [address], * MTB/RIF PCR (03/31/2025 9:32 AM CDT) Mycobacterium tuberculosis complex (MTB) by PCR MTB Not Detected MTB Not Detected 03/31/2025 8:51 PM CDT [facility] Sputum SPUTUM SPECIMEN / Unknown Non-Blood / Unknown 03/31/2025 9:32 AM CDT 03/31/2025 11:32 AM CDT us Maverick Bolanos MD MICROBIOLOGY Final Re sult [facility] [address] [place] [address] * (ABNORMAL) VANCOMYCIN TROUGH (03/31/2025 9:32 AM CDT) Pathologist [facility] VANCOMYCIN,TRO UGH 40.9(HH) 7.0 - 20.0 ug/mL 03/31/2025 10:21 AM CDT [facility] TRAL LABORATORY DATE OF LAST DOSE,TROUGH 03/30/2025 03/31/2025 10:21 AM CDT [facility] LAB[facility] TIME OF LAST DOSE,TROUGH 10:21 AM 03/31/2025 10:21 AM CDT [facility] TRAL LABORATORY Blood BLOOD SPECIMEN / Unknown Non-Lab Venipuncture / Unknown 03/31/2025 9:32 AM CDT 03/31/2025 9:39 AM CDT us Maverick Bolanos MD CHEMISTRY Final Re sult Performing Organization Address City/[facility]/ZIP Co de Phone Number [facility] [address] [place] [address], * SCAN-CARDIAC STRIP (03/31/2025 7:01 AM CDT) us Scanner OTHER Final Result * COCCIDIOIDES IMMITIS AB, BY ID (REFLEX ONLY) (03/31/2025 4:26 AM CDT) [facility] Coccidioides Immitis Ab, Prec. Not Detected Not Detected 04/09/2025 3:[address] [facility] (CET) Comment: Clinical Interpretation: No Coccidioides antibodies (ie, IDTP (IgM), IDCF (IgG)) were detected. This result does not exclude Coccidioides infection. Blood BLOOD SPECIMEN / Unknown Line/Port / Unknown 03/31/2025 4:26 AM CDT 03/31/2025 4:34 AM CDT Narrative [facility] (CET) - 04/09/2025 3:06 AM CDT Performed at: - [employer] [address] [place], [place] [id number] [employer] Operator: Chaz Aguillon [facility], Phone: [phone] Maverick Bolanos MD SEND OUTS Final Re sult Performing Organization Address City/[facility]/ZIP Co de Phone Number [facility] (CET) [address] [place] [address] * COCCIDIOIDES ANTIBODY BY COMPLEMENT FIXATION (03/31/2025 4:26 AM CDT) Pathologist [facility] COCCIDIOIDES AB BY CF <1:2 <1:2 04/06/2025 2:07 AM CDT [facility] ([facility]) Comment: INTERPRETIVE INFORMATION: Coccidioides Ab by Complement Fixation (CF) A titer of 1:2 or greater suggests past or current infection. However, greater than 30 percent of cases with chronic residual pulmonary disease have negative complement fixation (CF) tests. Titers of less than 1:32 (even as low as 1:2) may indicate past infection or self-limited disease; anticoccidioidal CF antibody titers in excess of 1:16 may indicate disseminated infection. CF serology may be used to follow therapy. Antibody in CSF is considered diagnostic for coccidioidal meningitis, although 10 percent of patients with coccidioidal meningitis will not have antibody in CSF. Blood BLOOD SPECIMEN / Unknown Line/Port / Unknown 03/31/2025 4:26 AM CDT 03/31/2025 4:34 AM CDT [facility]OTERIC TESTING (CET) - 04/06/2025 2:07 AM CDT Performed at: [employer] [address] [place], [place] [id number] [employer] Operator: Chaz Aguillon [facility], Phone: [phone] Maverick Bolanos MD SEND OUTS Final Re sult Performing Organization Address City/[facility]/ZIP Co de Phone Number [facility] (CET) [address] [place] [address], * (ABNORMAL) ASPERGILLUS GALACTOMANNAN AG BAL/BLOOD (03/31/2025 4:26 AM CDT) Pathologist [facility] As[facility]illus Ag BAL Serum 3.01(H) 0.00 - 0.49 Index 04/05/2025 10:09 AM CDT [facility] (CET) Other BLOOD SPECIMEN / Unknown Line/Port / Unknown 03/31/2025 4:26 AM CDT 03/31/2025 4:34 AM CDT Narrative [facility] (CET) - 04/05/2025 10:09 AM CDT Performed at: - [employer] [address] [id number] [employer] Operator: David Jeffers MD, Phone: [phone] Performed at: - [employer] [facility] [address] [place], [place] [id number] [employer] Operator: Judit Meng [facility], Phone: [phone] Maverick Bolanos MD SEND OUTS Final Re sult [facility] (CET) [address] [place] [address], * Peripheral blood morphology (03/31/2025 4:26 AM CDT) [facility] Case Report Special Hematology Report Case: [id number] Authorizing Provider: Mariangel Bolanos MD Collected: 03/31/20256 Ordering Location: [facility] Received: 03/31/2025 0434 Hospital Pathologist: Juice Mcdonald MD Specimen: Blood 04/02/2025 8:59 AM CDT [facility]ORAT[facility]- ENTRAL LABORATORY Final Diagnosis PERIPHERAL BLOOD: 1. Normocytic anemia 2. Thrombocytopenia 3. See comment 04/02/2025 8:59 AM CDT [facility] LABORATORY-C ENTRAL LABORATORY at 0859 CDT Comment The features of the anemia are nonspecific. The differential includes iron deficiency, anemia of chronic disease, anemia of chronic renal insufficiency, anatomic blood loss and medication effect, among other etiologies. There is no morphologic evidence of hemolysis. The thrombocytopenia may be secondary to various etiologies, including autoimmune disease (especially SLE), bacterial and viral infections, inherited platelet function disorders, increased clearance, heparin, and other drugs. There is no evidence of microangiopathic hemolysis. If the above etiologies can excluded, the patient may have immune thrombocytopenia. 04/02/2025 8:59 AM CDT [facility] Clinical Information Submitted clinical information: 55 yo immune-suppressed woman (for RA) now with pneumonia and pancytopenia. Wonder about fungal etiology; Cause of pancytopenia 04/02/2025 8:59 AM CDT [facility]- ENTRAL LABORATORY CBC and Differential HEMATOLOGY PARAMETERS Tested at: [facility] RESULTS EXPECTED VALUES WBC: 6.8 4.5-85s5900/cumm RBC: 3.43 4.00-5.20 mil/cummDECREASED HGB: 9.5 12-16 gm/dl DECREASED HCT: 29.9 33-51% DECREASED MCV: 87.0 80-100 fl NORMOCYTIC MCH: 27.7 26-34 pg MCHC: 31.8 32-36 gm/dl HYPOCHROMIC RDW: 15.9 11.5-15.5% ELEVATED PLT: 111 [id number]/uL DECREASED MPV: 10.9 6.5-11 fl Retic: 1.0 0.5-1.5% Differential Absolute (%) Expected (%) (x10*9/L) (x10*9/L) Neutrophils: 4.4 (64.7) 1.7-7.0 (42-72%) Lymphocytes: 2.0 (29.4) 0.9-2.9 (20-44%) Monocytes: 0.1 (1.5) <0.9 (0-11%) Eosinophils: 0.3 (4.4) <0.5 (0-2%) 04/02/2025 8:59 AM CDT [facility] Microscopic Description The final diagnosis is based on microscopic examination of an appropriately stained blood smear. 04/02/2025 8:59 AM CDT [facility]-C ENTRAL LABORATORY Additional Information Interpreted at [facility], Central Laboratory - [address] [place] [address] [facility] [address], [place] [address] 04/02/2025 8:59 AM CDT [facility] EN[facility]AL LABORATORY Blood BLOOD SPECIMEN / Unknown 03/31/2025 4:26 AM CDT 03/31/2025 4:34 AM CDT Comment:CURRENT MEDICATIONSC urrent Facility-Administered Medications: acetaminophen 1,000 mg tablet (TYLENOL EXTRA STRGTH), 1,000 mg, Oral, q6h prn, Maverick Nation MD albuterol-ipratropium (2.5-0.5 mg) in 3 mL NEBULIZATION solution 3 mL (DUONEB), 3 mL, Neb, qid, Ulysses Iverson MD D5W 50 mL, 50 mL, Intravenous, q24h AND amphotericin B LIPOsome (AMBISOME) 440 mg in D5W 500 mL, 440 mg, Intravenous, q24h, Last Rate: Stopped (03/29/252326) AND D5W 50 mL, 50 mL, Intravenous, q24h, Maverick Nation MD brimonidine 0.15 % ophthalmic solution 1 Drop, 1 Drop, Left Eye, bid, Maverick Nation MD calcium carbonate 500-1,000 mg tablet (TUMS), 500-1,000 mg, Oral, q4h prn, Maverick Nation MD cefepime (MAXIPIME) 2 g in D5W (MINI-BAG+) 50 mL, 2 g, Intravenous, q8h, Maverick Nation MD dorzolamide-timoloL 2-0.5 % ophthalmic solution 1 Drop (COSOPT), 1 Drop, Left Eye, bid, Maverick Nation MD doxycycline tablet 100 mg, 100 mg, Oral, bid, Maverick Nation MD enoxaparin (LOVENOX) injection 40 mg, 40 mg, Subcutaneous, daily, Maverick Nation MD latanoprost 0.005 % solution 1 Drop (XALATAN), 1 Drop, Left Eye, daily evening, Maverick Nation MD melatonin tablet 3 mg, 3 mg, Oral, bedtime prn MRx1, Maverick Nation MD naloxone (NARCAN) 0.4 mg/mL injection vial 0.4 mg, 0.4 mg, Intravenous, q1min prn, Maverick Nation MD ondansetron 4 mg orally disintegrating tablet (ZOFRAN ODT), 4 mg, On The Tongue, q8h prn OR ondansetron 4 mg injection (ZOFRAN), 4 mg, Intravenous, q8h prn, Maverick Nation MD oral anesthetic lozenge 1 Lozenge, 1 Lozenge, On The Tongue, q2h prn, Maverick Nation MD polyethylene glycol (MIRALAX; GLYCOLAX) 17 g per packet packet 17 g, 17 g, Oral/NG Tube, daily prn, Maverick Nation MD prednisoLONE acetate 1% ophthalmic suspension 1 Drop (ECONOPRED PLUS, PRED FORTE, OMNIPRED), 1 Drop, Right Eye, daily, Maverick Nation MD predniSONE 2 mg tablet (DELTASONE), 2 mg, Oral, daily wm morning, Maverick Nation MD prochlorperazine 10 mg tablet (COMPAZINE), 10 mg, Oral, q6h prn OR prochlorperazine (COMPAZINE) 10 mg/2 mL (5 mg/mL) injection 10 mg, 10 mg, Intravenous, q6h prn, Maverick Nation MD sennosides 8.6-17.2 mg (SENNA), 8.6-17.2 mg, Oral, bid prn, Maverick Nation MD sodium chloride 0.9 % syringe 10 mL, 10 mL, Intravenous, Each Time PRN, Maverick Nation MD sodium chloride 0.9 % syringe 5 mL, 5 mL, Intravenous, q12h, Maverick Nation MD sodium chloride 0.9 % syringe 5 mL, 5 mL, Intravenous, Each Time PRN, Maverick Nation MD vancomycin *CONSULT*PHARMACY TO DOSE*, , Miscell. (Med.Supl.;Non-Drugs), Per Pharmacy, Maverick Nation MD vancomycin (VANCOCIN) 1.25 gram/250 mL NaCl 0.9% (Final Concentration 5 mg/mL), 1,250 mg, Intravenous, q12h, Maverick Nation MD, Last Rate: Stopped (03/29/25 2241) venlafaxine 37.5 mg capsule (EFFEXOR XR), 37.5 mg, Oral, daily wm morning, Maverick Nation MD Mariangel Bolanos MD HEMATOLOGY Final R esult Performing Organization Address City/[facility]/ZIP Co de Phone Number [facility] [address] [place] [id number], [place] * ANTI HCV (03/31/2025 4:26 AM CDT) Pathologist [facility] HEPATITIS C ANTIBODY Non-Reacti ve Non-React micheal 03/31/2025 5:14 AM CDT [facility] TR[facility] LABORAT[facility] Comment:Please note, per www .CDC.gov: If a patient is known to be at high risk of HCV infection, or is symptomatic, and the physician's suspicion of HCV infection is high, HCV RNA testing is often employed and is of diagnostic value, even after an initial negative anti-HCV test result. Blood BLOOD SPECIMEN / Unknown Line/Port / Unknown 03/31/2025 4:26 AM CDT 03/31/2025 4:34 AM CDT Maverick Bolanos MD SEND OUTS Final Re sult [facility] [address] [place] [id number], * (ABNORMAL) LD,TOTAL (03/31/2025 4:26 AM CDT) Pathologist [facility] LD,TOTAL 1,621(H) 135 - 214 IU/L 03/31/2025 2:29 PM CDT [facility] Blood BLOOD SPECIMEN / Unknown Line/Port / Unknown 03/31/2025 4:26 AM CDT 03/31/2025 4:34 AM CDT us Savannah Forde MD CHEMISTRY F inal Result Performing Organization Address City/[facility]/ZIP Co de Phone Number [facility] [address] [place] [address], [place] * ANTI HBC (03/31/2025 4:26 AM CDT) ANTI HBC Non-React micheal Non-React micheal 03/31/2025 5:27 AM CDT [facility] TR[facility] LAB[facility]AT[facility] Comment:Anti-HBc Antibodies not detected. Does not exclude the possibility of exposure to or infection with HBV. Levels of Anti-HBc may be below the cut-off in early infection. Blood BLOOD SPECIMEN / Unknown Line/Port / Unknown 03/31/2025 4:26 AM CDT 03/31/2025 4:34 AM CDT us Maverick Bolanos MD SEND OUTS Final Re sult Performing Organization Address [facility] Co de Phone Number [facility] [address] [address], [place] * RETICULOCYTES (03/31/2025 4:26 AM CDT) RETIC% 1.0 0.5 - 1.5 % 03/31/2025 6:02 AM CDT [facility] RETIC (ABSOLUTE) 0.03 0.03 - 0.08 mil/cu mm 03/31/2025 6:02 AM CDT [facility] Blood BLOOD SPECIMEN / Unknown Line/Port / Unknown 03/31/2025 4:26 AM CDT 03/31/2025 4:34 AM CDT us Mariangel Bolanos MD HEMATOLOGY Final R esult Performing Organization Address City/[facility]/ZIP Co de Phone Number [facility] [address] [place] [phone], [place] * SCAN-CARDIAC STRIP (03/30/2025 8:48 PM CDT) us Scanner OTHER Final Result * (ABNORMAL) Sputum culture (03/30/2025 6:43 PM CDT) CULTURE RESULT(A) 04/01/2025 11:12 AM CDT [facility] CULTURE 1+ Yeast 04/01/2025 11:12 AM CDT [facility] Comment:See fungal culture r esults GRAM STAIN No PMNs 04/01/2025 11:12 AM CDT [facility] GRAM STAIN No RBCs 04/01/2025 11:12 AM CDT [facility] GRAM STAIN No Epithelial cells 04/01/2025 11:12 AM CDT [facility] GRAM STAIN No organisms seen 04/01/2025 11:12 AM CDT [facility] Sputum SPUTUM SPECIMEN OBTAINED BY SPUTUM INDUCTION / Unknown Non-Blood / Unknown 03/30/2025 6:43 PM CDT 03/30/2025 6:49 PM CDT us Maverick Nation MD MICROBIOLOGY Final Res ult [facility] [address] [place] [address], * PNEUMOCYSTIS JIROVECI PCR (03/30/2025 6:39 PM CDT) P.JIRO SPECIMEN SOURCE SEE COMMENTS 04/01/2025 2:22 PM CDT [facility] [employer] Comment:RESULT: Other, Bronc hoalveolar Lavage P.JIRO RESULT Negative Not Applicable 04/01/2025 2:22 PM CDT [facility] [employer] Comment: This test was developed and its performance characteristics determined by [facility] in a manner consistent with CLIA requirements. This test has not been cleared or approved by the U.S. Food and Drug Administration. Test Performed by: [address] [address] [employer] Operator: Terry Mcneill Ph.D.; CLIA# [id number] Other BRONCHOALVEOLAR LAVA GE FLUID SPECIMEN / Unknown Non-Blood / Unknown 03/30/2025 6:39 PM CDT 03/30/2025 6:49 PM CDT Maverick Bolanos MD SEND OUTS Final Re sult [facility] [address] [place] [address], * (ABNORMAL) BLASTOMYCES ANTIGEN (03/30/2025 6:39 PM CDT) Pathologist [facility] IVANNA(R) BLASTOMYCES AG See below. None Detected ng/mL 04/04/2025 11:09 AM CDT [facility] ([facility]) Comment: Blastomyces Antigen EIA Above the Limit of Quantification Reference Interval: None Detected Reportable Range: 0.31 ng/mL - 20.00 ng/mL Results above 20.00 ng/mL are reported as 'Positive, Above the Limit of Quantification' This test was developed and its performance characteristics determined by [employer]. It has not been cleared or approved by the FDA; however, FDA clearance or approval is not currently required for clinical use. The results are not intended to be used as the sole means for clinical diagnosis or patient decisions. INTERP ([facility]) Positive (A) 04/04/2025 11:09 AM CDT [facility] ([facility]) SPECIMEN TYPE BAL 04/04/2025 11:09 AM CDT [facility] ([facility]) Other (Other) Non-Blood / Unknown 03/30/2025 6:39 PM CDT 03/30/2025 6:49 PM CDT Narrative [facility] ([facility]) - 04/04/2025 11:09 AM CDT Performed at: [facility] [employer] [address] [place] [address], [place] [id number] [employer]: Carlton Thurston MD, Phone: [phone] Eliot Hernandez MD SEND OUTS Final Result [facility] ([facility]) [address] [place] [address], [place] * XR Chest 1 view portable (03/30/2025 6:09 PM CDT) Only the most recent of3 resultswithin the time period is included. Anatomical Region Laterality Modality HEART, THORAX, CHEST Digital Rad iography 03/30/2025 7:11 PM CDT Narrative 03/30/2025 7:11 PM CDT For Patients: As a result of the Cures Act, medical imaging exams and procedure reports are released immediately into your electronic medical record. You may view this report before your referring provider. If you have questions, please contact your health care provider. INDICATION: Line placement TECHNIQUE: Chest radiograph 1 view COMPARISON: 03/30/2025 FINDINGS: Mediastinum: The endotracheal tube tip is positioned 4 cm from the talib. The heart silhouette is normal in size and morphology. Right IJ line is present with the tip in the SVC. The feeding tube tip is not included but is positioned beyond the GE junction. Lung: Small lung volumes are present with severe bilateral airspace infiltrates, substantially increased from prior examination. No pneumothorax is identified. Bone and Soft tissue: Unremarkable for age. IMPRESSIONS: 1. Right IJ line is present with the tip in the SVC. 2. Small lung volumes are present with severe bilateral airspace infiltrates, substantially increased from prior examination. Given the rapid progression, findings may be due to cardiogenic or noncardiogenic edema or aspiration. Dictated by Jonny Trotter MD @ 03/30/2025 7:11:53 PM Dictated by: Jonny Trotter MD @ 03/30/2025 19:11:59 (Electronically Signed) Procedure Note Jonny Trotter MD - 03/30/2025 For Patients: As a result of the Cures Act, medical imagingexams and procedure reports are released immediately into your electronicmedical record. You may view this report before your referring provider.If you have questions, please contact your health care provider. INDICATION: Line placement TECHNIQUE: Chest radiograph 1 view COMPARISON: 03/30/2025 FINDINGS: Mediastinum: The endotracheal tube tip is positioned 4 cm from the talib.The heart silhouette is normal in size and morphology. Right IJ line ispresent with the tip in the SVC. The feeding tube tip is not included butis positioned beyond the GE junction. Lung: Small lung volumes are present with severe bilateral airspaceinfiltrates, substantially increased from prior examination. Nopneumothorax is identified. Bone and Soft tissue: Unremarkable for age. IMPRESSIONS: 1. Right IJ line is present with the tip in the SVC. 2. Small lung volumes are present with severe bilateral airspaceinfiltrates, substantially increased from prior examination. Given therapid progression, findings may be due to cardiogenic or noncardiogenicedema or aspiration. Dictated by Jonny Trotter MD @ 03/30/2025 7:11:53 PM Dictated by: Jonny Trotter MD @ 03/30/2025 19:11:59 (Electronically Signed) Isabela Jolley MD GENERAL IMAGING Final Result * CT CHEST ABDOMEN PELVIS W (03/30/2025 4:27 PM CDT) Anatomical Region Laterality Modality Abdomen, Pelvis, AORTA, LIVER, SPLEEN, CHEST Computed Tomography 03/30/2025 11:3 6 PM CDT Impressions 03/30/2025 11:36 PM CDT 1. Multifocal pneumonia, most prominent within the left upper lobe but involving all pulmonary lobes, increased compared to prior. 2. Moderate left and small right pleural effusions, overall slightly increased compared to prior. 3. Mild colonic diverticulosis without acute diverticulitis. Please note that all CT scans at this facility use dose modulation, iterative reconstruction, and/or weight-based dosing when appropriate to reduce radiation dose to as low as reasonably achievable. Dictated by Mau Chi MD @ 03/30/2025 11:36:48 PM (Electronically Signed) Narrative 03/30/2025 11:36 PM CDT For Patients: As a result of the Cures Act, medical imaging exams and procedure reports are released immediately into your electronic medical record. You may view this report before your referring provider. If you have questions, please contact your health care provider. INDICATION: Sepsis. TECHNIQUE: CT chest, abdomen and pelvis acquired 100 cc Omnipaque 350 IV contrast. COMPARISON: Chest x-ray 03/30/2025. CTA chest 03/27/2025 FINDINGS: CHEST: Cardiovascular structures: No cardiomegaly or pericardial effusion. Main pulmonary artery is normal in caliber. No obvious central pulmonary embolism on this nondedicated examination. No thoracic aortic aneurysm. Mediastinum and negra: Enlarged right hilar lymph nodes. Prominent mediastinal lymph nodes. Lungs and pleura: Moderate left and small right pleural effusions. Prominent multifocal bilateral airspace consolidation most notable throughout the left upper lobe but present within all pulmonary lobes. No pneumothorax. Endotracheal tube terminates approximately 2.6 cm above the talib. Chest wall and axilla: No suspicious chest wall mass or fluid collection. No axillary lymphadenopathy. Bones: No acute abnormality. ABDOMEN AND PELVIS: Liver: Unremarkable. Gallbladder and bile ducts: Unremarkable. Pancreas: Unremarkable. Spleen: Unremarkable. Adrenal glands: Unremarkable. Kidneys: Symmetric renal enhancement. No hydronephrosis or hydroureter. No urinary calculi. GI tract: Enteric tube within the stomach. No bowel obstruction. Mild colonic diverticulosis without acute diverticulitis. Normal appendix. Vascular structures: Atherosclerotic calcifications. Grossly patent vasculature. No abdominal aortic aneurysm. Lymph nodes: No suspicious lymphadenopathy. Peritoneum/Retroperitoneum/Abdominal Wall: Trace pelvic ascites. No pneumoperitoneum. No acute abdominal wall abnormality. Pelvic Organs: Lee catheter within the bladder. Small amount of intraluminal bladder gas likely reflecting sequelae of recent instrumentation. No suspicious adnexal mass. Bones and superficial soft tissues: No acute abnormality. Procedure Note Mau Chi MD - 03/30/2025 For Patients: As a result of the 21st Century Cures Act, medical imagingexams and procedure reports are released immediately into your electronicmedical record. You may view this report before your referring provider.If you have questions, please contact your health care provider. INDICATION: Sepsis. TECHNIQUE: CT chest, abdomen and pelvis acquired 100 cc Omnipaque 350 IV contrast. COMPARISON: Chest x-ray 03/30/2025. CTA chest 03/27/2025 FINDINGS: CHEST: Cardiovascular structures: No cardiomegaly or pericardial effusion. Mainpulmonary artery is normal in caliber. No obvious central pulmonaryembolism on this nondedicated examination. No thoracic aortic aneurysm. Mediastinum and negra: Enlarged right hilar lymph nodes. Prominentmediastinal lymph nodes. Lungs and pleura: Moderate left and small right pleural effusions.Prominent multifocal bilateral airspace consolidation most notablethroughout the left upper lobe but present within all pulmonary lobes. Nopneumothorax. Endotracheal tube terminates approximately 2.6 cm above thecarina. Chest wall and axilla: No suspicious chest wall mass or fluid collection.No axillary lymphadenopathy. Bones: No acute abnormality. ABDOMEN AND PELVIS: Liver: Unremarkable. Gallbladder and bile ducts: Unremarkable. Pancreas: Unremarkable. Spleen: Unremarkable. Adrenal glands: Unremarkable. Kidneys: Symmetric renal enhancement. No hydronephrosis or hydroureter. Nourinary calculi. GI tract: Enteric tube within the stomach. No bowel obstruction. Mildcolonic diverticulosis without acute diverticulitis. Normal appendix. Vascular structures: Atherosclerotic calcifications. Grossly patentvasculature. No abdominal aortic aneurysm. Lymph nodes: No suspicious lymphadenopathy. Peritoneum/Retroperitoneum/Abdominal Wall: Trace pelvic ascites. Nopneumoperitoneum. No acute abdominal wall abnormality. Pelvic Organs: Lee catheter within the bladder. Small amount ofintraluminal bladder gas likely reflecting sequelae of recentinstrumentation. No suspicious adnexal mass. Bones and superficial soft tissues: No acute abnormality. IMPRESSION: 1. Multifocal pneumonia, most prominent within the left upper lobe butinvolving all pulmonary lobes, increased compared to prior. 2. Moderate left and small right pleural effusions, overall slightlyincreased compared to prior. 3. Mild colonic diverticulosis without acute diverticulitis. Please note that all CT scans at this facility use dose modulation,iterative reconstruction, and/or weight-based dosing when appropriate toreduce radiation dose to as low as reasonably achievable. Dictated by Mau Chi MD @ 03/30/2025 11:36:48 PM (Electronically Signed) us Eliot Hernandez MD CT Final Result * RESPIRATORY PANEL MULTIPLEX PCR (03/30/2025 3:54 PM CDT) Adenovirus NOT Detected 03/30/2025 5:24 PM CDT [facility] NTRAL LABORATORY Coronavirus 229E NOT Detected 03/30/2025 5:24 PM CDT [facility]- [facility] Coronavirus HKU1 NOT Detected 03/30/2025 5:24 PM CDT [facility] Coronavirus NL63 NOT Detected 03/30/2025 5:24 PM CDT [facility] Coronavirus OC43 NOT Detected 03/30/2025 5:24 PM CDT [facility] Human Metapneumovirus NOT Detected 03/30/2025 5:24 PM CDT [facility] Human Rhinovirus/Enterovi ze NOT Detected 03/30/2025 5:24 PM CDT [facility] Influenza A NOT Detected 03/30/2025 5:24 PM CDT [facility] Influenza B NOT Detected 03/30/2025 5:24 PM CDT [facility] Parainfluenza Virus 1 NOT Detected 03/30/2025 5:24 PM CDT [facility] Parainfluenza Virus 2 NOT Detected 03/30/2025 5:24 PM CDT [facility] Parainfluenza Virus 3 NOT Detected 03/30/2025 5:24 PM CDT [facility] Parainfluenza Virus 4 NOT Detected 03/30/2025 5:24 PM CDT [facility] Respiratory Syncytial Virus NOT Detected 03/30/2025 5:24 PM CDT [facility] SARS-Cov-2 NOT Detected 03/30/2025 5:24 PM CDT [facility] Bordetella pertussis NOT Detected 03/30/2025 5:24 PM CDT [facility]- [facility] Bordetella Parapertussis NOT Detected 03/30/2025 5:24 PM CDT [facility] Chlamydophila pneumoniae NOT Detected 03/30/2025 5:24 PM CDT [facility] Mycoplasma pneumoniae NOT Detected 03/30/2025 5:24 PM CDT [facility] Nasopharyngeal NASOPHARYNGEAL SWAB / Unknown Non-Blood / Unknown 03/30/2025 3:54 PM CDT 03/30/2025 4:02 PM CDT Narrative [facility] - 03/30/2025 5:24 PM CDT All PCR tests are subject to false negative results due to variability in viral/bacterial load and collection technique. This test does NOT detect MERS ( Respiratory Syndrome) or SARS-1 (Severe Acute Respiratory Syndrome). Eliot Hernandez MD MICROBIOLOGY Final Result Performing Organization Address [facility]/ZIP Co de Phone Number [facility] [address] [place] [address], * MRSA/SA PCR (03/30/2025 2:49 PM CDT) Pathologist [facility] MRSA DNA PCR Negative Negative 03/30/2025 4:17 PM CDT [facility] STAPHYLOCOCCUS AUREUS PCR Negative Negative 03/30/2025 4:17 PM CDT [facility] Other SPECIMEN FROM INTERNAL NOSE / Unknown Non-Blood / Unknown 03/30/2025 2:49 PM CDT 03/30/2025 2:57 PM CDT Narrative [facility] - 03/30/2025 4:17 PM CDT Test result does not preclude MRSA or SA nasal colonization. Maverick Bolanos MD MICROBIOLOGY Final Re sult Performing Organization Address [facility] Co de Phone Number [facility] [address] [place] [address], [place] * CMV QUANT DNA PCR (BLOOD) (03/30/2025 12:19 PM CDT) Pathologist [facility] CMV Qn DNA PCR Negative Negative IU/mL 04/01/2025 8:06 PM CDT [facility] ([facility]) Comment: No CMV DNA detected. The quantitative range of this assay is 200 to 1 million IU/mL. log10 CMV Qn DNA 04/01/20 8:06 PM CDT [facility] ([facility]) Comment: Unable to calculate result since non-numeric result obtained for component test. Blood BLOOD SPECIMEN / Unknown Venipuncture / Unknown 03/30/2025 12:19 PM CDT 03/30/2025 12:28 PM CDT Narrative [facility] ([facility]) - 04/01/2025 8:06 PM CDT Performed at: - [facility] [employer] [address] [id number] [employer]: David Jeffers MD, Phone: [phone] Maverick Bolanos MD SEND OUTS Final Re sult [facility] ([facility]) [facility] [place] [address], [place] * SCAN CORRESP-DIAGNOSTICS (03/30/2025 12:00 PM CDT) Narrative 03/30/2025 12:00 PM CDT Ordered by an unspecified provider. Other Clinical Staff OTHER Final Resul t * LEGIONELLA AND PNEUMOCOCCAL URINE ANTIGEN (03/30/2025 10:54 AM CDT) [facility] STREP PNEUMO ANTIGEN Negative 03/30/2025 11:49 AM CDT [facility] Comment:Presumptive negative for pneumococcal pneumonia, suggesting no current or recent pneumococcal infection. Infection due to S. pneumoniae cannot be ruled out since the antigen present in the sample may be below the detection limit of the test. LEGIONELLA ANTIGEN Negative 03/30/2025 11:49 AM CDT [facility] Comment:Negative for L.pneum ophila serogroup 1 antigen, suggesting no recent or current infection. Infection due to Legionella cannot be ruled out since other serogroups and species may cause disease, antigen may not be present in urine in early infection, and the level of antigen present may be below the detection limit of the test. Low test sensitivity in patients with mild pneumonia. Urine URINE SPECIMEN / Unknown Non-Blood / Unknown 03/30/2025 10:54 AM CDT 03/30/2025 11:02 AM CDT us Maverick Bolanos MD MICROBIOLOGY Final Re sult [facility] [address] [place] [address], * (ABNORMAL) FUNGITELL OBFG-I-[id number] BLOOD/BAL/CSF (03/30/2025 10:23 AM CDT) RESULT See below:(A) 04/02/2025 3:09 PM CDT [facility] ([facility]) Comment:Positive FUNGITELL VALUE Comment pg/mL 3:09 PM CDT [facility] ([facility]) Comment:[phone] REFERENCE VALUE See below:(A) 04/02/2025 3:09 PM CDT [facility] ([facility]) Comment:Negative: <60, Posit micheal: >/=60 INTERPRETATION LC Notes 025 3:09 PM CDT [facility] ([facility]) Comment: (1,3) Sbcv-W-Kturrc was DETECTED in the sample. Clinical diagnosis should be made in the context of the patient's complete medical history. CLINICAL RELEVANCE LC Notes 04/02/2025 3:09 PM CDT [facility] ([facility]) Comment: The Fungitell test is indicated for presumptive diagnosis of fungal infection and should be used in conjunction with other diagnostic procedures. The test detects glucan from the following pathogens: Michelle spp., Acremonium, Aspergillus spp., Coccidioides immitis, Fusarium spp., Histoplasma capsulatum, Trichosporon spp., Sporothrix schenckii, Saccharomyces cerevisiae, and Pneumocystis jiroveci. This test does not detect certain fungal species such as Cryptococcus, which produce very low levels of (1,3)-ddmn-L-bcdbnm. This test will not detect the zygomycetes, such as Absidia, Blastomyces, Mucor, and Rhizopus, which are not known to produce (1,3)-zkjs-D-lpybml. In addition, the yeast phase of Blastomyces dermatitidis produces little (1,3)-wjcx-S-wcbxma and may not be detected by the assay. DISCLAIMER SIMONE Notes 04/02/2025 3:09 PM CDT [facility] ([facility]) Comment: This test was developed and its performance characteristics determined by [employer]. It has not been cleared or approved by the US Food and Drug Administration. This laboratory is certified under the Clinical Laboratory Improvement Amendments (CLIA) and licensed by the [facility] as qualified to perform high complexity clinical laboratory testing. ELECTRONICALLY SIGNED BY SIMONE Comment 04/02/2025 3:09 PM CDT [facility] ([facility]) Comment:Yuki Arana Other BLOOD SPECIMEN / Unknown Non-Blood / Unknown 03/30/2025 10:23 AM CDT 03/30/2025 10:44 AM CDT Narrative [facility] ([facility]) - 04/02/2025 3:09 PM CDT Performed at: 01 - [facility] [address], [place] [id number] [employer] W[employer] Operator: Jon Horton PhD, Phone: [phone] Maverick Bolanos MD SEND OUTS Final Re sult [facility] ([facility]) [address] [place], [place] [id number], * SCAN-CARDIAC STRIP (03/30/2025 10:07 AM CDT) us Scanner OTHER Final Result * (ABNORMAL) BLOOD GAS,VENOUS (03/30/2025 3:18 AM CDT) PH, VENOUS 7.50(H) 7.32 - 7.43 03/30/2025 3:31 AM CDT [facility] PCO2, VENOUS 31(L) 41 - 51 mmHg 03/30/2025 3:31 AM CDT [facility] PO2, VENOUS 101(H) 35 - 40 mmHg 03/30/2025 3:31 AM CDT [facility] HCO3,VENOUS 24 22 - 29 mmol/L 03/30/2025 3:31 AM CDT [facility] BASE EXCESS, VENOUS, POCT 1.7 -2.0 - 3.0 03/30/2025 3:31 AM CDT [facility] O2 SATURATION, VENOUS 100(H) 70 - 75 % 03/30/2025 3:31 AM CDT [facility] PATIENT TEMPERATURE 37.0 Degrees C 03/30/2025 3:31 AM CDT [facility] Blood VENOUS BLOOD SPECIMEN / Unknown Venipuncture / Unknown 03/30/2025 3:18 AM CDT 03/30/2025 3:25 AM CDT Ulysses Iverson MD CHEMISTRY Final Result Performing Organization Address [facility] Co de Phone Number [facility] [address] [place] [address], [place] * Hemoglobin A1C (03/30/2025 3:18 AM CDT) [facility] HEMOGLOBIN A1C MONITORING (POCT) 6.1 <=6.4 % 03/30/2025 3:47 PM CDT [facility] Blood BLOOD SPECIMEN / Unknown Venipuncture / Unknown 03/30/2025 3:18 AM CDT 03/30/2025 3:25 AM CDT Narrative [facility] - 03/30/2025 3:47 PM CDT (<=6.9%) Indicates good control (7.0% to 7.9%) Indicates fair control (>=8.0%) Indicates poor control NOTE: These thresholds are guidelines and individual targets may vary. Falsely low levels may be seen with: Recent Transfusion, Recent Significant Blood Loss, Hemolytic Diseases, or Falsely elevated levels may be seen with: Untreated Anemias, Splenectomy Eliot Hernandez MD CHEMISTRY Final Result Performing Organization Address [facility] Co de Phone Number [facility] [address] [place] [id number], [place] * SCAN-RADIOLOGY REPORT (03/30/2025 12:00 AM CDT) Anatomical Region Laterality Modality Other Narrative 03/30/2025 12:00 AM CDT Ordered by an unspecified provider. Other Clinical Staff OTHER Final Resul t * HISTOPLASMA GALACTOMANNAN AG UR(REFLEX)QT(LABCO) (03/29/2025 9:02 PM CDT) Pathologist [facility] HISTOPLASMA GALACT AG UR QT >25.0 ng/mL 04/03/2025 9:09 AM CDT [facility] ([facility]) Urine URINE SPECIMEN / Unknown Non-Blood / Unknown 03/29/2025 9:02 PM CDT 03/29/2025 9:09 PM CDT Narrative [facility] ([facility]) - 04/03/2025 9:09 AM CDT Performed at: [address] [place] [id number] [employer] Operator: Kg Cruz MD, Phone: [phone] Maverick Nation MD URINE Final Res ult [facility] ([facility]) [address] [place] [address], [place] * (ABNORMAL) HISTOPLASMA GALACTOMANNAN ANTIGEN URINE (03/29/2025 9:02 PM CDT) Pathologist [facility] HISTOPLASMA GALACT AG UR SCREEN Positive( A) <0.2 ng/mL 04/03/2025 9:09 AM CDT [facility] ([facility]) Urine URINE SPECIMEN / Unknown Non-Blood / Unknown 03/29/2025 9:02 PM CDT 03/29/2025 9:09 PM CDT Narrative [facility] ([facility]) - 04/03/2025 9:09 AM CDT Performed at: 01 - [facility] [address] [place], [place] [id number] [employer] Operator: Kg Cruz MD, Phone: [phone] us Maverick Nation MD URINE Final Res ult [facility] ([facility]) [address] [place] [address], [place] * ECHO TTE COMPLETE WO CONTRAST (03/28/2025 4:16 PM CDT) AORTIC VALVE MEAN PG 6 mmHg EJECTION FRACTION 75 % LVEDD 4.0 cm Anatomical Region Laterality Modality Ultrasound 03/28/2025 3:25 PM CDT Narrative 03/28/2025 4:52 PM CDT ECHOCARDIOGRAM SUN LEMUS : 1970 55 years Study Date: 03/28/2025 3:25:20 PM Gender: F BP: 115/71 mmHg Height: 165.00 cm BSA: 1.81 m Weight: 74.00 kg Tech: SANAM Referring MD: VERNA MILLER Site: [facility] Reading Location: [place]- Patient Location: Inpatient. Procedure: 2D, Color Doppler and Spectral Doppler. Indication for study: Acute CHF Cardiac Rhythm: Regular.Study quality: Fair. Imaging limitations: This study was subject to imaging limitations due to a prominent lung artifact. Final Impressions: 1. Normal left ventricular size, normal wall thickness, normal global systolic function, calculated EF of 75 %. 2. Right ventricular cavity size is normal, global systolic RV function is normal. 3. No significant valve disease detected. Comparison Compared to prior exam of 03/01/2015, there has been no significant change. Chamber Sizes and Function Normal left ventricular size, normal wall thickness, normal global systolic function, calculated EF of 75 %. No resting regional wall motion abnormality visualized. Left atrial size is normal. Right ventricular cavity size is normal, global systolic RV function is normal. The right atrium is normal. Right atrial volume index is 12 ml/m . Right atrial area is 11 cm . The pulmonary artery is not well visualized. The sinus of Valsalva is normal sized. The ascending aorta is normal sized. Valves, RV Pressures and Diastolic Function The aortic valve is normal in structure and trileaflet, no stenosis and no regurgitation. The mitral valve is normal in structure, trace mitral regurgitation. Normal diastolic function. The tricuspid valve is normal in structure, trace tricuspid regurgitation. The pulmonic valve is not well visualized. No pulmonary regurgitation. Masses, Effusion, Shunts There is no pericardial effusion. The inferior vena cava is normal sized, respiratory size variation greater than 50%. No left to right shunting was detected by limited color flow Doppler interrogation of the interatrial septum. MEASUREMENTS AND CALCULATIONS 2-D Measurements and LV Function: LVID (d) 4.0 cm Planimetered EF 75 % LVID (s) 2.7 cm LV FS% (2D) 32 % IVS (d) 0.8 cm LVOT diameter 2.0 cm LVPW (d) 0.9 cm HR 93 bpm Ao Sinus 3.4 cm LA Vol index 19 ml/m2 Ao Sinus ULN 3.7 cm RA Vol index 12 ml/m2 Asc Ao 3.2 cm RA area 11 cm Asc Ao ULN 3.7 cm RV Basal Diam 3.1 cm LA 3.1 cm RV Mid Diam 2.5 cm Diastology: Mitral Tissue Doppler E Peak 0.9 m/s e', Septum 0.09 m/s A Peak 0.9 m/s e', Lateral 0.15 m/s E/A 1.0 E/e' Average 7.89 DT 274 msec Aortic Valve: Vmax 1.7 m/s MICHELLE (V) 2.68 cm VTI 0.30 m MICHELLE (I) 2.58 cm LVOT V max 1.4 m/s Max PG 12 mmHg LVOT VTI 0.24 m Mean PG 6 mmHg SV 78 ml Dim Index 0.79 SV index 43 ml/m CO 7.2 l/min CI 4.0 l/min/m Mitral Valve: MVA 2.8 cm MV P 1/2 79 msec Tricuspid Valve and estimated PA pressures: TAPSE 2.3 cm . This study was interpreted by an IAC accredited facility. CC: [facility] (med records) [facility], Med/Surg - IP [facility]. Final Procedure Note Diego Gonzalez MD - 03/28/2025 ECHOCARDIOGRAM SUN LEMUS : 1970 55 years Study Date: 03/28/2025 3:25:20 PM Gender: F BP: 115/71 mmHg Height: 165.00 cm BSA: 1.81 m Weight: 74.00 kg Tech: SANAM Referring MD: VERNA MILLER Site: [facility] Reading Location: Mobile-IP Patient Location: Inpatient. Procedure: 2D, Color Doppler and Spectral Doppler. Indication for study: Acute CHF Cardiac Rhythm: Regular.Study quality: Fair. Imaging limitations: This study was subject to imaging limitations due toa prominent lung artifact. Final Impressions: 1. Normal left ventricular size, normal wall thickness, normal globalsystolic function, calculated EF of 75 %. 2. Right ventricular cavity size is normal, global systolic RV functionis normal. 3. No significant valve disease detected. Comparison Compared to prior exam of 03/01/2015, there has been no significantchange. Chamber Sizes and Function Normal left ventricular size, normal wall thickness, normal globalsystolic function, calculated EF of 75 %. No resting regional wall motionabnormality visualized. Left atrial size is normal. Right ventricularcavity size is normal, global systolic RV function is normal. The rightatrium is normal. Right atrial volume index is 12 ml/m . Right atrialarea is 11 cm . The pulmonary artery is not well visualized. The sinus ofValsalva is normal sized. The ascending aorta is normal sized. Valves, RV Pressures and Diastolic Function The aortic valve is normal in structure and trileaflet, no stenosis and noregurgitation. The mitral valve is normal in structure, trace mitralregurgitation. Normal diastolic function. The tricuspid valve is normal instructure, trace tricuspid regurgitation. The pulmonic valve is not wellvisualized. No pulmonary regurgitation. Masses, Effusion, Shunts There is no pericardial effusion. The inferior vena cava is normal sized,respiratory size variation greater than 50%. No left to right shunting wasdetected by limited color flow Doppler interrogation of the interatrialseptum. MEASUREMENTS AND CALCULATIONS 2-D Measurements and LV Function: LVID (d) 4.0 cm Planimetered EF 75 % LVID (s) 2.7 cm LV FS% (2D) 32 % IVS (d) 0.8 cm LVOT diameter 2.0 cm LVPW (d) 0.9 cm HR 93 bpm Ao Sinus 3.4 cm LA Vol index 19 ml/m2 Ao Sinus ULN 3.7 cm RA Vol index 12 ml/m2 Asc Ao 3.2 cm RA area 11 cm Asc Ao ULN 3.7 cm RV Basal Diam 3.1 cm LA 3.1 cm RV Mid Diam 2.5 cm Diastology: Mitral Tissue Doppler E Peak 0.9 m/s e', Septum 0.09 m/s A Peak 0.9 m/s e', Lateral 0.15 m/s E/A 1.0 E/e' Average 7.89 DT 274 msec Aortic Valve: Vmax 1.7 m/s MICHELLE (V) 2.68 cm VTI 0.30 m MICHELLE (I) 2.58 cm LVOT V max 1.4 m/s Max PG 12 mmHg LVOT VTI 0.24 m Mean PG 6 mmHg SV 78 ml Dim Index 0.79 SV index 43 ml/m CO 7.2 l/min CI 4.0 l/min/m Mitral Valve: MVA 2.8 cm MV P 1/2 79 msec Tricuspid Valve and estimated PA pressures: TAPSE 2.3 cm . This study was interpreted by an IAC accredited facility. CC: [facility] (med records) [facility], Med/Surg - IP [facility]. Final us Verna Miller MD ECHO ORD Final Result * COVID/FLU/RSV PANEL (2025 11:41 AM CDT) COVID 19 [facility] Negative Negative 2025 10:04 PM CDT [facility] INFLUENZA A PCR Negative 5 10:04 PM CDT [facility] INFLUENZA B PCR Negative 5 10:04 PM CDT [facility] Respiratory Syncytial Virus Negative 2025 10:04 PM CDT [facility] Swab SPECIMEN FROM NASAL FOSSAE / Unknown Non-Blood / Unknown 2025 11:41 AM CDT 2025 11:41 AM CDT Анна STONE MICROBIOLOGY Final Result [facility] [address] [place] [address], * LIPID PANEL W REFLEX MEASURED LDL (09/12/2024 3:40 PM MEDICAL OFFICE PROFESSIONAL INSTRUCTOR) CHOLESTEROL, TOTAL 135 <200 mg/dL [facility] HDL CHOLESTEROL 67 > OR = 50 mg/dL [facility] TRIGLYCERIDES 74 <150 mg/dL [facility] LDL-CHOLESTEROL 53 mg/dL (calc) [facility] Comment: Reference range: <100 Desirable range <100 mg/dL for primary prevention; <70 mg/dL for patients with CHD or diabetic patients with > or = 2 CHD risk factors. LDL-C is now calculated using the Kyle-Cartwright calculation, which is a validated novel method providing better accuracy than the Friedewald equation in the estimation of LDL-C. Kyle SS et al. CALLI. 2013;310(19): 7110-7182 (http://education.28msec.Crowdcube/faq/QXQ226) CHOL/HDLC RATIO 2.0 <5.0 (calc) [facility] NON HDL CHOLESTEROL 68 <130 mg/dL (calc) [facility] Comment: For patients with diabetes plus 1 major ASCVD risk factor, treating to a non-HDL-C goal of <100 mg/dL (LDL-C of <70 mg/dL) is considered a therapeutic option. Blood BLOOD SPECIMEN / Unknown 09/12/2024 3:40 PM MEDICAL OFFICE PROFESSIONAL INSTRUCTOR 09/12/2024 3:40 PM MEDICAL OFFICE PROFESSIONAL INSTRUCTOR Sharmin Covington MD CHEMISTRY Final R esult [facility] [address] [place] [address], [facility] [address] [place] [address] * DERMATOLOGY NURSE THIN PREP PAP SCREEN IMAGED (09/12/2024 3:20 PM MEDICAL OFFICE PROFESSIONAL INSTRUCTOR) Case Report Gynecologic Cytology Report Case: [id number] Authorizing Provider: Sharmin Covington MD Collected: 09/12/2024 1520 Ordering Location: [facility] Received: 09/12/2024 1626 Clinic First Screen: Chirag Pradhan Rescreen: Yael Vasquez Specimen: DERMATOLOGY NURSE ThinPrep Vial Screening, Cervical 09/27/2024 10:02 AM MEDICAL OFFICE PROFESSIONAL INSTRUCTOR [facility] INTERPRETATION/ RESULT NEGATIVE FOR INTRAEPITHELIAL LESION OR MALIGNANCY (NIL) (none) 09/27/2024 10:02 AM MEDICAL OFFICE PROFESSIONAL INSTRUCTOR [facility] at 1002 MEDICAL OFFICE PROFESSIONAL INSTRUCTOR SPECIMEN ADEQUACY Satisfactory for evaluation Endocervical component present 09/27/2024 10:02 AM MEDICAL OFFICE PROFESSIONAL INSTRUCTOR [facility] HPV REQUEST HPV and PAP 09/27/2024 10:02 AM MEDICAL OFFICE PROFESSIONAL INSTRUCTOR [facility] Date of LMP Postmenopausal 5 10:02 AM MEDICAL OFFICE PROFESSIONAL INSTRUCTOR [employer] [facility] Last Pap Date 10/02/19 09/27/2024 10:02 AM MEDICAL OFFICE PROFESSIONAL INSTRUCTOR [facility] Last Pap Result NIL 10:02 AM MEDICAL OFFICE PROFESSIONAL INSTRUCTOR [facility] Abnormal Pap or Bigelow Bx in last 5 years No 09/27/2024 10:02 AM MEDICAL OFFICE PROFESSIONAL INSTRUCTOR [facility] Menstrual Status Postmenopausal 09/27/2024 10:02 AM MEDICAL OFFICE PROFESSIONAL INSTRUCTOR [facility] Bigelow Bx Done Today No 09/27/2024 10:02 AM MEDICAL OFFICE PROFESSIONAL INSTRUCTOR [facility] Additional Information None given 09/27/2024 10:02 AM MEDICAL OFFICE PROFESSIONAL INSTRUCTOR [employer] [facility] Comment: Cytology is screened at [facility] - [address], [place] [address] and [facility] - [address], [place] [address] and [facility] - [address] [place] [address] Interpreted at [facility] - [address], [place] [address] Automated Review Successful 09/27/2024 10:02 AM [facility] Comment:Specimen processed s uccessfully by automated humidifier maintenance worker device, ThinPrep Imaging System, [employer] ANCILLARY TESTING DERMATOLOGY NURSE HPV Ordered, Please see separate report 09/27/2024 10:02 AM [facility] Note The pap test is a screening technique, not a diagnostic procedure. It is used primarily to screen for squamous cancers and precursor lesions. Published studies have shown that it is subject to both false negative and false positive results. The pap test should not be used as the sole means to diagnose or exclude pre-malignant and malignant lesions. 09/27/2024 10:02 AM [facility] Other (Cervical) Non-Blood / Unknown 09/12/2024 3:20 PM MEDICAL OFFICE PROFESSIONAL INSTRUCTOR 09/12/2024 4:26 PM MEDICAL OFFICE PROFESSIONAL INSTRUCTOR us Sharmin Covington MD PATHOLOGY/CYTOLOGY Nora thomas Result [facility] [address] [place] [address], [place] * XR MAMMO SANJIV BILAT SCREEN [...] For Patients: As a result of the 21st Century Cures Act, medical imaging exams and procedure reports are released immediately into your electronic medical record. You may view this report before your referring provider. If you have questions, please contact your health care provider. XR MAMMO SANJIV BILAT SCREEN [[id number]] CLINICAL HISTORY: This is an asymptomatic 52 y.o. patient. INDICATION FOR EXAM: Mammogram Screening. TECHNIQUE: CC & MLO views were obtained. This study was evaluated with the assistance of Computer-Aided Detection. Breast Tomosynthesis was used in interpretation. COMPARISON FILM: Yes 03/04/21 [facility] 08/10/19 [facility] FINDINGS: The breasts are heterogeneously dense, which may obscure small masses. There are no dominant masses, suspicious micro calcifications or areas of architectural distortion. Sharmin Covington MD MAMMO Final R esult * LC HIV-1/O/2, 4TH GENERATION (11/19/2022 10:20 AM CDT) HIV Scr 4th Gen Non Reactive Non Reactive 11/22/2022 11:07 AM CDT [facility] ([facility] Comment: HIV Negative HIV-1/HIV-2 antibodies and HIV-1 p24 antigen were NOT detected. There is no laboratory evidence of HIV infection. Blood BLOOD SPECIMEN / Unknown Venipuncture / Unknown 11/19/2022 10:20 AM CDT 11/19/2022 10:20 AM CDT Narrative [facility] ([facility]) - 11/22/2022 11:07 AM CDT Performed at: [address] [place] [id number] [employer] Winding Operator: David Jeffers MD, Phone: [phone] Sharmin Covington MD LABORATORY Final R esult [facility] ([facility]) [address] [place] [address], from Last 3 Months or Most Recently Relevant to Health Maintenance Insurance [facility] HARI Advance Directives * Full Code (Latest Code Status on File) Date Activated Date Inactivated Comments 03/29/2025 6:24 PM 04/14/2025 4:43 PM Question Answer Comments Code Status Discussion: Reviewed Preferences Care Teams Configuration Developer Relationship Specialty Start [place] [id number] [place] [address] PCP - General Family Practice 02/26/21 Moira Burkett MD [address] [facility] [address] [place] [address] Rheumatology 03/13/15
[2025-04-27 15:49] LABS: Lactate* 0.8 mmol/L (0.5-1.9)
[2025-04-27 15:51] LABS: Hematocrit 29.3 % (33.0-51.0); Hemoglobin* 9.2 gm/dL (12.0-16.0); Immature Granulocytes Abs Auto 0.07 K/uL (0.00-0.30); Immature Granulocytes Pct Auto 1.2 %; Mean Corpuscular HGB Conc 31 gm/dL (32-36); Mean Corpuscular Hemoglobin 28 pg (26-34); Mean Corpuscular Volume 90 fL (80-100); RDW Coefficient of Variation % 15.7 % (11.5-15.5); Red Blood Count 3.25 m/uL (4.00-5.20); White Blood Count* 5.70 K/uL (4.50-11.00)
[2025-04-27 15:54] LABS: Lymphocytes Absolute Auto 2.70 K/uL (0.90-2.90); Slide Review Reflex Yes
[2025-04-27] MEDS: POTASSIUM CHLORIDE 10 MEQ/100 ML PIGGYBACK 100 MEQ IVPB ×4 (15:57→23:35)
[2025-04-27 16:05] LABS: Albumin* 3.3 g/dL (3.3-5.0); Chloride* 100 mmol/L (96-114); Sodium* 137 mmol/L (135-149)
[2025-04-27 16:07] LABS: Blood Urea Nitrogen* 12 mg/dL (7-30); Creatinine* 1.3 mg/dL (0.5-1.5); Est. Creatinine Clearance* 44.52; Estimated Glomerular Filt Rate 49 ml/min
[2025-04-27 16:08] LABS: Alanine Aminotransferase* 26 U/L (4-35); Alkaline Phosphatase* 366 U/L (40-150); Anion Gap 9 mEq/L (7-15); Aspartate Amino Transferase* 41 U/L (12-35); Bilirubin Direct* 0.5 mg/dL (0.0-0.5); Bilirubin Total* 0.8 mg/dL (0.1-1.5); Calcium* 8.3 mg/dL (8.4-10.6); Carbon Dioxide* 28 mmol/L (20-32); Glucose* 80 mg/dL (60-115); Total Protein* 8.2 g/dL (6.0-8.3)
[2025-04-27 16:10] LABS: Potassium* 2.6 mmol/L (3.6-5.1)
[2025-04-27 16:25] LABS: NT Pro B Type NatriureticPept* 448 pg/mL (See Note)
[2025-04-27] MEDS: PANTOPRAZOLE SODIUM 40 MG INJ IVP (16:31)
[2025-04-27 16:36] LABS: Slide Review Acceptable Review (Acceptable)
[2025-04-27 17:17] LABS: TSH With Reflex to FT4* 3.700 uIU/mL (0.270-4.200)
[2025-04-27] MEDS: ONDANSETRON ODT 4 MG TAB PO ×2 (17:47→23:48)
--- NOTE | 2025-04-27 17:55 | PM.IMHP1 ---
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 Bolanos of ID next week Status: Acute (4) Rheumatoid arthritis: Problem comment: - was on Humira and Cellcept prior to Histoplasmosis infection 04/09 (these both ON HOLD) - currently on Prednisone 2mg daily Status: Acute Plan - per above - Lovenox and SCDs for ppx - updated bedside, questions answered Hospitalist- H&P: HPI History of Present Illness Date Seen: 04/27/25 Chief complaint: vomiting, low potassium, pneumonia Narrative: Sun Reese is a 55 year old female who presented to the ER for weakness and hypokalemia in the setting of severe nausea. She has had fairly severe nausea since recent hospitalization for severe pneumonia 2/2 histoplasmosis (was immunosuppressed on Humira and Cellcept for h/o RA). Has also had intermittent vomiting. No diarrhea. No abdominal pain. Hospitalized here from 03/26-03/29. Ultimately transferred to [facility], where she was hospitalized from 03/29-04/14. During [facility] stay, she had the following complications: - septic shock from disseminated histoplasmosis, intubated 03/30-04/03 - acute renal failure, presumably iatrogenic from amphotericin B, did not require dialysis (creatinine peaked at 2.12) - followed by ID, transitioned from amphotericin B to itraconazole (will be on this for 1 year, per Infectious Disease) - elevated liver enzymes, unclear if related to histo vs biliary disease vs iatrogenic. Workup: GB edema on CT 03/25, periportal edema on RUQ u/s 03/27, negative HIDA scan 03/27, negative MRCP at [facility]. - hypokalemia (3.0-3.5) - transitioned from Cellcept and Humira to Prednisone In ER today: - K of 2.6, Mg of 1.6, Creatinine 1.3 - Hgb 9.2 (had been as low as 7-8 during [facility] stay) - reassuring EKG - initiated IV potassium Patient is admitted to the hospital for management of hypokalemia and nausea, presumably iatrogenic in the setting of recent septic shock 2/2 disseminated histoplasmosis. She notes fairly unrelenting nausea since hospital stay, has not had much relief from Zofran at home. Compazine seemed to be more helpful for her nausea when she was at [facility]. Review of Systems Status of ROS: Reports: 10 or more systems reviewed and unremarkable except as noted in History and below Medical Decision Making Medical Decision Making Code Status: Full During This Stay, Who Would You Like To Make Decisions For You In The Event You Are Unable To Make Them For Yourself?: [facility] Medical History (Updated 04/27/25 @ 20:16 by Whit Brown MD) Chronic anterior uveitis of both eyes ?H20.13 - Chronic iridocyclitis, bilateral (ICD-10) Rheumatoid arthritis ?M06.9 - Rheumatoid arthritis, unspecified (ICD-10) Immunocompromised patient ?D84.9 - Immunodeficiency, unspecified (ICD-10) Shingles ?B02.9 - Zoster without complications (ICD-10) Surgical History (Updated 04/27/25 @ 17:57 by Whit Brown MD) Hx of LASIK ?Z98.890 - Other specified postprocedural states (ICD-10) Cataract extraction status, left eye ?Z98.42 - Cataract extraction status, left eye (ICD-10) Social History (Updated 04/27/25 @ 20:10 by Whit Brown MD) Narrative: Lives with Raymond in [place]. 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 Full code What is your current living situation?: I presently have a place to live Problems where you live: no known problems Problems where you live details: n/a In the past 12 months, utilities in danger of being shut off: no In past 12 months, lack of transportation kept you from medical appts, meetings, work, or getting things needed for daily living: no In the past 12 mos, have been you worried that your food would run out before you had money to buy more?: never true In the past 12 mos, the food you bought just didn't last and you didn't have money to buy more?: never true Highest level of school completed/degree received: Associate degree: academic program Smoking Status: Former smoker Second hand tobacco smoke exposure: No How often do you have a drink containing alcohol: never AUDIT-C Alcohol total score: 0 Non-prescribed substance use: denies use Caffeine: No How often does anyone, including family, friends and others, physically hurt you: never How often does anyone, including family, friends and others, insult or talk down to you: never How often does anyone, including family, friends and others, threaten you with harm: never How often does anyone, including family, friends and others, scream or curse at you: never service: No Meds Home Medications and Allergies Home Medications ?Medication ?Instructions ?Recorded ?Confirmed ?Type adalimumab 40 mg/0.4 mL 40 mg subcut Q7D 06/12/23 04/27/25 History subcutaneous pen kit (Humira(CF) Pen) Held on 04/18/25. Instructions: Doctor's Order brimonidine 0.15 % eye drops 1 drp ophthalmic (eye) BID 06/12/23 04/27/25 History dorzolamide 22.3 mg-timolol 6.8 1 drp ophthalmic (eye) Q12H 06/12/23 04/27/25 History mg/mL eye drops mycophenolate mofetil 500 mg tablet 1,000 mg PO QAM 06/12/23 04/27/25 History Held on 04/18/25. Instructions: Doctor's Order mycophenolate mofetil 500 mg tablet 1,500 mg PO HS 06/12/23 04/27/25 History Held on 04/18/25. Instructions: Doctor's Order prednisone 1 mg tablet 2 mg PO QDAY 06/12/23 04/27/25 History venlafaxine 37.5 mg 37.5 mg PO DAILY 06/12/23 04/27/25 History capsule,extended release 24 hr cyclosporine 0.05 % eye drops in a 1 drp ophthalmic (eye) Q12H PRN 03/25/25 04/27/25 History dropperette (Restasis) latanoprost 0.005 % eye drops 1 drp ophthalmic (eye-left) QPM 03/25/25 04/27/25 History prednisolone acetate 1 % eye 1 drp ophthalmic (eye-right) DAILY 03/25/25 04/27/25 History drops,suspension rosuvastatin 10 mg tablet 10 mg PO DAILY 03/25/25 04/27/25 History itraconazole 100 mg capsule 200 mg PO BID 04/18/25 04/27/25 History ondansetron 4 mg disintegrating 4 mg PO Q8H PRN 04/18/25 04/27/25 History tablet acetaminophen 500 mg capsule 500 mg PO Q6H PRN 04/27/25 04/27/25 History potassium chloride 20 mEq oral 20 meq PO BID 04/27/25 04/27/25 History packet (Klor-Con) Allergies Allergy/AdvReac Type Severity Reaction Status Date / Time amoxicillin Allergy Unknown Verified 04/27/25 14:00 bupropion (From Wellbutrin Allergy Verified 04/27/25 14:00 SR) Sulfa (Sulfonamide Allergy Verified 04/27/25 14:00 Antibiotics) Exam Narrative: Exam Narrative: GEN: Alert and oriented, appears to be feeling poorly but nontoxic HEENT: EOMIs bilaterally, no scleral icterus CV: RRR, No concerning murmurs R: No wheezing, air movement adequate Ab: Soft, nontender, negative Miramontes's sign Ext: wwp, no concerning edema Skin: No concerning skin lesions or rashes on exposed skin Neuro: Nonfocal Psych: Appropriate Const: Vital Signs, click to edit/add: Vital Signs - 24 hr 04/27/25 13:48 04/27/25 16:40 Temperature 98.1 F Pulse Rate 72 Pulse Rate [Right Pulse Oximeter] 75 Respiratory Rate 16 16 Blood Pressure 141/98 H Blood Pressure [Ri ght Upper Arm] 123/85 Pulse Oximetry 96 97 Oxygen Delivery Me thod Room Air Hospitalist - H&P: Result Labs Labs: Short CBC 04/27/25 Range/Units 15:40 WBC 5.70 (4.50-11.00) K/uL Hgb 9.2 L (12.0-16.0) gm/dL Hct 29.3 L (33.0-51.0) % Plt Count 327 (140-440) K/uL BMP 04/27/25 15:40 Sodium 137 Potassium 2.6 L* Chloride 100 Carbon Dioxide 28 BUN 12 Creatinine 1.3 Glucose 80 Calcium 8.3 L Cardiac Enzymes 04/27/25 Range/Units 15:40 Troponin I < 0.01 (0.01-0.04) ng/mL Liver Function 04/27/25 Range/Units 15:40 Total Bilirubin 0.8 (0.1-1.5) mg/dL Direct Bilirubin 0.5 (0.0-0.5) mg/dL AST 41 H (12-35) U/L ALT 26 (4-35) U/L Alkaline Phosphatase 366 H (40-150) U/L Albumin 3.3 (3.3-5.0) g/dL
[2025-04-27] MEDS: MAGNESIUM IV 2 GM/50 ML PIGGYBACK IVPB (19:37)
[2025-04-27] MEDS: ITRACONAZOLE 100 MG 200 EACH PO (20:27)
[2025-04-27] MEDS: ROSUVASTATIN CALCIUM 10 MG TABLET PO (20:27)
[2025-04-27] MEDS: SODIUM CHLORIDE 0.9 % (FLUSH) 10 ML SYRINGE 5 ML IVF (20:28)
[2025-04-27] MEDS: BRIMONIDINE 0.15% 1 EACH EYE-BOTH (20:30)
[2025-04-27] MEDS: DORZOLAMIDE/TIMOLOL 2-0.5% OPHTH 1 DROP EYE-BOTH (20:30)
[2025-04-27] MEDS: PROCHLORPERAZINE 10 MG TABLET 5 MG PO (22:07)
[2025-04-27 22:56] LABS: Potassium* 2.5 mmol/L (3.6-5.1)
[2025-04-27] MEDS: POTASSIUM BICARB 25 MEQ EFFERVESCENT TAB 50 MEQ PO (23:36)
[2025-04-28] VITALS (7 sets, daily range): BP systolic 137–151; BP diastolic 83–93; PULSE 76–92; RESP 16; TEMP 36.7–37.2; O2SAT 92–97
[2025-04-28] MEDS: POTASSIUM CHLORIDE 10 MEQ/100 ML PIGGYBACK 100 MEQ IVPB ×3 (01:20→04:38)
[2025-04-28 05:59] LABS: Hematocrit 26.7 % (33.0-51.0); Hemoglobin* 8.4 gm/dL (12.0-16.0); Mean Corpuscular HGB Conc 32 gm/dL (32-36); Mean Corpuscular Hemoglobin 29 pg (26-34); Mean Corpuscular Volume 91 fL (80-100); RDW Coefficient of Variation % 16.0 % (11.5-15.5); Red Blood Count 2.93 m/uL (4.00-5.20); White Blood Count* 5.71 K/uL (4.50-11.00)
[2025-04-28 06:00] LABS: Immature Granulocytes Abs Auto 0.05 K/uL (0.00-0.30); Immature Granulocytes Pct Auto 0.9 %
[2025-04-28 06:18] LABS: Albumin* 3.2 g/dL (3.3-5.0); Chloride* 102 mmol/L (96-114)
[2025-04-28 06:19] LABS: Potassium* 3.4 mmol/L (3.6-5.1); Sodium* 137 mmol/L (135-149)
[2025-04-28 06:21] LABS: Anion Gap 12 mEq/L (7-15); Blood Urea Nitrogen* 7 mg/dL (7-30); Carbon Dioxide* 23 mmol/L (20-32); Creatinine* 1.1 mg/dL (0.5-1.5); Est. Creatinine Clearance* 52.61; Estimated Glomerular Filt Rate 60 ml/min
[2025-04-28 06:22] LABS: Alanine Aminotransferase* 28 U/L (4-35); Alkaline Phosphatase* 338 U/L (40-150); Aspartate Amino Transferase* 41 U/L (12-35); Bilirubin Direct* 0.5 mg/dL (0.0-0.5); Bilirubin Total* 0.7 mg/dL (0.1-1.5); Calcium* 8.1 mg/dL (8.4-10.6); Glucose* 74 mg/dL (60-115); Total Protein* 7.5 g/dL (6.0-8.3)
[2025-04-28 06:24] LABS: Lymphocytes Absolute Auto 2.50 K/uL (0.90-2.90); Slide Review Reflex No
[2025-04-28] MEDS: OMEPRAZOLE 20 MG CAPSULE DR 40 MG PO (06:45)
--- NOTE | 2025-04-28 07:00 | PC.NURSE ---
End of shift [id number]: Pt AxOx3, cooperative, and pleasant with cares. Patient requiring potassium upon initial assessment due to lab critical. See diagnostics and MAR. Pt refused PO potassium pills. Tolerating potassium dissolve tab drink okay. One episode of emesis during the shift. Nausea was controlled with PRN medication, aromatherapy patch, crackers, and roby lito. Stool sample collected. SBA with IV pole during shift. IV now SL. Pt in bed resting with call light in reach.
[2025-04-28] MEDS: BRIMONIDINE 0.15% EYE-LEFT ×2 (09:22→21:01)
[2025-04-28] MEDS: EYE EYE-LEFT ×2 (09:22→21:01)
[2025-04-28] MEDS: prednisoLONE acetate 1 % DROPS 1 DROP EYE-RIGHT (09:22)
[2025-04-28] MEDS: DORZOLAMIDE/TIMOLOL 2-0.5% OPHTH 1 DROP EYE-LEFT ×2 (09:22→21:01)
[2025-04-28] MEDS: ITRACONAZOLE 100 MG CAPSULE 200 MG PO ×2 (09:23→21:01)
[2025-04-28] MEDS: SODIUM CHLORIDE 0.9 % (FLUSH) 10 ML SYRINGE 5 ML IVF ×2 (09:24→21:00)
[2025-04-28] MEDS: VENLAFAXINE HCL ER 37.5 MG CAPSULE PO (09:24)
[2025-04-28] MEDS: POTASSIUM CHLORIDE 10 MEQ CAPSULE ER 20 MEQ PO ×3 (09:32→21:00)
[2025-04-28] MEDS: ONDANSETRON ODT 4 MG TAB PO ×2 (11:40→19:36)
[2025-04-28 11:44] LABS: H pylori Ag Stool* Negative (Negative)
[2025-04-28] MEDS: PROCHLORPERAZINE 10 MG TABLET 5 MG PO ×2 (12:45→21:02)
--- NOTE | 2025-04-28 16:18 | P.IMPN_ITS ---
Assessment and Plan Assessment and plan (1) Acute hypokalemia: Problem comment: - present since acute illness with histoplasmosis 03/2025 - likely secondary to nausea and minimal po intake - replace potassium and magnesium, work on nausea control, follow electrolytes - 04/28 improving. Patient has nausea with certain formulations. Potassium chloride capsules are better tolerated, trying these this morning for replacement Status: Acute (2) Nausea: Problem comment: - intractable - ddx: iatrogenic (most likely), biliary disease, GERD - elevated LFTs are trending downward, reassuring exam - add Compazine and PPI to regimen, check H Pylori, trend LFTs and symptoms - improving on zosyn. Hasn't tried compazine since admission yesterday. 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 Bolanos of ID next week Status: Acute (4) Rheumatoid arthritis: Problem comment: - was on Humira and Cellcept prior to Histoplasmosis infection 04/09 (these both ON HOLD) - currently on Prednisone 2mg daily Status: Acute Plan - Lovenox and SCDs for ppx - updated bedside, questions answered Subjective Date Seen: 04/28/25 Interval history: Sun feels a bit better today. She has been feeling nauseous since starting antifungals with only a days reprieve about 3 days ago. Exam Const: Vital Signs, click to edit/add: Vital Signs - 24 hr 04/27/25 16:40 04/27/25 17:21 04/27/25 17:21 Temperature 98.5 F Pulse Rate 72 Pulse Rate [Pulse Oximeter] Respiratory Rate 16 16 16 Blood Pressure 141/98 H Blood Pressure [Ri ght Arm] 167/91 H Pulse Oximetry 97 98 98 Oxygen Delivery Me thod Room Air Room Air 04/27/25 18:52 04/27/25 18:57 04/27/25 19:00 Temperature 98.5 F 98.5 F Pulse Rate 76 Pulse Rate [Pulse Oximeter] Respiratory Rate 14 14 Blood Pressure Blood Pressure [Ri ght Arm] 157/90 H 157/90 H Pulse Oximetry 97 97 Oxygen Delivery Me thod Room Air Room Air 04/27/25 22:42 04/27/25 23:59 04/28/25 02:03 Temperature 97.9 F 98.8 F Pulse Rate 73 Pulse Rate [Pulse Oximeter] 74 76 Respiratory Rate 16 16 Blood Pressure Blood Pressure [Ri ght Arm] 145/80 H 137/83 Pulse Oximetry 96 93 Oxygen Delivery Me thod Room Air Room Air 04/28/25 07:00 04/28/25 07:00 04/28/25 07:00 Temperature 98.1 F Pulse Rate 83 Pulse Rate [Pulse Oximeter] 83 83 Respiratory Rate 16 16 Blood Pressure Blood Pressure [Ri ght Arm] 151/89 H Pulse Oximetry 96 Oxygen Delivery Me thod Room Air 04/28/25 11:00 04/28/25 15:00 04/28/25 15:00 Temperature 98.4 F 98.5 F Pulse Rate Pulse Rate [Pulse Oximeter] 79 92 92 Respiratory Rate 16 16 16 Blood Pressure Blood Pressure [Ri ght Arm] 139/87 146/93 H Pulse Oximetry 97 95 Oxygen Delivery Me thod Room Air Room Air 04/28/25 15:00 Temperature Pulse Rate 89 Pulse Rate [Pulse Oximeter] Respiratory Rate Blood Pressure Blood Pressure [Ri ght Arm] Pulse Oximetry Oxygen Delivery Me thod Labs Labs: Laboratory Results - last 24 hr 04/27/25 04/27/25 04/28/25 15:40 22:16 01:44 WBC RBC Hgb Hct MCV MCH MCHC RDW Coeff of Brandyn Plt Count Neut % (Auto) Lymph % (Auto) Morrill % (Auto) Eos % (Auto) Baso % (Auto) Neut # (Auto) Lymph # (Auto) Morrill # (Auto) Eos # (Auto) Baso # (Auto) Abs Immat Gran (auto) Imm/Tot Granulo (auto) Diff Slide Review Acceptable Review Sodium Potassium 2.5 L* Chloride Carbon Dioxide Anion Gap BUN Creatinine Estimated Creat Clear Estimated GFR Glucose Calcium Magnesium Total Bilirubin Direct Bilirubin AST ALT Alkaline Phosphatase Troponin I < 0.01 NT-Pro-B Natriuret Pep 448 H Total Protein Albumin TSH 3.700 Stool H. pylori Ag Negative 04/28/25 05:51 WBC 5.71 RBC 2.93 L Hgb 8.4 L Hct 26.7 L MCV 91 MCH 29 MCHC 32 RDW Coeff of Brandyn 16.0 H Plt Count 321 Neut % (Auto) 40.3 L Lymph % (Auto) 44.1 H Morrill % (Auto) 7.0 Eos % (Auto) 6.5 Baso % (Auto) 1.2 Neut # (Auto) 2.30 Lymph # (Auto) 2.50 Morrill # (Auto) 0.40 Eos # (Auto) 0.37 Baso # (Auto) 0.07 Abs Immat Gran (auto) 0.05 Imm/Tot Granulo (auto) 0.9 Diff Slide Review Sodium 137 Potassium 3.4 L Chloride 102 Carbon Dioxide 23 Anion Gap 12 BUN 7 Creatinine 1.1 Estimated Creat Clear 52.61 Estimated GFR 60 Glucose 74 Calcium 8.1 L Magnesium 1.8 Total Bilirubin 0.7 Direct Bilirubin 0.5 AST 41 H ALT 28 Alkaline Phosphatase 338 H Troponin I NT-Pro-B Natriuret Pep Total Protein 7.5 Albumin 3.2 L TSH Stool H. pylori Ag
--- NOTE | 2025-04-28 19:19 | PC.NURSE ---
End of Shift: Patient pleasant and cooperative. Afebrile. Denies pain. Up independently in room. Tolerating regular diet with no nausea. No emesis this shift. PRN Zofran and Compazine given x1 prior to medications per MD.
[2025-04-28] MEDS: ROSUVASTATIN CALCIUM 10 MG TABLET PO (21:00)
[2025-04-28] MEDS: ENOXAPARIN 40 MG/0.4 ML INJ SUBCUT (21:00)
[2025-04-28] MEDS: LATANOPROST 0.005% OPHTH 1 DROP EYE-LEFT (21:01)
[2025-04-28 22:32] LABS: C.Difficile Negative (Negative); CDIFFEPI 027 PRESUMPTIVE NEGATIVE (Negative)
[2025-04-29] VITALS (7 sets, daily range): BP systolic 128–162; BP diastolic 78–100; PULSE 74–92; RESP 16; TEMP 36.6–37.1; O2SAT 91–98
--- NOTE | 2025-04-29 05:53 | PC.NURSE ---
End of Shift [id number]: Patient AxOx3, pleasant, and cooperative with cares. Patient remains afebrile. Indep in room. Denies pain. Reports slight nausea that is tolerated well with PRN Zofran and Compazine. No emesis episode this shift.
[2025-04-29] MEDS: OMEPRAZOLE 20 MG CAPSULE DR 40 MG PO (06:22)
[2025-04-29 08:07] LABS: Hematocrit 24.2 % (33.0-51.0); Immature Granulocytes Abs Auto 0.04 K/uL (0.00-0.30); Immature Granulocytes Pct Auto 0.7 %; Lymphocytes Absolute Auto 2.44 K/uL (0.90-2.90); Mean Corpuscular HGB Conc 32 gm/dL (32-36); Mean Corpuscular Hemoglobin 29 pg (26-34); Mean Corpuscular Volume 89 fL (80-100); RDW Coefficient of Variation % 16.0 % (11.5-15.5); Red Blood Count 2.71 m/uL (4.00-5.20); White Blood Count* 5.62 K/uL (4.50-11.00)
[2025-04-29 08:19] LABS: Hemoglobin* 7.8 gm/dL (12.0-16.0); Slide Review Reflex No
[2025-04-29 08:20] LABS: Chloride* 106 mmol/L (96-114)
[2025-04-29 08:21] LABS: Sodium* 137 mmol/L (135-149)
[2025-04-29 08:23] LABS: Blood Urea Nitrogen* 7 mg/dL (7-30); Creatinine* 1.0 mg/dL (0.5-1.5); Est. Creatinine Clearance* 57.87; Estimated Glomerular Filt Rate 67 ml/min
[2025-04-29 08:24] LABS: Anion Gap 4 mEq/L (7-15); Calcium* 8.0 mg/dL (8.4-10.6); Carbon Dioxide* 27 mmol/L (20-32); Glucose* 96 mg/dL (60-115)
[2025-04-29 08:28] LABS: Potassium* 2.8 mmol/L (3.6-5.1)
[2025-04-29] MEDS: EYE EYE-LEFT ×2 (10:18→19:59)
[2025-04-29] MEDS: BRIMONIDINE 0.15% EYE-LEFT ×2 (10:18→19:59)
[2025-04-29] MEDS: prednisoLONE acetate 1 % DROPS 1 DROP EYE-RIGHT (10:19)
[2025-04-29] MEDS: DORZOLAMIDE/TIMOLOL 2-0.5% OPHTH 1 DROP EYE-LEFT ×2 (10:19→19:59)
[2025-04-29] MEDS: ONDANSETRON ODT 4 MG TAB PO ×2 (11:13→19:59)
[2025-04-29] MEDS: POTASSIUM CHLORIDE 10 MEQ CAPSULE ER 40 MEQ PO ×2 (11:39→15:23)
[2025-04-29] MEDS: ITRACONAZOLE 100 MG CAPSULE 200 MG PO ×2 (11:39→19:58)
[2025-04-29] MEDS: VENLAFAXINE HCL ER 37.5 MG CAPSULE PO (11:42)
--- NOTE | 2025-04-29 11:56 | P.IMPN_ITS ---
Assessment and Plan Assessment and plan (1) Acute hypokalemia: Problem comment: - present since acute illness with histoplasmosis 03/2025 - likely secondary to itraconazole use in conjunction with steroids (pseudoaldosteronism), nausea and minimal po intake - replace potassium and magnesium, work on nausea control, follow electrolytes - 04/28 improving. Patient has nausea with certain formulations. Potassium chloride capsules are better tolerated, trying these this morning for replacement - 04/29 K down to 2.8 today. Increase oral supplementation. Cdiff neg, so start Imodium to decrease GI loss through diarrhea. Encourage oral intake of food. Status: Acute (2) Nausea: Problem comment: - intractable - ddx: iatrogenic (most likely), biliary disease, GERD - elevated LFTs are trending downward, reassuring exam - add Compazine and PPI to regimen, check H Pylori, trend LFTs and symptoms - improving on zosyn. Hasn't tried compazine since admission yesterday. Will try a dose this morning to see if she can take potassium replacement - 04/29 persistent nausea making oral intake and potassium repletion challenging. May need to consider alternative antifungal treatment. ID not available this weekend; contact on Wednesday to discuss. 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 Bolanos of ID next week; will try to contact Wednesday to discuss other options in light of significant side effects of intraconazole (hypokalemia and nausea) Status: Acute (4) Rheumatoid arthritis: Problem comment: - was on Humira and Cellcept prior to Histoplasmosis infection 04/09 (these both ON HOLD) - currently on Prednisone 2mg daily Status: Acute (5) Normocytic anemia: Problem comment: - No obvious source of blood loss - check stool occult and continue to monitor Hgb, hold enoxaparin - Check iron studies, B12, folate - I've checked the side effect profile of itraconazole and do not see this listed as a potential effect. She has recently been on several immunosuppressant medications for RA, but those have been on hold since admission, yet her HGB continues to decline. May benefit from peripheral blood smear if no other source is found. Status: Acute Plan - Lovenox (hold, as above) and SCDs for ppx - updated bedside, questions answered Subjective Time Seen by Provider: 08:44 Date Seen: 04/29/25 Interval history: Sun is feeling better today. She has been able to tolerate oral potassium capsules if she takes both zofran and compazine. Her appetite remains poor. She is has had a few loose BMs, denies bright red blood or melena. Her was on speakerphone for our conversation. Exam Narrative: Exam Narrative: General: No acute distress. Awake, alert, oriented. No pallor. No jaundice. Oropharynx: Clear. Mucous membranes moist. Cardiovascular: Regular rate and rhythm. No murmurs, gallops, or rubs. Respiratory: Clear to auscultation bilaterally. No wheezes or crackles. Abdomen: Bowel sounds present. Soft, nondistended, nontender. Extremities: No lower extremity edema. Const: Vital Signs, click to edit/add: Vital Signs - 24 hr 04/28/25 15:00 04/28/25 15:00 04/28/25 15:00 Temperature 98.5 F Pulse Rate 89 Pulse Rate [Pulse Oximeter] 92 92 Respiratory Rate 16 16 Blood Pressure [Ri ght Arm] 146/93 H Pulse Oximetry 95 Oxygen Delivery Me thod Room Air 04/28/25 19:32 04/28/25 21:45 04/28/25 22:39 Temperature 99 F 98.1 F Pulse Rate 78 Pulse Rate [Pulse Oximeter] 89 76 Respiratory Rate 16 16 Blood Pressure [Ri ght Arm] 149/88 H 137/90 H Pulse Oximetry 92 92 Oxygen Delivery Me thod Room Air Room Air 04/29/25 04:03 04/29/25 07:00 04/29/25 07:00 Temperature 98.3 F 98 F Pulse Rate Pulse Rate [Pulse Oximeter] 83 77 77 Respiratory Rate 16 16 16 Blood Pressure [Ri ght Arm] 148/100 H 162/92 H Pulse Oximetry 92 91 Oxygen Delivery Me thod Room Air Room Air 04/29/25 07:00 Temperature Pulse Rate 81 Pulse Rate [Pulse Oximeter] Respiratory Rate Blood Pressure [Ri ght Arm] Pulse Oximetry Oxygen Delivery Me thod Labs Labs: Laboratory Results - last 24 hr 04/28/25 04/29/25 21:36 07:55 WBC 5.62 RBC 2.71 L Hgb 7.8 L* Hct 24.2 L MCV 89 MCH 29 MCHC 32 RDW Coeff of Brandyn 16.0 H Plt Count 250 Neut % (Auto) 36.8 L Lymph % (Auto) 43.4 Mcpherson % (Auto) 12.3 H Eos % (Auto) 5.7 Baso % (Auto) 1.1 Neut # (Auto) 2.10 Lymph # (Auto) 2.44 Mcpherson # (Auto) 0.70 Eos # (Auto) 0.32 Baso # (Auto) 0.06 Abs Immat Gran (auto) 0.04 Imm/Tot Granulo (auto) 0.7 Sodium 137 Potassium 2.8 L* Chloride 106 Carbon Dioxide 27 Anion Gap 4 L BUN 7 Creatinine 1.0 Estimated Creat Clear 57.87 Estimated GFR 67 Glucose 96 Calcium 8.0 L Stl C. diff Tox B Gene Negative Stl C. diff [id number] PRESUMPTIVE NEGATIVE
[2025-04-29 12:08] LABS: Iron* 54 ug/dL (37-170)
[2025-04-29 12:17] LABS: Percent Iron Saturation 33 % (20-50); Total Iron Binding Capacity 166 ug/dL (265-497)
[2025-04-29 12:57] LABS: Vitamin B12* 790 pg/mL (243-894)
[2025-04-29 14:10] LABS: Potassium* 2.7 mmol/L (3.6-5.1)
[2025-04-29] MEDS: PROCHLORPERAZINE 10 MG TABLET 5 MG PO (15:28)
[2025-04-29 19:49] LABS: Fecal Occult Blood* Negative (Negative)
[2025-04-29] MEDS: ROSUVASTATIN CALCIUM 10 MG TABLET PO (19:59)
[2025-04-29] MEDS: LATANOPROST 0.005% OPHTH 1 DROP EYE-LEFT (19:59)
[2025-04-29] MEDS: SODIUM CHLORIDE 0.9 % (FLUSH) 10 ML SYRINGE 5 ML IVF (20:00)
[2025-04-29 20:27] LABS: Potassium* 3.8 mmol/L (3.6-5.1)
[2025-04-30] VITALS (8 sets, daily range): BP systolic 135–161; BP diastolic 87–103; PULSE 67–96; RESP 14–18; TEMP 36.8–37.3; O2SAT 91–96; BMI 23.9
--- NOTE | 2025-04-30 06:31 | PC.NURSE ---
End of shift [id number]: Pt AxOx3, cooperative, and pleasant with cares. Patient remains afebrile. Indep in room. Denies pain. Reports slight nausea that is tolerated well with PRN Zofran. No emesis episode this shift. BM during shift. ?Call light within reach.
[2025-04-30 06:42] LABS: Hematocrit 23.8 % (33.0-51.0); Immature Granulocytes Abs Auto 0.04 K/uL (0.00-0.30); Immature Granulocytes Pct Auto 0.7 %; Mean Corpuscular HGB Conc 32 gm/dL (32-36); Mean Corpuscular Hemoglobin 29 pg (26-34); Mean Corpuscular Volume 90 fL (80-100); RDW Coefficient of Variation % 16.0 % (11.5-15.5); Red Blood Count 2.65 m/uL (4.00-5.20); White Blood Count* 5.63 K/uL (4.50-11.00)
[2025-04-30 06:48] LABS: Hemoglobin* 7.7 gm/dL (12.0-16.0); Lymphocytes Absolute Auto 2.60 K/uL (0.90-2.90); Slide Review Reflex No
[2025-04-30 07:00] LABS: Chloride* 108 mmol/L (96-114); Sodium* 139 mmol/L (135-149)
[2025-04-30 07:01] LABS: Potassium* 2.9 mmol/L (3.6-5.1)
[2025-04-30 07:03] LABS: Anion Gap 6 mEq/L (7-15); Blood Urea Nitrogen* 6 mg/dL (7-30); Calcium* 8.1 mg/dL (8.4-10.6); Carbon Dioxide* 25 mmol/L (20-32); Creatinine* 0.9 mg/dL (0.5-1.5); Est. Creatinine Clearance* 64.30; Estimated Glomerular Filt Rate 76 ml/min; Glucose* 90 mg/dL (60-115)
[2025-04-30] MEDS: POTASSIUM CHLORIDE 10 MEQ CAPSULE ER 20 MEQ PO (09:05)
[2025-04-30] MEDS: ONDANSETRON ODT 4 MG TAB PO ×2 (09:05→20:57)
[2025-04-30] MEDS: POTASSIUM CHLORIDE 10 MEQ CAPSULE ER 40 MEQ PO ×2 (09:06→20:41)
[2025-04-30] MEDS: VENLAFAXINE HCL ER 37.5 MG CAPSULE PO (09:07)
[2025-04-30] MEDS: EYE EYE-LEFT ×2 (09:08→20:43)
[2025-04-30] MEDS: BRIMONIDINE 0.15% EYE-LEFT ×2 (09:08→20:43)
[2025-04-30] MEDS: prednisoLONE acetate 1 % DROPS 1 DROP EYE-RIGHT (09:08)
[2025-04-30] MEDS: ITRACONAZOLE 100 MG CAPSULE 200 MG PO (09:09)
[2025-04-30] MEDS: DORZOLAMIDE/TIMOLOL 2-0.5% OPHTH 1 DROP EYE-LEFT ×2 (09:10→20:42)
[2025-04-30] MEDS: SODIUM CHLORIDE 0.9 % (FLUSH) 10 ML SYRINGE 5 ML IVF ×2 (09:11→20:44)
--- NOTE | 2025-04-30 11:44 | P.IMPN_ITS ---
Assessment and Plan Assessment and plan (1) Acute hypokalemia: Problem comment: - present since acute illness with histoplasmosis 03/2025 - likely secondary to itraconazole use in conjunction with steroids (pseudoaldosteronism), nausea and minimal po intake - replace potassium and magnesium, work on nausea control, follow electrolytes - 04/28 improving. Patient has nausea with certain formulations. Potassium chloride capsules are better tolerated, trying these this morning for replacement - 04/29 K down to 2.8 today. Increase oral supplementation. Cdiff neg, so start Imodium to decrease GI loss through diarrhea. Encourage oral intake of food. - 04/30 As nausea is improving, she is having some improvement in her PO intake and ability to take potassium chloride capsules. Continue oral replacement of potassium. I am concerned about the possibility that itraconazole has caused a pseudoaldosteronism. Aldosterone and renin levels are pending. I am waiting for a call back from Dr. Bolanos to see if there would be an alternative to itraconazole. If not, a trial of spironolactone could be considered. Status: Acute (2) Nausea: Problem comment: - intractable - ddx: iatrogenic (most likely), biliary disease, GERD - elevated LFTs are trending downward, reassuring exam - add Compazine and PPI to regimen, check H Pylori, trend LFTs and symptoms - improving on zosyn. Hasn't tried Compazine since admission yesterday. Will try a dose this morning to see if she can take potassium replacement - 04/29 persistent nausea making oral intake and potassium repletion challenging. May need to consider alternative antifungal treatment. ID not available this weekend; contact on Wednesday to discuss. - 04/30 improving. Continue prn zofran and compazine. Also see above about pursuing alternative to itraconazole. 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 Bolanos of ID . I've contacted him today and am waiting for a call back to discuss significant side effects of intraconazole (hypokalemia and nausea) and potential alternatives. Status: Acute (4) Rheumatoid arthritis: Problem comment: - was on Humira and Cellcept prior to Histoplasmosis infection 04/09 (these both ON HOLD) - currently on Prednisone 2mg daily Status: Acute (5) Normocytic anemia: Problem comment: - No obvious source of blood loss - check stool occult and continue to monitor Hgb, hold enoxaparin - Check iron studies, B12, folate - I've checked the side effect profile of itraconazole and do not see this listed as a potential effect. She has recently been on several immunosuppressant medications for RA, but those have been on hold since admission, yet her HGB continues to decline. May benefit from peripheral blood smear if no other source is found. - 04/30 Check reticulocyte count. iron studies okay (TIBC is low, other values wnl), B12 level is wnl, TSH reassuring, folate pending, stool occult blood negative. Status: Acute Plan - Lovenox (hold, as above) and SCDs for ppx - updated bedside, questions answered Total Time Spent Total Time Spent: Today I spent 50 minutes seeing the patient, discussed with the patient and her family, contacting Dr. Bolanos's office, reviewing [facility] and [facility] notes/diagnostics/labs, discussing the care plan with our care team that includes social work, PT/OT, pharmacy, RT, [place] [facility] and documenting my impressions and plan in the medical record. Subjective Time Seen by Provider: 09:00 Date Seen: 04/30/25 Interval history: Sun is less nauseous today and has had some bites of mac and cheese yesterday and a few bites of different fruits and some clear ensure this morning. Her sister and mother are in the room with her today and say that she looks better and more like herself than she has in a month. She was able to take her potassium capsules in a shorter period of time this morning. Around 8am this morning, I called Dr. Maverick Bolanos, . His nurse called me back and told me that Dr. Bolanos is out of the office until tomorrow. I asked her if one of his colleagues could call me. She said she would look at their protocol and have someone give me a call. I gave her my cell phone number. Exam Narrative: Exam Narrative: General: No acute distress. Awake, alert, oriented. No pallor. No jaundice. Oropharynx: Clear. Mucous membranes moist. Cardiovascular: Regular rate and rhythm. No murmurs, gallops, or rubs. Respiratory: Clear to auscultation bilaterally. No wheezes or crackles. Abdomen: Bowel sounds present. Soft, nondistended, nontender. Extremities: No lower extremity edema. Const: Vital Signs, click to edit/add: Vital Signs - 24 hr 04/29/25 15:00 04/29/25 15:00 04/29/25 15:00 Temperature 98.3 F Pulse Rate 81 Pulse Rate [Pulse Oximeter] 78 92 Respiratory Rate 16 16 Blood Pressure [Ri ght Arm] 137/81 Pulse Oximetry 91 Oxygen Delivery Me thod Room Air 04/29/25 19:56 04/29/25 21:01 04/29/25 22:06 Temperature 98.0 F 98.7 F Pulse Rate 88 Pulse Rate [Pulse Oximeter] 83 74 Respiratory Rate 16 16 Blood Pressure [Ri ght Arm] 151/94 H 139/97 H Pulse Oximetry 98 92 Oxygen Delivery Me thod Room Air Room Air 04/30/25 02:37 04/30/25 07:00 04/30/25 07:00 Temperature 98.2 F Pulse Rate 89 Pulse Rate [Pulse Oximeter] 75 96 Respiratory Rate 16 16 Blood Pressure [Ri ght Arm] 161/97 H Pulse Oximetry 95 Oxygen Delivery Me thod Room Air 04/30/25 07:00 Temperature 98.2 F Pulse Rate Pulse Rate [Pulse Oximeter] 96 Respiratory Rate 16 Blood Pressure [Ri ght Arm] 135/95 H Pulse Oximetry 96 Oxygen Delivery Me thod Room Air Labs Labs: Laboratory Results - last 24 hr 04/29/25 04/29/25 04/29/25 07:55 11:56 13:34 WBC RBC Hgb Hct MCV MCH MCHC RDW Coeff of Brandyn Plt Count Neut % (Auto) Lymph % (Auto) [place] % (Auto) Eos % (Auto) Baso % (Auto) Neut # (Auto) Lymph # (Auto) [place] # (Auto) Eos # (Auto) Baso # (Auto) Abs Immat Gran (auto) Imm/Tot Granulo (auto) Sodium Potassium 2.7 L* Chloride Carbon Dioxide Anion Gap BUN Creatinine Estimated Creat Clear Estimated GFR Glucose Calcium Iron 54 TIBC 166 L % Saturation 33 Vitamin B12 790 Stool Occult Blood Negative 04/29/25 04/30/25 20:09 06:07 WBC 5.63 RBC 2.65 L Hgb 7.7 L* Hct 23.8 L MCV 90 MCH 29 MCHC 32 RDW Coeff of Brandyn 16.0 H Plt Count 264 Neut % (Auto) 37.0 L Lymph % (Auto) 45.8 H [place] % (Auto) 11.0 Eos % (Auto) 4.8 Baso % (Auto) 0.7 Neut # (Auto) 2.10 Lymph # (Auto) 2.60 [place] # (Auto) 0.60 Eos # (Auto) 0.27 Baso # (Auto) 0.04 Abs Immat Gran (auto) 0.04 Imm/Tot Granulo (auto) 0.7 Sodium 139 Potassium 3.8 2.9 L* Chloride 108 Carbon Dioxide 25 Anion Gap 6 L BUN 6 L Creatinine 0.9 Estimated Creat Clear 64.30 Estimated GFR 76 Glucose 90 Calcium 8.1 L Iron TIBC % Saturation Vitamin B12 Stool Occult Blood 04/30/25 EKG: Normal sinus rhythm, normal EKG. 79 beats per minute. QTC 465 milliseconds.
[2025-04-30 13:11] LABS: Immature Reticulocyte Fraction 16.1 % (3.0-15.9); Reticulocyte Hemoglobin Equivi 30.8 pg (29.0-35.0); Reticulocytes Absolute 0.07 # (0.03-0.08)
[2025-04-30] MEDS: PROCHLORPERAZINE 10 MG TABLET 5 MG PO (16:21)
[2025-04-30 16:39] LABS: Potassium* 4.0 mmol/L (3.6-5.1)
--- NOTE | 2025-04-30 19:23 | PC.NURSE ---
End of shift: Pt's VSS. on RA, afebrile this shift and Indp. in room and to BR. Patient was nauseaous x2 PRN Zofran administered prior to meds this AM and Compazine administered after nap. Patient states feeling improved today. Patient reports voiding and drinking well. Tolerates the food that family brings in.
[2025-04-30] MEDS: ROSUVASTATIN CALCIUM 10 MG TABLET PO (20:42)
[2025-04-30] MEDS: LATANOPROST 0.005% OPHTH 1 DROP EYE-LEFT (20:42)
[2025-05-01 03:00] VITALS: BP 159/98; PULSE 77; RESP 16; TEMP 37; O2SAT 94
--- NOTE | 2025-05-01 06:00 | PC.NURSE ---
End of shift report [id number]: VSS. Afebrile. Pt requested Zofran before HS med administration, zofran given. Pt denied nausea throughout the night. Pt tolerated eating [id number] for dinner. Pt is ind in room, call light within reach.?
[2025-05-01 06:55] LABS: Hematocrit 23.9 % (33.0-51.0); Immature Granulocytes Abs Auto 0.06 K/uL (0.00-0.30); Immature Granulocytes Pct Auto 1.1 %; Mean Corpuscular HGB Conc 32 gm/dL (32-36); Mean Corpuscular Hemoglobin 29 pg (26-34); Mean Corpuscular Volume 90 fL (80-100); RDW Coefficient of Variation % 16.1 % (11.5-15.5); Red Blood Count 2.65 m/uL (4.00-5.20); White Blood Count* 5.61 K/uL (4.50-11.00)
[2025-05-01 07:00] VITALS: BP 145/94; PULSE 83; PULSE 91; RESP 16; TEMP 37; O2SAT 94
[2025-05-01 07:01] LABS: Hemoglobin* 7.6 gm/dL (12.0-16.0); Lymphocytes Absolute Auto 2.80 K/uL (0.90-2.90)
[2025-05-01 07:02] LABS: Chloride* 110 mmol/L (96-114); Sodium* 138 mmol/L (135-149)
[2025-05-01 07:03] LABS: Potassium* 3.3 mmol/L (3.6-5.1)
[2025-05-01 07:05] LABS: Blood Urea Nitrogen* 6 mg/dL (7-30); Creatinine* 0.9 mg/dL (0.5-1.5); Est. Creatinine Clearance* 64.30; Estimated Glomerular Filt Rate 76 ml/min
[2025-05-01 07:06] LABS: Anion Gap 4 mEq/L (7-15); Calcium* 8.2 mg/dL (8.4-10.6); Carbon Dioxide* 24 mmol/L (20-32); Glucose* 97 mg/dL (60-115)
[2025-05-01] MEDS: VENLAFAXINE HCL ER 37.5 MG CAPSULE PO (09:10)
[2025-05-01] MEDS: POTASSIUM CHLORIDE 10 MEQ CAPSULE ER 40 MEQ PO ×3 (09:11→20:41)
[2025-05-01] MEDS: prednisoLONE acetate 1 % DROPS 1 DROP EYE-RIGHT (09:11)
[2025-05-01] MEDS: ONDANSETRON ODT 4 MG TAB PO ×2 (09:11→20:13)
[2025-05-01] MEDS: SODIUM CHLORIDE 0.9 % (FLUSH) 10 ML SYRINGE 5 ML IVF ×2 (09:12→20:41)
[2025-05-01] MEDS: BRIMONIDINE 0.15% EYE-LEFT ×2 (09:12→20:14)
[2025-05-01] MEDS: DORZOLAMIDE/TIMOLOL 2-0.5% OPHTH 1 DROP EYE-LEFT ×2 (09:12→20:14)
[2025-05-01] MEDS: EYE EYE-LEFT ×2 (09:12→20:14)
[2025-05-01 10:40] LABS: Folate, Serum 15.1 ng/mL (>=5.9)
[2025-05-01 11:00] VITALS: BP 144/95; PULSE 76; RESP 16; TEMP 37; O2SAT 94
--- NOTE | 2025-05-01 11:56 | P.IMPN_ITS ---
Assessment and Plan Assessment and plan (1) Disseminated histoplasmosis: Problem comment: -transferred from [facility] to [facility]. intubated. IV Ampho --> oral itraconazole. -Yevgeniy Bolanos MD, ID at [facility] lead Status: Acute (2) Acute hypokalemia: Problem comment: - present since acute illness with histoplasmosis 03/2025 - likely secondary to itraconazole use in conjunction with steroids (pseudoaldosteronism), nausea and minimal po intake - replace potassium and magnesium, work on nausea control, follow electrolytes - 04/28 improving. Patient has nausea with certain formulations. Potassium chloride capsules are better tolerated, trying these this morning for replacement - 04/29 K down to 2.8 today. Increase oral supplementation. Cdiff neg, so start Imodium to decrease GI loss through diarrhea. Encourage oral intake of food. - 04/30 As nausea is improving, she is having some improvement in her PO intake and ability to take potassium chloride capsules. Continue oral replacement of potassium. I am concerned about the possibility that itraconazole has caused a pseudoaldosteronism. Aldosterone and renin levels are pending. I am waiting for a call back from Dr. Bolanos to see if there would be an alternative to itraconazole. If not, a trial of spironolactone could be considered. Status: Acute (3) Nausea: Problem comment: - improved - will discharge 05/04 with prn zofran and compazine. - ddx: iatrogenic (meds) vs infection burden, post acute. Status: Acute (4) Normocytic anemia: Problem comment: - No obvious source of blood loss - check stool occult and continue to monitor Hgb, hold enoxaparin - Check iron studies, B12, folate - I've checked the side effect profile of itraconazole and do not see this listed as a potential effect. She has recently been on several immunosuppressant medications for RA, but those have been on hold since admission, yet her HGB continues to decline. May benefit from peripheral blood smear if no other source is found. - 04/30 Check reticulocyte count. iron studies okay (TIBC is low, other values wnl), B12 level is wnl, TSH reassuring, folate pending, stool occult blood negative. Status: Acute (5) Immunocompromised patient: Status: Acute Subjective Date Seen: 05/01/25 Interval history: Daily Progress Note - Hospital Medicine Day #: 5 CC: nausea, hypokalemia, post acute disseminated histoplasmosis 24 HOUR UPDATE: Sun is feeling much better. She is tolerating a more normal diet. There has been no vomiting. Dr. Lemus spoke with Dr. Maverick Bolanos, . He recommended holding the itraconazole. Notable Labs, Micro, Rads, Interventions: CBC is stable, reflects her ongoing anemia. Peripheral smear is pending. Retic count is responsive. Potassium is 3.3 this morning. Mag has been low normal. Objective: Alert; communicating. Vitals: see above Lungs: Clear. Cardiac: S1S2. Disposition/Potential discharge - Home with . Today I spent 50minutes seeing the patient, reviewing [facility] and [facility] notes/diagnostics, discussing the care plan with our care time that includes social work, PT/OT, pharmacy, RT, [facility] and documenting my impressions and plan in the medical record. Exam Const: Vital Signs, click to edit/add: Vital Signs - 24 hr 04/30/25 15:00 04/30/25 15:00 04/30/25 15:00 Temperature 98.7 F Pulse Rate 80 Pulse Rate [Pulse Oximeter] 79 79 Respiratory Rate 14 14 Blood Pressure [Ri ght Arm] 145/92 H Pulse Oximetry 95 Oxygen Delivery Me thod Room Air 04/30/25 19:00 04/30/25 20:12 04/30/25 22:41 Temperature 99.1 F 98.6 F Pulse Rate Pulse Rate [Pulse Oximeter] 90 90 76 Respiratory Rate 16 16 18 Blood Pressure [Ri ght Arm] 147/103 H 152/95 H Pulse Oximetry 96 91 Oxygen Delivery Me thod Room Air Room Air 04/30/25 23:00 05/01/25 03:00 05/01/25 07:00 Temperature 98.6 F Pulse Rate 67 Pulse Rate [Pulse Oximeter] 77 83 Respiratory Rate 16 16 Blood Pressure [Ri ght Arm] 159/98 H Pulse Oximetry 94 Oxygen Delivery Me thod Room Air 05/01/25 07:00 05/01/25 07:00 Temperature 98.6 F Pulse Rate 91 Pulse Rate [Pulse Oximeter] 83 Respiratory Rate 16 Blood Pressure [Ri ght Arm] 145/94 H Pulse Oximetry 94 Oxygen Delivery Me thod Room Air Labs Labs: Laboratory Results - last 24 hr 04/28/25 04/29/25 04/30/25 05:51 13:39 06:07 WBC RBC Hgb Hct MCV MCH MCHC RDW Coeff of Brandyn Plt Count Neut % (Auto) Lymph % (Auto) [place] % (Auto) Eos % (Auto) Baso % (Auto) Neut # (Auto) Lymph # (Auto) [place] # (Auto) Eos # (Auto) Baso # (Auto) Abs Immat Gran (auto) Imm/Tot Granulo (auto) Absolute Retic 0.07 Percent Retic 2.5 H Immature Retic Fraction 16.1 H Retic Hgb Equivalent 30.8 Sodium Potassium Chloride Carbon Dioxide Anion Gap BUN Creatinine Estimated Creat Clear Estimated GFR Glucose Calcium Renin Baseline <0.1 Aldosterone <3.0 RBC Fol Mayuri for Serum 15.1 Lab Acknowledgement 04/30/25 04/30/25 05/01/25 12:40 16:03 05:55 WBC 5.61 RBC 2.65 L Hgb 7.6 L* Hct 23.9 L MCV 90 MCH 29 MCHC 32 RDW Coeff of Brandyn 16.1 H Plt Count 262 Neut % (Auto) 32.0 L Lymph % (Auto) 49.6 H [place] % (Auto) 10.9 Eos % (Auto) 5.3 Baso % (Auto) 1.1 Neut # (Auto) 1.80 Lymph # (Auto) 2.80 [place] # (Auto) 0.60 Eos # (Auto) 0.30 Baso # (Auto) 0.06 Abs Immat Gran (auto) 0.06 Imm/Tot Granulo (auto) 1.1 Absolute Retic Percent Retic Immature Retic Fraction Retic Hgb Equivalent Sodium 138 Potassium 4.0 3.3 L Chloride 110 Carbon Dioxide 24 Anion Gap 4 L BUN 6 L Creatinine 0.9 Estimated Creat Clear 64.30 Estimated GFR 76 Glucose 97 Calcium 8.2 L Renin Baseline Aldosterone RBC Fol Mayuri for Serum Lab Acknowledgement Test Added
[2025-05-01 12:19] LABS: Slide Review Reflex No
[2025-05-01 14:34] VITALS: BP 128/89; PULSE 88; RESP 14; TEMP 37.1; O2SAT 97
--- NOTE | 2025-05-01 18:08 | PC.NURSE ---
End of shift: patient is pleasant and cooperative. Shower completed today, VSS and on RA. Patient denies N/V/SOB PRN zofran administered x1 preemptively prior to meds. Patient ambulating indp to BR and hallway, tolerated activity well. Patient reports voiding and eating well. Family supplies meals for patient including nutritional supplement.
[2025-05-01 19:41] VITALS: BP 159/101; PULSE 84; RESP 20; TEMP 37; O2SAT 96
[2025-05-01] MEDS: LATANOPROST 0.005% OPHTH 1 DROP EYE-LEFT (20:15)
[2025-05-01] MEDS: ROSUVASTATIN CALCIUM 10 MG TABLET PO (20:41)
[2025-05-01 22:14] VITALS: BP 143/97; PULSE 81; RESP 18; TEMP 36.9; O2SAT 95
[2025-05-01] MEDS: PROCHLORPERAZINE 10 MG TABLET 5 MG PO (22:28)
[2025-05-02 02:47] VITALS: BP 154/99; PULSE 79; RESP 16; TEMP 36.9; O2SAT 96
--- NOTE | 2025-05-02 05:31 | PC.NURSE ---
[id number]: Patient pleasant and cooperative. at bedside and supportive. Mild nausea after medication administration and supper. PRN antiemetics administered for relief. Afebrile. Ambulation encouraged to rebuild strength and stability. Walked halls x1. Denies pain. Appetite slowly improving.
[2025-05-02 06:22] LABS: Hematocrit 23.7 % (33.0-51.0); Immature Granulocytes Abs Auto 0.06 K/uL (0.00-0.30); Immature Granulocytes Pct Auto 1.0 %; Mean Corpuscular HGB Conc 32 gm/dL (32-36); Mean Corpuscular Hemoglobin 29 pg (26-34); Mean Corpuscular Volume 91 fL (80-100); RDW Coefficient of Variation % 16.2 % (11.5-15.5); Red Blood Count 2.61 m/uL (4.00-5.20); White Blood Count* 5.82 K/uL (4.50-11.00)
[2025-05-02 06:30] LABS: Hemoglobin* 7.6 gm/dL (12.0-16.0); Lymphocytes Absolute Auto 2.70 K/uL (0.90-2.90); Slide Review Reflex No
[2025-05-02 06:37] LABS: Albumin* 3.0 g/dL (3.3-5.0); Chloride* 109 mmol/L (96-114); Potassium* 3.8 mmol/L (3.6-5.1); Sodium* 139 mmol/L (135-149)
[2025-05-02 06:40] LABS: Alanine Aminotransferase* 39 U/L (4-35); Alkaline Phosphatase* 230 U/L (40-150); Anion Gap 6 mEq/L (7-15); Aspartate Amino Transferase* 52 U/L (12-35); Bilirubin Total* 0.5 mg/dL (0.1-1.5); Blood Urea Nitrogen* 7 mg/dL (7-30); Calcium* 8.5 mg/dL (8.4-10.6); Carbon Dioxide* 24 mmol/L (20-32); Creatinine* 0.9 mg/dL (0.5-1.5); Est. Creatinine Clearance* 64.30; Estimated Glomerular Filt Rate 76 ml/min; Glucose* 96 mg/dL (60-115); Total Protein* 7.2 g/dL (6.0-8.3)
[2025-05-02] MEDS: POTASSIUM CHLORIDE 10 MEQ CAPSULE ER 40 MEQ PO (08:39)
[2025-05-02] MEDS: VENLAFAXINE HCL ER 37.5 MG CAPSULE PO (08:39)
[2025-05-02] MEDS: ONDANSETRON ODT 4 MG TAB PO (08:40)
[2025-05-02] MEDS: SODIUM CHLORIDE 0.9 % (FLUSH) 10 ML SYRINGE 5 ML IVF (08:40)
[2025-05-02] MEDS: EYE EYE-LEFT (08:58)
[2025-05-02] MEDS: DORZOLAMIDE/TIMOLOL 2-0.5% OPHTH 1 DROP EYE-LEFT (08:58)
[2025-05-02] MEDS: prednisoLONE acetate 1 % DROPS 1 DROP EYE-RIGHT (08:58)
[2025-05-02] MEDS: BRIMONIDINE 0.15% EYE-LEFT (08:58)
[2025-05-02 09:14] VITALS: BP 139/82; PULSE 82; RESP 18; TEMP 36.4; O2SAT 96
--- NOTE | 2025-05-02 12:01 | PC.NURSE ---
Patient discharged home with . Has cardiology f/u this afternoon and ID appointment tomorrow. All questions answered. IV taken out. Left via wheelchair with .
--- NOTE | 2025-05-02 16:00 | PM.DS1 ---
DS: Providers Provider Date Seen: 05/02/25 Date of admission: 04/27/25 18:55 Primary care physician: Sharmin Covington MD Admitting Clinician: Whit Brown MD Consults: 04/27/25 18:39 Consult to Nutrition [CONS] Routine Comment: Reason for consult:: Miscellaneous Comment: hypoK/nausea Attending Physician on discharge: Verna Miller MD [facility] Date of Discharge: 05/02/25 DS: Diagnosis Discharge Diagnosis (1) Acute hypokalemia: Status: Acute Problem details: - present since acute illness with histoplasmosis 03/2025 - likely secondary to itraconazole use in conjunction with steroids (pseudoaldosteronism), nausea and minimal po intake - replace potassium and magnesium, work on nausea control, follow electrolytes - 04/28 improving. Patient has nausea with certain formulations. Potassium chloride capsules are better tolerated, trying these this morning for replacement - 04/29 K down to 2.8 today. Increase oral supplementation. Cdiff neg, so start Imodium to decrease GI loss through diarrhea. Encourage oral intake of food. - 04/30 As nausea is improving, she is having some improvement in her PO intake and ability to take potassium chloride capsules. -05/02. Potassium has normalized. Dr. Bolanos is asked us to hold her antifungal until he re-evaluates. (2) Nausea: Status: Acute Problem details: - improved - will discharge 05/02 with prn zofran and compazine. - ddx: iatrogenic (meds) vs infection burden, post acute. (3) Disseminated histoplasmosis: Status: Acute Problem details: -transferred from [facility] to [facility]. intubated. IV Ampho --> oral itraconazole. -Yevgeniy Bolanos MD, ID at [facility] lead (4) Immunocompromised patient: Status: Acute (5) Normocytic anemia: Status: Acute Problem details: - No obvious source of blood loss - check stool occult and continue to monitor Hgb, hold enoxaparin - Check iron studies, B12, folate - I've checked the side effect profile of itraconazole and do not see this listed as a potential effect. She has recently been on several immunosuppressant medications for RA, but those have been on hold since admission, yet her HGB continues to decline. May benefit from peripheral blood smear if no other source is found. - 04/30 Check reticulocyte count. iron studies okay (TIBC is low, other values wnl), B12 level is wnl, TSH reassuring, folate pending, stool occult blood negative. (6) Rheumatoid arthritis: Status: Acute Problem details: - was on Humira and Cellcept prior to Histoplasmosis infection 04/09 (these both ON HOLD) - currently on Prednisone 2mg daily DS: Summary Hospital Course Hospital Course: QUESTIONS TO ASK AT FOLLOW-UP: How is your nausea, vomiting? Is your weight stable or improved? Follow-up with both Cardiology and Infectious Disease as previously scheduled. BRIEF HOSPITAL COURSE: Patient was admitted for 6 days. Synopsis of acute inpatient issues are outlined above. Chronic medical conditions with notable findings outlined above. It took a 6 days to get her nausea, vomiting and potassium normalized. At the day of discharge she was eating a near normal diet and her potassium was normal with t.i.d. supplementation. We felt the persistent and severe hypokalemia was likely related to poor intake and vomiting in addition to chronic antifungal therapy and being in the post acute status of septic shock and disseminated histoplasmosis. DISCHARGE MEDICATIONS: See Reconciled list - SIGNIFICANT CHANGES: We are holding her immunosuppressant therapy We are holding her antifungal therapy 40 mEq of potassium chloride t.i.d., this likely can be deescalated as her diet improves Specific instructions to the patient and follow-up are outlined below. REVIEW OF SYSTEMS No new chest pain or dyspnea Pain controlled No voiding difficulties Tolerating diet challenge PHYSICAL EXAM: CONSTITUTIONAL: Conversive, good historian. A/O. Knows setting and context. GENERAL: Well-developed and above ideal body weight, in no respiratory distress. VITAL SIGNS: see record. HEENT: Sclerae are anicteric. No petechiae. CARDIAC: rhythm is regular. There is no S3 or rub. No harsh murmurs. Extremities show trace edema with symmetrical pulses. PULM: good air entry with no wheeze. NEURO: Speech is fluent. A brief neurologic exam is negative. SKIN: No rashes, petechiae, concerning changes PSYCHIATRIC: Euthymic. DISPOSITION: Home with Time spent on discharge 37 minutes. Status at Discharge Functional status at discharge: independent ambulation Overall status at discharge: patient is progressing back to baseline Time Spent with Patient Time attestation: Total time spent providing and/or coordinating discharge services: Exam Const: Vital Signs, click to edit/add: Vital Signs - 24 hr 05/01/25 19:41 05/01/25 22:14 05/02/25 02:47 Temperature 98.6 F 98.4 F 98.4 F Pulse Rate [Pulse Oximeter] 84 81 79 Respiratory Rate 20 18 16 Blood Pressure [Ri ght Arm] 159/101 H 143/97 H 154/99 H Pulse Oximetry 96 95 96 Oxygen Delivery Me thod Room Air Room Air Room Air 05/02/25 09:14 Temperature 97.6 F Pulse Rate [Pulse Oximeter] 82 Respiratory Rate 18 Blood Pressure [Ri ght Arm] 139/82 Pulse Oximetry 96 Oxygen Delivery Me thod Room Air DS: Data Data Completed and Pending Completed studies during hospitalization: Procedures Introduction of Other Gas into Respiratory Tract, Via Natural or Artificial Opening (03/26/25) Labs on day of discharge: Labs from last 24 hours 05/02/25 06:08 WBC 5.82 RBC 2.61 L Hgb 7.6 L* Hct 23.7 L MCV 91 MCH 29 MCHC 32 RDW Coeff of Brandyn 16.2 H Plt Count 242 Neut % (Auto) 36.0 L Lymph % (Auto) 46.9 H [place] % (Auto) 10.8 Eos % (Auto) 4.3 Baso % (Auto) 1.0 Neut # (Auto) 2.10 Lymph # (Auto) 2.70 [place] # (Auto) 0.60 Eos # (Auto) 0.25 Baso # (Auto) 0.06 Abs Immat Gran (auto) 0.06 Imm/Tot Granulo (auto) 1.0 Sodium 139 Potassium 3.8 Chloride 109 Carbon Dioxide 24 Anion Gap 6 L BUN 7 Creatinine 0.9 Estimated Creat Clear 64.30 Estimated GFR 76 Glucose 96 Calcium 8.5 Magnesium 1.5 Total Bilirubin 0.5 AST 52 H ALT 39 H Alkaline Phosphatase 230 H Total Protein 7.2 Albumin 3.0 L Discharge Plan Discharge Disposition: Home, Self-Care Date of Admission: 04/27/25 18:55 Attending Provider on Discharge: Verna Miller Primary Care Provider: Sharmin Covington Condition: Unchanged Anticipated Discharge Date/Time: 05/02/25 09:40 Discharge Medications: New prochlorperazine maleate 10 mg Tablet 5 mg PO Q6H PRNQty: 60 0RF potassium chloride 20 mEq tablet extended release 40 meq PO TID Qty: 270 0RF Continued prednisone 1 mg tablet 2 mg PO QDAY Humira(CF) Pen 40 mg/0.4 mL pen injector kit 40 mg subcut Q7D venlafaxine 37.5 mg capsule,extended release 24hr 37.5 mg PO DAILY brimonidine 0.15 % drops 1 drp ophthalmic (eye) BID Patient Comments: left eye dorzolamide-timolol 22.3-6.8 mg/mL drops 1 drp ophthalmic (eye) Q12H Rx Instructions: left eye acetaminophen 500 mg capsule 500 mg PO Q6H PRN latanoprost 0.005 % drops 1 drp ophthalmic (eye-left) QPM prednisolone acetate 1 % drops,suspension 1 drp ophthalmic (eye-right) DAILY rosuvastatin 10 mg tablet 10 mg PO DAILY cyclosporine [Restasis] 0.05 % dropperette 1 drp ophthalmic (eye) Q12H PRN Patient Comments: both eyes, as needed ondansetron 4 mg tablet,disintegrating 4 mg PO Q8H PRN Changed potassium chloride [Klor-Con] 20 mEq packet 40 meq PO TID Qty: 180 0RF Held mycophenolate mofetil 500 mg tablet 1,000 mg PO QAM Hold Instructions: Resume on 05/04/25. Until you are directed by Dr. Bolanos mycophenolate mofetil 500 mg tablet 1,500 mg PO HS Hold Instructions: Resume on 05/04/25. Until you are directed by Dr. Bolanos itraconazole 100 mg capsule 200 mg PO BID Hold Instructions: Resume on 05/04/25. Hold until Dr. Bolanos discusses options with you. Discharge Orders: Discharge Order (Routine); Ordered 05/02/25 Ordered By: Verna Miller Patient Education: Prochlorperazine (By mouth), Histoplasmosis (GEN), Hypokalemia (GEN) Additional Instructions: We are holding your RA meds and itraconazole. Potassium is 3x a day; this will likely need to be reduced as your appetite improves. Compazine sent for as needed use. Activity Level: Activity as Tolerated Discharge Diet: Regular Follow Up Appointments: Sharmin Covington MD [Primary Care Provider, Family Practice] Forms: Patient Belongings, [facility] Info Instructions
== END 2025-05-02 10:30 | disposition home or self-care (01) | DRG 640 ==
LOC: ED 15:28 → MEDSURG 16:52
PROVIDERS: Family Medicine; Internal Medicine; Physician Assistant; Admitting Provider Family Medicine; Emergency Provider Family Medicine; PCP Family Medicine; Visit Provider Family Medicine
DX: E87.6 Hypokalemia (principal); J16.8 Pneumonia due to other specified infectious organisms; B39.3 Disseminated histoplasmosis capsulati; D84.821 Immunodeficiency due to drugs; R11.2 Nausea with vomiting, unspecified; T37.8X5A Adverse effect of other specified systemic anti-infectives and antiparasitics, initial encounter; M06.9 Rheumatoid arthritis, unspecified; D64.9 Anemia, unspecified; Z79.620 Long term (current) use of immunosuppressive biologic; Z79.52 Long term (current) use of systemic steroids; Z87.891 Personal history of nicotine dependence
CPT/HCPCS: 36415; 80048; 80053; 80076; 82088; 82270; 82607; 82746; 83540; 83550; 83605; 83690; 83735; 83880; 84132; 84244; 84443; 84484; 85025; 85045; 86140; 87338; 87493; 93005; 94761; 99284; 99285; A9270; J1650; J2470; J3475; J3480; J7030; J7512

== ENCOUNTER 2025-05-22 07:01 | Inpatient (IN) | payer OTHER, BC, SELFPAY ==
[2025-05-22] VITALS (13 sets, daily range): BP systolic 139–152; BP diastolic 72–86; PULSE 49–64; RESP 14–21; TEMP 36–36.9; O2SAT 96–100; BMI 22.8; BMI 23.8; BMI 23.9
--- OUTSIDE RECORDS SUMMARY | 2025-05-22 07:03 | XMS_ITS | Encounter Summary ---
Author Organization [place] Address [address] [place] [address] Care Team Providers Care Shiatsu Therapist Name Role Phone Won Franz MD Unavailable [phone] No Ref-Primary, Physician Primary Care Provider Liane Lawson MD Unavailable [phone] Moira Burkett MD Unavailable Liane Lawson MD Unavailable [phone] Molly Viveros MD Unavailable [phone] Liane Lawson MD Unavailable [phone] Reason for Visit * Reason Onset Date Comments Refill Request 11/27/2022 difluprednate (D UREZOL) 0.05 % ophthalmic emulsion Encounter Details Date Type Department Care Team (Late st Contact Info) Description 11/27/2022 Refill [facility] Eye [place] 155826 [facility] 9 Me Clin 9A [place] [phone] Liane Lawson MD [address] [place] [address] 327115 Refill Request (difluprednate (DUREZOL) 0.05 % ophthalmic [...] AM CDT Legal Sex Female 4:36 AM SERVICES COORDINATOR Gender Identity Female 12/05/2021 10:23 AM CDT [...] Care Team (Late st Contact Info) Description 06/21/2025 9:30 AM SERVICES COORDINATOR Office Visit [facility] 516 [facility] 9th Fl Clin 9A [place] [address] Liane Lawson MD 6 [place] [address] documented as of this encounter Visit Diagnoses Diagnosis CME (cystoid macular edema), bilateral Epiretinal membrane (ERM) of left eye 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 documented in this encounter Additional Health Concerns Assessment Noted Time PHQ-9 Depression Total Score: 0 05/30/20 21 11:17 AM CDT documented as of this encounter Care Teams Shiatsu Therapist Relationship Specialty Start Date End Date No Ref-Primary, Physician PCP - General 04/20/18 Won Franz MD [facility] [address] [place] [address] Ophthalmology 04/20/18 Liane Lawson MD Ophthalmology 04/20/18 01/24/25 Moira Burkett MD ARTHRITIS RHEUM CONSULTS [address] [address] Rheumatology 05/20/18 Liane Lawson MD [address] [place] [address] Assigned Surgical Provider 06/07/20 Molly Viveros MD [address] [place] [address] 23234 Assigned Surgical Provider 12/06/24 Liane Lawson MD [address] [place] [address] Ophthalmology 01/25/25 documented as of this encounter
--- OUTSIDE RECORDS SUMMARY | 2025-05-22 07:03 | XMS_ITS | Encounter Summary ---
Author Organization [facility] Address [address] [place] [address] Care Team Providers Care Compensation Specialist Name Role Phone Won Franz MD Unavailable [phone] No Ref-Primary, Physician Primary Care Provider Liane Lawson MD Unavailable [phone] Moira Burkett MD Unavailable [phone] Liane Lawson MD Unavailable [phone] Molly Viveros MD Unavailable [phone] Liane Lawson MD Unavailable [phone] Reason for Visit * Reason Comments Medication Refill Encounter Details Date Type Department Care Team (Late st Contact Info) Description [facility] [place] 725796 [facility] Clin 9A [place] [phone] Liane Lawson MD [address] [place] [address] [phone] Medication Refill Social History Tobacco Use Types [...] AM CDT Legal Sex Female 4:36 AM RESIDENTIAL REAL ESTATE SALES MANAGER Gender Identity Female 12/05/2021 10:23 AM CDT [...] st Contact Info) Description 06/21/2025 9:30 AM RESIDENTIAL REAL ESTATE SALES MANAGER Office Visit [facility] Eye [address] [address] Liane Lawson MD [address] [place] [address] documented as of this encounter Visit Diagnoses Diagnosis Chronic anterior uveitis of both eyes Anterior scleritis of left eye Anterior scleritis documented in this encounter Additional Health Concerns Assessment Noted Time PHQ-9 Depression Total Score: 0 04/21/20 19 11:35 AM CDT documented as of this encounter Care Teams Compensation Specialist Relationship Specialty Start Date End Date No Ref-Primary, Physician PCP - General 04/20/18 Won Franz MD [facility] [address] [address] Ophthalmology 04/20/18 Liane Lawson MD Ophthalmology 04/20/18 01/24/25 Moira Burkett MD ARTHRITIS RHEUM CONSULTS [address] 567835 Rheumatology 05/20/18 Liane Lawson MD [address] [place] [address] [phone] Assigned Surgical Provider 06/07/20 Molly Viveros MD [address] [place] [address] [id number] Assigned Surgical Provider 12/06/24 Liane Lawson MD [address] [place] [address] 228355 Ophthalmology 01/25/25 documented as of this encounter
--- OUTSIDE RECORDS SUMMARY | 2025-05-22 07:03 | XMS_ITS | Patient Health Record ---
Author Organization [employer] [facility] Address [address] [place] [address] Support Name Relationship Address Phone Sun Reese Guarantor Unknown [phone] Allergies Allergen (clinical drug ingredient) Drug/Non Drug [...] W/U Status Risk Notes Problem Female climacteric (659866034) Female climacteric (N95.1) Active confirmed Plan Of Treatment No Information Insurance Providers Payer Name Payer Address Payer Phone Subscriber Number Group Number Insured Name Patient Relationship to Insured Coverage Start Date Coverage End Date Preferred One PPO [address] [address] [place] [id number] Sun Reese Self - patient is the insured [facility] [address] [address] [place] [address] [id number] Sun Reese Self - patient is the insured Medical (General) History Medical History History ICD Code Arthritis Surgical History Surgery Date(Month/Year) Lasix eye surgery 2002 Lt ankle ligament surgery 2012
--- OUTSIDE RECORDS SUMMARY | 2025-05-22 07:03 | XMS_ITS | Encounter Summary ---
Author Organization [place] Address Replaced by [facility] [place] [address] Care Team Providers Care Tobacco Blender Name Role Phone Won Franz MD Unavailable [phone] No Ref-Primary, Physician Primary Care Provider Liane Lawson MD Unavailable [phone] Moira Burkett MD Unavailable [phone] Liane Lawson MD Unavailable [phone] Molly Viveros MD Unavailable [phone] Liane Lawson MD Unavailable [phone] Reason for Visit * Reason Comments Medication Refill PREDNISONE 20 MG TAB LET Encounter Details Date Type Department Care Team (Late st Contact Info) Description 02/28/2021 Refill [facility] [address] [facility] [address] [address] Liane Lawson MD [address] [place] [address] Medication Refill (PREDNISONE 20 MG [...] AM CDT Legal Sex Female 4:36 AM CAD ADMINISTRATOR Gender Identity Female 12/05/2021 10:23 AM CDT [...] day both eyes (approved for 1 year 7.21.20) ?? 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 documented in this encounter Additional Health Concerns Assessment Noted Time PHQ-9 Depression Total Score: 0 12/14/19 21 11:19 AM CDT documented as of this encounter Care Teams Tobacco Blender Relationship Specialty Start Date End Date No Ref-Primary, Physician PCP - General 04/20/18 Won Franz MD [facility] [address] [place] [address] Ophthalmology 04/20/18 Liane Lawson MD Ophthalmology 04/20/18 01/24/25 Moira Burkett MD ARTHRITIS RHEUM CONSULTS [address] [place] [address] 729475 Rheumatology 05/20/18 Liane Lawson MD [address] [place] [address] Assigned Surgical Provider 06/07/20 Molly Viveros MD [address] [place] [address] 647225 Assigned Surgical Provider 12/06/24 Liane Lawson MD [address] [place] [address] 184285 Ophthalmology 01/25/25 documented as of this encounter
--- OUTSIDE RECORDS SUMMARY | 2025-05-22 07:03 | XMS_ITS | Encounter Summary ---
Author Organization [place] Address [address] [place] [address] Care Team Providers Care Training Engineer Name Role Phone Won Franz MD Unavailable No Ref-Primary, Physician Primary Care Provider Liane Lawson MD Unavailable [phone] Moira Burkett MD Unavailable [phone] Liane Lawson MD Unavailable [phone] Molly Viveros MD Unavailable [phone] Liane Lawson MD Unavailable [phone] Reason for Visit * Reason Comments Medication Refill PREDNISONE 20 MG TAB LET Encounter Details Date Type Department Care Team (Late st Contact Info) Description 04/28/2019 Refill [facility] Eye [place] 298696 [facility] 9 Id Clin 9A [place] [address] Liane Lawson MD [address] [place] [address] Medication Refill (PREDNISONE 20 MG TABLET) [...] AM CDT Legal Sex Female 4:36 AM COMMUNITY EDUCATION SPECIALIST Gender Identity Female 12/05/2021 10:23 AM CDT [...] st Contact Info) Description 06/21/2025 9:30 AM COMMUNITY EDUCATION SPECIALIST Office Visit [facility] Eye [address] 9 Id Clin [address] [place] [address] Liane Lawson MD [address] [place] [address] documented as of this encounter Visit Diagnoses [...] documented as of this encounter Care Teams Training Engineer Relationship Specialty Start Date End Date No Ref-Primary, Physician PCP - General 04/20/18 Won Franz MD [facility] [address] [place], [place] 66[address] Ophthalmology 04/20/18 Liane Lawson MD Ophthalmology 04/20/18 01/24/25 Moira Burkett MD ARTHRITIS RHEUM CONSULTS [address] [place] [address] 312935 Rheumatology 05/20/18 Liane Lawson MD [address] [place] [address] 673585 Assigned Surgical Provider 06/07/20 Molly Viveros MD [address] [place] [address] 523825 Assigned Surgical Provider 12/06/24 Liane Lawson MD [address] [place] [address] 645405 Ophthalmology 01/25/25 documented as of this encounter
--- OUTSIDE RECORDS SUMMARY | 2025-05-22 07:03 | XMS_ITS | Encounter Summary ---
Author Organization [place] Address [address] [place] [address] Care Team Providers Care Case Assembler Name Role Phone Won Franz MD Unavailable No Ref-Primary, Physician Primary Care Provider Liane Lawson MD Unavailable [phone] Moira Burkett MD Unavailable [phone] Liane Lawson MD Unavailable [phone] Molly Viveros MD Unavailable [phone] Liane Lawson MD Unavailable [phone] Reason for Visit * Reason Onset Date Comments Refill Request 03/27/2023 tmolol maleate ( TIMOPTIC) 0.25 % ophthalmic solution Encounter Details Date Type Department Care Team (Late st Contact Info) Description 03/27/2023 Refill [facility] Eye [place] 857916 [facility] 9 Nm Clin 9A [place] [phone] Liane Lawson MD [address] [place] [address] [phone] Refill Request (tmolol maleate (TIMOPTIC) 0.25 % [...] AM CDT Legal Sex Female 4:36 AM TIPPLE BOSS Gender Identity Female 12/05/2021 10:23 AM CDT [...] prescription was discontinued on 11/27/[address]22 [address] Liane Lawosn MD. 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 documented in this encounter Additional Health Concerns Assessment Noted Time PHQ-9 Depression Total Score: 0 05/30/20 21 11:17 AM CDT documented as of this encounter Care Teams Case Assembler Relationship Specialty Start Date End Date No Ref-Primary, Physician PCP - General 04/20/18 Won Franz MD [facility] [address] [place] [address] Ophthalmology 04/20/18 Liane Lawson MD Ophthalmology 04/20/18 01/24/25 Moira Burkett MD ARTHRITIS RHEUM CONSULTS [address] [address] Rheumatology 05/20/18 Liane Lawson MD [address] [place] [address] Assigned Surgical Provider 06/07/20 Molly Viveros MD [address] [place] [address] Assigned Surgical Provider 12/06/24 Liane Lawson MD [address] [place] [address] Ophthalmology 01/25/25 documented as of this encounter
--- OUTSIDE RECORDS SUMMARY | 2025-05-22 07:03 | XMS_ITS | Encounter Summary ---
Author Organization [place] Address [address] [place] [address] Care Team Providers Care Facer Operator Name Role Phone Won Franz MD Unavailable [phone] No Ref-Primary, Physician Primary Care Provider Liane Lawson MD Unavailable [phone] Moira Burkett MD Unavailable [phone] Liane Lawson MD Unavailable [phone] Molly Viveros MD Unavailable [phone] Liane Lawson MD Unavailable [phone] Reason for Visit * Reason Comments Medication Refill DIFLUPREDNATE 0.05% EYE DROP Encounter Details Date Type Department Care Team (Late st Contact Info) Description [facility] [address] 9[facility] Clin 9A [place] [address] Liane Lawson MD [address] [place] [address] [phone] Medication Refill (DIFLUPREDNATE 0.05% EYE DROP) Social [...] AM CDT Legal Sex Female 4:36 AM SKI TECHNICIAN Gender Identity Female 12/05/2021 10:23 AM CDT [...] st Contact Info) Description 06/21/2025 9:30 AM SKI TECHNICIAN Office Visit [facility] Eye [facility] 516 [facility] 9th Fl Clin 9A [place] [address] Liane Lawson MD [address] [place] [address] documented as of this encounter Visit Diagnoses Diagnosis CME (cystoid macular edema), bilateral Epiretinal membrane (ERM) of left eye 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 documented in this encounter Additional Health Concerns Assessment Noted Time PHQ-9 Depression Total Score: 0 05/30/20 21 11:17 AM CDT documented as of this encounter Care Teams Facer Operator Relationship Specialty Start Date End Date No Ref-Primary, Physician PCP - General 04/20/18 Won Franz MD [facility] [address] [place] [address] Ophthalmology 04/20/18 Liane Lawson MD Ophthalmology 04/20/18 01/24/25 Moira Burkett MD ARTHRITIS RHEUM CONSULTS [address] [address] Rheumatology 05/20/18 Liane Lawson MD [address] [place] [address] Assigned Surgical Provider 06/07/20 Molly Viveros MD [address] [place] [address] Assigned Surgical Provider 12/06/24 Liane Lawson MD 6 [place] [address] Ophthalmology 01/25/25 documented as of this encounter
--- OUTSIDE RECORDS SUMMARY | 2025-05-22 07:03 | XMS_ITS | Encounter Summary ---
Author Organization [place] Address [address] [place] [address] Care Team Providers Care Room Cooler Installer Name Role Phone Won Franz MD Unavailable No Ref-Primary, Physician Primary Care Provider Liane Lawson MD Unavailable [phone] Moira Burkett MD Unavailable [phone] Liane Lawson MD Unavailable [phone] Molly Viveros MD Unavailable [phone] Liane Lawson MD Unavailable [phone] Reason for Visit * Reason Comments Medication Refill PREDNISONE 5 MG TABL ET Encounter Details Date Type Department Care Team (Late st Contact Info) Description 02/16/2021 Refill [facility] Eye [place] 091676 [facility] 9 Nj Clin 9A [place] [phone] Liane Lawson MD [address] [place] [address] Medication Refill (PREDNISONE 5 MG TABLET) [...] AM CDT Legal Sex Female 4:36 AM FILE CLERK Gender Identity Female 12/05/2021 10:23 AM CDT [...] st Contact Info) Description 06/21/2025 9:30 AM FILE CLERK Office Visit [facility] Eye [place] 091676 [facility] 9th [place] Clin 9[address] [place] [address] Liane Lawson MD [address] [place] [address] documented as of this encounter Visit Diagnoses Diagnosis 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 CME (cystoid macular edema), left Chronic anterior uveitis of both eyes documented in this encounter Additional Health Concerns Assessment Noted Time PHQ-9 Depression Total Score: 0 12/14/19 21 11:19 AM CDT documented as of this encounter Care Teams Room Cooler Installer Relationship Specialty Start Date End Date No Ref-Primary, Physician PCP - General 04/20/18 Won Franz MD [facility] [address] [place] [address] Ophthalmology 04/20/18 Liane Lawson MD Ophthalmology 04/20/18 01/24/25 Moira Burkett MD ARTHRITIS RHEUM CONSULTS [address] [address] Rheumatology 05/20/18 Liane Lawson MD [address] [place] [address] Assigned Surgical Provider 06/07/20 Molly Viveros MD 6 [place] [address] Assigned Surgical Provider 12/06/24 Liane Lawson MD [address] [place] [address] Ophthalmology 01/25/25 documented as of this encounter
--- OUTSIDE RECORDS SUMMARY | 2025-05-22 07:04 | XMS_ITS | Encounter Summary ---
Author Organization [place] Address [address] [place] [address]. [place] [address] Care Team Providers Care Acetylene Plant Operator Name Role Phone Won Franz MD Unavailable [phone] No Ref-Primary, Physician Primary Care Provider Moira Burkett MD Unavailable [phone] Molly Viveros MD Unavailable [phone] Liane Lawson MD Unavailable [phone] Reason for Visit * Reason Comments Medication Refill Encounter Details Date Type Department Care Team (Late st Contact Info) Description [facility] [address] 9 Vt Clin 9A [place] [address] Molly Viveros MD [address] [place] [address] [phone] Medication Refill Social History Tobacco Use Types [...] AM CDT Legal Sex Female 4:36 AM DRY KILN BURNER Gender Identity Female 12/05/2021 10:23 AM CDT Sexual Orientation Not on file documented as of this encounter Plan of Treatment Upcoming Encounters Date Type Department Care Team (Late st Contact Info) Description 06/21/2025 9:30 AM DRY KILN BURNER Office Visit [facility] Eye [address] [phone] Liane Lawson MD [address] [place] [address] documented as of this encounter Visit Diagnoses Diagnosis Uveitic glaucoma of left eye, severe stage documented in this encounter Additional Health Concerns Assessment Noted Time PHQ-9 Depression Total Score: 0 05/30/20 21 11:17 AM CDT documented as of this encounter Care Teams Acetylene Plant Operator Relationship Specialty Start Date End Date No Ref-Primary, Physician PCP - General 04/20/18 Won Franz MD [place]Y [place] [address] [place] [address] Ophthalmology 04/20/18 Moira Burkett MD ARTHRITIS RHEUM CONSULTS [address] [place] [address] Rheumatology 05/20/18 Molly Viveros MD 6 [place] [address] Assigned Surgical Provider 12/06/24 Liane Lawson MD [address] [place] [address] Ophthalmology 01/25/25 documented as of this encounter
--- OUTSIDE RECORDS SUMMARY | 2025-05-22 07:04 | XMS_ITS | Clinical Summary ---
Author Organization [facility] Address [address] [place] [address] Care Team Providers Care Asbestos Removal Worker Name Role Phone Won Franz MD Unavailable No Ref-Primary, Physician Primary Care Provider Moira Burkett MD Unavailable Molly Viveros MD Unavailable [phone] Liane Lawson MD Unavailable [phone] Allergies Active Allergy Reactions Criticality Noted Date Comments Bupropion 11/07/2004 wellbutrin Sulfasalazine Itching 03/15/2009 Bupropion Hcl Itching 03/15/2009 Medications adalimumab (HUMIRA) 40 MG/0.8ML pen kit See Admin Instructions EVERY WEEK 8 Active mycophenolate (GENERIC EQUIVALENT) 500 MG tablet Now 3 tablets AM and 3 PM 5 9 Active RESTASIS 0.05 % ophthalmic emulsionIndicati ons:Dry eye syndrome of both eyes Place 1 drop into both eyes 2 times daily 180 mL 3 1 Active venlafaxine (EFFEXOR XR) 37.5 MG 24 hr capsule TAKE 1 CAPSULE (37.5 MG) BY MOUTH ONCE DAILY WITH A MEAL. 2 Active prednisoLONE acetate (PRED FORTE) 1 % ophthalmic suspensionIndica tions:CME (cystoid macular edema), bilateral,Chroni c anterior uveitis of both eyes Place 1-2 drops into the right eye daily. 5 mL 3 4 Active rosuvastatin (CRESTOR) 10 MG tablet Take 1 tablet by mouth daily. 4 Active latanoprost (XALATAN) 0.005 % ophthalmic solutionIndicati ons:Uveitic glaucoma of left eye, severe stage Place 1 drop Into the left eye at bedtime. 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 10 mL 5 Active predniSONE (DELTASONE) 1 MG tabletIndication s:Anterior scleritis of both eyes,CME (cystoid macular edema), bilateral,Chroni c anterior uveitis of both eyes Take 2 tablets (2 mg) by mouth daily. 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 10 mL 2 5 Active Active Problems Problem Noted Date Diagnosed [...] of tear film of both eyes 03/12/20 17 Presbyopia 03/12/2017 Vitamin D deficiency 10/18/2013 Dysthymia 11/24/2012 Infertility, female 08/07/2011 Overview (10/28/2018): Overview: Working with Dr. Barraza, [facility] Iron deficiency anemia, unspecified 08/27/2009 Depressive disorder 11/07/2004 Rheumatoid arthritis 11/07/2004 Palpitations 09/30/2001 Resolved Problems Problem Noted Date Diagnosed Date Resolved Date Left ankle pain 11/07/2012 12/31/2012 Other postprocedural status(V45.89) 11/07/2012 12/31/2012 Encounters Date Type Department Care Team Description 04/01/[address] [address] Liane Lawson MD Refill Request (brimonidine (ALPHAGAN-P) 0.15 % ophthalmic solution 10 mL 11 02/04/2024) 03/22/[address] [address] Liane Lawson MD Refill Request (predniSONE (DELTASONE) 1 MG tablet 136 tablet 1 10/27/2024) 03/04/[address] [address] Molly Viveros MD Medication Refill 03/01/2025 12:45 PM CDT Office Visit [address] [address] Molly Viveros MD Uveitic glaucoma of left eye, severe stage (Primary Dx); Chronic anterior uveitis of both eyes 03/01/2025 9:00 AM CDT Office Visit [address] [address] Liane Lawson MD CME (cystoid macular edema), bilateral (Primary Dx); Epiretinal membrane (ERM) of left eye; Anterior scleritis of both eyes; Chronic anterior uveitis of both eyes 03/01/2025 Travel 02/25/[address] [address] Liane Lawson MD Medication Refill (dorzolamide-timolol (COSOPT) [...] AM CDT Legal Sex Female 4:36 AM ENGLISH LANGUAGE ARTS TEACHER Gender Identity Female 12/05/2021 10:23 AM CDT [...] st Contact Info) Description 06/21/2025 9:30 AM ENGLISH LANGUAGE ARTS TEACHER Office Visit [facility] [address] [facility] [address] Clin [address] [place] [id number] Liane Lawson MD [address] [place] [phone] Health Maintenance Due Date Last Done Comments [...] 11/28/2021 05/30/2021, 11/16, 02/02/2020, Additional history exists MAMMO SCREENING 01/21/2025 01/21/2023, 0603/2023, 03/04/2021, Additional history exists COVID-19 VACCINE ( season) 2025 06/10/2022, 07/23/2021, 10/11/2020, Additional history exists INFLUENZA VACCINE (#1) 2025 4, 05/18/2023, 05/04/2022, Additional history exists YEARLY PREVENTIVE [...] bilateral Epiretinal membrane (ERM) of left eye from Last 3 Months Results * Selective [...] obtained, the patient was brought to the [facility] laser room and given one drop [...] This was performed by myself without complication. us Molly Viveros MD OPHTHALMOLOGY Edited Result - [...] Liane Lawson MD OPHTHALMOLOGY Final Res ult from Last 3 Months Insurance [facility] [employer] [facility] COMM[employer]CIAL [facility] [employer] [facility] COMM[employer]CIAL Care Teams Asbestos Removal Worker Relationship Specialty Start Date End Date No Ref-Primary, Physician PCP - General 04/20/18 Won Franz MD [facility]THALMOLOGY [facility] [address] [place], [place] [phone] Ophthalmology 04/20/18 Moira Burkett MD [facility]THRITIS [facility] [address] [place] [address] [place] [phone] Rheumatology 05/20/18 Molly Viveros MD [address] [place] [address] Assigned Surgical Provider 12/06/24 Liane Lawson MD [address] [place] [phone] Ophthalmology 01/25/25
--- OUTSIDE RECORDS SUMMARY | 2025-05-22 07:04 | XMS_ITS | Encounter Summary ---
Author Organization [facility] Address [address] [place] [address] Care Team Providers Care Barrel Handler Name Role Phone Won Franz MD Unavailable [phone] No Ref-Primary, Physician Primary Care Provider Liane Lawson MD Unavailable [phone] Moira Burkett MD Unavailable [phone] Liane Lawson MD Unavailable [phone] Molly Viveros MD Unavailable [phone] Liane Lawson MD Unavailable [phone] Encounter Details Date Type Department Care Team (Late st Contact Info) Description 12/23/2020 [facility] [address] [place] [address] [facility] [place] Social History Tobacco Use Types Packs/Day Years [...] AM CDT Legal Sex Female 4:36 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 Gender Identity Female 12/05/2021 10:23 AM CDT [...] st Contact Info) Description 06/21/2025 9:30 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 Office Visit [facility] [address] [facility] [address] [place] [phone] Liane Lawson MD [address] [place] [phone] documented as of this encounter Visit Diagnoses Not on filedocumented in this encounter Additional Health Concerns Assessment Noted Time PHQ-9 Depression Total Score: 0 12/14/19 21 11:19 AM CDT documented as of this encounter Care Teams Barrel Handler Relationship Specialty Start Date End Date No Ref-Primary, Physician PCP - General 04/20/18 Won Franz MD [facility]MOLOGY [facility] [address] [address] Ophthalmology 04/20/18 Liane Lawson MD Ophthalmology 04/20/18 01/24/25 Moira Burkett MD ARTHRITIS [facility] [address] [address] Rheumatology 05/20/18 Liane Lawson MD [address] [place] [address] [phone] Assigned Surgical Provider 06/07/20 Molly Viveros MD [address] [place] [address] [phone] Assigned Surgical Provider 12/06/24 Liane Lawson MD [address] [place] [phone] Ophthalmology 01/25/25 documented as of this encounter
--- OUTSIDE RECORDS SUMMARY | 2025-05-22 07:04 | XMS_ITS | Clinical Summary ---
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 Active ondansetron (ZOFRAN ODT) 4 mg disintegrating tabletIndications :Disseminated histoplasmosis Place 1 Tablet (4 mg) on the tongue every 8 hours if needed for Nausea/Vomiting . 90 Tablet 3 025 Active potassium chloride (K-KASEY) 20 mEq packetIndications :Hypokalemia Mix 1 Packet (20 mEq) in liquid then take by mouth two times daily with meals. 200 Packet 3 025 Active prochlorperazine (Compazine) 5 mg tabletIndications :Hypokalemia Take 1 Tablet (5 mg) by mouth every 6 hours if needed for Nausea/Vomiting . 20 Tablet 1 025 Active rosuvastatin (CRESTOR) 10 mg tabletIndications :Coronary artery calcification TAKE 1 TABLET BY MOUTH EVERY DAY 90 Tablet 3 025 Active itraconazole (SPORANOX) 100 mg capsuleIndication s:Disseminated histoplasmosis Take 2 Capsules (200 mg) by mouth two times daily with meals. 120 Capsule 025 2024 Active rosuvastatin (CRESTOR) 10 mg tabletIndications :Coronary artery calcification Take 1 Tablet (10 mg) by mouth once daily. 90 Tablet 3 024 2024 Discontinued itraconazole (SPORANOX) 100 mg capsuleIndication s:Disseminated histoplasmosis Take 2 Capsules (200 mg) by mouth two times daily with meals. 120 Capsule 11 04/12/20 25 11:56 AM CDT 025 2024 Discontinued(R eorder (E-cancel not sent)) itraconazole (SPORANOX) 100 mg capsuleIndication s:Disseminated histoplasmosis Take 2 Capsules (200 mg) by mouth two times daily with meals. 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 Barraza, ALBERT Iron deficiency anemia, unspecified 08/27/2009 02/25/2021 Palpitations 09/30/2001 02/25/2021 Encounters Date Type Department Care Team Description 05/22/2025 Telephone [facility] [address] [place] [address] Анна Rangel PA Results (Critical potassium) 05/21/2025 9:45 AM CDT Orders Only [facility] [address] [place] [address] Lab, [facility] 05/21/2025 Orders Only [facility] [address] [place] [address] Carolina Cantor PA <No scans attached> 05/21/2025 Travel 05/18/2025 9:45 AM CDT Orders Only [facility] [address] [place] [address] Lab, [facility] 05/18/2025 Travel 05/16/2025 11:15 AM CDT Orders Only [facility] [address] [place] [address] Lab, [facility] 05/16/2025 Travel 05/16/2025 Refill [facility] [address] [place] [address] Maverick Bolanos MD Refill Request ( itraconazole (SPORANOX) [facility] [place]) 05/14/2025 9:15 AM CDT Orders Only [facility] [address] [place] [address] Lab, [facility] 05/14/2025 Travel 05/12/2025 Refill [facility] [address] [place] [address] Po Mcnamara MD Refill Request (Rosuvastatin) 05/11/2025 1:15 PM CDT Orders Only [facility] [address] [place] [address] Lab, [facility] 05/11/2025 Travel 05/11/2025 Telephone [facility] [address] [place] [address] Maverick Bolanos MD Lab; Follow Up 05/09/2025 9:45 AM CDT Orders Only [facility] [address] [place] [address] Lab, [facility] 05/09/2025 Travel 05/07/2025 11:15 AM CDT Orders Only [facility] [address] [place] [address] Lab, [facility] 05/07/2025 Travel 05/04/2025 8:15 AM CDT Orders Only [facility] [address] [place] [address] Lab, [facility] 05/04/2025 Travel 05/03/2025 9:30 AM CDT Office Visit [facility] [address] [place] [address] Maverick Bolanos MD Follow Up 05/02/2025 3:30 PM CDT Office Visit [facility] [address] [place] [address] Conrad Hernandez MD Follow Up (yearly f/u coronary artery calcification//pt states she feels good - just weak from being in the hospital ) 05/02/2025 Travel 05/01/2025 Lab Requisition [facility] [phone] Unknown, Doctor 04/30/2025 Telephone [facility] [address] [facility] [address] [place] [address] Sharmin Covington MD Medication Management; Lab 04/27/2025 Telephone [facility] [address] [place] [address] Sharmin Covington MD Lab (Potassium Results) 04/26/2025 9:15 AM CDT Orders Only [facility] [address] [place] [address] Lab, [facility] 04/26/2025 Travel 04/18/2025 Telephone [facility] [address] [facility] [address] [place] [address] Maverick Bolanos MD Lab 04/17/2025 8:20 AM CDT Office Visit [facility] [address] [place] [address] Sharmin Covington MD Hospital F/U 04/17/2025 Orders Only [facility] [address] [place] [address] Sharmin Covington MD 1 scan: (1-Ord) 04/17/2025 04/17/2025 Travel 04/17/2025 Patient Outreach [facility] [address] [place] [address] Odalis Avalos, TRINA Primary RN Care Management; Hospital F/U (Acute Hypoxic Respiratory Failure, DOD: 04/14/25, LACE+: 72) 03/29/2025 3:44 PM CDT - 04/14/2025 2:38 PM CDT Hospital Encounter [facility] [address] [place] [address] [facility] Hospitalists Of Maverick Nation MD Anderson, Mary Keven, MD Residents, [facility], MD Eula Ac, MD Kit Ye, MD Tania Frazier, MD Abdullahi Mora Jimmy, MD Disseminated histoplasmosis (Primary Dx); Medication monitoring encounter; Acute hypoxic respiratory failure (HC) Discharge Disposition: Home Self Care 03/29/2025 Travel 03/28/2025 4:00 PM CDT Ancillary Procedure [facility] [address] [place] [address] 2025 8:25 AM CDT Ancillary Procedure [facility] [address] [place] [address] 2025 7:55 AM CDT Office Visit [facility] [address] [place] [address] Анна Rangel PA Fever (fever since Wednesday, 102 fever yesterday.); Headache (headache with fever) 2025 Travel from Last 3 Months Immunizations Immunization Administration Dates Next Due COVID-19 vaccine (Moderna 100mcg/0.5mL) PF, MDV 07/23/2021,10/11/2020,09/13/2020 Hepatitis B (Adult) 02/03/2006,11/03/2005 Hepatitis B (Peds) 09/28/2005 INFLUENZA, IIV3 PF (AGE >= 6 MO) 05/16/2024 Influenza, IIV3 (Age >=3 years) 05/16/2024 Influenza, IIV4 05/18/2023, 2,06/04/2021,2018 MMR 08/12/2011 Pneumococcal Conj 20-valent (Prevnar 20) [...] Smoking Tobacco: Former Cigarettes 0.5 10 1 998 - 08/2007 Passive Smoke Exposure: Never Smokeless [...] on file Legal Sex 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 Gender Identity Not on file Sexual Orientation Not on file 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 file Not on file Not on file Obstetrics History Para Term AB IAB SAB Ectopic Multiple Livin g Live Births 0 0 0 0 0 0 0 0 0 0 Last Filed Vital Signs Vital Sign Reading Time Taken Comments Blood Pressure 128/89 05/03/2025 9:31 AM CDT Pulse 98 05/03/2025 9:31 AM CDT Temperature 38.1 C (100.5 F) 04/14/2025 2:00 PM CDT Respiratory Rate 18 05/03/2025 9:31 AM CDT Oxygen Saturation 96% 05/03/2025 9:31 AM CDT Inhaled Oxygen Concentration - - Weight 65.3 kg (144 lb) 05/03/2025 9:31 AM CDT Height 167.6 cm (5' 6) 05/02/2025 3:37 PM CDT Body Mass Index 23.24 05/02/2025 3:37 PM CDT Plan of Treatment Upcoming Encounters Date Type Department Care Team (Late st Contact Info) Description 05/23/2025 8:45 AM CDT Orders Only [facility] [address] [place] [address] Lab, [facility] 05/25/2025 9:15 AM CDT Orders Only [facility] [address] [place] [address] Lab, [facility] 06/13/2025 9:00 AM CDT Office Visit [facility] [address] [address] [place] [address] [place] [address] Health Maintenance Due Date Last Done Comments Hepatitis B series for 19+ ( 3 of 3 - 19+ 3-dose series) 05/06/2006 02/03/2006, 11/03/2005, 09/28/2005 Colonoscopy through age 75 2016 Mammogram for age 45-75 01/22/2024 01/22/20, 03/04/2021, 08/10/2019, Additional history exists COVID-19 vaccine series ( season) 2025 06/10/2022, 07/23/2021, 10/11/2020, Additional history exists Influenza Vaccine (#1) 2025 , 05/16/2024, 05/18/2023, Additional history exists Depression screening for age 12+ 09/12/2025 09/12/2024, 11/19/2022, 09/29/2021, Additional history exists BMI (ht and wt on same day) for age 18+ 05/02/2026 05/02/2025, 09/12/2024, 05/08/2024, Additional history exists Pap test for age 21-65 09/12/2029 , 09/12/2024, 10/02/2019, Additional history exists Lipids for age 45-75 05/04/2030 05/04/2025, 09/12/2024, 11/19/2022, Additional history exists Tetanus booster 11/19/2032 11/19/2022, 01/2013, 09/22/2005 RSV vaccine for adults or (1 - 1-dose 75+ series) 2046 HIV for age 15-65 Completed 11/19/2022 Pneumococcal series for age 50+ Completed Zoster (shingles) series for age 50+ Completed 12/11/2024, 09/12/2024 Hepatitis C screening for ag e 18-79 Completed 03/31/2025, 09/22/2005 Procedures Procedure Name Priority Date/Time Associated Diagnosis Comments BASIC METABOLIC PANEL Routine 05/21/2025 9:46 AM CDT Hypokalemia Medication monitoring encounter BASIC METABOLIC PANEL Routine 05/18/2025 9:45 AM CDT Hypokalemia Medication monitoring encounter BASIC METABOLIC PANEL Routine 05/16/2025 11:48 AM CDT Hypokalemia Medication monitoring encounter MAGNESIUM Routine 05/14/2025 9:16 AM CDT Medication monitoring encounter COMP METABOLIC PANEL Routine 05/14/2025 9:16 AM CDT Medication monitoring encounter BASIC METABOLIC PANEL Routine 05/11/2025 1:52 PM CDT Hypokalemia Medication monitoring encounter BASIC METABOLIC PANEL Routine 05/09/2025 9:43 AM CDT Hypokalemia Medication monitoring encounter CBC WITH AUTO DIFFERENTIAL Routine 05/07/2025 11:18 AM CDT Medication monitoring encounter ITRACONAZOLE Routine 05/07/2025 11:18 AM CDT Medication monitoring encounter MAGNESIUM Routine 05/07/2025 11:18 AM CDT Medication monitoring encounter CBC WITH AUTO DIFFERENTIAL Routine 05/07/2025 11:18 AM CDT Medication monitoring encounter COMP METABOLIC PANEL Routine 05/07/2025 11:18 AM CDT Medication monitoring encounter CBC WITH AUTO DIFFERENTIAL Routine 05/04/2025 8:22 AM CDT Medication monitoring encounter COCCIDIOIDES ANTIBODY BY COMPLEMENT FIXATION Routine 05/04/2025 8:22 AM CDT At risk for infection COCCIDIOIDES ANTIBODY IGG & IGM Routine 05/04/2025 8:22 AM CDT At risk for infection BASIC METABOLIC PANEL Routine 05/04/2025 8:22 AM CDT Hypokalemia Medication monitoring encounter LIPID PANEL W REFLEX MEASURED LDL Routine 05/04/2025 8:22 AM CDT Dyslipidemia Elevated coronary artery calcium score MAGNESIUM Routine 05/04/2025 8:22 AM CDT Medication monitoring encounter CBC WITH AUTO DIFFERENTIAL Routine 05/04/2025 8:22 AM CDT Medication monitoring encounter LAB TRACKING EVENT Routine 05/01/2025 12 :00 PM CDT PERIPHERAL BLD MORPHOLOGY Routine 04/30/2025 4:00 PM CDT CBC WITH AUTO DIFFERENTIAL Routine 04/26/2025 9:17 AM CDT Medication monitoring encounter ITRACONAZOLE Routine 04/26/2025 9:17 AM CDT Medication monitoring [...] CULTURE Today 04/06/2025 2:0 2 PM CDT FUNGUS CULT, OTHER SOURCE Today 04/06/2025 2:02 PM CDT PROTEIN,BODY FLUID Today 04/06/2025 2: [...] Today 03/31/2025 11:50 AM CDT PATH 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 CYTOLOGY Today 03/31/2025 11:46 AM CDT BASIC [...] ANTIGEN Today 03/30/2025 10:54 AM CDT FUNGITELL [id number] BLOOD/BAL/CSF Today 03/30/2025 10:23 AM CDT SCAN-CARDIAC [...] CDT Acute cough Fever, unspecified fever cause 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 SODIUM 141 135 - 146 mmol/L 05/22/2025 5:33 AM CDT [facility] POTASSIUM 2.6(LL) 3.5 - 5.3 mmol/L 05/22/2025 5:33 AM CDT [facility] Comment:Verified by repeat a nalysis. CARBON DIOXIDE 29 20 - 32 mmol/L 05/22/2025 5:33 AM CDT [facility] GLUCOSE 110(H) 65 - 99 mg/dL 05/22/2025 5:33 AM CDT [facility] Comment: Fasting reference interval For someone without known diabetes, a glucose value between 100 and 125 mg/dL is consistent with prediabetes and should be confirmed with a follow-up test. CALCIUM 8.8 8.6 - 10.4 mg/dL 05/22/2025 5:33 AM CDT [facility] CREATININE 1.11(H) 0.50 - 1.03 mg/dL 05/22/2025 5:33 AM CDT [facility] BUN/CREATININE RATIO 11 6 - 22 (calc) 05/22/2025 5:33 AM CDT [facility] EGFR 59(L) > OR = 60 mL/min/1. 73m2 05/22/2025 5:33 AM CDT [facility] UREA NITROGEN (BUN) 12 7 - 25 mg/dL 05/22/2025 5:33 AM CDT [facility] ELECTROLYTE BALANCE 7 7 - 17 mmol/L (calc) 05/22/2025 5:33 AM CDT [facility] CHLORIDE 105 98 - 110 mmol/L 05/22/2025 5:33 AM CDT [facility] Blood BLOOD SPECIMEN / Unknown [facility] / Unknown 05/21/2025 9:46 AM CDT 05/21/2025 9:46 AM CDT Maverick Bolanos MD CHEMISTRY Final Re sult Performing Organization Address [facility]/ZIP Co de Phone Number [employer] [address] [address], [place] [phone] * MAGNESIUM (05/14/2025 9:16 AM CDT) Only the most recent of21 resultswithin the time period is included. MAGNESIUM 1.9 1.5 - 2.5 mg/dL 05/15/2025 4:47 AM CDT [facility] Blood BLOOD SPECIMEN / Unknown [facility] / Unknown 05/14/2025 9:16 AM CDT 05/14/2025 9:16 AM CDT us Maverick Bolanos MD CHEMISTRY Final Re sult Performing Organization Address [facility]/ZIP Co de Phone Number [facility] [address] [address], [place] [phone] * (ABNORMAL) COMP METABOLIC PANEL (05/14/2025 9:16 AM CDT) Only the most recent of5 resultswithin the time period is included. SODIUM 140 135 - 146 mmol/L 05/15/2025 4:47 AM CDT [facility] POTASSIUM 3.5 3.5 - 5.3 mmol/L 05/15/2025 4:47 AM CDT [facility] CHLORIDE 107 98 - 110 mmol/L 05/15/2025 4:47 AM CDT [facility] CARBON DIOXIDE 26 20 - 32 mmol/L 05/15/2025 4:47 AM CDT [facility] GLUCOSE 84 65 - 99 mg/dL 05/15/2025 4:47 AM CDT [facility] Comment: Fasting reference interval CALCIUM 9.3 8.6 - 10.4 mg/dL 05/15/2025 4:47 AM CDT [facility] CREATININE 1.12(H) 0.50 - 1.03 mg/dL 05/15/2025 4:47 AM CDT [facility] BUN/CREATININE RATIO 10 6 - 22 (calc) 05/15/2025 4:47 AM CDT [facility] EGFR 58(L) > OR = 60 mL/min/1. 73m2 05/15/2025 4:47 AM CDT [facility] ALBUMIN 3.7 3.6 - 5.1 g/dL 05/15/2025 4:47 AM CDT [facility] PROTEIN, TOTAL 8.0 6.1 - 8.1 g/dL 05/15/2025 4:47 AM CDT [facility] BILIRUBIN, TOTAL 0.6 0.2 - 1.2 mg/dL 05/15/2025 4:47 AM CDT [facility] ALKALINE PHOSPHATASE 138 37 - 153 U/L 05/15/2025 4:47 AM CDT [facility] ALT 53(H) 6 - 29 U/L 05/15/2025 4:47 AM CDT [facility] AST 39(H) 10 - 35 U/L 05/15/2025 4:47 AM CDT [facility] UREA NITROGEN (BUN) 11 7 - 25 mg/dL 05/15/2025 4:47 AM CDT [facility] GLOBULIN 4.3(H) 1.9 - 3.7 g/dL (calc) 05/15/2025 4:47 AM CDT [facility] ALBUMIN/GLOBULIN RATIO 0.9(L) 1.0 - 2.5 (calc) 05/15/2025 4:47 AM CDT [facility] Blood BLOOD SPECIMEN / Unknown [facility] / Unknown 05/14/2025 9:16 AM CDT 05/14/2025 9:16 AM CDT Maverick Bolanos MD CHEMISTRY Final Re sult [facility] [address] [place] [address], * ITRACONAZOLE (05/07/2025 11:18 AM CDT) Only the most recent of2 resultswithin the time period is included. ITRACONAZOLE 2.41 mcg/mL 05/11/2025 1:30 PM CDT [employer] Comment: (Note) This test was developed and its analytical performance characteristics have been determined by [facility]. It has not been cleared or approved by the FDA. This assay has been validated pursuant to the CLIA regulations and is used for clinical purposes. [place]-ITRACONAZOLE 3.23 mcg/mL 1:30 PM CDT [facility] Comment: (Note) - Itraconazole (trough) localized infection: > 0.5 mcg/mL - Itraconazole (trough) systemic infection: > 1.0 mcg/mL The total of Itraconazole and its active metabolite, hydroxyl-itraconazole,is 1-4 mcg/mL. This test was developed and its analytical performance characteristics have been determined by [facility]. It has not been cleared or approved by the FDA. This assay has been validated pursuant to the CLIA regulations and is used for clinical purposes. [facility] med fusion [address] [facility] [address] [facility] [address] Fahad Wallace MD, PhD Blood BLOOD SPECIMEN / Unknown [facility] / Unknown 05/07/2025 11:18 AM CDT 05/07/2025 11:18 AM CDT Maverick Bolanos MD SEND OUTS Final Re sult [facility] [place] [place] [address], [place] [phone] * (ABNORMAL) CBC WITH AUTO DIFFERENTIAL (05/07/2025 11:18 AM CDT) Only the most recent of12 resultswithin the time period is included. Pathologist [facility] WHITE BLOOD CELL COUNT 8.0 3.8 - 10.8 Thousand/ uL 05/08/2025 3:36 AM CDT [facility] RED BLOOD CELL COUNT 3.02(L) 3.80 - 5.10 Million/u L 05/08/2025 3:36 AM CDT [facility] HEMOGLOBIN 8.8(L) 11.7 - 15.5 g/dL 05/08/2025 3:36 AM CDT [facility] HEMATOCRIT 28.7(L) 35.0 - 45.0 % 05/08/2025 3:36 AM CDT [facility] MCV 95.0 80.0 - 100.0 fL 05/08/2025 3:36 AM CDT [facility] MCH 29.1 27.0 - 33.0 pg 05/08/2025 3:36 AM CDT [facility] MCHC 30.7(L) 32.0 - 36.0 g/dL 05/08/2025 3:36 AM CDT [facility] Comment: For adults, a slight decrease in the calculated MCHC value (in the range of 30 to 32 g/dL) is most likely not clinically significant; however, it should be interpreted with caution in correlation with other red cell parameters and the patient's clinical condition. RDW 17.0(H) 11.0 - 15.0 % 05/08/2025 3:36 AM CDT [facility] PLATELET COUNT 379 140 - 400 Thousand/ uL 05/08/2025 3:36 AM CDT [facility] MPV 10.7 7.5 - 12.5 fL 05/08/2025 3:36 AM CDT [facility] NEUTROPHILS 45.7 % 05/08/2025 3:36 AM CDT [facility] LYMPHOCYTES 39.4 % 05/08/2025 3:36 AM CDT [facility] MONOCYTES 9.7 % 05/08/2025 3:36 AM CDT [facility] EOSINOPHILS 3.6 % 05/08/2025 3:36 AM CDT [facility] BASOPHILS 1.6 % 05/08/2025 3:36 AM CDT [facility] ABSOLUTE NEUTROPHILS 3656 1500 - 7800 cells/uL 05/08/2025 3:36 AM CDT [facility] ABSOLUTE LYMPHOCYTES 3152 850 - 3900 cells/uL 05/08/2025 3:36 AM CDT [facility] ABSOLUTE MONOCYTES 776 200 - 950 cells/uL 05/08/2025 3:36 AM CDT [facility] ABSOLUTE EOSINOPHILS 288 15 - 500 cells/uL 05/08/2025 3:36 AM CDT [facility] ABSOLUTE BASOPHILS 128 0 - 200 cells/uL 05/08/2025 3:36 AM CDT [facility] Blood BLOOD SPECIMEN / Unknown [facility] / Unknown 05/07/2025 11:18 AM CDT 05/07/2025 11:18 AM CDT Maverick Bolanos MD HEMATOLOGY Final Re sult [facility] [address] [place] [address], * (ABNORMAL) COCCIDIOIDES ANTIBODY IGG & IGM (05/04/2025 8:22 AM CDT) Only the most recent of3 resultswithin the time period is included. AB TO TP ANTIGEN(IGM), ID POSITIVE( A) 05/13/2025 6:46 PM CDT [facility] Comment: REFERENCE RANGE: NEGATIVE Antibodies to Coccidioides TP antigen usually appear during the first week of infection, and remain detectable for approximately 5 months; their detection indicates recent, active infection. Antibodies to Coccidioides F antigen appear within a month of infection, and remain detectable for up to a year thereafter. AB TO F ANTIGEN (IGG), ID POSITIVE( A) 05/13/2025 6:46 PM CDT [facility] Blood BLOOD SPECIMEN / Unknown [facility] / Unknown 05/04/2025 8:22 AM CDT 05/04/2025 8:23 AM CDT Maverick Bolanos MD SEND OUTS Final Re sult Performing Organization Address [facility]/ZIP Co de Phone Number [facility] [address] [place] [address], [place] [phone] * COCCIDIOIDES ANTIBODY BY COMPLEMENT FIXATION (05/04/2025 8:22 AM CDT) Only the most recent of2 resultswithin the time period is included. COCCIDIOIDES AB, CF,SERUM <1:2 05/09/2025 4:59 PM CDT [facility] Comment: REFERENCE RANGE: <1:2 INTERPRETIVE CRITERIA: <1:2 Antibody Not Detected > or = 1:2 Antibody Detected All serum titers > or = 1:2 should be considered evidence indicative of coccidioidomycosis, although titers of 1:2 and 1:4 should be confirmed by immunodiffusion testing. Titers exceeding 1:16 usually reflect disseminated disease. In general, higher titers are correlated with disease severity, and changes in serial titers are of prognostic value A negative CF test does not, however, rule out the diagnosis. Only 70% of patients with cavitary disease are positive, and only 30% of patients with nodular disease are positive. This test was developed and its analytical performance characteristics have been determined by [facility]. It has not been cleared or approved by FDA. This assay has been validated pursuant to the CLIA regulations and is used for clinical purposes. Blood BLOOD SPECIMEN / Unknown [facility] / Unknown 05/04/2025 8:22 AM CDT 05/04/2025 8:23 AM CDT Maverick Bolanos MD SEND OUTS Final Re sult [employer] [address] [address], [place] [phone] * (ABNORMAL) LIPID PANEL W REFLEX MEASURED LDL (05/04/2025 8:22 AM CDT) CHOLESTEROL, TOTAL 136 <200 mg/dL 05/05/2025 5:01 AM CDT [facility] TRIGLYCERIDES 202(H) <150 mg/dL 05/05/2025 5:01 AM CDT [employer] Comment: If a non-fasting specimen was collected, consider repeat triglyceride testing on a fasting specimen if clinically indicated. Shae et al. J. of Clin. Lipidol. 2015;9:129-169. HDL CHOLESTEROL 59 > OR = 50 mg/dL 05/05/2025 5:01 AM CDT [facility] NON HDL CHOLESTEROL 77 <130 mg/dL (calc) 05/05/2025 5:01 AM CDT [employer] Comment: For patients with diabetes plus 1 major ASCVD risk factor, treating to a non-HDL-C goal of <100 mg/dL (LDL-C of <70 mg/dL) is considered a therapeutic option. CHOL/HDLC RATIO 2.3 <5.0 (calc) 05/05/2025 5:01 AM CDT [facility] LDL-CHOLESTEROL 50 mg/dL (calc) 05/05/2025 5:01 AM CDT [employer] Comment: Reference range: <100 Desirable range <100 mg/dL for primary prevention; <70 mg/dL for patients with CHD or diabetic patients with > or = 2 CHD risk factors. LDL-C is now calculated using the Kyle-Chay calculation, which is a validated novel method providing better accuracy than the Friedewald equation in the estimation of LDL-C. Kyle SS et al. CALLI. 2013;310(19): 2410-1412 (http://education.Cloudy Days.Peerby/faq/DIJ317) Blood BLOOD SPECIMEN / Unknown [facility] Collect / Unknown 05/04/2025 8:22 AM CDT 05/04/2025 8:23 AM CDT us Conrad Hernandez MD CHEMISTRY Final Result [employer] [facility] [address] [place] [address], * LAB TRACKING EVENT (05/01/2025 12:00 PM CDT) Other (Other) Client Collect / Unknown 05/01/2025 12:00 PM CDT 05/01/2025 2:29 PM CDT us Doctor Unknown LAB BILL ONLY Final Result [facility] [address] [place] [address], * PERIPHERAL BLD MORPHOLOGY (04/30/2025 4:00 PM CDT) Only the most recent of2 resultswithin the time period is included. Case Report Special Hematology Report Case: [id number] Authorizing Provider: Unknown, Doctor Collected: 04/30/2025 1600 Ordering Location: [facility] Received: 05/01/2025 1550 Pathologist: Richar Christensen MD Specimen: Peripheral Blood 05/02/2025 1:51 PM CDT [facility] Final Diagnosis PERIPHERAL BLOOD: 1. Normocytic anemia 2. See comment 05/02/2025 1:51 PM CDT [facility] at 1351 CDT Comment The specific etiology of the anemia is not apparent from the blood smear findings. Normocytic anemia may be associated with a variety of conditions, including anemia of chronic disease, hypothyroidism, active bleeding, early iron deficiency, or medication effect. The morphologic features are not suggestive of hemolysis. No definite myelodysplastic features are seen. This case was also reviewed by Paty Silvestre MT, MS ([facility]). 05/02/2025 1:51 PM CDT [facility] LABORAT[facility]- ENTRAL LABORATORY Clinical Information Per CBC scan: Anemia. Per EPIC: Additional history includes rheumatoid arthritis, CKD, and acquired immunocompromise state. She is currently receiving prednisone. Peripheral blood morphology 03/31/2025 ([id number]) showed a normocytic anemia and thrombocytopenia. 04/26/25 09:17 CREATININE: 1.36 (H) eGFR: 46 (L) 05/02/2025 1:51 PM CDT [facility] [employer] LABORATORY ENTRAL LABORATORY CBC and Differential HEMATOLOGY PARAMETERS Tested at: [facility] RESULTS EXPECTED VALUES WBC: 5.8 4.5-35w9671/cumm RBC: 2.69 4.00-5.20 mil/cumm DECREASED HGB: 7.5 12-16 gm/dl DECREASED HCT: 24.2 33-51% DECREASED MCV: 90.0 80-100 fl NORMOCYTIC MCH: 27.9 26-34 pg MCHC: 31.0 32-36 gm/dl HYPOCHROMIC RDW: 16.1 11.5-15.5% ELEVATED PLT: 264 140-001u6051/uL MPV: 11.0 6.5-11 fl Retic: 3.0 0.5-1.5% ELEVATED Differential Tested at: [facility] Absolute (%) Expected (%) (x10*9/L) (x10*9/L) Neutrophils: 2.19 (37.7) 1.7-7.0 (42-72%) Lymphocytes: 2.48 (42.7) 0.9-2.9 (20-44%) Monocytes: 0.72 (12.4) <0.9 (0-11%) Eosinophils: 0.29 (5) <0.5 (0-2%) Basophils: 0.06 (1) <0.3 (<3.0%) Imm Grans: 0.07 (1.2) <0.3 (0-3%) (Metas, Myelos,Pros) 05/02/2025 1:51 PM CDT [facility] Microscopic Description The final diagnosis is based on microscopic examination of appropriate sections of all specimens. 05/02/2025 1:51 PM CDT [facility] Additional Information Interpreted at [facility] - [address], [place] [address] 05/02/2025 1:51 PM CDT [facility] Blood (Peripheral Blood) 04/30/2025 4:00 PM CDT 05/01/2025 3:50 PM CDT us Doctor Unknown HEMATOLOGY Final Result [facility] [address] [place] [address], * EKG 12 LEAD (04/17/2025 12:00 AM CDT) Only the most recent of4 resultswithin the time period is included. Sharmin Covington MD EKG ORD Final R esult * (ABNORMAL) POTASSIUM (04/14/2025 4:23 AM CDT) Only the most recent of22 resultswithin the time period is included. POTASSIUM 3.3(L) 3.5 - 5.1 mmol/L 04/14/2025 5:52 AM CDT [facility] Blood BLOOD SPECIMEN / Unknown Butterfly / Unknown 04/14/2025 4:23 AM CDT 04/14/2025 5:26 AM CDT Maile Alford RN CHEMISTRY Final Result [facility] [address] [place] [address], * COCCIDIOIDE TITER (REFLEX ONLY) (04/13/2025 5:53 AM CDT) Only the most recent of2 resultswithin the time period is included. Coccidioide Titer, Compl. Fix. <1:2 <1:2 04/17/2025 7:08 PM CDT [facility] Comment: INTERPRETIVE INFORMATION: Coccidioide Titer A titer [...] AM CDT 04/13/2025 6:09 AM CDT Narrative [facility] ([facility]) - 04/17/2025 7:08 PM CDT Performed at: 01 - [place] [address] [place] [id number] Human Resource Officer: [facility], located within [facility], Phone: [phone] us Maverick Bolanos MD SEND OUTS Final Re sult [facility] ([facility]) [address] [place] [address], [place] * XR CHEST 2 VIEWS PA [...] @ Apr 12 2025 8:47AM (Electronically Signed) [email or web address] Narrative 04/12/2025 8:47 AM CDT For Patients: [...] @ Apr 12 2025 8:47AM (Electronically Signed) [email or web address] us Maverick Bolanos MD GENERAL IMAGING Final Re sult * (ABNORMAL) RENAL FUNCTION PANEL (04/10/2025 5:22 AM CDT) Only the most recent of3 resultswithin the time period is included. SODIUM 139 136 - 145 mmol/L 04/10/2025 6:07 AM CDT [facility] POTASSIUM 3.0(L) 3.5 - 5.1 mmol/L 04/10/2025 6:07 AM CDT [facility] CHLORIDE 100 98 - 107 mmol/L 04/10/2025 6:07 AM T [facility] CO2,TOTAL 28 22 - 29 mmol/L 04/10/2025 6:07 AM CDT [facility] ANION GAP 11 5 - 18 04/10/2025 6:07 AM CDT [facility] GLUCOSE 94 70 - 99 mg/dL 04/10/2025 6:07 AM CDT [facility] CALCIUM 7.9(L) 8.8 - 10.4 mg/dL 04/10/2025 6:07 AM T [facility] Comment: Reference ranges for this test were updated on 06/20/2024 to reflect our healthy population more accurately. Reference range changes are not retroactively applied to results, but previous results using the same methodology can be interpreted in the context of the new reference range. BUN 34(H) 6 - 20 mg/dL 04/10/2025 6:07 AM CDT [facility] CREATININE 1.70(H) 0.50 - 0.90 mg/dL 04/10/2025 6:07 AM T [facility] BUN/CREAT RATIO 20 10 - 20 6:07 AM T [facility] eGFR 35(L) >90 mL/min/1. 73m2 04/10/2025 6:07 AM CDT [facility] Comment:As of 2021, eG FR is calculated by the CKD-EPI creatinine equation without race adjustment. eGFR can be influenced by muscle mass, exercise, and diet. The reported eGFR is an estimation only and is only applicable if the renal function is stable. PHOSPHORUS 4.1 2.5 - 4.5 mg/dL 04/10/2025 6:07 AM CDT [facility] ALBUMIN 3.1(L) 4.0 - 4.9 g/dL 04/10/2025 6:07 AM CDT [facility] Blood BLOOD SPECIMEN / Unknown Venipuncture / Unknown 04/10/2025 5:22 AM CDT 04/10/2025 5:34 AM CDT Paty Polanco MD CHEMISTRY Final R esult [facility] [address] [place] [place] [address], [place] * SCAN CORRESP-LABORATORY RESULTS (04/09/2025 12:25 [...] - 16.0 g/dL 04/09/2025 11:36 AM CDT [facility] MCV 88 80 - 100 fL 04/09/2025 11:36 AM CDT [facility] Blood BLOOD SPECIMEN / Unknown Non-Lab Venipuncture / Unknown 04/09/2025 11:11 AM CDT 04/09/2025 11:26 AM CDT Julio Fernando MD HEMATOLOGY Final Result [facility] [address] [place] [address], [place] * CWS PATH REVIEW HEMATOLOGY (04/09/2025 5:17 AM CDT) Only the most recent of2 resultswithin the time period is included. PATH COMMENT Comment 04/09/2025 10:44 AM CDT [facility] Comment:Reviewed by GL 2024 Blood BLOOD SPECIMEN / Unknown Venipuncture / Unknown 04/09/2025 5:17 AM CDT 04/09/2025 5:42 AM CDT Monika Marin MD LABORATORY F inal Result Performing Organization Address City/[facility]/ZIP Co de Phone Number [facility] [address] [place] [address], [place] * Bilirubin, total AM (04/08/2025 5:19 AM CDT) BILIRUBIN,TOTA L 1.2 0.0 - 1.2 mg/dL 04/08/2025 5:53 AM CDT [facility] Blood BLOOD SPECIMEN / Unknown Butterfly / Unknown 04/08/2025 5:19 AM CDT 04/08/2025 5:25 AM CDT Monika Marin MD CHEMISTRY F inal Result [facility] [address] [place] [address], [place] * (ABNORMAL) ALT AM (04/08/2025 5:19 AM CDT) Only the most recent of2 resultswithin the time period is included. ALT (SGPT) 180(H) 10 - 35 IU/L 04/08/2025 5:53 AM CDT [facility] Blood BLOOD SPECIMEN / Unknown Butterfly / Unknown 04/08/2025 5:19 AM CDT 04/08/2025 5:25 AM CDT Monika Marin MD CHEMISTRY F inal Result Performing Organization Address [facility]/ZIP Co de Phone Number [facility] [address] [place] [address], [place] * (ABNORMAL) AST AM (04/08/2025 5:19 AM CDT) AST (SGOT) 73(H) 10 - 35 IU/L 04/08/2025 5:53 AM CDT [facility] Blood BLOOD SPECIMEN / Unknown Butterfly / Unknown 04/08/2025 5:19 AM CDT 04/08/2025 5:25 AM CDT Monika Marin MD CHEMISTRY F inal Result Performing Organization Address [facility] de Phone Number [facility] [address] [phone], [place] * SODIUM (04/07/2025 5:16 AM CDT) Only the most recent of4 resultswithin the time period is included. SODIUM 141 136 - 145 mmol/L 04/07/2025 6:03 AM CDT [facility] Blood BLOOD SPECIMEN / Unknown Venipuncture / Unknown 04/07/2025 5:16 AM CDT 04/07/2025 5:35 AM CDT Mariangel oBlanos MD CHEMISTRY Final R esult Performing Organization Address [facility] Co de Phone Number [facility] [address] [place] [address], [place] * (ABNORMAL) CREATININE (04/07/2025 5:16 AM CDT) eGFR 40(L) >90 mL/min/1.7 3m2 04/07/2025 6:03 AM CDT [facility] Comment:As of 2021, eG FR is calculated by the CKD-EPI creatinine equation without race adjustment. eGFR can be influenced by muscle mass, exercise, and diet. The reported eGFR is an estimation only and is only applicable if the renal function is stable. CREATININE 1.54(H) 0.50 - 0.90 mg/dL 04/07/2025 6:03 AM CDT [facility] Blood BLOOD SPECIMEN / Unknown Venipuncture / Unknown 04/07/2025 5:16 AM CDT 04/07/2025 5:35 AM CDT us Mariangel Bolanos MD CHEMISTRY Final R esult [facility] [address] [place] [address], [place] * US THORACENTESIS LEFT (04/06/2025 2:20 PM CDT) Anatomical Region Laterality Modality CHEST, THORAX Ultrasound Impressions 04/06/2025 2:43 PM CDT Successful ultrasound guided therapeutic and diagnostic thoracentesis, with removal of 800 mLs of fluid from the Left pleural space. Post procedure CXR negative for pneumothorax. Veronica Bolanos PA-C [facility] Interventional Radiology [place] Protocol A. Pre-procedure verification complete yes 1-relevant [...] IMMEDIATE POST PROCEDURE NOTE 04/06/2025 Sun Lemus [id number] INFORMED CONSENT: In my discussion, prior [...] anesthetize the subcutaneous soft tissues. Then, a 5-costa rican Yueh needle with a one-way valve was advanced into the pleural space. Plan to terminate procedure at 1.5L given first time. 800 mLs of yellow serous pleural fluid was removed. Fluid sample was sent to the lab for analysis. No immediate complications. Patient tolerated the procedure well. us Mariangel Bolanos MD Final R esult * XR CHEST 1 [...] CULTURE No Growth. 04/12/2025 7:21 AM CDT [facility] GRAM STAIN No PMNs 04/12/2025 7:21 AM CDT [facility] GRAM STAIN 1+ RBCs 04/12/2025 7:21 AM CDT [facility] GRAM STAIN No Epithelial cells 04/12/2025 7:21 AM CDT [facility] GRAM STAIN No organisms seen 04/12/2025 7:21 AM CDT [facility] Body Fluid (Pleural) Non-Blood / Unknown 04/06/2025 2:02 PM CDT 04/06/2025 2:19 PM CDT us Mariangel Bolanos MD MICROBIOLOGY Final R esult [facility] [address] [place] [address], [place] * BODY FLUID CELL COUNT/DIF (04/06/2025 2:02 PM CDT) BODY FLUID SOURCE Pleural Fluid 04/06/2025 6:20 PM CDT [facility] Comment:Left BODY FLUID COLOR Yellow 04/06/2025 6:20 PM CDT [facility] BODY FLUID CLARITY Slightly Cloudy 04/06/2025 6:20 PM CDT [facility] TOTAL NUCLEATED CELLS, BF 616 /cu mm 04/06/2025 6:20 PM CDT [facility] RED BLOOD COUNT, BODY FLUID 2,000 /cu mm 04/06/2025 6:20 PM CDT [facility] % NEUTROPHILS, BODY FLUID 2 % 04/06/2025 6:20 PM CDT [facility] % LYMPHOCYTES, BODY FLUID 62 % 04/06/2025 6:20 PM CDT [facility] % MONO/MACRO, BODY FLUID 35 % 04/06/2025 6:20 PM CDT [facility] % MESOTHELIAL CELLS, BODY FLUID 1 % 04/06/2025 6:20 PM CDT [facility] Body Fluid PLEURAL FLUID SPECIMEN / Unknown Non-Blood / Unknown 04/06/2025 2:02 PM CDT 04/06/2025 2:19 PM CDT Narrative [facility] - 04/06/2025 6:20 PM CDT TO ORDER BODY FLUID CULTURES, USE; [id number] BODY FLUID CULTURE, STAIN us Mariangel Bolanos MD BODY FLUID Final R esult [facility] [address] [place] [place] [address], [place] * FUNGUS CULT, OTHER SOURCE (04/06/2025 2:02 PM CDT) Only the most recent of3 resultswithin the time period is included. CULTURE No Fungus isolated. 05/07/2025 7:00 AM CDT [facility] Other PLEURAL FLUID SPECIMEN / Unknown Non-Blood / Unknown 04/06/2025 2:02 PM CDT 04/06/2025 2:19 PM CDT Mariangel Bolanos MD MICROBIOLOGY Final R esult [facility] [address] [place] [address], [place] * PROTEIN,BODY FLUID (04/06/2025 2:02 PM CDT) SPECIMEN SOURCE Pleural Fluid 04/06/2025 3:59 PM CDT [facility] PROTEIN,BODY FLUID 1.9 g/dL 04/06/2025 3:59 PM CDT [facility] Comment:No Reference Range D efined. Body Fluid PLEURAL FLUID SPECIMEN / Unknown Non-Blood / Unknown 04/06/2025 2:02 PM CDT 04/06/2025 2:19 PM CDT Narrative [facility] - 04/06/2025 3:59 PM CDT Pleural: [...] Test developed & performance characteristics determined by [facility], [place] consistent with CLIA requirements. Not cleared or approved by [place] [facility]. Mariangel Bolanos MD BODY FLUID Final R esult Performing Organization Address [facility] Co de Phone Number [facility] [address] [address], [place] * GLUCOSE,BODY FLUID (04/06/2025 2:02 PM CDT) SPECIMEN SOURCE Pleural Fluid 04/06/2025 3:59 PM CDT [facility] GLUCOSE,BODY FLUID 105 mg/dL 04/06/2025 3:59 PM CDT [facility] Comment:No Reference Range D efined. Body Fluid PLEURAL FLUID SPECIMEN / Unknown Non-Blood / Unknown 04/06/2025 2:02 PM CDT 04/06/2025 2:19 PM CDT [facility] - 04/06/2025 3:59 PM CDT Pleural: [...] Test developed & performance characteristics [facility] [place], [place] consistent with CLIA requirements. Not cleared or approved by [place] [facility]. Mariangel Bolanos MD BODY FLUID Final R carlos Performing Organization Address [facility] Co de Phone Number [facility] [address] [address], [place] * AMYLASE,BODY FLUID (04/06/2025 2:02 PM CDT) SPECIMEN SOURCE Pleural Fluid 04/06/2025 3:59 PM CDT [facility] AMYLASE,BODY FLUID 67 IU/L 04/06/2025 3:59 PM CDT [facility] Comment:No Reference Range D efined. Body Fluid PLEURAL FLUID SPECIMEN / Unknown Non-Blood / Unknown 04/06/2025 2:02 PM CDT 04/06/2025 2:19 PM CDT Narrative [facility] - 04/06/2025 3:59 [...] Test developed & performance characteristics determined by [place], [place] consistent with CLIA requirements. Not cleared or approved by [place] FDA. Mariangel Bolanos MD BODY FLUID Final R [facility] Performing Organization Address City/[facility]/ZIP Co de Phone Number [facility] [address] [address], [place] * ANAEROBIC CULTURE (04/06/2025 2:02 PM CDT) CULTURE No anaerobes isolated 04/11/2025 8:39 AM CDT [facility] Other PLEURAL FLUID SPECIMEN / Unknown Non-Blood / Unknown 04/06/2025 2:02 PM CDT 04/06/2025 2:19 PM CDT Mariangel Bolanos MD MICROBIOLOGY Final R [facility] [address] [address], [place] * SCAN CORRESP-EKG RESULTS (04/06/2025 12:06 [...] of43 resultswithin the time period is included. GLUCOSE METER 99 65 - 100 mg/dL 04/06/2025 11:37 AM CDT [facility] Blood BLOOD SPECIMEN / Unknown 04/06/2025 11:37 AM CDT 04/06/2025 11:37 AM CDT Mariangel Bolanos MD CHEMISTRY Final R esult Performing Organization Address City/[facility]/ZIP Co de Phone Number [facility] [address] [address], [place] * (ABNORMAL) RED CELL MORPHOLOGY (04/06/2025 5:13 AM CDT) Only the most recent of6 resultswithin the time period is included. [facility] POLYCHROMASIA Slight 04/06/2025 7:23 AM CDT [facility] TARGET CELLS Few 04/06/2025 7:23 AM CDT [facility] RBC COMMENT Present(A) RBC morphology appears normal, RBC morphology within normal limits for newborns. 04/06/2025 7:23 AM CDT [facility] Blood BLOOD SPECIMEN / Unknown Venipuncture / Unknown 04/06/2025 5:13 AM CDT 04/06/2025 5:39 AM CDT Eliot Hernandez MD HEMATOLOGY Final Result Performing Organization Address City/[facility]/ZIP Co de Phone Number [facility] [address] [address], [place] * PLATELET ESTIMATE (04/06/2025 5:13 AM CDT) Only the most recent of6 resultswithin the time period is included. PLATELET ESTIMATE Adequate Adequate, No estimate 04/06/2025 7:23 AM CDT [facility] Blood BLOOD SPECIMEN / Unknown Venipuncture / Unknown 04/06/2025 5:13 AM CDT 04/06/2025 5:39 AM CDT Eliot Hernandez MD HEMATOLOGY Final Result [facility] [address] [place] [address], * (ABNORMAL) MANUAL DIFFERENTIAL (04/06/2025 5:13 AM CDT) Only the most recent of6 resultswithin the time period is included. % NEUTROPHILS 54.0 % 04/06/2025 7:23 AM CDT [facility] % LYMPHOCYTES 33.0 % 04/06/2025 7:23 AM CDT [facility] % MONOCYTES 5.0 % 04/06/2025 7:23 AM CDT [facility] % EOSINOPHILS 3.0 % 04/06/2025 7:23 AM CDT [facility] % BASOPHILS 1.0 % 04/06/2025 7:23 AM CDT [facility] % METAMYELOCYTES 2.0(H) <0.1 % 04/06/20 7:23 AM CDT [facility] % MYELOCYTES 2.0(H) <0.1 % 04/06/2025 7:23 AM CDT [facility] NEUTROPHILS ABSOLUTE 4.4 1.7 - 7.0 thou/cu mm 04/06/2025 7:23 AM CDT [facility] LYMPHOCYTES ABSOLUTE 2.7 0.9 - 2.9 thou/cu mm 04/06/2025 7:23 AM CDT [facility] MONOCYTES ABSOLUTE 0.4 <0.9 thou/cu mm 04/06/2025 7:23 AM CDT [facility] EOSINOPHILS ABSOLUTE 0.2 <0.5 thou/cu mm 04/06/2025 7:23 AM CDT [facility] BASOPHILS ABSOLUTE 0.1 <0.3 thou/cu mm 04/06/2025 7:23 AM CDT [facility] ABSOLUTE METAMYELOCYTES 0.2(H) <=0.0 thou/cu mm 04/06/2025 7:23 AM CDT [facility] ABSOLUTE MYELOCYTES 0.2(H) <=0.0 thou/cu mm 04/06/2025 7:23 AM CDT [facility] Blood BLOOD SPECIMEN / Unknown Venipuncture / Unknown 04/06/2025 5:13 AM CDT 04/06/2025 5:39 AM CDT us Eliot Hernandez MD HEMATOLOGY Final Result [facility] [address] [place] [address], * (ABNORMAL) Hepatic function panel AM (04/06/2025 5:13 AM CDT) Only the most recent of8 resultswithin the time period is included. ALBUMIN 2.5(L) 4.0 - 4.9 g/dL 04/06/2025 6:12 AM CDT [facility] PROTEIN,TOTAL 4.8(L) 6.0 - 8.0 g/dL 04/06/2025 6:12 AM CDT [facility] BILIRUBIN,TOTAL 1.1 0.0 - 1.2 mg/dL 04/06/2025 6:12 AM CDT [facility] BILIRUBIN,DIRECT 0.7(H) 0.0 - 0.2 mg/dL 04/06/2025 6:12 AM CDT [facility] BILIRUBIN,INDIRE CT 0.4 0.2 - 0.8 mg/dL 04/06/2025 6:12 AM CDT [facility] ALK PHOSPHATASE 1,093(H) 35 - 104 IU/L 04/06/2025 6:12 AM CDT [facility] ALT (SGPT) 199(H) 10 - 35 IU/L 04/06/2025 6:12 AM CDT [facility] AST (SGOT) 76(H) 10 - 35 IU/L 04/06/2025 6:12 AM CDT [facility] Blood BLOOD SPECIMEN / Unknown Venipuncture / Unknown 04/06/2025 5:13 AM CDT 04/06/2025 5:39 AM CDT us Eliot Hernandez MD CHEMISTRY Final Result Performing Organization Address [facility]/ZIP Co de Phone Number [facility] [address] [place] [address], * SCAN-CARDIAC STRIP (04/05/2025 7:18 AM CDT) us Scanner OTHER Final Result * SCAN-CARDIAC STRIP (04/04/2025 11:26 PM CDT) us Scanner OTHER Final Result * SCAN-CARDIAC STRIP (04/04/2025 3:43 PM CDT) us Scanner OTHER Final Result * (ABNORMAL) GGT TODAY (04/04/2025 9:12 AM CDT) GAMMA GT 728(H) 5 - 36 IU/L 04/04/2025 10:04 AM CDT [facility] Blood BLOOD SPECIMEN / Unknown Non-Lab Venipuncture / Unknown 04/04/2025 9:12 AM CDT 04/04/2025 9:22 AM CDT us Isabela Jolley MD CHEMISTRY Final Result [facility] [address] [address], [place] * SCAN-CARDIAC STRIP (04/04/2025 7:16 AM CDT) Scanner OTHER Final Result * (ABNORMAL) TRIGLYCERIDES propofol (04/04/2025 4:07 AM CDT) Only the most recent of3 resultswithin the time period is included. Pathologist [facility] TRIGLYCERIDES 282(H) <150 mg/dL 04/04/2025 4:45 AM CDT [facility] TRAL [facility] PROVIDER ORDERED STATUS RANDOM 04/04/2025 4:45 AM CDT [facility] Blood BLOOD SPECIMEN / Unknown Non-Lab Venipuncture / Unknown 04/04/2025 4:07 AM CDT 04/04/2025 4:13 AM CDT Eliot Hernandez MD CHEMISTRY Final Result Performing Organization Address City/[facility] Co de Phone Number [facility] [address] [place] [address], [place] * PHOSPHORUS (04/04/2025 4:07 AM CDT) Only the most recent of3 resultswithin the time period is included. Pathologist [facility] PHOSPHORUS 4.1 2.5 - 4.5 mg/dL 04/04/2025 4:45 AM CDT [facility] Blood BLOOD SPECIMEN / Unknown Non-Lab Venipuncture / Unknown 04/04/2025 4:07 AM CDT 04/04/2025 4:13 AM CDT Bentley Pantoja MD CHEMISTRY Final Result Performing Organization Address City/[facility] Co de Phone Number [facility] [address] [place] [address], [place] * (ABNORMAL) CK TOTAL propofol (04/04/2025 4:07 AM CDT) Only the most recent of3 resultswithin the time period is included. CK,TOTAL 18(L) 26 - 192 IU/L 04/04/2025 4:46 AM CDT [facility]EN[facility] LABORATORY Blood BLOOD SPECIMEN / Unknown Non-Lab Venipuncture / Unknown 04/04/2025 4:07 AM CDT 04/04/2025 4:13 AM CDT us Eliot Hernandez MD CHEMISTRY Final Result [facility]-CENTRAL LABORATORY [address] [place] [address], * SCAN-CARDIAC STRIP (04/03/2025 7:20 PM CDT) us Scanner OTHER Final Result * MRCP TODAY [...] result of the Century Cures Act, medical imagingexams and procedure [...] MD @ 04/04/2025 11:37:22 AM (Electronically Signed) Isabela Jolley MD MR Final Result * SCAN-CARDIAC STRIP (04/03/2025 7:01 AM CDT) us Scanner OTHER Final Result * (ABNORMAL) HISTOPLASMA CAPSULATUM ANTIBODIES (04/03/2025 5:06 AM CDT) Histoplasma Mycelial CF Ab <1:8 <1:8 04/10/2025 9:07 PM CDT [facility] ([facility]) Comment: INTERPRETIVE INFORMATION: Histoplasma Mycelia Antibodies by CF A titer of 1:8 or greater is generally considered presumptive evidence of histoplasmosis. A titer of 1:32 or greater or rising titers indicate strong presumptive evidence of histoplasmosis. Cross reactions, usually at lower titers, may occur with other fungal diseases. Histoplasma Yeast CF Ab 1:8(H) <1:8 04/10/2025 9:[address] [facility] (C[facility]) Comment: INTERPRETIVE INFORMATION: Histoplasma Yeast Antibodies by CF A titer of 1:8 or greater is generally considered presumptive evidence of histoplasmosis. A titer of 1:32 or greater or rising titers indicate strong presumptive evidence of histoplasmosis. Cross reactions, usually at lower titers, may occur with other fungal diseases. 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 Blood BLOOD SPECIMEN / Unknown Arterial / Unknown 04/03/2025 5:06 AM CDT 04/03/2025 5:23 AM CDT Narrative [facility] (CET) - 04/10/2025 9:07 PM CDT Performed at: [facility] [place] [address] [place] [id number] Human Resource Officer: Chaz [facility], located within [facility], Phone: [phone] us Maverick Bolanos MD SEND OUTS Final Re sult [facility] ([facility]) [facility] [place] [address], * (ABNORMAL) ARTERIAL BLOOD GAS (04/03/2025 5:06 AM CDT) Only the most recent of7 resultswithin the time period is included. PH, ARTERIAL 7.44 7.35 - 7.45 04/03/2025 5:30 AM CDT [facility] TRAL LABORATORY PCO2, ARTERIAL 38 32 - 45 mmHg 04/03/2025 5:30 AM CDT [facility] TRAL LABORATORY PO2, ARTERIAL 174(H) 83 - 108 mmHg 04/03/2025 5:30 AM CDT [facility] TRAL LABORATORY HCO3, ARTERIAL 26 21 - 28 mmol/L 04/03/2025 5:30 AM CDT [facility] TRAL LABORATORY BASE EXCESS, ARTERIAL 1.7 -2.0 - 3.0 04/03/2025 5:30 AM CDT [facility] LABOR[facility] O2 SATURATION, ARTERIAL 100(H) 94 - 98 % 04/03/2025 5:30 AM CDT [facility] TRA LABORATORY INSPIRED O2 40 04/03/2025 5:30 AM CDT [facility] Comment:Unit of Measure: Lit ers (L) if <=20; Percent (%) if >20 PATIENT TEMPERATURE 36.7 Degrees C 04/03/2025 5:30 AM CDT [facility] Blood ARTERIAL BLOOD SPECIMEN / Unknown Arterial / Unknown 04/03/2025 5:06 AM CDT 04/03/2025 5:21 AM CDT Isabela Jolley MD CHEMISTRY Final Result Performing Organization Address City/[facility] Co de Phone Number [facility] [address] [place] [address], * [facility]CIUM IONIZED HOSPITAL DRAW ONLY (04/03/2025 5:06 AM CDT) Only the most recent of5 resultswithin the time period is included. CALCIUM,IONIZE D 1.20 1.15 - 1.27 mmol/L 04/03/2025 5:28 AM CDT [facility] Blood BLOOD SPECIMEN / Unknown Arterial / Unknown 04/03/2025 5:06 AM CDT 04/03/2025 5:22 AM CDT us Annabella Aguilar RN CHEMISTRY Final Resu lt Performing Organization Address City/[facility]/ZIP Co de Phone Number [facility] [address] [place] [address], * SCAN-CARDIAC STRIP (04/02/2025 7:02 PM CDT) us Scanner OTHER Final Result * (ABNORMAL) APTT (04/02/2025 11:14 AM CDT) Only the most recent of5 resultswithin the time period is included. Pathologist [facility] APTT 47(H) 25 - 36 sec 04/02/2025 12:02 PM CDT [facility] Blood BLOOD SPECIMEN / Unknown Non-Lab Venipuncture / Unknown 04/02/2025 11:14 AM CDT 04/02/2025 11:30 AM CDT [facility] LABORATORY - 04/02/2025 12:02 PM CDT Therapeutic Range: 59-89 seconds Savannah Forde MD HEMATOLOGY F inal Result [facility] [address] [place] [address], * (ABNORMAL) HISTOPLASMA QUANTITATIVE ANTIGEN BLD (04/02/2025 10:17 AM CDT) [facility] HISTOPLASMA AG QN RESULT See below. None Detected ng/mL 04/04/2025 11:09 AM T [facility] TEST[facility] (CET) Comment: Histoplasma Antigen by EIA Above the Limit of Quantification Reference Interval: None Detected Reportable Range: Positive Results reported in ng/mL from 0.20 ng/mL to 20.00 ng/mL. Positive results above 20.00 ng/mL are reported as Above the Limit of Quantification Cross-reactions occur with Blastomyces spp., Coccidioides spp., and Paracoccidioides brasiliensis. The test was developed and its performance characteristics determined by [employer]. It has not been cleared or approved by the FDA; however, FDA clearance or approval is not currently required for clinical use. The results are not intended to be used as the sole means for clinical diagnosis or patient management decisions. HISTOPLASMA AG QN INTERP Positive (A) 04/04/2025 11:[address] [facility] (CET) SPECIMEN TYPE HISTOPLASMA AGN SERUM 04/04/2025 11:[address] [facility] ([facility]ET) Blood BLOOD SPECIMEN / Unknown Non-Lab Venipuncture / Unknown 04/02/2025 10:17 AM CDT 04/02/2025 10:24 AM CDT Narrative [facility] (CET) - 04/04/2025 11:09 AM CDT Performed at: [facility] [employer] [address] [place] [address] [place] [id number] Human Resource Officer: Carlton Thurston MD, Phone: [phone] us Maverick Bolanos MD SEND OUTS Final Re sult [facility] ([facility]) [facility] [place] [address], [place] * SCAN-CARDIAC STRIP (04/02/2025 8:40 AM CDT) us Scanner OTHER Final Result * SCAN-CARDIAC STRIP (04/02/2025 12:05 AM CDT) us Scanner OTHER Final Result * SCAN-CARDIAC STRIP (04/01/2025 11:30 AM CDT) us Scanner OTHER Final Result * (ABNORMAL) URINALYSIS MICROSCOPIC (04/01/2025 10:20 AM CDT) RBC 3-5(A) 0-2, None Seen /HPF 04/01/2025 10:38 AM CDT [facility] TRAL LABORATORY WBC 3-5 0-2, 3-5, None Seen /HPF 04/01/2025 10:38 AM CDT [facility] TRAL LABORATORY BACTERIA Few None Seen, Rare, Few Bacteria/ HPF 04/01/2025 10:38 AM CDT [facility] TRAL LABORATORY EPITHELIAL CELLS None Seen None Seen, Few Epi/HPF 04/01/2025 10:38 AM CDT [facility] TRAL LABORATORY Urine URINE SPECIMEN / Unknown Non-Blood / Unknown 04/01/2025 10:20 AM CDT 04/01/2025 10:26 AM CDT Narrative [facility] - 04/01/2025 10:38 AM CDT <2.5 ml. QNS for accurate microscopic exam. us Mau Han MD URINE Final Resul t [facility] [address] [place] [address], [place] * (ABNORMAL) UA W/ SEDIMENT EXAM REFLEXED PER CRITERIA (04/01/2025 10:20 AM CDT) COLOR Yellow Yellow Color 04/01/2025 10:38 AM CDT [facility] CLARITY Slightly Cloudy(A) Clear Clarity 04/01/2025 10:38 AM CDT [facility] SPECIFIC GRAVITY,URINE 1.010 1.010, 1.015, 1.020, 1.025 04/01/2025 10:38 AM CDT [facility] LAB[facility] PH,URINE 6.0 6.0, 7.0, 8.0, 5.5, 6.5, 7.5, 8.5 04/01/2025 10:38 AM CDT [facility] UROBILINOGEN, QUALITATIVE Normal Normal EU/dl 04/01/2025 10:38 AM CDT [facility] PROTEIN, URINE 100(A) Negative mg/dL 04/01/2025 10:38 AM CDT [facility] LAB[facility] GLUCOSE, URINE Negative Negative mg/dL 04/01/2025 10:38 AM CDT [facility] KETONES,URINE Trace(A) Negative mg/dL 04/01/2025 10:38 AM CDT [facility] LABORATORY- NTRAL LABORATORY BILIRUBIN,URI NE Negative Negative 04/01/2025 10:38 AM CDT [facility] LAB[facility] OCCULT BLOOD,URINE Large(A) Negative 04/01/2025 10:38 AM CDT [facility] LABORAT[facility]- NTRAL LABORATORY NITRITE Negative Negative 04/01/2025 10:38 AM CDT [facility] LEUKOCYTE ESTERASE Negative Negative 04/01/2025 10:38 AM CDT [facility] Urine URINE SPECIMEN / Unknown Non-Blood / Unknown 04/01/2025 10:20 AM CDT 04/01/2025 10:26 AM CDT Mau Han MD URINE Final Resul t Performing Organization Address [facility] Co de Phone Number [facility] [address] [address], [place] * SCAN-CARDIAC STRIP (04/01/2025 7:00 AM CDT) Scanner OTHER Final Result * (ABNORMAL) PROTIME-INR (04/01/2025 5:14 AM CDT) INR 0.9 <1.3 04/01/2025 5:37 AM CDT [facility] PROTIME 10.4(L) 10.6 - 12.4 sec 04/01/2025 5:37 AM CDT [facility] Blood BLOOD SPECIMEN / Unknown Line/Port / Unknown 04/01/2025 5:14 AM CDT 04/01/2025 5:23 AM CDT Narrative [facility] - 04/01/2025 5:37 [...] MD HEMATOLOGY Final Result Performing Organization Address [facility] Co de Phone Number [facility] [address] [address], [place] * SCAN-CARDIAC STRIP (03/31/2025 11:04 PM CDT) us Scanner OTHER Final Result * BLOOD CULTURE (03/31/2025 8:38 PM CDT) Only the most recent of4 resultswithin the time period is included. CULTURE No Growth. 04/05/2025 8:58 PM CDT [facility] Blood BLOOD SPECIMEN / Unknown Butterfly / Unknown 03/31/2025 8:38 PM CDT 03/31/2025 8:47 PM CDT Narrative [facility] - 04/05/2025 8:58 PM CDT Low volume blood culture received; possible false negative culture. us Sadaf Preciado MD MICROBIOLOGY F inal Result Performing Organization Address [facility]/ZIP Co de Phone Number [facility] [address] [place] [address], [place] * AFB CULTURE, STAIN (03/31/2025 4:00 PM CDT) Only the most recent of4 resultswithin the time period is included. CULTURE No Mycobacterium isolated. 05/14/2025 8:12 AM CDT [facility] ACID FAST STAIN No acid fast bacilli seen 05/14/2025 8:12 AM CDT [facility] Other SPECIMEN FROM ENDOTRACHEAL TUBE / Unknown Non-Blood / Unknown 03/31/2025 4:00 PM CDT 03/31/2025 4:22 PM CDT us Maverick Bolanos MD MICROBIOLOGY Final Re sult Performing Organization Address City/[facility]/ZIP Co de Phone Number [facility] [address] [place] [address], [place] * SCAN-CARDIAC STRIP (03/31/2025 3:31 PM [...] MD @ 03/31/2025 9:17:34 PM (Electronically Signed) Isabela Jolley MD Final Result * CWS PATH REVIEW BODY FLUID (03/31/2025 11:50 AM CDT) PATH COMMENT Comment 04/03/2025 8:26 AM CDT [facility] TRAL LABORATORY Comment:No atypical or malig nant cells, favor reactive.Reviewed by Dr. Radha Reyna on 04/02/2025 Other BRONCHOALVEOLAR LAVA GE FLUID SPECIMEN / Unknown Non-Blood / Unknown 03/31/2025 11:50 AM CDT 03/31/2025 12:14 PM CDT Savannah Forde MD LABORATORY F inal Result [facility] [address] [place] [address], * MYCOPLASMA PNEUMONIAE PCR (03/31/2025 11:50 AM CDT) pneumo PCR Negative Negative 04/04/2025 8:36 AM CDT [facility] ([facility]) Comment: No Mycoplasma pneumoniae DNA detected. This test was developed and its performance characteristics determined by [employer]. It has not been cleared or approved by the Food and Drug Administration. The FDA has determined that such clearance or approval is not necessary. Other BRONCHOALVEOLAR LAVA GE FLUID SPECIMEN / Unknown Non-Blood / Unknown 03/31/2025 11:50 AM CDT 03/31/2025 12:14 PM CDT Narrative [facility] (CET) - 04/04/2025 8:36 AM CDT Performed at: 01 - [facility] [address] [place] [id number] Human Resource Officer: Kg Cruz MD, Phone: [phone] Savannah Forde MD BODY FLUID F inal Result Performing Organization Address [facility]/ZIP Co de Phone Number [facility] (CET) [address] [place] [id number], * Legionella Species by Rapid PCR (03/31/2025 11:50 AM CDT) Only the most recent of2 resultswithin the time period is included. LEGIONELLA PCR SOURCE BAL RML 04/04/2025 12:06 PM CDT [facility] LEGIONELLA SP BY RAPID PCR Negative Not Applicable 04/04/2025 12:06 PM CDT [facility] Comment: PCR negativity does not rule out uncommon Legionella species, including L. feeleii and L. birmhinghamensis. This test was developed and its performance characteristics determined by [facility] in a manner consistent with CLIA requirements. This test has not been cleared or approved by the U.S. Food and Drug Administration. Test Performed by: [place] [id number] Human Resource Officer: Terry Mcneill Ph.D.; CLIA# [id number] Blood BRONCHOALVEOLAR LAVA GE FLUID SPECIMEN / Unknown Non-Blood / Unknown 03/31/2025 11:50 AM CDT 03/31/2025 12:15 PM CDT Savannah Forde MD SEND OUTS F inal Result Performing Organization Address City/[facility]/ZIP Co de Phone Number [address] [address], * (ABNORMAL) Bronchial Culture and Stain (03/31/2025 11:50 AM CDT) CULTURE RESULT(A) 04/03/2025 10:27 AM CDT [facility] TRAL LABORATORY CULTURE 1+ Michelle albicans/dubli niensis 04/03/2025 10:27 AM CDT [facility] TRAL LABORATORY GRAM STAIN 2+ PMNs 04/03/2025 10:27 AM CDT [facility] TR[facility] LAB[facility]ATORY GRAM STAIN 3+ RBCs 04/03/2025 10:27 AM CDT [facility] TR[facility] LAB[facility]ORY GRAM STAIN No Epithelial cells 04/03/2025 10:27 AM CDT [facility] TR[facility] LAB[facility]ORY GRAM STAIN No organisms seen 04/03/2025 10:27 AM CDT [facility] TR[facility] LAB[facility]ORY Other BRONCHOALVEOLAR LAVA GE FLUID SPECIMEN / Unknown Non-Blood / Unknown 03/31/2025 11:50 AM CDT 03/31/2025 12:14 PM CDT us Savannah Forde MD MICROBIOLOGY F inal Result [facility] [address] [place] [id number], * Bronchial Cell Count and Diff (03/31/2025 11:50 AM CDT) BODY FLUID SOURCE Bronchoalveolar Lavage 04/03/2025 8:26 AM CDT [facility] Comment:Right Middle Lobe BAL COLOR Yellow 04/03/2025 8:26 AM CDT [facility] BAL CLARITY Turbid 04/03/2025 8:26 AM CDT [facility] TOTAL NUCLEATED CELLS, BF 264 /cu mm 04/03/2025 8:26 AM CDT [facility] % NEUTROPHILS, BODY FLUID 46 % 04/03/2025 8:26 AM CDT [facility] % LYMPHOCYTES, BODY FLUID 41 % 04/03/2025 8:26 AM CDT [facility] % MONO/MACRO, BAL 11 % 04/03/2025 8:26 AM CDT [facility] % EOSINOPHILS, BODY FLUID 1 % 04/03/2025 8:26 AM CDT [facility] % BASOPHILS, BODY FLUID 1 % 04/03/2025 8:26 AM CDT [facility] LABORATORY- NTRAL LABORATORY BRONCH EPITHELIAL Few 04/03/2025 8:26 AM CDT [facility] Other BRONCHOALVEOLAR LAVA GE FLUID SPECIMEN / Unknown Non-Blood / Unknown 03/31/2025 11:50 AM CDT 03/31/2025 12:14 PM CDT Narrative [facility] - 04/03/2025 8:26 AM CDT Differential held for Pathology review us Savannah Forde MD BODY FLUID F inal Result Performing Organization Address [facility]/ZIP Co de Phone Number [facility] [address] [address], [place] * CORINNE PREP, OTHER SOURCE (03/31/2025 11:50 AM CDT) Only the most recent of2 resultswithin the time period is included. OBSERVATION No fungal elements seen 03/31/2025 2:32 PM CDT [facility] TRAL LAB[facility]ATORY Other BRONCHOALVEOLAR LAVA GE FLUID SPECIMEN / Unknown Non-Blood / Unknown 03/31/2025 11:50 AM CDT 03/31/2025 1:41 PM CDT us Maverick Bolanos MD MICROBIOLOGY Final Re sult Performing Organization Address City/[facility]/ZIP Co de Phone Number [facility] [address] [address], [place] * PATH Non PLANT [employer] WORKER Cytology - Malignant Cells and/or Fungus Stain (Brushing, Washing, BAL, Diehl) (03/31/2025 11:46 AM CDT) Case Report Medical Cytology Report Case: [id number] Authorizing Provider: Savannah Forde Collected: 03/31/2025 1146 MD Adry Ordering Location: [facility] Received: 03/31/2025 [facility] [place] [employer] Pathologist: Sana Arnold MD Specimen: Right Middle Lobe, bronchoalveolar lavage 04/02/2025 8:55 AM CDT [facility] Final Diagnosis A) LUNG, RIGHT, MIDDLE LOBE, BRONCHOALVEOLAR LAVAGE: 1. Numerous small yeast, consistent with Histoplasma species 2. Mixed inflammation, alveolar macrophages, and bronchial lining/oropharynge al squamous cells 3. Negative for viral inclusions 4. Negative for malignancy 04/02/2025 8:55 AM CDT [facility] at [address] Smith reviewed the silver stained slide and sent [employer] Chat message to Dr. Maverick Bolanos; discussed results with Dr. Bolanos at 1:47 on 04/01/25. 04/02/2025 8:55 AM CDT [facility] Clinical Information Pneumonia. Rheumatoid arthritis on methotrexate, adalimumab, prednisone. Developed cough first part of March. 04/02/2025 8:55 AM CDT [facility] Gross Description A) SOURCE: Bronchoalveolar Lavage, RML Lung The specimen consists of 25 cc of gold hazy fluid from which the following is prepared: -1 DiffQuik stained slide -1 ThinPrep slide for Papanicolaou Stain -1 GMS stained ThinPrep slide 04/02/2025 8:55 AM CDT [facility] Microscopic Description Specimen adequacy: Adequate for interpretation. All slides were reviewed. The microscopic appearance substantiates the diagnosis. [place] methenamine silver stain was performed using ThinPrep material and demonstrates numerous, small, oval, budding yeast, consistent with Histoplasma species. 04/02/2025 8:55 AM CDT [facility] Additional Information Cytology is screened at [facility], Central Laboratory - [address], [place] [address] and [facility] - [address], [place] [address] [address] [facility] - [address] [place] [address] Interpreted at [facility], Central Laboratory - [address], [place] [address] 04/02/2025 8:55 AM CDT [facility] Other (Right Middle Lobe) 03/31/2025 11:46 AM CDT 03/31/2025 12:16 PM CDT Comment:Choose site(s), Spec imen(s), and test.Site RML - BAL (Bronchial Alveolar Lavage - Cytology and Fungus / Pneumocystis Savannah Forde MD PATHOLOGY/CYTOLOG Y Final Result Performing Organization Address [facility]/ZIP Co de Phone Number [facility] [address] [place] [address], * MTB/RIF PCR (03/31/2025 9:32 AM CDT) Mycobacterium tuberculosis complex (MTB) by PCR MTB Not Detected MTB Not Detected 03/31/2025 8:51 PM CDT [facility] Sputum SPUTUM SPECIMEN / Unknown Non-Blood / Unknown 03/31/2025 9:32 AM CDT 03/31/2025 11:32 AM CDT Maverick Bolanos MD MICROBIOLOGY Final Re sult Performing Organization Address [facility] Co de Phone Number [facility] [address] [place] [address], * (ABNORMAL) VANCOMYCIN TROUGH (03/31/2025 9:32 AM CDT) VANCOMYCIN,TRO UGH 40.9(HH) 7.0 - 20.0 ug/mL 03/31/2025 10:21 AM CDT [facility] LABOR[facility]ORY DATE OF LAST DOSE,TROUGH 03/30/2025 03/31/2025 10:21 AM CDT [facility] TIME OF LAST DOSE,TROUGH 10:21 AM 03/31/2025 10:21 AM CDT [facility] Blood BLOOD SPECIMEN / Unknown Non-Lab Venipuncture / Unknown 03/31/2025 9:32 AM CDT 03/31/2025 9:39 AM CDT Maverikc Bolanos MD CHEMISTRY Final Re sult [facility] [address] [place] [address], [place] * SCAN-CARDIAC STRIP (03/31/2025 7:01 AM CDT) us Scanner OTHER Final Result * COCCIDIOIDES IMMITIS AB, BY ID (REFLEX ONLY) (03/31/2025 4:26 AM CDT) [facility] Coccidioides Immitis Ab, Prec. Not Detected Not Detected 04/09/2025 3:06 AM CDT [facility]ERIC TESTING (CET) Comment: Clinical Interpretation: No Coccidioides antibodies (ie, IDTP (IgM), IDCF (IgG)) were detected. This result does not exclude Coccidioides infection. Blood BLOOD SPECIMEN / Unknown Line/Port / Unknown 03/31/2025 4:26 AM CDT 03/31/2025 4:34 AM CDT Narrative [facility] ([facility]) - 04/09/2025 3:06 AM CDT Performed at: [facility] [employer] [address] [id number] Human Resource Officer: Chaz [facility], located within [facility], Phone: [phone] us Maverick Bolanos MD SEND OUTS Final Re sult Performing Organization Address City/[facility]/ZIP Co de Phone Number [facility] (CET) [address] [place] [address], * (ABNORMAL) ASPERGILLUS GALACTOMANNAN AG BAL/BLOOD (03/31/2025 4:26 AM CDT) Pathologist [facility] Aspergillus Ag BAL Serum 3.01(H) 0.00 - 0.49 Index 04/05/2025 10:[address] [facility] (CET) Other BLOOD SPECIMEN / Unknown Line/Port / Unknown 03/31/2025 4:26 AM CDT 03/31/2025 4:34 AM CDT Narrative [facility] (CET) - 04/05/2025 10:09 AM CDT Performed at: 01 - [facility] [address] [id number] Human Resource Officer: David Jeffers MD, Phone: [phone] Performed at: - [facility] [address] [place], [place] [id number] Human Resource Officer: Judit Meng [facility], located within [facility], Phone: [phone] Maverick Bolanos MD SEND OUTS Final Re sult [facility]IC TEST[facility] ([facility]) [facility] [place] [address], [place] * ANTI HCV (03/31/2025 4:26 AM CDT) Pathologist [facility] HEPATITIS C ANTIBODY Non-Reacti ve Non-React micheal 03/31/2025 5:14 AM CDT [facility] Comment:Please note, per www .CDC.gov: [...] Bolanos MD SEND OUTS Final Re sult [facility] [employer] [facility] [address] [place] [address], [place] * (ABNORMAL) LD,TOTAL (03/31/2025 4:26 AM CDT) Pathologist [facility] LD,TOTAL 1,621(H) 135 - 214 IU/L 03/31/2025 2:29 PM CDT [facility] Blood BLOOD SPECIMEN / Unknown Line/Port / Unknown 03/31/2025 4:26 AM CDT 03/31/2025 4:34 AM CDT us Savannah Forde MD CHEMISTRY F inal Result Performing Organization Address City/[facility]/ZIP Co de Phone Number [facility] [address] [place] [address], [place] * ANTI HBC (03/31/2025 4:26 AM CDT) ANTI HBC Non-React micheal Non-React micheal 03/31/2025 5:27 AM CDT [facility] TR[facility] Comment:Anti-HBc Antibodies not detected. Does not exclude the possibility of exposure to or infection with HBV. Levels of Anti-HBc may be below the cut-off in early infection. Blood BLOOD SPECIMEN / Unknown Line/Port / Unknown 03/31/2025 4:26 AM CDT 03/31/2025 4:34 AM CDT us Maverick Bolanos MD SEND OUTS Final Re sult Performing Organization Address [facility] Co de Phone Number [facility] [address] [place] [address], [place] * RETICULOCYTES (03/31/2025 4:26 AM CDT) RETIC% 1.0 0.5 - 1.5 % 03/31/2025 6:02 AM CDT [facility] RETIC (ABSOLUTE) 0.03 0.03 - 0.08 mil/cu mm 03/31/2025 6:02 AM CDT [facility] Blood BLOOD SPECIMEN / Unknown Line/Port / Unknown 03/31/2025 4:26 AM CDT 03/31/2025 4:34 AM CDT Mariangel Bolanos MD HEMATOLOGY Final R esult Performing Organization Address City/[facility]/ZIP Co de Phone Number [facility] [address] [place] [address], [place] * SCAN-CARDIAC STRIP (03/30/2025 8:48 PM CDT) us Scanner OTHER Final Result * (ABNORMAL) Sputum culture (03/30/2025 6:43 PM CDT) CULTURE RESULT(A) 04/01/2025 11:12 AM CDT [facility] CULTURE 1+ Yeast 04/01/2025 11:12 AM CDT [facility] Comment:See fungal culture r esults GRAM STAIN No PMNs 04/01/2025 11:12 AM CDT [facility] GRAM STAIN No RBCs 04/01/2025 11:12 AM CDT [facility] GRAM STAIN No Epithelial cells 04/01/2025 11:12 AM CDT [facility] GRAM STAIN No organisms seen 04/01/2025 11:12 AM CDT [facility] Sputum SPUTUM SPECIMEN OBTAINED BY SPUTUM INDUCTION / Unknown Non-Blood / Unknown 03/30/2025 6:43 PM CDT 03/30/2025 6:49 PM CDT Maverick Nation MD MICROBIOLOGY Final Res ult [facility] [address] [place] [address], * PNEUMOCYSTIS JIROVECI PCR (03/30/2025 6:39 PM CDT) P.JIRO SPECIMEN SOURCE SEE COMMENTS 04/01/2025 2:22 PM CDT [facility] Do[facility] Comment:RESULT: Other, Bronc hoalveolar Lavage P.JIRO RESULT Negative Not Applicable 04/01/2025 2:22 PM CDT [facility] [employer] Comment: This test was developed and its performance characteristics determined by [facility] in a manner consistent with CLIA requirements. This test has not been cleared or approved by the U.S. Food and Drug Administration. Test Performed by: [address] [address] Human Resource Officer: Terry Mcneill Ph.D.; CLIA# [id number] Other BRONCHOALVEOLAR LAVA GE FLUID SPECIMEN / Unknown Non-Blood / Unknown 03/30/2025 6:39 PM CDT 03/30/2025 6:49 PM CDT Maverick Bolanos MD SEND OUTS Final Re sult [facility] [address] [place] [address], * (ABNORMAL) BLASTOMYCES ANTIGEN (03/30/2025 6:39 PM CDT) Pathologist Awa GONCALVES(R) BLASTOMYCES AG See below. None Detected ng/mL 04/04/2025 11:[address] [facility] (CET) Comment: Blastomyces Antigen EIA Above the Limit of Quantification Reference Interval: None Detected Reportable Range: 0.31 ng/mL - 20.00 ng/mL Results above 20.00 ng/mL are reported as 'Positive, Above the Limit of Quantification' This test was developed and its performance characteristics determined by [employer]. It has not been cleared or approved by the FDA; however, FDA clearance or approval is not currently required for clinical use. The results are not intended to be used as the sole means for clinical diagnosis or patient decisions. [facility] ([facility]) Positive (A) 04/04/2025 11:[address] [facility] (CET) SPECIMEN TYPE BAL 04/04/2025 11:[address] [facility] (CET) Other (Other) Non-Blood / Unknown 03/30/2025 6:39 PM CDT 03/30/2025 6:49 PM CDT Narrative [facility] (CET) - 04/04/2025 11:09 AM CDT Performed at: [facility] [employer] [address] [place] [address], [place] [id number] Human Resource Officer: Carlton Thurston MD, Phone: [phone] Eliot Hernandez MD SEND OUTS Final Result [facility] ([facility]) [address] [place] [address], [place] * XR Chest 1 view portable [...] Adenovirus NOT Detected 03/30/2025 5:24 PM CDT [facility] Coronavirus 229E NOT Detected 03/30/2025 5:24 PM CDT [facility] Coronavirus HKU1 NOT Detected 03/30/2025 5:24 PM CDT [facility] Coronavirus NL63 NOT Detected 03/30/2025 5:24 PM CDT [facility]- [facility] Coronavirus OC43 NOT Detected 03/30/2025 5:24 PM CDT [facility]- [facility] Human Metapneumovirus NOT Detected 03/30/2025 5:24 PM CDT [facility]- [facility] Human Rhinovirus/Enterovi ze NOT Detected 03/30/2025 5:24 PM CDT [facility]- [facility] Influenza A NOT Detected 03/30/2025 5:24 PM CDT [facility]- [facility] Influenza B NOT Detected 03/30/2025 5:24 PM CDT [facility] Parainfluenza Virus 1 NOT Detected 03/30/2025 5:24 PM CDT [facility]- [facility] Parainfluenza Virus 2 NOT Detected 03/30/2025 5:24 PM CDT [facility]- [facility] Parainfluenza Virus 3 NOT Detected 03/30/2025 5:24 PM CDT [facility]- [facility] Parainfluenza Virus 4 NOT Detected 03/30/2025 5:24 PM CDT [facility]- NTRAL LABORATORY Respiratory Syncytial Virus NOT Detected 03/30/2025 5:24 PM CDT [facility]- [facility] SARS-Cov-2 NOT Detected 03/30/2025 5:24 PM CDT [facility]- [facility] Bordetella pertussis NOT Detected 03/30/2025 5:24 PM CDT [facility]- NTRAL LABORATORY Bordetella Parapertussis NOT Detected 03/30/2025 5:24 PM CDT [facility]- NTRAL LABORATORY Chlamydophila pneumoniae NOT Detected 03/30/2025 5:24 PM CDT [facility]- NTRAL LABORATORY Mycoplasma pneumoniae NOT Detected 03/30/2025 5:24 PM CDT [facility]- NTRAL LABORATORY Nasopharyngeal NASOPHARYNGEAL SWAB / Unknown Non-Blood / Unknown 03/30/2025 3:54 PM CDT 03/30/2025 4:02 PM CDT Narrative [facility] - 03/30/2025 5:24 PM CDT All PCR tests are subject to false negative results due to variability in viral/bacterial load and collection technique. This test does NOT detect MERS ( Respiratory Syndrome) or SARS-1 (Severe Acute Respiratory Syndrome). Eliot Hernandez MD MICROBIOLOGY Final Result Performing Organization Address [facility]/ZIP Co de Phone Number [facility] [address] [place] [address], * MRSA/SA PCR (03/30/2025 2:49 PM CDT) [facility] MRSA DNA PCR Negative Negative 03/30/2025 4:17 PM CDT [facility] STAPHYLOCOCCUS AUREUS PCR Negative Negative 03/30/2025 4:17 PM CDT [facility] Other SPECIMEN FROM INTERNAL NOSE / Unknown Non-Blood / Unknown 03/30/2025 2:49 PM CDT 03/30/2025 2:57 PM CDT Narrative [facility] - 03/30/2025 4:17 PM CDT Test result does not preclude MRSA or SA nasal colonization. Maverick Bolanos MD MICROBIOLOGY Final Re sult Performing Organization Address [facility] Co de Phone Number [facility] [address] [place] [address], [place] * CMV QUANT DNA PCR (BLOOD) (03/30/2025 12:19 PM CDT) Pathologist [facility] CMV Qn DNA PCR Negative Negative IU/mL 04/01/2025 8:06 PM CDT [facility] ESOTERIC TESTING (CET) Comment: No CMV DNA detected. The quantitative range of this assay is 200 to 1 million IU/mL. log10 CMV Qn DNA 04/01/20 8:[address] [facility] (CET) Comment: Unable to calculate result since non-numeric result obtained for component test. Blood BLOOD SPECIMEN / Unknown Venipuncture / Unknown 03/30/2025 12:19 PM CDT 03/30/2025 12:28 PM CDT Narrative [facility] ESOTERIC TESTING (CET) - 04/01/2025 8:06 PM CDT Performed at: 01 - [facility] [place] [address] [id number] Human Resource Officer: David Jeffers MD, Phone: [phone] Maverick Bolanos MD SEND OUTS Final Re sult [facility]IC TESTING ([facility]) [facility] [place] [address], [place] * SCAN CORRESP-DIAGNOSTICS (03/30/2025 12:00 PM CDT) Narrative 03/30/2025 12:00 PM CDT Ordered by an unspecified provider. Other Clinical Staff OTHER Final Resul t * LEGIONELLA AND PNEUMOCOCCAL URINE ANTIGEN (03/30/2025 10:54 AM CDT) [facility] STREP PNEUMO ANTIGEN Negative 03/30/2025 11:49 AM CDT [facility] [employer] TRAL LABORATORY Comment:Presumptive negative for pneumococcal pneumonia, suggesting no current or recent pneumococcal infection. Infection due to S. pneumoniae cannot be ruled out since the antigen present in the sample may be below the detection limit of the test. LEGIONELLA ANTIGEN Negative 03/30/2025 11:49 AM CDT [facility] [employer] TRAL LABORATORY Comment:Negative for L.pneum ophila serogroup [...] Maverick Bolanos MD MICROBIOLOGY Final Re sult [facility] [address] [place] [address], [place] * (ABNORMAL) FUNGITELL OGCN-F-BXIZGU BLOOD/BAL/CSF (03/30/2025 10:23 AM CDT) RESULT See below:(A) 04/02/2025 3:[address] [facility] (CET) Comment:Positive FUNGITELL VALUE Comment pg/mL 3:[address] [facility] (CET) Comment:[phone] REFERENCE VALUE See below:(A) 04/02/2025 3:[address] [facility] (CET) Comment:Negative: <60, Posit micheal: >/=60 INTERPRETATION LC Notes 025 3:[address] [facility] (CET) Comment: (1,3) Eeuw-C-Iobejn was DETECTED in the sample. Clinical diagnosis should be made in the context of the patient's complete medical history. CLINICAL RELEVANCE LC Notes 04/02/2025 3:[address] [facility] (CET) Comment: The Fungitell [...] Cryptococcus, which produce very low levels of (1,3)-oqcx-M-pggbvg. This test will not detect the zygomycetes, such as Absidia, Blastomyces, Mucor, and Rhizopus, which are not known to produce (1,3)-aruc-L-zfbljp. In addition, the yeast phase of Blastomyces dermatitidis produces little (1,3)-hjsa-L-fgtnhj and may not be detected by the assay. DISCLAIMER SIMONE Notes 04/02/2025 3:09 PM CDT [facility] ESOTERIC TESTING (CET) Comment: This test was developed and its performance characteristics determined by [employer]. It has not been cleared or approved by the US Food and Drug Administration. This laboratory is certified under the Clinical Laboratory Improvement Amendments (CLIA) and licensed by the [facility] as qualified to perform high complexity clinical laboratory testing. ELECTRONICALLY SIGNED BY SIMONE Comment 04/02/2025 3:09 PM CDT [facility] ESOTERIC TESTING (CET) Comment:Yuki Yasmeen Other BLOOD SPECIMEN / Unknown Non-Blood / Unknown 03/30/2025 10:23 AM CDT 03/30/2025 10:44 AM CDT Narrative [facility] ESOTERIC TESTING (CET) - 04/02/2025 3:09 PM CDT Performed at: 01 - [employer] [address] [place] [address] [place] [id number] Human Resource Officer: Jon Horton PhD, Phone: [phone] Maverick Bolanos MD SEND OUTS Final Re sult [facility] ESOTERIC TESTING (CET) [address] [place] [address], * SCAN-CARDIAC STRIP (03/30/2025 10:07 AM CDT) us Scanner OTHER Final Result * (ABNORMAL) BLOOD GAS,VENOUS (03/30/2025 3:18 AM CDT) PH, VENOUS 7.50(H) 7.32 - 7.43 03/30/2025 3:31 AM CDT [facility] TRAL LABORATORY PCO2, VENOUS 31(L) 41 - 51 mmHg 03/30/2025 3:31 AM CDT [facility] TRAL LAB[facility]ORY PO2, VENOUS 101(H) 35 - 40 mmHg 03/30/2025 3:31 AM CDT [facility] HCO3,VENOUS 24 22 - 29 mmol/L 03/30/2025 3:31 AM CDT [facility] BASE EXCESS, VENOUS, POCT 1.7 -2.0 - 3.0 03/30/2025 3:31 AM CDT [facility] O2 SATURATION, VENOUS 100(H) 70 - 75 % 03/30/2025 3:31 AM CDT [facility] TRA LABORATORY PATIENT TEMPERATURE 37.0 Degrees C 03/30/2025 3:31 AM CDT [facility] Blood VENOUS BLOOD SPECIMEN / Unknown Venipuncture / Unknown 03/30/2025 3:18 AM CDT 03/30/2025 3:25 AM CDT Ulysses Iverson MD CHEMISTRY Final Result Performing Organization Address [facility] Co de Phone Number [facility] [address] [address], [place] * Hemoglobin A1C (03/30/2025 3:18 AM CDT) [facility] HEMOGLOBIN A1C MONITORING (POCT) 6.1 <=6.4 % 03/30/2025 3:47 PM CDT [facility] Blood BLOOD SPECIMEN / Unknown Venipuncture / Unknown 03/30/2025 3:18 AM CDT 03/30/2025 3:25 AM CDT Narrative [facility] - 03/30/2025 3:47 [...] MD CHEMISTRY Final Result Performing Organization Address [facility] Co de Phone Number [facility] [address] [address], [place] * SCAN-RADIOLOGY REPORT (03/30/2025 12:00 AM CDT) Anatomical Region Laterality Modality Other Narrative 03/30/2025 12:00 AM CDT Ordered by an unspecified provider. Other Clinical Staff OTHER Final Resul t * HISTOPLASMA GALACTOMANNAN AG UR(REFLEX)QT(LABCO) (03/29/2025 9:02 PM CDT) Pathologist [facility] HISTOPLASMA GALACT AG UR QT >25.0 ng/mL 04/03/2025 9:09 AM CDT [facility] ESOTERIC TESTING (CET) Urine URINE SPECIMEN / Unknown Non-Blood / Unknown 03/29/2025 9:02 PM CDT 03/29/2025 9:09 PM CDT Narrative [facility] (CET) - 04/03/2025 9:09 AM CDT Performed at: [address] [place] [id number] Human Resource Officer: Kg Cruz MD, Phone: [phone] Maverick Nation MD URINE Final Res ult [facility] (CET) [address] [place] [address], [place] * (ABNORMAL) HISTOPLASMA GALACTOMANNAN ANTIGEN URINE (03/29/2025 9:02 PM CDT) Pathologist [facility] HISTOPLASMA GALACT AG UR SCREEN Positive( A) <0.2 ng/mL 04/03/2025 9:[address] [facility] (CET) Urine URINE SPECIMEN / Unknown Non-Blood / Unknown 03/29/2025 9:02 PM CDT 03/29/2025 9:09 PM CDT Narrative [facility] (CET) - 04/03/2025 9:09 AM CDT Performed at: 01 - [facility] [address] [place], [place] [id number] Human Resource Officer: Kg Cruz MD, Phone: [phone] us Maverick Nation MD URINE Final Res ult [facility] (CET) [address] [place] [address], [place] * ECHO TTE COMPLETE WO CONTRAST [...] Tech: SANAM Referring MD: VERNA MILLER Site: [facility] Reading Location: [place]- Patient Location: Inpatient. Procedure: 2D, Color Doppler [...] . This study was interpreted by an [facility] accredited facility. CC: [facility] (med records) [facility], Med/Surg - IP [facility]. Final Procedure Note Diego Gonzalez MD - 03/28/2025 ECHOCARDIOGRAM SUN LEMUS : 1970 55 years Study Date: 03/28/2025 3:25:20 PM Gender: F BP: 115/71 mmHg Height: 165.00 cm BSA: 1.81 m Weight: 74.00 kg Tech: Willis Referring MD: VERNA MILLER Site: [facility] Reading Location: Mobile-IP Patient [...] interpreted by an [facility] accredited facility. CC: [facility] (med records) [facility], Med/Surg - IP [facility]. Final us Verna Miller MD ECHO ORD Final Result * COVID/FLU/RSV PANEL (2025 11:41 AM CDT) COVID 19 [facility] MOLECULAR Negative Negative 2025 10:04 PM CDT [facility] TRAL LABORATORY INFLUENZA A PCR Negative 5 10:04 PM CDT [facility] TRAL LABORATORY INFLUENZA B PCR Negative 5 10:04 PM CDT [facility] TR[facility] LAB[facility] Respiratory Syncytial Virus Negative 2025 10:04 PM CDT [facility] Swab SPECIMEN FROM NASAL FOSSAE / Unknown Non-Blood / Unknown 2025 11:41 AM CDT 2025 11:41 AM CDT Анна STONE MICROBIOLOGY Final Result [facility] [address] [place] [address], [place] * PLANT OPERATIONS WORKER THIN PREP PAP SCREEN IMAGED (09/12/2024 3:20 PM USER INTERFACE DESIGNER) Case Report Gynecologic Cytology Report Case: [id number] Authorizing Provider: Sharmin Covington MD Collected: 09/12/2024 1520 Ordering Location: [facility] Received: 09/12/2024 1626 Clinic First Screen: Chirag Pradhan Rescreen: Yael Vasquez Specimen: PLANT OPERATIONS WORKER ThinPrep Vial Screening, Cervical 09/27/2024 10:02 AM USER INTERFACE DESIGNER [facility] INTERPRETATION/ RESULT NEGATIVE FOR INTRAEPITHELIAL LESION OR MALIGNANCY (NIL) (none) 09/27/2024 10:02 AM USER INTERFACE DESIGNER [facility] ENTRAL LABORATORY at 1002 USER INTERFACE DESIGNER SPECIMEN ADEQUACY Satisfactory for evaluation Endocervical component present 09/27/2024 10:02 AM USER INTERFACE DESIGNER [facility] HPV REQUEST HPV and PAP 09/27/2024 10:02 AM USER INTERFACE DESIGNER [facility] Date of LMP Postmenopausal 5 10:02 AM USER INTERFACE DESIGNER [facility] Last Pap Date 10/02/19 09/27/2024 10:02 AM USER INTERFACE DESIGNER [facility] Last Pap Result NIL 5 10:02 AM USER INTERFACE DESIGNER [facility] Abnormal Pap or [place] Bx in last 5 years No 09/27/2024 10:02 AM USER INTERFACE DESIGNER [facility] ENTRAL LABORATORY Menstrual Status Postmenopausal 09/27/2024 10:02 AM USER INTERFACE DESIGNER [facility] [place] Bx Done Today No 09/27/2024 10:[address] [facility] Additional Information None given 09/27/2024 10:[address] [facility] Comment: Cytology is screened at [facility] - [address], [place] [address] and [facility] - [address], [place] [address] and [facility] - [address] [place] [address] Interpreted at [facility] - [address], [place] [address] Automated Review Successful 09/27/2024 10:02 AM [facility] Comment:Specimen processed s uccessfully by automated automatic corn grinder operator device, ThinPrep Imaging System, [employer] ANCILLARY TESTING PLANT OPERATIONS WORKER HPV Ordered, Please see separate report 09/27/2024 10:[address] [facility] Note The pap test is a screening technique, not a diagnostic procedure. It is used primarily to screen for squamous cancers and precursor lesions. Published studies have shown that it is subject to both false negative and false positive results. The pap test should not be used as the sole means to diagnose or exclude pre-malignant and malignant lesions. 09/27/2024 10:[address] [facility] Other (Cervical) Non-Blood / Unknown 09/12/2024 3:20 PM USER INTERFACE DESIGNER 09/12/2024 4:26 PM USER INTERFACE DESIGNER us Sharmin Covington MD PATHOLOGY/CYTOLOGY Nora thomas Result [facility] [address] [place] [address], [place] * XR MAMMO SANJIV BILAT SCREEN [...] care provider. XR MAMMO SANJIV BILAT SCREEN [[id number]] CLINICAL HISTORY: This is an asymptomatic 52 y.o. patient. INDICATION FOR EXAM: Mammogram Screening. TECHNIQUE: CC & MLO views were obtained. This study was evaluated with the assistance of Computer-Aided Detection. Breast Tomosynthesis was used in interpretation. COMPARISON FILM: Yes 03/04/21 [employer] 08/10/19 [employer] FINDINGS: The breasts are heterogeneously dense, which may obscure small masses. There are no dominant masses, suspicious micro calcifications or areas of architectural distortion. Sharmin Covington MD MAMMO Final R esult * LC HIV-1/O/2, 4TH GENERATION (11/19/2022 10:20 AM CDT) HIV Scr 4th Gen Non Reactive Non Reactive 11/22/2022 11:07 AM CDT [facility] Comment: HIV Negative HIV-1/HIV-2 antibodies and HIV-1 p24 antigen were NOT detected. There is no laboratory evidence of HIV infection. Blood BLOOD SPECIMEN / Unknown Venipuncture / Unknown 11/19/2022 10:20 AM CDT 11/19/2022 10:20 AM CDT Narrative [facility] - 11/22/2022 11:07 AM CDT Performed at: [address] [place] [address] [id number] Human Resource Officer: David Jeffers MD, Phone: [phone] Sharmin Covington MD LABORATORY Final R esult [facility] ([facility]) [address] [place] [address], from Last 3 Months or Most Recently Relevant to Health Maintenance Insurance 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
--- NOTE | 2025-05-22 08:05 | ED.GENADULT ---
HPI - General Adult General Time Seen by Provider: 08:05 Date Seen: 05/22/25 Chief complaint: Unspecified Complaint, Adult Stated complaint: Low K Time Seen by Provider: 05/22/25 08:04 Source: patient and RN notes reviewed Mode of arrival: ambulatory Limitations: no limitations History of Present Illness HPI narrative: This 55-year-old female was called this morning by a clinic stating her potassium was low at 2.6. She was directed to go to the ER. Patient was just hospitalized on April 27 for hypokalemia complicating her treatment of fungal pneumonia. Please see my note from April 27. She has been having 3 times weekly labs at [facility], were done yesterday. She was taken off her oral potassium supplement because she became hyperkalemia dane. She notes her nausea is better but she still does not tolerate the effervescent potassium and it took some difficulty to find an oral potassium she tolerated at home. She is really not feeling weak, no cramping, overall her nausea has improved from when I last saw her. Related Data Home Medications ?Medication ?Instructions ?Recorded ?Confirmed adalimumab 40 mg/0.4 mL 40 mg subcut Q7D 06/12/23 04/27/25 subcutaneous pen kit (Humira(CF) Pen) brimonidine 0.15 % eye drops 1 drp ophthalmic (eye) BID 06/12/23 04/27/25 dorzolamide 22.3 mg-timolol 6.8 1 drp ophthalmic (eye) Q12H 06/12/23 04/27/25 mg/mL eye drops mycophenolate mofetil 500 mg tablet 1,000 mg PO QAM 06/12/23 04/27/25 Held on 05/02/25. Instructions: Resume on 05/04/25. Until you are directed by Dr. Bolanos mycophenolate mofetil 500 mg tablet 1,500 mg PO HS 06/12/23 04/27/25 Held on 05/02/25. Instructions: Resume on 05/04/25. Until you are directed by Dr. Bolanos prednisone 1 mg tablet 2 mg PO DAILY 06/12/23 05/22/25 venlafaxine 37.5 mg 37.5 mg PO DAILY 06/12/23 05/22/25 capsule,extended release 24 hr cyclosporine 0.05 % eye drops in a 1 drp ophthalmic (eye) Q12H PRN 03/25/25 04/27/25 dropperette (Restasis) latanoprost 0.005 % eye drops 1 drp ophthalmic (eye-left) QPM 03/25/25 04/27/25 prednisolone acetate 1 % eye 1 drp ophthalmic (eye-right) DAILY 03/25/25 04/27/25 drops,suspension rosuvastatin 10 mg tablet 10 mg PO DAILY 03/25/25 05/22/25 itraconazole 100 mg capsule 200 mg PO BID 04/18/25 04/27/25 Held on 05/02/25. Instructions: Resume on 05/04/25. Hold until Dr. Bolanos discusses options with you. ondansetron 4 mg disintegrating 4 mg PO Q8H PRN 04/18/25 04/27/25 tablet acetaminophen 500 mg capsule 500 mg PO Q6H PRN 04/27/25 04/27/25 Previous Rx's ?Medication ?Instructions ?Recorded potassium chloride 20 mEq oral 40 meq PO TID #180 ea 05/02/25 packet (Klor-Con) Held on 05/22/25. Instructions: Doctor's Order potassium chloride 20 mEq 40 meq (2 x 20 mEq) PO TID #270 05/02/25 tablet,extended release tabs Held on 05/22/25. Instructions: Doctor's Order Allergies Allergy/AdvReac Type Severity Reaction Status Date / Time amoxicillin Allergy Unknown Verified 04/27/25 14:00 bupropion (From Wellbutrin Allergy Verified 04/27/25 14:00 SR) Sulfa (Sulfonamide Allergy Verified 04/27/25 14:00 Antibiotics) Review of Systems Status of ROS: Reports: 6 or more systems reviewed and unremarkable except as noted in History and below [facility] Medical History Chronic anterior uveitis of both eyes ?H20.13 - Chronic iridocyclitis, bilateral (ICD-10) Rheumatoid arthritis ?M06.9 - Rheumatoid arthritis, unspecified (ICD-10) Immunocompromised patient ?D84.9 - Immunodeficiency, unspecified (ICD-10) Shingles ?B02.9 - Zoster without complications (ICD-10) Surgical History Hx of LASIK ?Z98.890 - Other specified postprocedural states (ICD-10) Cataract extraction status, left eye ?Z98.42 - Cataract extraction status, left eye (ICD-10) Social History Narrative: Lives with Raymond in [place]. 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 Full code What is your current living situation?: I presently have a place to live Problems where you live: no known problems Problems where you live details: NA In the past 12 months, utilities in danger of being shut off: no In past 12 months, lack of transportation kept you from medical appts, meetings, work, or getting things needed for daily living: no In the past 12 mos, have been you worried that your food would run out before you had money to buy more?: never true In the past 12 mos, the food you bought just didn't last and you didn't have money to buy more?: never true Highest level of school completed/degree received: Master's degree Smoking Status: Former smoker Second hand tobacco smoke exposure: No How often do you have a drink containing alcohol: never How often do you have six or more drinks on one occasion: Never AUDIT-C Alcohol total score: 0 Non-prescribed substance use: denies use Caffeine: Yes (pop, coffee) How often does anyone, including family, friends and others, physically hurt you: unable to answer How often does anyone, including family, friends and others, insult or talk down to you: unable to answer How often does anyone, including family, friends and others, threaten you with harm: unable to answer How often does anyone, including family, friends and others, scream or curse at you: unable to answer service: No Exam Const: Vital Signs, click to edit/add: Vital Signs - 24 hr 05/22/25 07:08 Temperature 96.8 F L Pulse Rate [Pulse Oximeter] 53 L Respiratory Rate 16 Blood Pressure [Ri ght Upper Arm] 141/86 H Pulse Oximetry 100 Oxygen Delivery Me thod Room Air Patient is alert, interactive, no apparent distress. She actually looks better than when I saw her last time. She has got some darker pigmentation in sclera over the use but conjugate gaze. Symmetrical facial function, speech normal. Lungs clear, no wheezing or crackles, no tachypnea, no accessory muscle use. CV slow but regular, no murmur, normal S1-S2. Abdomen is soft, nontender, nondistended, no organomegaly. Patient was ambulatory into the ED of her own accord. Documenting provider has reviewed patient's vital signs: yes Course Course ED Course: Overnight ED partner had place some temporizing orders, labs are pending. IV was placed. Did discuss with patient about at least starting a dose of IV potassium, she states she does not tolerate the effervescent potassium. EKG has been done and sinus bradycardia seems to be in place and in comparison of prior EKGs she was in the 70s for rate. She really seems asymptomatic except possibly for some bradycardia. Consultations Consultation #1: Called hospitalist Dr. Ríos. She is in her rounds right now, she will call me back as soon as this is done. Want to discuss observation of this patient as this potassium is going to be somewhat of a lengthy replacement. 9:05 a.m.: Have spoken with the hospitalist, she believes this patient will be admit. Will update the patient. Time: 08:34 Vital Signs Vital signs: Initial Vital Signs Temperature 96.8 F L 05/22/25 07:08 Temperature Source Temporal Artery Scan 05/22/25 07:08 Pulse Rate 53 L 05/22/25 07:08 Respiratory Rate 16 05/22/25 07:08 Blood Pressure 141/86 H 05/22/25 07:08 Blood Pressure Mean 104 05/22/25 07:08 Blood Pressure Position Sitting 05/22/25 07:08 Pulse Oximetry 100 05/22/25 07:08 Oxygen Delivery Method Room Air 05/22/25 07:08 Vital Signs Temperature 96.8 F L 05/22/25 07:08 Pulse Rate 53 L 05/22/25 07:08 Respiratory Rate 16 05/22/25 07:08 Blood Pressure 141/86 H 05/22/25 07:08 Pulse Oximetry 100 05/22/25 07:08 Oxygen Delivery Method Room Air 05/22/25 07:08 Temperature 98.5 F 05/22/25 14:36 Pulse Rate 49 L 05/22/25 14:36 Respiratory Rate 18 05/22/25 14:36 Blood Pressure 139/80 05/22/25 14:36 Pulse Oximetry 100 05/22/25 14:36 Oxygen Delivery Method Room Air 05/22/25 14:36 Medications Administered Medications: Generic Name Dose Route Start Last Admin Trade Name Jamesq PRN Reason Stop Dose Admin Sodium Chloride 1,000 mls @ 150 mls/hr 05/22/25 08:23 05/22/25 08:33 0.9 % Sodium Chloride 1000 Ml IV 150 mls/hr .Q6H40M ROSA MARIA Administration Ondansetron HCl 4 mg 05/22/25 10:21 05/22/25 13:06 Ondansetron Odt 4 Mg Tab PO 4 mg Q8H PRN Administration Discontinued Medications Generic Name Dose Route Start Last Admin Trade Name Jamesq PRN Reason Stop Dose Admin Dorzolamide/Timolol 1 drop 05/22/25 10:21 05/22/25 10:46 Dorzolamide/Timolol 2-0.5% Ophth EYE-BOTH Not Given Q12H ROSA MARIA Potassium Chloride 10 meq in 100 mls @ 100 mls/hr 05/22/25 08:15 05/22/25 13:00 Potassium Chloride IVPB 05/22/25 13:44 Infused Q90M ROSA MARIA Infusion Itraconazole 200 mg 05/22/25 11:00 05/22/25 10:46 Itraconazole 100 Mg Capsule PO Not Given BID ROSA MARIA Potassium Chloride 60 meq 05/22/25 11:11 05/22/25 12:01 Potassium Chloride 10 Meq Capsule Er PO 05/22/25 11:12 60 meq ONCE ONE Administration Venlafaxine HCl 37.5 mg 05/22/25 11:30 05/22/25 10:46 Venlafaxine Hcl Er 37.5 Mg Capsule PO Not Given DAILY [facility] Medical Decision Making Lab Data Lab results reviewed: Yes I reviewed the patient's lab results Labs: Lab Results 05/22/25 Range/Units 07:39 Sodium 138 (135-149) mmol/L Potassium 2.4 L* (3.6-5.1) mmol/L Chloride 103 (96-114) mmol/L Carbon Dioxide 29 (20-32) mmol/L Anion Gap 6 L (7-15) mEq/L BUN 12 (7-30) mg/dL Creatinine 1.1 (0.5-1.5) mg/dL Estimated Creat Clear 52.61 Estimated GFR 60 ml/min Glucose 116 H (60-115) mg/dL Calcium 8.9 (8.4-10.6) mg/dL Magnesium 2.0 (1.5-2.6) mg/dL ECG Data Attestation: I personally reviewed and interpreted this ECG as follows: (Sinus bradycardia with sinus arrhythmia, 50 beats per minute. Flipped T-waves lead V1 and V2 without any ST segment change. No ischemia, no significant concerning change.) Prior ECG tracings: available for review (Sinus bradycardia is present.) Discharge Plan Discharge Clinical Impression: Acute hypokalemia, Bradycardia Patient Disposition: Admitted As Inpatient
[2025-05-22 08:07] LABS: Chloride* 103 mmol/L (96-114); Sodium* 138 mmol/L (135-149)
[2025-05-22 08:10] LABS: Anion Gap 6 mEq/L (7-15); Blood Urea Nitrogen* 12 mg/dL (7-30); Calcium* 8.9 mg/dL (8.4-10.6); Carbon Dioxide* 29 mmol/L (20-32); Creatinine* 1.1 mg/dL (0.5-1.5); Est. Creatinine Clearance* 52.61; Estimated Glomerular Filt Rate 60 ml/min; Glucose* 116 mg/dL (60-115)
[2025-05-22 08:12] LABS: Potassium* 2.4 mmol/L (3.6-5.1)
[2025-05-22] MEDS: POTASSIUM CHLORIDE 10 MEQ/100 ML PIGGYBACK 100 MEQ IVPB ×8 (08:33→19:28)
--- NOTE | 2025-05-22 09:42 | PM.IMHP1 ---
Assessment and Plan Assessment and plan (1) Acute hypokalemia: Problem comment: -severe hypokalemia 2/2 itraconazole use. 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 Bolanos of ID. Last appointment was just after her DC ~ mid 04/2025. Status: Chronic (3) Rheumatoid arthritis: Problem comment: - Holding Humira and mycophenolate 2/2 infxn Status: Acute (4) Bradycardia: Problem comment: sinus bradycardia cardiac monitoring Status: Acute Total Time Spent Total Time Spent: Today I spent 75 minutes seeing the patient, reviewing Expanse and EPIC notes/diagnostics, discussing the care plan with our care time that includes social work, PT/OT, pharmacy, RT, fdc and documenting my impressions and plan in the medical record. Hospitalist- H&P: HPI History of Present Illness Date Seen: 05/22/25 Chief complaint: Low K Narrative: Sun Reese is a 55 year old female w/ PMHx of RA , immunocompromised, dissiminated histoplasmosis who presents w/ severe hypokalemia 2/2 itraconazole use. Pt is c/o weakness. Pt was admitted last month for septic shock d/t dissiminated fungal infection and had to be trasnsprted to [place] (intubated & ventilated). At the ED, pt was bradycardic. K+ low at 2.4. EKG unremarkable. NB Pt is on hold for biologic Tx and mycophenolate. Review of Systems Status of ROS: Reports: 6 or more systems reviewed and unremarkable except as noted in History and below [facility] Medical History Chronic anterior uveitis of both eyes ?H20.13 - Chronic iridocyclitis, bilateral (ICD-10) Rheumatoid arthritis ?M06.9 - Rheumatoid arthritis, unspecified (ICD-10) Immunocompromised patient ?D84.9 - Immunodeficiency, unspecified (ICD-10) Shingles ?B02.9 - Zoster without complications (ICD-10) Surgical History Hx of LASIK ?Z98.890 - Other specified postprocedural states (ICD-10) Cataract extraction status, left eye ?Z98.42 - Cataract extraction status, left eye (ICD-10) Social History Narrative: Lives with Raymond in [place]. 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 Full code What is your current living situation?: I presently have a place to live Problems where you live: no known problems Problems where you live details: NA In the past 12 months, utilities in danger of being shut off: no In past 12 months, lack of transportation kept you from medical appts, meetings, work, or getting things needed for daily living: no In the past 12 mos, have been you worried that your food would run out before you had money to buy more?: never true In the past 12 mos, the food you bought just didn't last and you didn't have money to buy more?: never true Highest level of school completed/degree received: Master's degree Smoking Status: Former smoker Second hand tobacco smoke exposure: No How often do you have a drink containing alcohol: never How often do you have six or more drinks on one occasion: Never AUDIT-C Alcohol total score: 0 Non-prescribed substance use: denies use Caffeine: Yes (pop, coffee) How often does anyone, including family, friends and others, physically hurt you: never How often does anyone, including family, friends and others, insult or talk down to you: never How often does anyone, including family, friends and others, threaten you with harm: never How often does anyone, including family, friends and others, scream or curse at you: never service: No Meds Home Medications and Allergies Home Medications ?Medication ?Instructions ?Recorded ?Confirmed ?Type adalimumab 40 mg/0.4 mL 40 mg subcut Q7D 06/12/23 04/27/25 History subcutaneous pen kit (Humira(CF) Pen) brimonidine 0.15 % eye drops 1 drp ophthalmic (eye) BID 06/12/23 04/27/25 History dorzolamide 22.3 mg-timolol 6.8 1 drp ophthalmic (eye) Q12H 06/12/23 04/27/25 History mg/mL eye drops mycophenolate mofetil 500 mg tablet 1,000 mg PO QAM 06/12/23 04/27/25 History Held on 05/02/25. Instructions: Resume on 05/04/25. Until you are directed by Dr. Bolanos mycophenolate mofetil 500 mg tablet 1,500 mg PO HS 06/12/23 04/27/25 History Held on 05/02/25. Instructions: Resume on 05/04/25. Until you are directed by Dr. Bolanos prednisone 1 mg tablet 2 mg PO DAILY 06/12/23 05/22/25 History venlafaxine 37.5 mg 37.5 mg PO DAILY 06/12/23 05/22/25 History capsule,extended release 24 hr cyclosporine 0.05 % eye drops in a 1 drp ophthalmic (eye) Q12H PRN 03/25/25 04/27/25 History dropperette (Restasis) latanoprost 0.005 % eye drops 1 drp ophthalmic (eye-left) QPM 03/25/25 04/27/25 History prednisolone acetate 1 % eye 1 drp ophthalmic (eye-right) DAILY 03/25/25 04/27/25 History drops,suspension rosuvastatin 10 mg tablet 10 mg PO DAILY 03/25/25 05/22/25 History itraconazole 100 mg capsule 200 mg PO BID 04/18/25 04/27/25 History Held on 05/02/25. Instructions: Resume on 05/04/25. Hold until Dr. Bolanos discusses options with you. ondansetron 4 mg disintegrating 4 mg PO Q8H PRN 04/18/25 04/27/25 History tablet acetaminophen 500 mg capsule 500 mg PO Q6H PRN 04/27/25 04/27/25 History potassium chloride 20 mEq oral 40 meq PO TID #180 ea 05/02/25 05/22/25 Rx packet (Klor-Con) Held on 05/22/25. Instructions: Doctor's Order potassium chloride 20 mEq 40 meq (2 x 20 mEq) PO TID #270 05/02/25 05/22/25 Rx tablet,extended release tabs Held on 05/22/25. Instructions: Doctor's Order Allergies Allergy/AdvReac Type Severity Reaction Status Date / Time amoxicillin Allergy Unknown Verified 04/27/25 14:00 bupropion (From Wellbutrin Allergy Verified 04/27/25 14:00 SR) Sulfa (Sulfonamide Allergy Verified 04/27/25 14:00 Antibiotics) Exam Narrative: Exam Narrative: Physical exam GENERAL: Comfortable, no acute distress. HEAD AND NECK: Atraumatic, normocephalic CARDIOVASCULAR: Bradycardic. Normal S1, S2. No murmurs. RESPIRATORY: Clear to auscultation B/L. Good air entry B/L. No wheezes or rhonchi. GASTROINTESTINAL: Not distended, not tender to palpation. NEUROLOGY: Alert, awake, oriented X 3. Normal speech. PSYCH: Normal mood, normal affect. Const: Vital Signs, click to edit/add: Vital Signs - 24 hr 05/22/25 07:08 Temperature 96.8 F L Pulse Rate [Pulse Oximeter] 53 L Respiratory Rate 16 Blood Pressure [Ri ght Upper Arm] 141/86 H Pulse Oximetry 100 Oxygen Delivery Me thod Room Air Hospitalist - H&P: Result Labs Labs: [facility] 05/22/25 07:39 Sodium 138 Potassium 2.4 L* Chloride 103 Carbon Dioxide 29 BUN 12 Creatinine 1.1 Glucose 116 H Calcium 8.9 ECG Attestation: I personally reviewed and interpreted this ECG as follows: ECG interpretation date: 05/22/25 Interpretation: sinus bradycardia HR 50 b/min. QTc 426
[2025-05-22] MEDS: POTASSIUM CHLORIDE 10 MEQ CAPSULE ER 60 MEQ PO ×2 (12:01→15:45)
[2025-05-22] MEDS: ONDANSETRON ODT 4 MG TAB PO (13:06)
[2025-05-22 14:52] LABS: Albumin* 3.2 g/dL (3.3-5.0); Aspartate Amino Transferase* 30 U/L (12-35); Bilirubin Direct* 0.2 mg/dL (0.0-0.5); Bilirubin Total* 0.3 mg/dL (0.1-1.5); Total Protein* 6.6 g/dL (6.0-8.3)
[2025-05-22 14:53] LABS: Alanine Aminotransferase* 28 U/L (4-35); Alkaline Phosphatase* 97 U/L (40-150)
[2025-05-22 14:58] LABS: Potassium* 2.5 mmol/L (3.6-5.1)
[2025-05-22] MEDS: PROCHLORPERAZINE 10 MG TABLET 5 MG PO (15:15)
--- NOTE | 2025-05-22 18:47 | PC.NURSE ---
Nursing Care Hours: [id number] Pt this shift arrived to unit alert and oriented, no c/o pain. Pt denies skin concerns. Frankie SOB or dizziness while ambulating. Bradycardic on arrival and by end of shift pulse in low to mid 60's. U wave on tele more prominent on admission and less noticeable by end of shift. No pain at IV site with K+ infusion except intermittently if normal saline pump has error. IV site free of redness or puffiness. Antiemetics given for nausea. Pt can not tolerate taking PO K+ capsules too fast. Took three hours to take in 6 capsules at 1100 med pass. Discussed new order of additional 12 caps of K+ after lab draw results and trying to complete them by 1900 lab draw. Pt concerned about nausea and vomiting with K+ replacement. Drier And Grinder Tender discussed with pharmacist and hospitalist and pt is ok to take the capsules at tolerable pace. Continue with IV K+ infusions per eMAR. Pt appetite poor but continues to try and snack on healthy high protein and healthy fat options throughout out shift. Discussed diluting ensure with milk or ensure clear with water to decrease the heavy sweetness.
[2025-05-22] MEDS: Brimonidine 0.15 % drops EYE-LEFT (20:41)
[2025-05-22] MEDS: ITRACONAZOLE 100 MG CAPSULE 200 MG PO (20:42)
[2025-05-22] MEDS: DORZOLAMIDE/TIMOLOL 2-0.5% OPHTH 1 DROP EYE-LEFT (20:44)
[2025-05-22] MEDS: ENOXAPARIN 40 MG/0.4 ML INJ SUBCUT (20:45)
[2025-05-22] MEDS: LATANOPROST 0.005% OPHTH 1 DROP EYE-LEFT (20:49)
[2025-05-22 22:22] LABS: Potassium* 3.6 mmol/L (3.6-5.1)
[2025-05-23] MEDS: ONDANSETRON ODT 4 MG TAB PO (01:08)
[2025-05-23] MEDS: POTASSIUM CHLORIDE 10 MEQ CAPSULE ER 60 MEQ PO (01:09)
[2025-05-23 02:25] VITALS: BP 143/84; PULSE 60; RESP 16; TEMP 36.4; O2SAT 98
[2025-05-23] MEDS: PROCHLORPERAZINE 10 MG TABLET 5 MG PO (04:55)
[2025-05-23 06:52] LABS: Hematocrit* 25.3 % (33.0-51.0); Hemoglobin* 8.2 gm/dL (12.0-16.0); Mean Corpuscular HGB Conc 32 gm/dL (32-36); Mean Corpuscular Hemoglobin 30 pg (26-34); Mean Corpuscular Volume 93 fL (80-100); Red Blood Count* 2.73 m/uL (4.00-5.20); White Blood Count* 5.47 K/uL (4.50-11.00)
[2025-05-23 06:58] LABS: Slide Review Reflex No
--- NOTE | 2025-05-23 07:01 | PC.NURSE ---
Pt alert and oriented x3. Afebrile. Pt denies pain, SOB, and vomiting. Pt reports nausea, managed with PRN medications. Pt up ad sima and voiding.?
[2025-05-23 07:11] LABS: Albumin* 3.2 g/dL (3.3-5.0); Chloride* 113 mmol/L (96-114); Potassium* 3.8 mmol/L (3.6-5.1); Sodium* 141 mmol/L (135-149)
[2025-05-23 07:14] VITALS: PULSE 56
[2025-05-23 07:14] LABS: Alanine Aminotransferase* 25 U/L (4-35); Alkaline Phosphatase* 106 U/L (40-150); Anion Gap 1 mEq/L (7-15); Aspartate Amino Transferase* 34 U/L (12-35); Bilirubin Total* 0.4 mg/dL (0.1-1.5); Blood Urea Nitrogen* 6 mg/dL (7-30); Calcium* 8.7 mg/dL (8.4-10.6); Carbon Dioxide* 27 mmol/L (20-32); Creatinine* 1.0 mg/dL (0.5-1.5); Est. Creatinine Clearance* 57.87; Estimated Glomerular Filt Rate 67 ml/min; Glucose* 87 mg/dL (60-115); Total Protein* 6.6 g/dL (6.0-8.3)
[2025-05-23 07:43] VITALS: BP 138/92; PULSE 65; RESP 18; TEMP 36.7; O2SAT 97
[2025-05-23 07:45] VITALS: PULSE 65; RESP 18
--- NOTE | 2025-05-23 08:58 | W.PC.NUTR.NO ---
Nutrition Progress Note Progress Note Progress Note: RDN with nutrition screen related to positive MST score. Patient admitted with low potassium. Patient hospitalized on 03/29 for bacterial pneumonia, requiring intubation and transfer. She was then admitted 04/27/25 for hypokalemia. Current weight 142lb 8oz; height 5ft 5in; BMI 23.7 kg/m2. History of significant weight loss, however weight has been stable within the last 30 days. Her weight continues to be around 143 lbs. In March 2025, she was about 163 lbs. During her hospitalization on 04/27, she did receive diet education for low potassium and high protein, high calorie diet for weight loss.
[2025-05-23] MEDS: DORZOLAMIDE/TIMOLOL 2-0.5% OPHTH 1 DROP EYE-LEFT (09:05)
[2025-05-23] MEDS: Brimonidine 0.15 % drops EYE-LEFT (09:05)
[2025-05-23] MEDS: ITRACONAZOLE 100 MG CAPSULE 200 MG PO (09:06)
[2025-05-23] MEDS: prednisoLONE acetate 1 % DROPS 1 DROP EYE-RIGHT (09:07)
[2025-05-23] MEDS: SODIUM CHLORIDE 0.9 % (FLUSH) 10 ML SYRINGE 5 ML IVF (09:07)
[2025-05-23] MEDS: VENLAFAXINE HCL ER 37.5 MG CAPSULE PO (09:08)
--- NOTE | 2025-05-23 09:13 | P.NUTASMT_ITS ---
Hospital Nutrition Assessment Patient Data Patient Gender: Female Patient Age: 55 Height: 5 ft 5 in Weight: 142 lb 8 oz Body Mass Index: 23.7 Weight Calculations [place] Body Weight (lbs): 125.00 [place] Body Weight (kg): 56.70 Percent of [place] Body Weight: 114 Adjusted Body Weight (lbs): 129.38 Adjusted Body Weight (kg): 58.69 Basal Energy Expenditure (BEE): 1326.15 Basal Energy Expenditure (BEE) Adjusted Weight: 1269.28 Activity/Stress Factors Injury Factor/Activity Factor Value: 1.2 Total Energy Requirements Kcal requirements (current wt): 1591.380 Kcal requirements (adj wt): 1523.136 Protein Need (current wt): 1.0 Total Protein (current wt): 64.637 Protein Need (adj wt): 1.2 Total Protein (adj wt): 70.428 Fluid Need (current wt): 30 Total Fluid (current wt): 1939.107 Fluid Need (adj wt): 30 Total Fluid (adj wt): 1760.70 Nutrition Assessment Diet Order: Regular Food Modified for Dysphagia: 7-Regular Liquid Modified for Dysphagia: 0-Thin Allergies: NKFA Appetite Prior to Admission: Poor Appetite and Intake: Poor intake for about 2 months. She has had supplements x2 since admit. Supplements and/or snacks: Ensure Clear Comment: Last admited from 04/27-05/02, pt accepted Ensure Clear Hx Appetite Changes: Yes (Poor intake for about 2 months) Hx Weight Loss: Yes (Sig. wt loss in 2 months, 19lbs/11.6%. Wt has been stable in last 30 days) Hx Weight Gain: No Nausea: No (improved since 04/27) Vomiting: No Diarrhea: No Hx Constipation: No Chewing Difficulty: No Swallowing Difficulty: No Pressure Ulcer: No Clinical History: Medical history includes but not limited to fungal pneumonia, rheumatoid arthritis, and immunocompromised. Patient hospitalized on 03/26-03/29 at [facility] for severe pneumonia, requiring intubation and transfer to [facility] for disseminated histoplasmosis and septic shock where she was admitted until 04/14. She was then hospitalized at [facility] 04/27/25 for hypokalemia related to itraconazole use . Current Living Situation: Lives at home. Medications Medications: reviewed. Lab Results Lab Results: reviewed. Education Topic Comment: Diet education provided 04/30 related to low potassium and high protein, high calorie diet for significant weight loss. Assessment/Plan PES Statement: Significant weight loss related to poor appetite and intakes as evidenced by weight loss of 19 lbs within 2 months, 11.6% loss. Nutritional Assessment Summary: RDN with nutrition screen related to positive MST score. Patient admitted with low potassium. History of significant weight loss, however weight has been stable within the last 30 days. Her weight continues to be around 143 lbs. In March 2025, she was about 163 lbs. During her hospitalization on 04/27, she did receive diet education for low potassium and high protein, high calorie diet for weight loss. At that time, Ensure Clear was ordered BID. Per nursing documentation, she has had supplements x2 since this admit. Visited with patient and . Patient was eating breakfast during visit. She reports her nausea and appetite has improved within the last month. She has diet education information at home since last hospitalization. She had no questions or concerns at this time. Plan is for patient to discharge home today. Encouraged her to contact RDN if she has any questions or concerns. She reports she will use oral nutrition supplements as needed at home. No further concerns at this time with weight stable in the last 30 days and appetite and intake improving. Discharge Plan-Living Situation: Discharge home with . Goals: Adequate oral intake of 50%+ Plan/Recommendation: Regular diet as tolerated. Patient has RDN's contact information.
--- NOTE | 2025-05-23 09:22 | PM.DS1 ---
DS: Providers Provider Date Seen: 05/23/25 Date of admission: 05/22/25 09:06 Primary care physician: Sharmin Covington MD Admitting Clinician: Yelitza Ríos MD Attending Physician on discharge: Whit Brown MD Date of Discharge: 05/23/25 DS: Diagnosis Discharge Diagnosis (1) Acute hypokalemia: Status: Resolved Problem details: - severe hypokalemia 2/2 itraconazole use with recurrent hospitalizations - replace with both p.o. 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 Bolanos of [facility] (3) Rheumatoid arthritis: Status: Acute Problem details: - Holding Humira and mycophenolate 2/2 infection, currently on Prednisone (4) Bradycardia: Status: Acute Problem details: - sinus bradycardia, stable on cardiac monitoring, asymptomatic DS: Summary Hospital Course Hospital Course: Sun is a delightful 55-year-old woman with a history of histoplasmosis who is currently on itraconazole for at least 1 year. She has suffered from iatrogenic hypokalemia since starting the medication. Her potassium has been followed in the outpatient setting with the following trend: - Placed on 40 mEq TID mid April - K of 5.5 on 05/09, potassium discontinued on 05/11 - K of 3.6 on 05/16 (off of supplementation) - K of 3.3 on 05/18 (off of supplementation) - K of 2.6 on 05/21 (off of supplementation), sent to ER on 05/22 During stay, she was given 80 mEq of IV potassium in addition to oral supplementation; tolerated this well with potassium of 3.8 on 05/23/2025. She is appropriately for discharge home with a plan for potassium supplementation (please see discharge instructions), in addition to magnesium at HS. PCP and ID follow-up as previous, repeat potassium later this week. Status at Discharge Functional status at discharge: independent ambulation Time Spent with Patient Time attestation: Total time spent providing and/or coordinating discharge services: Time spent: Greater than 30 minutes Exam Narrative: Exam Narrative: Aalert and oriented, nontoxic, ambulating through without difficulty Const: Vital Signs, click to edit/add: Vital Signs - 24 hr 05/22/25 09:29 05/22/25 09:30 05/22/25 09:32 Temperature Pulse Rate 51 L 60 51 L Pulse Rate [Right Pulse Oximeter] Respiratory Rate 21 15 17 Blood Pressure 152/79 H 152/86 H Blood Pressure [Le ft Arm] Pulse Oximetry 99 100 99 Oxygen Delivery Me thod 05/22/25 09:45 05/22/25 10:30 05/22/25 13:09 Temperature Pulse Rate 49 L 57 L Pulse Rate [Right Pulse Oximeter] 52 L Respiratory Rate 14 18 Blood Pressure Blood Pressure [Le ft Arm] 149/84 H Pulse Oximetry 99 100 Oxygen Delivery Me thod Room Air 05/22/25 14:36 05/22/25 15:00 05/22/25 15:40 Temperature 98.5 F Pulse Rate 64 Pulse Rate [Right Pulse Oximeter] 49 L 64 Respiratory Rate 18 18 Blood Pressure Blood Pressure [Le ft Arm] 139/80 Pulse Oximetry 100 Oxygen Delivery Me thod Room Air 05/22/25 19:00 05/22/25 23:30 05/22/25 23:30 Temperature 97.0 F L 97.8 F Pulse Rate Pulse Rate [Right Pulse Oximeter] 54 L 52 L 54 L Respiratory Rate 18 16 Blood Pressure Blood Pressure [Le ft Arm] 145/81 H 139/72 Pulse Oximetry 98 96 Oxygen Delivery Me thod Room Air Room Air 05/22/25 23:38 05/23/25 02:25 05/23/25 07:14 Temperature 97.6 F Pulse Rate 54 L 56 L Pulse Rate [Right Pulse Oximeter] 60 Respiratory Rate 16 Blood Pressure Blood Pressure [Le ft Arm] 143/84 H Pulse Oximetry 98 Oxygen Delivery Me thod Room Air 05/23/25 07:43 05/23/25 07:45 Temperature 98.1 F Pulse Rate Pulse Rate [Right Pulse Oximeter] 65 65 Respiratory Rate 18 18 Blood Pressure Blood Pressure [Le ft Arm] 138/92 H Pulse Oximetry 97 Oxygen Delivery Me thod Room Air DS: Data Data Completed and Pending Completed studies during hospitalization: Procedures Introduction of Other Gas into Respiratory Tract, Via Natural or Artificial Opening (03/26/25) Labs on day of discharge: Labs from last 24 hours 05/23/25 05/22/25 05/22/25 06:07 22:05 14:04 WBC 5.47 RBC 2.73 L Hgb 8.2 L Hct 25.3 L MCV 93 MCH 30 MCHC 32 Plt Count 273 Sodium 141 Potassium 3.8 3.6 Chloride 113 Carbon Dioxide 27 Anion Gap 1 L BUN 6 L Creatinine 1.0 Estimated Creat Clear 57.87 Estimated GFR 67 Glucose 87 Calcium 8.7 Magnesium 2.0 Total Bilirubin 0.4 Direct Bilirubin AST 34 ALT 25 Alkaline Phosphatase 106 Total Protein 6.6 Albumin 3.2 L Lab Acknowledgement Test Added 05/22/25 14:01 WBC RBC Hgb Hct MCV MCH MCHC Plt Count Sodium Potassium 2.5 L* Chloride Carbon Dioxide Anion Gap BUN Creatinine Estimated Creat Clear Estimated GFR Glucose Calcium Magnesium Total Bilirubin 0.3 Direct Bilirubin 0.2 AST 30 ALT 28 Alkaline Phosphatase 97 Total Protein 6.6 Albumin 3.2 L Lab Acknowledgement Discharge Plan Discharge Disposition: Home, Self-Care Date of Admission: 05/22/25 09:06 Attending Provider on Discharge: Whit Brown Primary Care Provider: Sharmin Covington Condition: Improved Anticipated Discharge Date/Time: 05/23/25 09:04 Discharge Medications: Continued prednisone 1 mg tablet 2 mg PO DAILY venlafaxine 37.5 mg capsule,extended release 24hr 37.5 mg PO DAILY brimonidine 0.15 % drops 1 drp ophthalmic (eye) BID Patient Comments: left eye dorzolamide-timolol 22.3-6.8 mg/mL drops 1 drp ophthalmic (eye) Q12H Rx Instructions: left eye acetaminophen 500 mg capsule 500 mg PO Q6H PRN potassium chloride 20 mEq tablet extended release 40 meq PO TID Qty: 270 0RF latanoprost 0.005 % drops 1 drp ophthalmic (eye-left) QPM prednisolone acetate 1 % drops,suspension 1 drp ophthalmic (eye-right) DAILY rosuvastatin 10 mg tablet 10 mg PO DAILY cyclosporine [Restasis] 0.05 % dropperette 1 drp ophthalmic (eye) Q12H PRN Patient Comments: both eyes, as needed ondansetron 4 mg tablet,disintegrating 4 mg PO Q8H PRN itraconazole 100 mg capsule 200 mg PO BID Held mycophenolate mofetil 500 mg tablet 1,000 mg PO QAM Hold Instructions: continue to hold mycophenolate mofetil 500 mg tablet 1,500 mg PO HS Hold Instructions: continue to hold Humira(CF) Pen 40 mg/0.4 mL pen injector kit 40 mg subcut Q7D Hold Instructions: continue to hold Discontinued potassium chloride [Klor-Con] 20 mEq packet 40 meq PO TID Qty: 180 0RF Discharge Orders: Discharge Order (Routine); Ordered 05/23/25 Ordered By: Whit Brown Additional Instructions: I have left your potassium dosing the same, but this is how I would take it going forward: Continue taking ONE Potassium tablet (20meq) thrice daily until your next blood draw. You should have your potassium rechecked Wednesday. This is how I would manage your results (unless you hear differently from Dr. Bolanos: - If your Potassium is between 3.5-4.3, stay on that dose (1 tablet 3x/day) - If your Potassium is less than 3.5, increase to TWO tablets 3x/day - If your potassium is > 4.5, HOLD potassium until next blood draw Consider getting some Magnesium to take at night as well (Magnesium CITRATE or CHLORIDE are best - both [employer] and [employer] have a chewable Magnesium Citrate available). Activity Level: Activity as Tolerated Discharge Diet: Regular Follow Up Appointments: Sharmin Covington MD [Primary Care Provider, Family Practice] Referral Note: 7-10 days Forms: Patient Belongings, MyHealth Info Instructions
[2025-05-23 09:42] VITALS: BMI 23.7
--- NOTE | 2025-05-23 11:25 | PC.NURSE ---
Discharge. pt has been very pleasant. no pain. she is alert x4. tele show SA, SL is patent. no nausea. she is up ab sima. potassium was better, she wanted to go home. she is eating, drinking and voiding with no problems. went over discharge packet with pt and family. went over medications appointments, instructions and education. SL was d/c intact. she went over her personal belonging sheet. and signed it. she got a w/c ride out.
== END 2025-05-23 11:15 | disposition home or self-care (01) | DRG 640 ==
LOC: ED 09:06 → MEDSURG 05-23 09:05
PROVIDERS: Family Medicine; Admitting Provider Student in an Organized Health Care Education/Training Program; Emergency Provider Family Medicine; PCP Family Medicine; Visit Provider Family Medicine
DX: E87.6 Hypokalemia (principal); T37.8X5A Adverse effect of other specified systemic anti-infectives and antiparasitics, initial encounter; J16.8 Pneumonia due to other specified infectious organisms; B49 Unspecified mycosis; D84.9 Immunodeficiency, unspecified; R00.1 Bradycardia, unspecified; M06.9 Rheumatoid arthritis, unspecified; Z79.620 Long term (current) use of immunosuppressive biologic
CPT/HCPCS: 36415; 80048; 80053; 80076; 83735; 84132; 85027; 93005; 99284; 99285; A9270; J1650; J3480; J7030